=== PATIENT | female | born 1945 | race Asian ===

== ENCOUNTER → 2016-04-27 | Outpatient (CLI) | payer OTHER ==
[~2016-04-27] MED LIST: ACET325T96 PO; ACTUDL10 GT; ALBU18002 INH; ALBUAER INH; AMLO-110 PEG; AMOX500T PO; APRE1TAB3 PO; ARTISOL12 OPB; BETA0.053 EXT; BISA1TAB15 PO; CALC-250 PO; CLOB-65 EXT; COCO1OIL2 TD; DIVA1CAP PO; DIVA500T5 PO; DOCU1TAB6 PO; ELDCR/30 TOP; EMOLOIN3 TOP; ERYOPO OPB; FAMO1TAB71 PEG; FOLI1TAB7 PO; GLC/500 PEG; GLC500 PO; GUAI1TAB69 PO; GUAI1TAB75 PO; HYDR-3124 PEG; HYDR-3785 PO; HYDR-389 PO; HYDR2.5O TOP; HYDROXYZINE PO; IBUP200T80 PEG; IPRASOL4 INH; LORA-741 PEG; MENTOIN TOP; MICO2CRE48 TOP; MICO2CRE63 EXT; NYSS/ PO; NYSTCRE11 TOP; ORVANCOMY1 IV; PIME1CRE9 TD; POLY335025 PO; PRD10 PO; PRLSR20 PO; PROAIR HFA 90MCG INH; RISP1TAB18 PEG; RISP3TAB12 PO; SENN8.6T36 PEG; SYMIN160 INH; TRAM-10 PO; TRIA0.1O12 EXT; TRIH2TAB2 PEG; TRMCR130WC TOP; ULT50X PO; VALP250S16 PEG; VANC500I IV; VITA400C3 PO; VTMD PO; ZINC1PST TOP; [UNRECOGNIZED DRUG - CODE] PO; [UNRECOGNIZED DRUG - CODE] TOP
[2016-04-27 08:44] LABS: HEMATOCRIT 34.2 % (37-47); MEAN CELL VOLUME 92.9 fL (80-100); MEAN CORPUSCULAR HEMOGLOBIN 31.8 pg (25-34); MEAN CORPUSCULAR HGB CONC 34.2 g/dl (32-36); MEAN PLATELET VOLUME 9.5 fL (7.4-10.4); PLATELET COUNT 238 K/uL (130-400); RED BLOOD COUNT 3.68 M/uL (4.2-5.4); WHITE BLOOD COUNT 8.46 K/uL (4.8-10.8)
[2016-04-27 08:51] LABS: BLOOD UREA NITROGEN 10 mg/dl (7-18); BUN/CREATININE RATIO 12.5 (10-20); CARBON DIOXIDE 24 mmol/L (21-32); CHLORIDE 104 mmol/L (98-107); CREATININE 0.76 mg/dl (0.60-1.20); GLUCOSE 114 mg/dl (70-99); POTASSIUM 4.2 mmol/L (3.5-5.1); SODIUM 140 mmol/L (136-145)
== END | disposition home or self-care (01) ==
LOC: C.LABSPEC 08:13
PROVIDERS: ATTEND Nurse Practitioner Family
DX: E87.1 Hypo-osmolality and hyponatremia (principal); R05 Cough

== ENCOUNTER → 2016-05-11 | Outpatient (CLI) | payer OTHER ==
[2016-05-11 10:21] LABS: URINE APPEARANCE CLEAR (CLEAR); URINE BILIRUBIN NEG (NEG); URINE COLOR YELLOW; URINE EPITHELIAL CELL AUTO 0-5 /lpf (0-5); URINE NITRITE POS (NEG); URINE PH 7.5 (4.5-7.5); URINE SPECIFIC GRAVITY 1.005 (1.000-1.030); UROBILINOGEN NEG (NEG)
[2016-05-11 10:27] LABS: MANUAL MICROSCOPIC REQUIRED? NO; REVIEW REQ? NO
== END | disposition home or self-care (01) ==
LOC: C.LABSPEC 09:13
PROVIDERS: ATTEND Internal Medicine
DX: R05 Cough (principal)

== ENCOUNTER 2016-05-30 13:59 | Inpatient (IN) | payer OTHER ==
[~2016-05-30] VITALS: Ht 152.4 cm; Wt 58.9 kg
[~2016-05-30 13:59] MED LIST changes: -ACTUDL10 GT; -ALBU18002 INH; -AMOX500T PO; -APRE1TAB3 PO; -ARTISOL12 OPB; -COCO1OIL2 TD; -DIVA1CAP PO; -ELDCR/30 TOP; -ERYOPO OPB; -FAMO1TAB71 PEG; -GLC/500 PEG; -GUAI1TAB69 PO; -GUAI1TAB75 PO; -HYDR-3124 PEG; -HYDR-389 PO; -IBUP200T80 PEG; -MICO2CRE48 TOP; -MICO2CRE63 EXT; -NYSS/ PO; -ORVANCOMY1 IV; -PIME1CRE9 TD; -PRD10 PO; -PROAIR HFA 90MCG INH; -RISP1TAB18 PEG; -SENN8.6T36 PEG; -TRAM-10 PO; -TRMCR130WC TOP; -VALP250S16 PEG; -VANC500I IV; -ZINC1PST TOP; -[UNRECOGNIZED DRUG - CODE] TOP
[2016-05-30] MEDS ORDERED: SODIUM CHLORIDE 0.9% 1000ML 1,000 ML IV STA (14:19)
--- NOTE | 2016-05-30 14:39 | DIAGNOSTIC IMAGING REPORT ---
CHEST ONE VIEW PORTABLE CLINICAL HISTORY: fever COUGH, SHORTNESS OF BREATH COMPARISON STUDY: No previous studies for comparison. FINDINGS: The heart is normal in size. There is no lobar consolidation. There is diffuse elevation of the interstitium. This could reflect mild residual edema or an interstitial inflammatory process. Left basal airspace opacities are felt to be atelectatic.[ IMPRESSION: 1. Mild interstitial thickening/edema 2. No evidence of lobar consolidation 3. Left basilar opacities, likely atelectatic Electronically signed by: Torito De La Cruz M.D. 05/30/2016 2:38 PM Dictated Date/Time: 05/30/2016 2:34 PM
[2016-05-30 14:40] LABS: MANUAL MICROSCOPIC REQUIRED? NO; REVIEW REQ? NO; URINE APPEARANCE CLEAR (CLEAR); URINE BILIRUBIN NEG (NEG); URINE COLOR YELLOW; URINE NITRITE NEG (NEG); URINE PH 6.5 (4.5-7.5); URINE SPECIFIC GRAVITY 1.018 (1.000-1.030); UROBILINOGEN NEG (NEG); ZZURINE CULT IF INDIC CATH NO
[2016-05-30 15:04] LABS: BASO % 0.2 %; BASO ABS # 0.03 K/uL (0-0.2); COMPLETE YES; EOS % 1.2 %; HEMATOCRIT 34.4 % (37-47); IG% 0.7 %; LYMPH % 24.3 %; LYMPH ABS # 3.31 K/uL (1.2-3.4); MEAN CELL VOLUME 94.5 fL (80-100); MEAN CORPUSCULAR HEMOGLOBIN 32.1 pg (25-34); MEAN PLATELET VOLUME 8.7 fL (7.4-10.4); MONO % 17.1 %; NEUT % 56.5 %; PLATELET COUNT 212 K/uL (130-400); RED BLOOD COUNT 3.64 M/uL (4.2-5.4); WHITE BLOOD COUNT 13.63 K/uL (4.8-10.8)
[2016-05-30] MEDS ORDERED: [UNRECOGNIZED DRUG - CODE] TOP (15:13)
[2016-05-30] MEDS ORDERED: ZINC1PST TOP (15:13)
[2016-05-30] MEDS ORDERED: APRE1TAB3 PO (15:13)
[2016-05-30] MEDS ORDERED: GUAI1TAB69 PO (15:13)
[2016-05-30] MEDS ORDERED: AMOX500T PO (15:13)
[2016-05-30] MEDS ORDERED: TRAM-10 PO (15:13)
[2016-05-30] MEDS ORDERED: COCO1OIL2 TD (15:13)
[2016-05-30] MEDS ORDERED: ELDCR/30 TOP (15:13)
[2016-05-30 15:23] LABS: ALT/SGPT 10 U/L (12-78); AST/SGOT 6 U/L (15-37); BLOOD UREA NITROGEN 5 mg/dl (7-18); BUN/CREATININE RATIO 6.3 (10-20); CALCIUM 8.3 mg/dl (8.5-10.1); CARBON DIOXIDE 26 mmol/L (21-32); CHLORIDE 104 mmol/L (98-107); CREATININE 0.75 mg/dl (0.60-1.20); GLUCOSE 106 mg/dl (70-99); MAGNESIUM 1.7 mg/dl (1.8-2.4); POTASSIUM 3.7 mmol/L (3.5-5.1); SODIUM 138 mmol/L (136-145)
[2016-05-30 15:29] LABS: ALKALINE PHOSPHATASE 53 U/L (45-117)
[2016-05-30] MEDS ORDERED: LORAZEPAM 2 MG/ML 1 ML VIAL IV STA (15:29)
[2016-05-30] MEDS ORDERED: VANCOMYCIN INJ 1,200 MG in SODIUM CHLORIDE 0.9% 250ML 250 ML IV STA (15:31)
[2016-05-30] MEDS ORDERED: PIPERACILLIN/TAZOBACTAM 4.5 GM/100ML D5W IV STA (15:31)
[2016-05-30] MEDS ORDERED: ONDANSETRON INJ 2 MG/ML 2 ML VIAL IV PRN (16:15)
[2016-05-30] MEDS ORDERED: ACETAMINOPHEN 325 MG TAB PO PRN (16:15)
[2016-05-30] MEDS ORDERED: IPRASOL4 INH (16:39)
[2016-05-30] MEDS ORDERED: D5W AND NSS 1,000 ML IV SCH (17:00)
[2016-05-30 17:22] LABS: ALLEN TEST POS (POS); ARTERIAL BLD GAS O2 SATURATION 98.6 % (90-95); ARTERIAL BLOOD GAS BASE EXCESS 3.8 mEq/L (-9-1.8); ARTERIAL BLOOD GAS HCO3 29 mmol/L (19-24); ARTERIAL BLOOD GAS PO2 129 mm/Hg (80-95); ARTERIAL BLOOD GAS pH 7.43 (7.35-7.45); O2 ADMINISTRATION 4 L
[2016-05-30 17:26] LABS: INFLUENZA A PCR Neg for Influ A (NEG); INFLUENZA B PCR Neg for Influ B (NEG)
[2016-05-30 17:39] VITALS: BP 126/92; PULSE 108; O2SAT 96
--- NOTE | 2016-05-30 17:39 | EMERGENCY ROOM VISIT NOTE ---
"History Report prepared by Damion: Jenn Mata Under the Supervision of: Dr. Leroy Wilks M.D. First contact with patient: 14:13 Chief Complaint: FEVER Stated Complaint: FEVER/SOB/COUGH History of Present Illness The patient is a 70 year old female who presents to the Emergency Room from [facility] with complaints of persistent weakness starting last night. She has also been lethargic. The patient was hypoxic upon arrival and her O2 was at 90 percent. She received 700 cc of fluid. She has a history of COPD and uses nebulizer and an inhaler. She does not use oxygen at home. The patient recently had a UTI which was treated with Bactrim. HPI is limited secondary to altered mental status. Additional history was obtained from [facility] clearance representative. Source of History: other (from [facility] clearance representative) History Limited By: AMS Onset: last night Position: other (global) Quality: other (weakness) Review of Systems ROS is limited secondary to altered mental status. Past Medical & Surgical Medical Problems: (1) COPD (chronic obstructive pulmonary disease) (2) Dementia (3) Diabetes mellitus (4) HTN (hypertension) (5) Hyperglycemia (6) Osteoporosis (7) Parkinson disease (8) Psoriatic arthritis (9) PTSD (post-traumatic stress disorder) (10) Schizophrenia (11) Vitamin D deficiency Surgical Problems: (1) History of hysterectomy (2) Hx of breast implants, bilateral Family History Patient reports no known family medical history. Social History Smoking Status: Never Smoker Alcohol Use: none Drug Use: none Marital Status: single Housing Status: lives with family Occupation Status: unemployed Current/Historical Medications Scheduled Amlodipine (Norvasc), 5 MG PO DAILY Amoxicillin & Pot Clavulanate (Augmentin 500MG), 500 MG PO BID Apremilast (Otezla), 30 MG PO BID Budesonide/Formoterol Fumarate (Symbicort 160/4.5 Inhaler ), 2 PUFFS INH BID Calcium Carbonate (Antacid) (Qc Antacid Extra Strength), 1 TAB PO BID Coconut Oil (Bulk) (Coconut Oil), Unknown Dose TOP DAILY Control Gel Formula Dressing (Duoderm Cgf), Unknown Dose TOP [id number] Divalproex Sodium (Depakote Delay Rel), 500 MG PO BID Ergocalciferol (Vitamin D), 50,000 UNITS PO WK Folic Acid (Folvite), 1 MG PO DAILY Guaifenesin (Mucinex Maximum Strength), 600 MG PO BID Ipratropium-Albuterol (Duoneb), 1 TREATMENT INH QID Menthol-Zinc Oxide (Calmoseptine), Unknown Dose TOP BID Metformin HCl (Metformin HCl), 1 TAB PO BID Omeprazole (Prilosec), 20 MG PO DAILY Risperidone (Risperdal), 3 MG PO BID Trihexyphenidyl Hcl (Artane), 2 MG PO BID Vitamin E (Vitamin E 400 Iu), 800 INTER.UNIT PO DAILY Scheduled PRN Acetaminophen Tab (Tylenol), 2 TAB PO Q6 PRN for Pain or Fever Albuterol (Proventil Hfa), 2 PUFFS INH Q4 PRN for SOB/Wheezing Betamethasone Dipropionate (To (Betamethasone Dipropionat), 1 APPLN EXT HS PRN for skin irritation Docusate Sodium (Docusate Sodium), 1 TAB PO DAILY PRN for Constipation Hydrocortisone (Topical) (Hydrocortisone), 1 APPLN TOP BID PRN for skin irritation Hydroxyzine Hcl (Atarax), 5 MG PO Q6 PRN for Itching Lactase (Lac-Dose), 1 TAB PO BID PRN for GI Upset Lorazepam (Ativan), 0.5 MG PO Q6H PRN for Anxiety/Agitation Nystatin/Triamcinolone (Mycolog ||), 1 APPLN TOP BID PRN for skin irritation Pimecrolimus (Elidel), 1 APPLN TOP BID PRN for skin irritation Polyethylene Glycol 3350 (Miralax), 17 GM PO DAILY PRN for Constipation Tramadol (Ultram), 50 MG PO Q6H PRN for Pain Triamcinolone Acet (Kenelog 0.1% ), 1 APPLN EXT HS PRN for Itching Zinc Oxide (Topical) (Desitin Maximum Strength), 1 APPLN TOP UD PRN for excoriation Allergies Coded Allergies: Nitrofurantoin (Verified Allergy, Intermediate, INCREASED SKIN REACTION, ITCHING, CHEST PAIN, WHEEZING, 05/30/16) Rifampin (Verified Adverse Reaction, Severe, RASH, 05/30/16) as per chris and foster care therapist, pt was in [facility] in 2013 for diffuse rash with skin peeling due to rifampin, was admitted in [facility] [place] Diphenhydramine (Verified Adverse Reaction, Intermediate, ADVERSE REACTION WITH PSYCH MEDS, 05/30/16) Physical Exam Vital Signs Date Time Temp Pulse Resp B/P Pulse Ox O2 Delivery O2 Flow Rate FiO2 05/30/16 15:52 102 22 131/79 100 Nasal Cannula 4.0 05/30/16 14:13 93 Nasal Cannula 4.0 05/30/16 14:12 94 05/30/16 14:05 37.0 94 22 131/79 86 Room Air Physical Exam GENERAL: Patient is ill appearing, somnolent, periodically looking around the room, mild distress HEENT: No acute trauma, normocephalic atraumatic, mucous membranes moist, no nasal congestion, no scleral icterus. NECK: No stridor, no adenopathy, no meningismus, trachea is midline. LUNGS: Rhonchi in all lung huggins. HEART: Regular rate and rhythm. No murmurs, rubs, gallops appreciated. ABDOMEN: Soft, nontender, bowel sounds positive, no masses appreciated, no peritonitis. BACK: No midline tenderness, no CVA tenderness EXTREMITIES: Normal motion all extremities, no cyanosis, no edema. NEUROLOGIC: Somnolent, periodically says yes or no, weakly moves all extremities No acute motor or sensory deficits, no focal weakness, cranial nerves grossly intact. SKIN: No rash, no jaundice, no diaphoresis. Medical Decision & Procedures ER Provider Diagnostic Interpretation: X ray results are stated below per my interpretation and the radiologist's interpretation. CHEST ONE VIEW PORTABLE CLINICAL HISTORY: fever COUGH, SHORTNESS OF BREATH COMPARISON STUDY: No previous studies for comparison. FINDINGS: The heart is normal in size. There is no lobar consolidation. There is diffuse elevation of the interstitium. This could reflect mild residual edema or an interstitial inflammatory process. Left basal airspace opacities are felt to be atelectatic.[ IMPRESSION: 1. Mild interstitial thickening/edema 2. No evidence of lobar consolidation 3. Left basilar opacities, likely atelectatic Electronically signed by: Torito De La Cruz M.D. 05/30/2016 2:38 PM Dictated Date/Time: 05/30/2016 2:34 PM Laboratory Results 05/30/16 14:52 Red Blood Count 3.64, Mean Corpuscular Volume 94.5, Mean Corpuscular Hemoglobin 32.1, Mean Corpuscular Hemoglobin Concent 34.0, Mean Platelet Volume 8.7, Neutrophils (%) (Auto) 56.5, Lymphocytes (%) (Auto) 24.3, Monocytes (%) (Auto) 17.1, Eosinophils (%) (Auto) 1.2, Basophils (%) (Auto) 0.2, Neutrophils # (Auto ) 7.71, Lymphocytes # (Auto) 3.31, Monocytes # (Auto) 2.33, Eosinophils # (Auto ) 0.16, Basophils # (Auto) 0.03 05/30/16 14:52 Test 05/30/16 14:26 05/30/16 14:52 05/30/16 14:54 05/30/16 15:18 Urine Color YELLOW Urine Appearance CLEAR (CLEAR) Urine pH 6.5 (4.5-7.5) Urine Specific [place] 1.018 (1.000-1.030) Urine Protein NEG (NEG) Urine Glucose (UA) NEG (NEG) Urine Ketones TRACE (NEG) Urine Occult Blood NEG (NEG) Urine Nitrite NEG (NEG) Urine Bilirubin NEG (NEG) Urine Urobilinogen NEG (NEG) Urine Leukocyte Esterase SMALL (NEG) Urine WBC (Auto) 5-10 /hpf (0-5) Urine RBC (Auto) 0-4 /hpf (0-4) Urine Hyaline Casts (Auto) 1-5 /lpf (0-5) Urine Epithelial Cells (Auto) 10-20 /lpf (0-5) Urine Bacteria (Auto) NEG (NEG) White Blood Count 13.63 K/uL (4.8-10.8) Red Blood Count 3.64 M/uL (4.2-5.4) Hemoglobin 11.7 g/dL (12.0-16.0) Hematocrit 34.4 % (37-47) Mean Corpuscular Volume 94.5 fL (80-100) Mean Corpuscular Hemoglobin 32.1 pg (25-34) Mean Corpuscular Hemoglobin Concent 34.0 g/dl (32-36) Platelet Count 212 K/uL (130-400) Mean Platelet Volume 8.7 fL (7.4-10.4) Neutrophils (%) (Auto) 56.5 % Lymphocytes (%) (Auto) 24.3 % Monocytes (%) (Auto) 17.1 % Eosinophils (%) (Auto) 1.2 % Basophils (%) (Auto) 0.2 % Neutrophils # (Auto) 7.71 K/uL (1.4-6.5) Lymphocytes # (Auto) 3.31 K/uL (1.2-3.4) Monocytes # (Auto) 2.33 K/uL (0.11-0.59) Eosinophils # (Auto) 0.16 K/uL (0-0.5) Basophils # (Auto) 0.03 K/uL (0-0.2) RDW Standard Deviation 42.8 fL (36.4-46.3) RDW Coefficient of Variation 12.5 % (11.5-14.5) Immature Granulocyte % (Auto) 0.7 % Immature Granulocyte # (Auto) 0.09 K/uL (0.00-0.02) Prothrombin Time 11.0 SECONDS (9.0-12.0) Prothromb Time International Ratio 1.0 (0.9-1.1) Anion Gap 8.0 mmol/L (3-11) Est Creatinine Clear Calc Drug Dose 58.8 ml/min Estimated GFR () 94.9 Estimated GFR (Non- 81.9 BUN/Creatinine Ratio 6.3 (10-20) Calcium Level 8.3 mg/dl (8.5-10.1) Magnesium Level 1.7 mg/dl (1.8-2.4) Total Bilirubin 0.3 mg/dl (0.2-1) Direct Bilirubin < 0.1 mg/dl (0-0.2) Aspartate Amino Transf (AST/SGOT) 6 U/L (15-37) Alanine Aminotransferase (ALT/SGPT) 10 U/L (12-78) Alkaline Phosphatase 53 U/L (45-117) Total Creatine Kinase 62 U/L (26-192) Creatine Kinase MB < 0.5 ng/ml (0.5-3.6) Creatine Kinase MB Ratio (0-3.0) Troponin I < 0.015 ng/ml (0-0.045) Total Protein 7.0 gm/dl (6.4-8.2) Albumin 2.9 gm/dl (3.4-5.0) Bedside Lactic Acid Venous 0.94 mmol/L (0.90-1.70) Influenza Type A (RT-PCR) Neg for Influ A (NEG) Influenza Type A Antigen Neg for Influ A (NEG) Influenza Type B Antigen Neg for Influ B (NEG) Influenza Type B (RT-PCR) Neg for Influ B (NEG) Laboratory results as reviewed by me. Medications Administered Medications (Trade) Dose Ordered Sig/Abelardo Route Start Time Stop Time Status Last Admin Dose Admin Sodium Chloride (Nss 1000ml) 1,000 ml @ 75 mls/hr [id number] STAT IV 05/30/16 14:19 05/31/16 03:38 05/30/16 14:19 75 MLS/HR Lorazepam (Ativan Inj) 1 mg NOW STAT IV 05/30/16 15:29 05/30/16 15:30 DC 05/30/16 15:43 1 MG Piperacillin Sod/ Tazobactam Sod 4.5 gm 4.5 gm NOW STAT IV 05/30/16 15:31 05/30/16 15:33 DC 05/30/16 15:50 4.5 GM Vancomycin HCl/ Sodium Chloride (Vancomycin Inj/ Nss 250ml) 274 ml @ 125 mls/hr NOW STAT IV 05/30/16 15:31 05/30/16 17:42 05/30/16 16:34 125 MLS/HR ECG Indication: weakness Rate (beats per minute): 93 Rhythm: sinus rhythm Findings: no acute ischemic change, no ectopy ED Course 1413: The patient was evaluated in room C10. A complete history and physical exam was performed. 1419: Sodium Chloride 1000 ml @ 75 mls/hr IV 1528: Awake, swearing at staff, threatening to kill people. Removes oxygen and desaturates immediately. 1529: Ativan Inj 1 mg IV 1531: Vancomycin HCl 1200 mg/Sodium Chloride 274 ml @ 125 mls/hr IV, Zosyn IV 4.5 gm IV 1533: Upon reevaluation, the patient is resting comfortably. I discussed the patient's case with THERESA Arshad with [facility]. The patient will be evaluated for further management. Medical Decision Differential: Viral, Pharyngitis, Cellulitis, Pneumonia, Influenza, Meningitis, Sepsis, Bacteremia, UTI/Pyelonephritis, Endocrine, Toxicologic, amongst other pathologies entertained. 70 yr old female arrives from assisted living area for evaluation of hypoxia, fever and hypotension. Fluid [employer] with improvement in BP. Hypoxia improved with NC. She does not have fever at this time. Lactic acid not significantly elevated though mild WBC elevation. With reported fevers, hypoxia and mild WBC elevation will treat with abx as presumed lung source. Flu negative. She is much more awake after some fluids and even trying to bite people, though when NC off she goes hypoxic. She was given ativan to help calm down. Will need to bring in for further evaluation and treatment. Consults Time Called: [phone] Consulting Physician: THERESA Arshad with [facility] Returned Call: [phone] I discussed the patient's case with THERESA Arshad with [facility]. Impression Primary Impression: Altered mental status Additional Impressions: Hypoxia Pulmonary edema Aggressive behavior Scribe Attestation The scribe's documentation has been prepared under my direction and personally reviewed by me in its entirety. I confirm that the note above accurately reflects all work, treatment, procedures, and medical decision making performed by me. Departure Information Dispostion Being Evaluated By Hospitalist Prescriptions Ipratropium-Albuterol (DUONEB) 3 Ml Nebu 1 TREATMENT INH QID for 30 Days, INHA Prov: Adina Gamez .THERESA 05/30/16 Referrals [facility] (PC[facility] Patient Instructions My [facility] Health Problem Qualifiers Primary Impression: Altered mental status Altered mental status type: disorientation Qualified Codes: R41.0 - Disorientation, unspecified Additional Impressions: Pulmonary edema Chronicity: acute Qualified Codes: J81.0 - Acute pulmonary edema"
[2016-05-30 17:46] VITALS: BP 126/92; PULSE 108; TEMP 37; O2SAT 94; Ht 152.4 cm; Wt 58.9 kg
[2016-05-30] MEDS ORDERED: DOCUSATE SODIUM 100 MG CAP PO PRN (18:00)
[2016-05-30] MEDS ORDERED: PHARMACY GLYCEMIC MGMT CONSULT PRN (18:03)
--- NOTE | 2016-05-30 18:07 | History and Physical ---
"History & Physical Date & Time of Service: May 30, 2016 at 17:35 Chief Complaint: Hypoxia, Fever Primary Care Physician: [facility] History of Present Illness 70 year old female who was sent to the ER by the staff at [facility] for evaluation of fever and hypoxia. Upon arrival to the ER, patient was very agitated and combative. She received IV Ativan and is now currently sedated. Also of note, patient speaks Frisian. She understands Luxembourgish if it is spoken loud and slow. She speaks minimal Luxembourgish. History was obtained from staff at [facility]. They report that patient was treated for a UTI about 3 weeks ago. They are unsure which antibiotic she was on. About two days she developed congestion and cough and was started on Augmentin. They also note increasing weakness and lethargy. Today patient had a temperature of 99.9 and was 90% on room air. No reports of nausea, vomiting, or diarrhea. No further urinary symptoms. In the ER, patient was 86% on room air. This improved with 4L oxygen via NC. She is mildly tachycardic. She is afebrile, BP is stable. Lactic acid 0.94, WBC 13K. No clear infiltrate noted on CXR. She was given IVF, Vanco, and Zosyn. Past Medical/Surgical History Medical Problems: (1) COPD (chronic obstructive pulmonary disease) Status: Chronic (2) Dementia Status: Chronic (3) Diabetes mellitus Status: Chronic (4) HTN (hypertension) Status: Chronic (5) Hyperglycemia Status: Chronic (6) Osteoporosis Status: Chronic (7) Parkinson disease Status: Chronic (8) Psoriatic arthritis Status: Chronic (9) PTSD (post-traumatic stress disorder) Status: Chronic (10) Schizophrenia Status: Chronic (11) Vitamin D deficiency Status: Chronic Surgical Problems: (1) History of hysterectomy Status: Resolved (2) Hx of breast implants, bilateral Status: Resolved Family History unobtainable from patient due to mental status Social History Smoking Status: Former Smoker Alcohol Use: none Housing status: assisted living Allergies Coded Allergies: Nitrofurantoin (Verified Allergy, Intermediate, INCREASED SKIN REACTION, ITCHING, CHEST PAIN, WHEEZING, 05/30/16) Rifampin (Verified Adverse Reaction, Severe, RASH, 05/30/16) as per chris and patient care coordinator, pt was in [facility] in 2013 for diffuse rash with skin peeling due to rifampin, was admitted in [facility] Diphenhydramine (Verified Adverse Reaction, Intermediate, ADVERSE REACTION WITH PSYCH MEDS, 05/30/16) Home Medications Scheduled Amlodipine (Norvasc), 5 MG PO DAILY Amoxicillin & Pot Clavulanate (Augmentin 500MG), 500 MG PO BID Apremilast (Otezla), 30 MG PO BID Budesonide/Formoterol Fumarate (Symbicort 160/4.5 Inhaler ), 2 PUFFS INH BID Calcium Carbonate (Antacid) (Qc Antacid Extra Strength), 1 TAB PO BID Coconut Oil (Bulk) (Coconut Oil), Unknown Dose TOP DAILY Control Gel Formula Dressing (Duoderm Cgf), Unknown Dose TOP [id number] Divalproex Sodium (Depakote Delay Rel), 500 MG PO BID Ergocalciferol (Vitamin D), 50,000 UNITS PO WK Folic Acid (Folvite), 1 MG PO DAILY Guaifenesin (Mucinex Maximum Strength), 600 MG PO BID Ipratropium-Albuterol (Duoneb), 1 TREATMENT INH QID Menthol-Zinc Oxide (Calmoseptine), Unknown Dose TOP BID Metformin HCl (Metformin HCl), 1 TAB PO BID Omeprazole (Prilosec), 20 MG PO DAILY Risperidone (Risperdal), 3 MG PO BID Trihexyphenidyl Hcl (Artane), 2 MG PO BID Vitamin E (Vitamin E 400 Iu), 800 INTER.UNIT PO DAILY Scheduled PRN Acetaminophen Tab (Tylenol), 2 TAB PO Q6 PRN for Pain or Fever Albuterol (Proventil Hfa), 2 PUFFS INH Q4 PRN for SOB/Wheezing Betamethasone Dipropionate (To (Betamethasone Dipropionat), 1 APPLN EXT HS PRN for skin irritation Docusate Sodium (Docusate Sodium), 1 TAB PO DAILY PRN for Constipation Hydrocortisone (Topical) (Hydrocortisone), 1 APPLN TOP BID PRN for skin irritation Hydroxyzine Hcl (Atarax), 5 MG PO Q6 PRN for Itching Lactase (Lac-Dose), 1 TAB PO BID PRN for GI Upset Lorazepam (Ativan), 0.5 MG PO Q6H PRN for Anxiety/Agitation Nystatin/Triamcinolone (Mycolog ||), 1 APPLN TOP BID PRN for skin irritation Pimecrolimus (Elidel), 1 APPLN TOP BID PRN for skin irritation Polyethylene Glycol 3350 (Miralax), 17 GM PO DAILY PRN for Constipation Tramadol (Ultram), 50 MG PO Q6H PRN for Pain Triamcinolone Acet (Kenelog 0.1% ), 1 APPLN EXT HS PRN for Itching Zinc Oxide (Topical) (Desitin Maximum Strength), 1 APPLN TOP UD PRN for excoriation Review of Systems unobtainable due to patient's mental status Physical Exam Vital Signs Date Time Temp Pulse Resp B/P Pulse Ox O2 Delivery O2 Flow Rate FiO2 05/30/16 17:21 74 20 122/74 96 05/30/16 16:34 106 20 121/69 97 Nasal Cannula 4.0 05/30/16 15:52 102 22 131/79 100 Nasal Cannula 4.0 05/30/16 14:13 93 Nasal Cannula 4.0 05/30/16 14:12 94 05/30/16 14:05 37.0 94 22 131/79 86 Room Air General Appearance: no apparent distress Head: normocephalic Eyes: normal inspection ENT: hearing grossly normal, + pertinent finding (dry mucous membranes) Neck: supple, no JVD Respiratory/Chest: no respiratory distress, + decreased breath sounds, + crackles (right base) Cardiovascular: no edema, + tachycardia (HR in the 90s-low 100s, regular rhythm ) Abdomen/GI: normal bowel sounds, non tender, soft Extremities/Musculoskelatal: normal inspection, no calf tenderness Neurologic/Psych: + pertinent finding (awake, however minimal interaction, does not follow commands) Skin: normal color, warm/dry Diagnostics Laboratory Results Results Past 24 Hours Test 05/30/16 14:26 05/30/16 14:52 05/30/16 14:54 05/30/16 15:18 Range/Units Urine Color YELLOW Urine Appearance CLEAR CLEAR Urine pH 6.5 4.5-7.5 Urine Specific [place] 1.018 1.000-1.030 Urine Protein NEG NEG Urine Glucose (UA) NEG NEG Urine Ketones TRACE NEG Urine Occult Blood NEG NEG Urine Nitrite NEG NEG Urine Bilirubin NEG NEG Urine Urobilinogen NEG NEG Urine Leukocyte Esterase SMALL NEG Urine WBC (Auto) 5-10 0-5 /hpf Urine RBC (Auto) 0-4 0-4 /hpf Urine Hyaline Casts (Auto) 1-5 0-5 /lpf Urine Epithelial Cells (Auto) 10-20 0-5 /lpf Urine Bacteria (Auto) NEG NEG White Blood Count 13.63 4.8-10.8 K/uL Red Blood Count 3.64 4.2-5.4 M/uL Hemoglobin 11.7 12.0-16.0 g/dL Hematocrit 34.4 37-47 % Mean Corpuscular Volume 94.5 80-100 fL Mean Corpuscular Hemoglobin 32.1 25-34 pg Mean Corpuscular Hemoglobin Concent 34.0 32-36 g/dl Platelet Count 212 130-400 K/uL Mean Platelet Volume 8.7 7.4-10.4 fL Neutrophils (%) (Auto) 56.5 % Lymphocytes (%) (Auto) 24.3 % Monocytes (%) (Auto) 17.1 % Eosinophils (%) (Auto) 1.2 % Basophils (%) (Auto) 0.2 % Neutrophils # (Auto) 7.71 1.4-6.5 K/uL Lymphocytes # (Auto) 3.31 1.2-3.4 K/uL Monocytes # (Auto) 2.33 0.11-0.59 K/uL Eosinophils # (Auto) 0.16 0-0.5 K/uL Basophils # (Auto) 0.03 0-0.2 K/uL RDW Standard Deviation 42.8 36.4-46.3 fL RDW Coefficient of Variation 12.5 11.5-14.5 % Immature Granulocyte % (Auto) 0.7 % Immature Granulocyte # (Auto) 0.09 0.00-0.02 K/uL Prothrombin Time 11.0 9.0-12.0 SECONDS Prothromb Time International Ratio 1.0 0.9-1.1 Sodium Level 138 136-145 mmol/L Potassium Level 3.7 3.5-5.1 mmol/L Chloride Level 104 98-107 mmol/L Carbon Dioxide Level 26 21-32 mmol/L Anion Gap 8.0 3-11 mmol/L Blood Urea Nitrogen 5 7-18 mg/dl Creatinine 0.75 0.60-1.20 mg/dl Est Creatinine Clear Calc Drug Dose 58.8 ml/min Estimated GFR () 94.9 Estimated GFR (Non- 81.9 BUN/Creatinine Ratio 6.3 10-20 Random Glucose 106 70-99 mg/dl Calcium Level 8.3 8.5-10.1 mg/dl Magnesium Level 1.7 1.8-2.4 mg/dl Total Bilirubin 0.3 0.2-1 mg/dl Direct Bilirubin < 0.1 0-0.2 mg/dl Aspartate Amino Transf (AST/SGOT) 6 15-37 U/L Alanine Aminotransferase (ALT/SGPT) 10 12-78 U/L Alkaline Phosphatase 53 45-117 U/L Total Creatine Kinase 62 26-192 U/L Creatine Kinase MB < 0.5 0.5-3.6 ng/ml Creatine Kinase MB Ratio 0-3.0 Troponin I < 0.015 0-0.045 ng/ml Total Protein 7.0 6.4-8.2 gm/dl Albumin 2.9 3.4-5.0 gm/dl Bedside Lactic Acid Venous 0.94 0.90-1.70 mmol/L Influenza Type A (RT-PCR) Neg for Influ A NEG Influenza Type A Antigen Neg for Influ A NEG Influenza Type B Antigen Neg for Influ B NEG Influenza Type B (RT-PCR) Neg for Influ B NEG Test 05/30/16 17:09 05/30/16 17:32 Range/Units Arterial Blood pH 7.43 7.35-7.45 Arterial Blood Partial Pressure CO2 44 35-46 mmHg Arterial Blood Partial Pressure O2 129 80-95 mm/Hg Arterial Blood HCO3 29 19-24 mmol/L Arterial Blood Oxygen Saturation 98.6 90-95 % Arterial Blood Base Excess 3.8 -9-1.8 mEq/L Arterial Blood Gas Delivery 4 L Yehuda Test POS POS Microbiology Results 05/30/16 Blood Culture, Received Pending 05/30/16 Blood Culture, Received Pending Diagnostic Radiology CXR IMPRESSION: 1. Mild interstitial thickening/edema 2. No evidence of lobar consolidation 3. Left basilar opacities, likely atelectatic Impression Assessment and Plan ACUTE HYPOXIC RESPIRATORY FAILURE, COPD EXACERBATION, URI - admit to tele - patient presenting with 2 days of cough and congestion, reported low grade fever at [facility], and hypoxia - 86% on room air on arrival, saturating well on 4L via NC - possible early sepsis - leukocytosis and tachycardia; lactate WNL, BP stable - CXR does not show any infiltrate - influenza negative - s/p Zosyn and Vanco in ED; will continue with Doxycycline for now - check ABG - blood cultures obtained - around the clock steroids and nebs - could consider PE however history suggests infectious source; if patient does not improve with above treatments, would do CTA METABOLIC ENCEPHALOPATHY, HX SCHIZOPHRENIA - likely due to underlying infection - continue Risperdal and Depakote - check ABG for CO2 retention - urine culture (had positive culture from 05/11 that grew E. coli - was treated per [facility] staff, however antibiotic unknown) HTN - BP controlled, continue amlodipine DM - hgb a1c 8.7 10/2015 - hold oral agents and utilize SSI while hospitalized PARKINSONISM - continue trihexyphenidyl PSORIATIC ARTHRITIS - will hold Otezla due to current infection DVT PROPHYLAXIS - SQ Lovenox DISPO - In my clinical judgment this beneficiary meets acute admission criteria, established by [facility], that includes being hospitalized through two midnights. - PT/OT consults, expect d/c back to [facility] once medically stable VTE Prophylaxis VTE Risk Assessment Done? Y/N: Yes Risk Level: Moderate Note ATTENDING ADDENDUM Record reviewed. Patient interviewed and examined. Care coordinated with THERESA Arshad. Please refer to her documentation for patient's history. Briefly, 70 YO female with history of schizophrenia, COPD, and other problems. Referred to ED because of cough, wheezing, lethargy. Patient sedated in ED and unable to provide any additional history. EXAM: General- sedated, no acute distress VS- as noted HEENT- anicteric Lungs- scattered rhonchi, diffuse wheezing Heart- RRR Abdomen- + BS, soft, nontender Extremities- no pretibial edema Neuro- sedated DATA: WBC 13,360. Influenza A/B testing by both Ag assay and PCR negative. Other lab studies as noted. CXR- mild interstitial thickening, probable atelectasis left base, no infiltrates. ASSESSMENT AND PLAN: Probably exacerbation of COPD due to tracheobronchitis. Influenza A/B PCR negative. No infiltrates on chest x-ray. Receiving IV vancomycin and piperacillin / tazobactam in ED. Will change Rx to doxycycline. Short course of steroids for bronchospasm. History of schizophrenia. Continue usual meds. Please refer to ADRYAN Gamez's documentation for discussion of other issues. Sandro Addison MD ."
[2016-05-30] MEDS: MAGNESIUM SULFATE 1GM / D5W 1 GM in PREMIXED IN D5W 100 ML IV SCH ×2 (18:57→19:50)
[2016-05-30 18:59] VITALS: PULSE 94; O2SAT 94
[2016-05-30] MEDS: ALBUT/IPRATROP 3MG/0.5MG NEB 3 ML VIAL INH SCH (18:59)
[2016-05-30] MEDS: SODIUM CHLORIDE 0.9% 1000ML 1,000 ML IV SCH (19:03)
[2016-05-30] MEDS: METHYLPREDNISOLONE IV 20 MG in SYRINGE 0 ML IV SCH (19:06)
[2016-05-30 19:29] VITALS: BP 138/82; PULSE 99; TEMP 36.5; O2SAT 93
[2016-05-30] MEDS: INSULIN ASPART 100 UNITS/ML 3 ML PEN SC SCH (19:51)
--- NOTE | 2016-05-30 20:10 | Pharmacy Progress Note ---
Glycemic Control Intl Consult Date of Service May 30, 2016. Scope Glycemic Pharmacist consulted by THERESA Arshad on 05/30/16 for glycemic control and to write orders per [facility] inpatient glycemic control protocol Objective Weight (Kilograms): 61.500 Accuchecks BSG (last 24hrs): Test 05/30/16 14:52 Random Glucose 106 mg/dl (70-99) Laboratory Data (last 24hrs) Test 05/30/16 14:52 Anion Gap 8.0 mmol/L BUN/Creatinine Ratio 6.3 Blood Urea Nitrogen 5 mg/dl Creatinine 0.75 mg/dl Potassium Level 3.7 mmol/L Sodium Level 138 mmol/L White Blood Count 13.63 K/uL Red Blood Count 3.64 M/uL Hemoglobin 11.7 g/dL Hematocrit 34.4 % Mean Corpuscular Volume 94.5 fL Mean Corpuscular Hemoglobin 32.1 pg Mean Corpuscular Hemoglobin Concent 34.0 g/dl Platelet Count 212 K/uL Mean Platelet Volume 8.7 fL Neutrophils (%) (Auto) 56.5 % Lymphocytes (%) (Auto) 24.3 % Monocytes (%) (Auto) 17.1 % Eosinophils (%) (Auto) 1.2 % Basophils (%) (Auto) 0.2 % Neutrophils # (Auto) 7.71 K/uL Lymphocytes # (Auto) 3.31 K/uL Monocytes # (Auto) 2.33 K/uL Eosinophils # (Auto) 0.16 K/uL Basophils # (Auto) 0.03 K/uL HbA1c Test 05/30/16 14:52 Recent Pertinent Medications Outpatient Anti-diabetic Regimen: * Metformin 500 mg PO BIDM * A1c = 8.7 % 10/2015 Risk Factors for Insulin Resistance: * Steroids: Solumedrol 20 mg IV every 12 hours @06,18 * Infection: Doxy IV * IVF: NS @75 * Diet: T2DM Assessment & Plan ASSESSMENT: * 70 yo F admitted with acute respiratory failure, initiated on IV steroids and doxycyline * Most recent A1c 8.7%- only on metformin as an outpatient- will order new A1c this admission * My plan will be to hold metformin and initiate Novolog ACHS to cover steroid- induced hyperglycemia * Consider addition of basal insulin if BSG >140 mg/dL * ADA & AACE recommend a goal blood sugar range 140-180 mg/dl for the majority of critically ill & non-critically ill patients. However, more stringent targets may be selected in individual cases. Tighten to 120-160 mg/dL due to steroids. PLAN FOR INPATIENT GLYCEMIC CONTROL: * Holding outpatient oral diabetes medications * Basal insulin with LANTUS BID - dose determined by BSG * 6 units if BSG 140-180 mg/dL, 12 units if BSG >180 mg/dL * Correctional Insulin with NOVOLOG per scale ACHS or Q6hrs while NPO * Goal Range: Low 120 mg/dL - High 160 mg/dL * Correction Factor: 40 mg/dL/unit * Nutritional / Prandial insulin per carb ratio of 1 unit per 15 grams CHO consumed * A1c on order for tomorrow with AM labs * Please note that the plan above was derived based on current level of insulin resistance and hospital stress. These recommendations are appropriate for inpatient admission only. Plan of care upon discharge will need to be reassessed to avoid potential outpatient hypo/hyperglycemia. Thank you.
[2016-05-30] MEDS: ENOXAPARIN 40 MG/0.4 ML SYR SC SCH (20:31)
[2016-05-30] MEDS: TRIHEXYPHENIDYL HCL 2 MG TAB PO SCH (20:32)
[2016-05-30] MEDS: RISPERIDONE 3 MG TAB PO SCH (20:32)
[2016-05-30] MEDS: GUAIFENESIN 600 MG TABCR PO SCH (20:32)
[2016-05-30] MEDS: CALCIUM CARBONATE 500 MG CHEWABLE PO SCH (20:33)
[2016-05-30] MEDS: BUDESONIDE/FORMOTEROL FUMARATE 160/4.5 60 PUFFS/INHALER INH SCH (20:33)
[2016-05-30] MEDS: DIVALPROEX SODIUM 500 MG DELAY RELEASE TAB PO SCH (20:33)
[2016-05-30] MEDS: DOXYCYCLINE IV 100 MG in DEXTROSE 5% 100ML 100 ML IV SCH (20:40)
[2016-05-31] VITALS (13 sets, daily range): BP systolic 109–155; BP diastolic 70–95; PULSE 72–107; TEMP 36.4–36.9; O2SAT 90–99
[2016-05-31] MEDS: ALBUT/IPRATROP 3MG/0.5MG NEB 3 ML VIAL INH SCH ×4 (01:51→19:33)
[2016-05-31 06:02] LABS: HEMATOCRIT 32.5 % (37-47); MEAN CELL VOLUME 92.3 fL (80-100); MEAN CORPUSCULAR HGB CONC 35.7 g/dl (32-36); MEAN PLATELET VOLUME 8.7 fL (7.4-10.4); PLATELET COUNT 216 K/uL (130-400); RED BLOOD COUNT 3.52 M/uL (4.2-5.4); WHITE BLOOD COUNT 11.13 K/uL (4.8-10.8)
[2016-05-31 06:08] LABS: ESTIMATED AVERAGE GLUCOSE 137 mg/dl; HA1C FLAG Normal (Normal)
[2016-05-31] MEDS: SODIUM CHLORIDE 0.9% 1000ML 1,000 ML IV SCH ×2 (06:08→23:28)
[2016-05-31] MEDS: METHYLPREDNISOLONE IV 20 MG in SYRINGE 0 ML IV SCH ×2 (06:08→17:10)
[2016-05-31 06:35] LABS: BUN/CREATININE RATIO 9.1 (10-20); CREATININE 0.57 mg/dl (0.60-1.20); MAGNESIUM 2.6 mg/dl (1.8-2.4); POTASSIUM 4.2 mmol/L (3.5-5.1)
[2016-05-31] MEDS: INSULIN ASPART 100 UNITS/ML 3 ML PEN SC SCH ×4 (07:00→21:32)
[2016-05-31] MEDS: BUDESONIDE/FORMOTEROL FUMARATE 160/4.5 60 PUFFS/INHALER INH SCH ×3 (08:00→21:13)
[2016-05-31] MEDS: DOXYCYCLINE IV 100 MG in DEXTROSE 5% 100ML 100 ML IV SCH ×2 (08:01→20:18)
[2016-05-31] MEDS: DIVALPROEX SODIUM 500 MG DELAY RELEASE TAB PO SCH ×3 (08:02→21:13)
[2016-05-31] MEDS: TRIHEXYPHENIDYL HCL 2 MG TAB PO SCH ×2 (08:02→21:20)
[2016-05-31] MEDS: GUAIFENESIN 600 MG TABCR PO SCH ×3 (08:03→21:17)
[2016-05-31] MEDS: RISPERIDONE 3 MG TAB PO SCH ×2 (08:03→21:21)
[2016-05-31] MEDS: CALCIUM CARBONATE 500 MG CHEWABLE PO SCH ×2 (08:04→21:16)
[2016-05-31] MEDS: PANTOprazole SOD 40 MG TAB PO SCH (08:04)
[2016-05-31] MEDS: AMLODIPINE BESYLATE 5 MG TAB PO SCH (08:04)
[2016-05-31] MEDS: TOCOPHERYL, DL-ALPHA 400 INTER.UNIT CAP PO SCH (08:05)
[2016-05-31] MEDS: INSULIN GLARGINE SOLOSTAR 100 UNITS/ML 3 ML PEN SC SCH ×2 (08:05→21:32)
--- NOTE | 2016-05-31 09:11 | Progress Note ---
Medicine Progress Note Date & Time of Visit: May 31, 2016 at 09:05. Subjective seen resting in bed drowsy but opens eyes to verbal stimuli follows simple commands states she feels "ok" review of systems difficult to complete as patient lethargic staff at [facility] reports that patient presents this way when she received Lorazepam Objective Last 8 Hrs Date Time Temp Pulse Resp B/P Pulse Ox O2 Delivery O2 Flow Rate FiO2 05/31/16 07:39 36.4 80 23 155/95 99 Nasal Cannula 2.0 05/31/16 06:59 89 18 97 Nasal Cannula 2.0 05/31/16 04:00 Nasal Cannula 2.0 05/31/16 03:24 36.9 91 24 109/70 99 Nasal Cannula 2.0 05/31/16 01:51 77 18 94 Nasal Cannula 2.0 Physical Exam: General- drowsy, not in distress, no accessory muscle use Head- atraumatic Eyes- anicteric ENT- oropharynx clear Neck- supple, no JVD, no adenopathy Lungs- clear breath sounds bilaterally Heart-mild tachycardia, regular rhythm; no murmurs Abdomen- normal bowel sounds, soft, nontender Extremities- no pretibial edema, no calf tenderness Neuro- drowsy, (+) tremors, can price checker examiners hands strongly and equally Skin- warm & dry Laboratory Results: Last 24 Hours Test 05/30/16 14:26 05/30/16 14:52 05/30/16 14:54 05/30/16 15:18 Urine Color YELLOW Urine Appearance CLEAR Urine pH 6.5 Urine Specific [place] 1.018 Urine Protein NEG Urine Glucose (UA) NEG Urine Ketones TRACE Urine Occult Blood NEG Urine Nitrite NEG Urine Bilirubin NEG Urine Urobilinogen NEG Urine Leukocyte Esterase SMALL Urine WBC (Auto) 5-10 /hpf Urine RBC (Auto) 0-4 /hpf Urine Hyaline Casts (Auto) 1-5 /lpf Urine Epithelial Cells (Auto) 10-20 /lpf Urine Bacteria (Auto) NEG White Blood Count 13.63 K/uL Red Blood Count 3.64 M/uL Hemoglobin 11.7 g/dL Hematocrit 34.4 % Mean Corpuscular Volume 94.5 fL Mean Corpuscular Hemoglobin 32.1 pg Mean Corpuscular Hemoglobin Concent 34.0 g/dl Platelet Count 212 K/uL Mean Platelet Volume 8.7 fL Neutrophils (%) (Auto) 56.5 % Lymphocytes (%) (Auto) 24.3 % Monocytes (%) (Auto) 17.1 % Eosinophils (%) (Auto) 1.2 % Basophils (%) (Auto) 0.2 % Neutrophils # (Auto) 7.71 K/uL Lymphocytes # (Auto) 3.31 K/uL Monocytes # (Auto) 2.33 K/uL Eosinophils # (Auto) 0.16 K/uL Basophils # (Auto) 0.03 K/uL RDW Standard Deviation 42.8 fL RDW Coefficient of Variation 12.5 % Immature Granulocyte % (Auto) 0.7 % Immature Granulocyte # (Auto) 0.09 K/uL Prothrombin Time 11.0 SECONDS Prothromb Time International Ratio 1.0 Sodium Level 138 mmol/L Potassium Level 3.7 mmol/L Chloride Level 104 mmol/L Carbon Dioxide Level 26 mmol/L Anion Gap 8.0 mmol/L Blood Urea Nitrogen 5 mg/dl Creatinine 0.75 mg/dl Est Creatinine Clear Calc Drug Dose 58.8 ml/min Estimated GFR () 94.9 Estimated GFR (Non- 81.9 BUN/Creatinine Ratio 6.3 Random Glucose 106 mg/dl Estimated Average Glucose 137 mg/dl Hemoglobin A1c 6.4 % Calcium Level 8.3 mg/dl Magnesium Level 1.7 mg/dl Total Bilirubin 0.3 mg/dl Direct Bilirubin < 0.1 mg/dl Aspartate Amino Transf (AST/SGOT) 6 U/L Alanine Aminotransferase (ALT/SGPT) 10 U/L Alkaline Phosphatase 53 U/L Total Creatine Kinase 62 U/L Creatine Kinase MB < 0.5 ng/ml Creatine Kinase MB Ratio Troponin I < 0.015 ng/ml Total Protein 7.0 gm/dl Albumin 2.9 gm/dl Bedside Lactic Acid Venous 0.94 mmol/L Influenza Type A (RT-PCR) Neg for Influ A Influenza Type A Antigen Neg for Influ A Influenza Type B Antigen Neg for Influ B Influenza Type B (RT-PCR) Neg for Influ B Test 05/30/16 17:09 05/30/16 19:51 05/31/16 05:12 05/31/16 06:48 Arterial Blood pH 7.43 Arterial Blood Partial Pressure CO2 44 mmHg Arterial Blood Partial Pressure O2 129 mm/Hg Arterial Blood HCO3 29 mmol/L Arterial Blood Oxygen Saturation 98.6 % Arterial Blood Base Excess 3.8 mEq/L Arterial Blood Gas Delivery 4 L Yehuda Test POS Bedside Glucose 138 mg/dl 110 mg/dl White Blood Count 11.13 K/uL Red Blood Count 3.52 M/uL Hemoglobin 11.6 g/dL Hematocrit 32.5 % Mean Corpuscular Volume 92.3 fL Mean Corpuscular Hemoglobin 33.0 pg Mean Corpuscular Hemoglobin Concent 35.7 g/dl RDW Standard Deviation 42.0 fL RDW Coefficient of Variation 12.4 % Platelet Count 216 K/uL Mean Platelet Volume 8.7 fL Sodium Level 140 mmol/L Potassium Level 4.2 mmol/L Chloride Level 105 mmol/L Carbon Dioxide Level 27 mmol/L Anion Gap 8.0 mmol/L Blood Urea Nitrogen 5 mg/dl Creatinine 0.57 mg/dl Est Creatinine Clear Calc Drug Dose 75.7 ml/min Estimated GFR () 110.4 Estimated GFR (Non- 95.3 BUN/Creatinine Ratio 9.1 Random Glucose 106 mg/dl Calcium Level 8.0 mg/dl Magnesium Level 2.6 mg/dl Date/Time Source Procedure Growth Status 05/30/16 15:40 Blood Blood Culture Pending Received 05/30/16 14:52 Blood Blood Culture Pending Received 05/30/16 18:00 Nasal MRSA DNA Surveillance Screen - Final Specimen Negative for MRSA by DNA Probe Complete 05/31/16 06:00 Urine,Catheterized Urine Culture Pending Received Assessment & Plan 70 year old female with history of Schizophrenia, Parkinson, COPD, DM. HTN presenting with fever and hypoxia ACUTE HYPOXIC RESPIRATORY FAILURE LIKELY FROM COPD EXACERBATION, ACUTE BRONCHITIS - afebrile, leukocytosis improving 99% on 2 liters NC - cultures pending - continue Doxycycline, Nebs, Solumedrol METABOLIC ENCEPHALOPATHY HISTORY OF SCHIZOPHRENIA - from underlying infection, Lorazepam - continue Risperdal and Depakote HTN - stable - continue amlodipine DM - hgb a1c 8.7 10/2015 - hold Metformin ISS Pharmacy consulted PARKINSONISM - continue trihexyphenidyl PSORIATIC ARTHRITIS - will hold Otezla due to current infection DVT PROPHYLAXIS - SQ Lovenox DISPO pending management of above conditions in progress Current Inpatient Medications: Current Inpatient Medications Medications (Trade) Dose Ordered Sig/Abelardo Route Start Time Stop Time Status Last Admin Dose Admin Enoxaparin Sodium (Lovenox Inj) 40 mg HS SC 05/30/16 21:00 06/29/16 20:59 05/30/16 20:31 40 MG Acetaminophen (Tylenol Tab) 650 mg Q4H PRN PO 05/30/16 16:15 06/29/16 16:14 Ondansetron HCl 4 mg 4 mg Q6H PRN IV 05/30/16 16:15 06/29/16 16:14 Doxycycline Hyclate/Dextrose (Vibramycin IV/ D5 100ml) 110 ml @ 50 mls/hr Q12@0800,2000 IV 05/30/16 20:00 06/06/16 19:59 05/31/16 08:01 50 MLS/HR Albuterol/ Ipratropium 3 ml 3 ml Q6R INH 05/30/16 21:00 06/29/16 20:59 05/31/16 06:59 3 ML Methylprednisolone Sodium Succinate 20 mg/Syringe 0.32 ml @ 1.5 mls/min Q12@0600,1800 IV 05/30/16 18:00 06/29/16 17:59 05/31/16 06:08 1.5 MLS/MIN Sodium Chloride (Nss 1000ml) 1,000 ml @ 75 mls/hr [id number] IV 05/30/16 17:30 06/29/16 17:29 05/31/16 06:08 75 MLS/HR Amlodipine Besylate (Norvasc Tab) 5 mg DAILY PO 05/31/16 09:00 06/30/16 08:59 05/31/16 08:04 5 MG Budesonide/ Formoterol Fumarate (Symbicort 160/ 4.5 Inh) 2 puffs BID INH 05/30/16 21:00 06/29/16 20:59 05/30/16 20:33 2 PUFFS Divalproex Sodium (Depakote Delay Rel Tab) 500 mg BID PO 05/30/16 21:00 06/29/16 20:59 05/30/16 20:33 500 MG Folic Acid (Folvite Tab) 1 mg DAILY PO 05/31/16 09:00 06/30/16 08:59 05/31/16 08:03 1 MG Risperidone (Risperdal Tab) 3 mg BID PO 05/30/16 21:00 06/29/16 20:59 05/31/16 08:03 3 MG Trihexyphenidyl HCl (Artane Tab) 2 mg BID PO 05/30/16 21:00 06/29/16 20:59 05/31/16 08:02 2 MG [id number] Acetate (Vitamin E Cap) 400 interunit DAILY PO 05/31/16 09:00 06/30/16 08:59 05/31/16 08:05 400 INTERUNIT Calcium Carbonate (Tums Chew Tab) 750 mg BID PO 05/30/16 21:00 06/29/16 20:59 05/31/16 08:04 750 MG Docusate Sodium (coLACE CAP) 100 mg DAILY PRN PO 05/30/16 18:00 06/29/16 17:59 Guaifenesin (Mucinex Contr Rel Tab) 600 mg BID PO 05/30/16 21:00 06/29/16 20:59 05/30/16 20:32 600 MG Pantoprazole Sodium (Protonix Tab) 40 mg DAILY PO 05/31/16 09:00 06/30/16 08:59 05/31/16 08:04 40 MG Miscellaneous Information (Consult Glycemic Management Pharmacy) 1 ea UD PRN N/A 05/30/16 18:03 06/29/16 18:02 Insulin Aspart (novoLOG ASPART) SLIDING SCALE ACHS SC 05/30/16 21:00 06/29/16 20:59 Insulin Glargine (Lantus Solostar Pen) SEE PROTOCOL TEXT BID SC 05/31/16 09:00 06/30/16 08:59
[2016-05-31] MEDS: ENOXAPARIN 40 MG/0.4 ML SYR SC SCH (21:15)
[2016-06-01] VITALS (14 sets, daily range): BP systolic 119–151; BP diastolic 63–101; PULSE 79–112; TEMP 36.5–36.8; O2SAT 88–96
[2016-06-01] MEDS: ALBUT/IPRATROP 3MG/0.5MG NEB 3 ML VIAL INH SCH ×2 (02:19→07:10)
[2016-06-01] MEDS: METHYLPREDNISOLONE IV 20 MG in SYRINGE 0 ML IV SCH (05:54)
[2016-06-01] MEDS: BUDESONIDE/FORMOTEROL FUMARATE 160/4.5 60 PUFFS/INHALER INH SCH ×2 (07:36→20:11)
[2016-06-01] MEDS: GUAIFENESIN 600 MG TABCR PO SCH ×2 (07:37→20:12)
[2016-06-01] MEDS: AMLODIPINE BESYLATE 5 MG TAB PO SCH (07:37)
[2016-06-01] MEDS: RISPERIDONE 3 MG TAB PO SCH ×2 (07:38→20:13)
[2016-06-01] MEDS: PANTOprazole SOD 40 MG TAB PO SCH (07:38)
[2016-06-01] MEDS: DIVALPROEX SODIUM 500 MG DELAY RELEASE TAB PO SCH ×2 (07:38→20:12)
[2016-06-01] MEDS: TOCOPHERYL, DL-ALPHA 400 INTER.UNIT CAP PO SCH (07:38)
[2016-06-01] MEDS: TRIHEXYPHENIDYL HCL 2 MG TAB PO SCH ×2 (07:38→20:12)
[2016-06-01] MEDS: CALCIUM CARBONATE 500 MG CHEWABLE PO SCH ×2 (07:39→20:13)
[2016-06-01] MEDS: DOXYCYCLINE IV 100 MG in DEXTROSE 5% 100ML 100 ML IV SCH ×2 (07:40→20:11)
[2016-06-01] MEDS: INSULIN GLARGINE SOLOSTAR 100 UNITS/ML 3 ML PEN SC SCH ×2 (08:13→21:30)
[2016-06-01] MEDS: INSULIN ASPART 100 UNITS/ML 3 ML PEN SC SCH ×4 (08:13→21:29)
--- NOTE | 2016-06-01 12:10 | Progress Note ---
Medicine Progress Note Date & Time of Visit: Jun 01, 2016 at 12:07. Subjective patient seen sitting up in chair having lunch alert, but not oriented answers simple question calm, cooperative denies other symptoms Objective Last 8 Hrs Date Time Temp Pulse Resp B/P Pulse Ox O2 Delivery O2 Flow Rate FiO2 06/01/16 12:00 Nasal Cannula 2.0 06/01/16 08:00 Nasal Cannula 2.0 06/01/16 08:00 106 16 151/80 92 Nasal Cannula 2.0 06/01/16 07:10 82 16 88 Room Air Physical Exam: General- alert, not in distress, no accessory muscle use Eyes- anicteric ENT- oropharynx clear Neck-no JVD Lungs- clear breath sounds bilaterally, no rales/wheeze Heart-mild tachycardia, regular rhythm; no murmurs Abdomen- normal bowel sounds, soft, nontender Extremities- no pretibial edema, no calf tenderness Neuro-alert, not oriented, 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 HTN presenting with fever and hypoxia COPD EXACERBATION, ACUTE BRONCHITIS ACUTE HYPOXIC RESPIRATORY FAILURE - afebrile, leukocytosis improving 99% on 2 liters NC - blood cultures negative - continue Doxycycline Day 3, Nebs- change to Levalbuterol, Solumedrol changed to Prednisone - improving METABOLIC ENCEPHALOPATHY HISTORY OF SCHIZOPHRENIA - from underlying infection, Lorazepam - improving continue PT/OT - continue Risperdal and Depakote MILD TACHYCARDIA from Albuterol? - change to Levalbuterol - IV fluids HTN - stable - continue amlodipine DM - hgb a1c 8.7 10/2015 - hold Metformin ISS Pharmacy consulted PARKINSONISM - continue trihexyphenidyl PSORIATIC ARTHRITIS - will hold Otezla due to current infection DVT PROPHYLAXIS - SQ Lovenox DISPO pending management of above conditions in progress expected to return to [facility] Current Inpatient Medications: Current Inpatient Medications Medications (Trade) Dose Ordered Sig/Abelardo Route Start Time Stop Time Status Last Admin Dose Admin Enoxaparin Sodium (Lovenox Inj) 40 mg HS SC 05/30/16 21:00 06/29/16 20:59 05/31/16 21:15 40 MG Acetaminophen (Tylenol Tab) 650 mg Q4H PRN PO 05/30/16 16:15 06/29/16 16:14 05/31/16 23:27 650 MG Ondansetron HCl 4 mg 4 mg Q6H PRN IV 05/30/16 16:15 06/29/16 16:14 Doxycycline Hyclate/Dextrose (Vibramycin IV/ D5 100ml) 110 ml @ 50 mls/hr Q12@0800,2000 IV 05/30/16 20:00 06/06/16 19:59 06/01/16 07:40 50 MLS/HR Albuterol/ Ipratropium 3 ml 3 ml Q6R INH 05/30/16 21:00 06/29/16 20:59 06/01/16 07:10 3 ML Methylprednisolone Sodium Succinate 20 mg/Syringe 0.32 ml @ 1.5 mls/min Q12@0600,1800 IV 05/30/16 18:00 06/29/16 17:59 06/01/16 05:54 1.5 MLS/MIN Sodium Chloride (Nss 1000ml) 1,000 ml @ 75 mls/hr [id number] IV 05/30/16 17:30 06/29/16 17:29 05/31/16 23:28 75 MLS/HR Amlodipine Besylate (Norvasc Tab) 5 mg DAILY PO 05/31/16 09:00 06/30/16 08:59 06/01/16 07:37 5 MG Budesonide/ Formoterol Fumarate (Symbicort 160/ 4.5 Inh) 2 puffs BID INH 05/30/16 21:00 06/29/16 20:59 06/01/16 07:36 2 PUFFS Divalproex Sodium (Depakote Delay Rel Tab) 500 mg BID PO 05/30/16 21:00 06/29/16 20:59 06/01/16 07:38 500 MG Folic Acid (Folvite Tab) 1 mg DAILY PO 05/31/16 09:00 06/30/16 08:59 06/01/16 07:38 1 MG Risperidone (Risperdal Tab) 3 mg BID PO 05/30/16 21:00 06/29/16 20:59 06/01/16 07:38 3 MG Trihexyphenidyl HCl (Artane Tab) 2 mg BID PO 05/30/16 21:00 06/29/16 20:59 06/01/16 07:38 2 MG zs-Ewkxm-Twhpulphsc Acetate (Vitamin E Cap) 400 interunit DAILY PO 05/31/16 09:00 06/30/16 08:59 06/01/16 07:38 400 INTERUNIT Calcium Carbonate (Tums Chew Tab) 750 mg BID PO 05/30/16 21:00 06/29/16 20:59 06/01/16 07:39 750 MG Docusate Sodium (coLACE CAP) 100 mg DAILY PRN PO 05/30/16 18:00 06/29/16 17:59 Guaifenesin (Mucinex Contr Rel Tab) 600 mg BID PO 05/30/16 21:00 06/29/16 20:59 06/01/16 07:37 600 MG Pantoprazole Sodium (Protonix Tab) 40 mg DAILY PO 05/31/16 09:00 06/30/16 08:59 06/01/16 07:38 40 MG Miscellaneous Information (Consult Glycemic Management Pharmacy) 1 ea UD PRN N/A 05/30/16 18:03 06/29/16 18:02 Insulin Aspart (novoLOG ASPART) SLIDING SCALE ACHS SC 05/30/16 21:00 06/29/16 20:59 06/01/16 08:13 1 UNITS Insulin Glargine (Lantus Solostar Pen) SEE PROTOCOL TEXT BID SC 05/31/16 09:00 06/30/16 08:59 05/31/16 21:32 10 UNIT Enteral Nutritional Formula (Boost Glucose Control) 1 can BID PO 06/01/16 21:00 07/01/16 20:59
[2016-06-01] MEDS: SODIUM CHLORIDE 0.9% 1000ML 1,000 ML IV SCH ×2 (12:20→22:50)
--- NOTE | 2016-06-01 12:52 | Pharmacy Progress Note ---
Glycemic: Assessment & Plan Date of Service Jun 01, 2016. Assessment & Plan Recent Pertinent Medications Outpatient Anti-diabetic Regimen: * Metformin 500 mg PO BID with meals * A1c = 8.7 % 10/2015 --> 6.4% 05/30/16 Risk Factors for Insulin Resistance: * Steroids: Solumedrol 20 mg IV every 12 hours @06,18 --> Prednisone 20mg PO x1 today, then begin prednisone 40mg PO daily on 06/02 * Infection: Doxy IV * IVF: NS @75 * Diet: T2DM/AHA Assessment & Plan ASSESSMENT: 05/30/16 * 70 yo F admitted with acute respiratory failure, initiated on IV steroids and doxycycline * Most recent A1c 8.7%- only on metformin as an outpatient- will order new A1c this admission * My plan will be to hold metformin and initiate NovoLog ACHS to cover steroid- induced hyperglycemia * Consider addition of basal insulin if BSG >140 mg/dL * ADA & AACE recommend a goal blood sugar range 140-180 mg/dl for the majority of critically ill & non-critically ill patients. However, more stringent targets may be selected in individual cases. Tighten to 120-160 mg/dL due to steroids. 06/01/16 * BSGs well controlled over the past 24 hours with 11 units of insulin administered (97-189mg/dL) * Fasting BSG below goal this AM * hold AM Lantus today per protocol * continue with Lantus dosing based on BSG * Steroids changed from IV --> once daily PO * continue same NovoLog parameters and assess with each step down in steroid therapy * A1c resulted * improved control since prior check PLAN FOR INPATIENT GLYCEMIC CONTROL: * Holding outpatient oral diabetes medications * Basal insulin with LANTUS BID - dose determined by BSG * 0 units if BSG is below 140mg/dL * 4 units if BSG 140-180 mg/dL * 8 units if BSG >180 mg/dL * Correctional Insulin with NOVOLOG per scale ACHS or Q6hrs while NPO * Goal Range: Low 120 mg/dL - High 160 mg/dL * Correction Factor: 40 mg/dL/unit * Nutritional / Prandial insulin per carb ratio of 1 unit per 15 grams CHO consumed * A1c added to discharge instructions * May begin metformin whenever PO intake is stable/adequate RECOMMENDATIONS FOR DISCHARGE: * resume home medications at discharge * Please note that the plan above was derived based on current level of insulin resistance and hospital stress. These recommendations are appropriate for inpatient admission only. Plan of care upon discharge will need to be reassessed to avoid potential outpatient hypo/hyperglycemia. Thank you.
[2016-06-01] MEDS ORDERED: BOOST VANILLA PO SCH ×2 (14:00)
[2016-06-01] MEDS: IPRATROPIUM BROMIDE NEB SOLN 0.02% 2.5 ML VIAL INH SCH ×2 (14:36→19:52)
[2016-06-01] MEDS: LEVALBUTEROL 1.25MG/0.5ML NEB INH SCH ×2 (14:36→19:52)
[2016-06-01] MEDS ORDERED: LEVALBUTEROL/IPRATROPIUM NEB INH SCH (15:00)
[2016-06-01] MEDS: ENOXAPARIN 40 MG/0.4 ML SYR SC SCH (20:13)
[2016-06-01] MEDS: BOOST GLUCOSE CONTROL PO SCH (20:18)
[2016-06-02] VITALS (8 sets, daily range): BP systolic 149–157; BP diastolic 86–99; PULSE 76–92; TEMP 36.5–36.8; O2SAT 90–96
[2016-06-02] MEDS: IPRATROPIUM BROMIDE NEB SOLN 0.02% 2.5 ML VIAL INH SCH ×4 (01:51→20:35)
[2016-06-02] MEDS: LEVALBUTEROL 1.25MG/0.5ML NEB INH SCH ×4 (01:51→20:35)
[2016-06-02 06:32] LABS: CALCIUM 8.5 mg/dl (8.5-10.1); CREATININE 0.56 mg/dl (0.60-1.20); POTASSIUM 3.8 mmol/L (3.5-5.1)
[2016-06-02 06:43] LABS: BASO % 0.5 %; BASO ABS # 0.05 K/uL (0-0.2); COMPLETE YES; EOS % 0.2 %; IG% 2.2 %; LYMPH % 31.6 %; MEAN CELL VOLUME 91.9 fL (80-100); MEAN CORPUSCULAR HEMOGLOBIN 31.1 pg (25-34); MEAN CORPUSCULAR HGB CONC 33.8 g/dl (32-36); MEAN PLATELET VOLUME 8.5 fL (7.4-10.4); MONO % 12.3 %; NEUT % 53.2 %; PLATELET COUNT 294 K/uL (130-400); WHITE BLOOD COUNT 10.14 K/uL (4.8-10.8)
[2016-06-02] MEDS: DIVALPROEX SODIUM 500 MG DELAY RELEASE TAB PO SCH ×2 (07:37→20:58)
[2016-06-02] MEDS: TRIHEXYPHENIDYL HCL 2 MG TAB PO SCH ×2 (07:37→20:57)
[2016-06-02] MEDS: RISPERIDONE 3 MG TAB PO SCH ×2 (07:37→20:57)
[2016-06-02] MEDS: DOXYCYCLINE IV 100 MG in DEXTROSE 5% 100ML 100 ML IV SCH (07:37)
[2016-06-02] MEDS: PANTOprazole SOD 40 MG TAB PO SCH (07:38)
[2016-06-02] MEDS: CALCIUM CARBONATE 500 MG CHEWABLE PO SCH ×2 (07:38→20:58)
[2016-06-02] MEDS: AMLODIPINE BESYLATE 5 MG TAB PO SCH (07:38)
[2016-06-02] MEDS: GUAIFENESIN 600 MG TABCR PO SCH ×2 (07:38→20:58)
[2016-06-02] MEDS: BUDESONIDE/FORMOTEROL FUMARATE 160/4.5 60 PUFFS/INHALER INH SCH ×2 (07:39→20:57)
[2016-06-02] MEDS: INSULIN ASPART 100 UNITS/ML 3 ML PEN SC SCH ×4 (07:41→20:59)
[2016-06-02] MEDS: INSULIN GLARGINE SOLOSTAR 100 UNITS/ML 3 ML PEN SC SCH (07:42)
[2016-06-02] MEDS: BOOST GLUCOSE CONTROL PO SCH ×2 (07:44→20:59)
[2016-06-02] MEDS: TOCOPHERYL, DL-ALPHA 400 INTER.UNIT CAP PO SCH (08:54)
--- NOTE | 2016-06-02 11:48 | Pharmacy Progress Note ---
Glycemic Control: Progress Nt Date of Service Jun 02, 2016. Scope Glycemic Pharmacist consulted by Adina Gamez on 05/30/16 for glycemic control and to write orders per [facility] inpatient glycemic control protocol. Objective Accuchecks BSG (last 24hrs): Test 06/01/16 16:35 06/01/16 20:44 06/02/16 05:10 06/02/16 06:46 Bedside Glucose 121 mg/dl (70-90) 177 mg/dl (70-90) 107 mg/dl (70-90) Random Glucose 117 mg/dl (70-99) Laboratory Data (last 24hrs) Test 06/02/16 05:10 Anion Gap 8.0 mmol/L BUN/Creatinine Ratio 19.0 Blood Urea Nitrogen 11 mg/dl Creatinine 0.56 mg/dl Potassium Level 3.8 mmol/L Sodium Level 141 mmol/L White Blood Count 10.14 K/uL Red Blood Count 3.70 M/uL Hemoglobin 11.5 g/dL Hematocrit 34.0 % Mean Corpuscular Volume 91.9 fL Mean Corpuscular Hemoglobin 31.1 pg Mean Corpuscular Hemoglobin Concent 33.8 g/dl Platelet Count 294 K/uL Mean Platelet Volume 8.5 fL Neutrophils (%) (Auto) 53.2 % Lymphocytes (%) (Auto) 31.6 % Monocytes (%) (Auto) 12.3 % Eosinophils (%) (Auto) 0.2 % Basophils (%) (Auto) 0.5 % Neutrophils # (Auto) 5.40 K/uL Lymphocytes # (Auto) 3.20 K/uL Monocytes # (Auto) 1.25 K/uL Eosinophils # (Auto) 0.02 K/uL Basophils # (Auto) 0.05 K/uL HbA1c: Test 05/30/16 14:52 Hemoglobin A1c 6.4 % (4.5-5.6) H Recent Pertinent Medications Outpatient Anti-diabetic Regimen: * metformin 500mg PO BID with meals * A1c = 6.4 % 05/30/16 The patient is currently receiving: * Basal insulin: Lantus 4 units every 24 hours * Correctional Insulin: Novolog Correction per scale ACHS Goal Range: Low 120 mg/dL - High 160 mg/dL Correction Factor: 40 mg/dL/unit * Prandial insulin: Per carb ratio of 1 unit per 15 grams CHO consumed * Oral Agents: held on admission Risk Factors for Insulin Resistance: * Steroids: Solu-Medrol 20mg IV q12h --> Prednisone 40mg PO daily * Infection: Doxy IV (day#4) * IVF: NSS * Diet: T2DM/AHA Assessment & Plan ASSESSMENT: 05/30/16 * 70 yo F admitted with acute respiratory failure, initiated on IV steroids and doxycycline * Most recent A1c 8.7%- only on metformin as an outpatient- will order new A1c this admission * My plan will be to hold metformin and initiate NovoLog ACHS to cover steroid- induced hyperglycemia * Consider addition of basal insulin if BSG >140 mg/dL * ADA & AACE recommend a goal blood sugar range 140-180 mg/dl for the majority of critically ill & non-critically ill patients. However, more stringent targets may be selected in individual cases. Tighten to 120-160 mg/dL due to steroids. 06/01/16 * BSGs well controlled over the past 24 hours with 11 units of insulin administered (97-189mg/dL) * Fasting BSG below goal this AM * hold AM Lantus today per protocol * continue with Lantus dosing based on BSG * Steroids changed from IV --> once daily PO * continue same NovoLog parameters and assess with each step down in steroid therapy * A1c resulted * improved control since prior check 06/02/16 * BSGs again well controlled over the past 24 hours with 11 units of insulin ( BSGs 98-177mg/dL) * Steroids once daily at this time * Fasting below goal range * discontinue basal insulin at this time * Tolerating PO well, renal function at b/l * begin metformin home dose PLAN FOR INPATIENT GLYCEMIC CONTROL: * Begin metformin 500mg PO BID with meals * Discontinue Lantus at this time * Correctional Insulin with NOVOLOG per scale ACHS * Goal Range: Low 120 mg/dL - High 160 mg/dL * Correction Factor: 40 mg/dL/unit * Nutritional / Prandial insulin per carb ratio of 1 unit per 15 grams CHO consumed * A1c added to discharge instructions RECOMMENDATIONS FOR DISCHARGE: * resume home medications at discharge * Please note that the plan above was derived based on current level of insulin resistance and hospital stress. These recommendations are appropriate for inpatient admission only. Plan of care upon discharge will need to be reassessed to avoid potential outpatient hypo/hyperglycemia. Thank you.
[2016-06-02] MEDS ORDERED: LEVOFLOXACIN 500 MG TAB PO ONE (12:16)
--- NOTE | 2016-06-02 12:27 | Progress Note ---
Medicine Progress Note Date & Time of Visit: Jun 02, 2016 at 12:21. Subjective seen resting in bed, alert, not oriented but seems to be conversing more denies shortness of breath, cough no abdominal pain no other symptoms Objective Last 8 Hrs Date Time Temp Pulse Resp B/P Pulse Ox O2 Delivery O2 Flow Rate FiO2 06/02/16 12:19 36.5 87 21 155/99 95 Nasal Cannula 2.0 06/02/16 08:36 36.5 80 22 157/89 93 Nasal Cannula 2.0 06/02/16 08:00 Nasal Cannula 2.0 06/02/16 07:05 80 19 94 Nasal Cannula 2.0 Physical Exam: General- alert, not in distress, no accessory muscle use Eyes- anicteric Neck-no JVD Lungs- clear breath sounds bilaterally, no rales/wheeze Heart-normal rate, regular rhythm; no murmurs Abdomen- normal bowel sounds, soft, nontender Extremities- no pretibial edema, no calf tenderness Neuro-alert, not oriented,but no gross focal deficits noted Skin- warm & dry Laboratory Results: Last 24 Hours Test 06/01/16 12:42 06/01/16 16:35 06/01/16 20:44 06/02/16 05:10 Thyroid Stimulating Hormone (TSH) 1.820 uIu/ml Bedside Glucose 121 mg/dl 177 mg/dl White Blood Count 10.14 K/uL Red Blood Count 3.70 M/uL Hemoglobin 11.5 g/dL Hematocrit 34.0 % Mean Corpuscular Volume 91.9 fL Mean Corpuscular Hemoglobin 31.1 pg Mean Corpuscular Hemoglobin Concent 33.8 g/dl Platelet Count 294 K/uL Mean Platelet Volume 8.5 fL Neutrophils (%) (Auto) 53.2 % Lymphocytes (%) (Auto) 31.6 % Monocytes (%) (Auto) 12.3 % Eosinophils (%) (Auto) 0.2 % Basophils (%) (Auto) 0.5 % Neutrophils # (Auto) 5.40 K/uL Lymphocytes # (Auto) 3.20 K/uL Monocytes # (Auto) 1.25 K/uL Eosinophils # (Auto) 0.02 K/uL Basophils # (Auto) 0.05 K/uL RDW Standard Deviation 41.2 fL RDW Coefficient of Variation 12.2 % Immature Granulocyte % (Auto) 2.2 % Immature Granulocyte # (Auto) 0.22 K/uL Sodium Level 141 mmol/L Potassium Level 3.8 mmol/L Chloride Level 106 mmol/L Carbon Dioxide Level 27 mmol/L Anion Gap 8.0 mmol/L Blood Urea Nitrogen 11 mg/dl Creatinine 0.56 mg/dl Est Creatinine Clear Calc Drug Dose 77.2 ml/min Estimated GFR () 111.0 Estimated GFR (Non- 95.8 BUN/Creatinine Ratio 19.0 Random Glucose 117 mg/dl Calcium Level 8.5 mg/dl Test 06/02/16 06:46 06/02/16 11:36 Bedside Glucose 107 mg/dl 162 mg/dl Assessment & Plan 70 year old female with history of Schizophrenia, Parkinson, COPD, DM. HTN presenting with fever and hypoxia COPD EXACERBATION, ACUTE BRONCHITIS ACUTE HYPOXIC RESPIRATORY FAILURE - afebrile, leukocytosis resolved 99% on 2 liters NC - blood cultures negative - received Doxycycline x 3 days change to Levaquin to cover Pseudomonas UTI Nebs- changed to Levalbuterol, Solumedrol changed to Prednisone - improving daily PSEUDOMONAS UTI - colonies 60k but has received antibiotics recently, hence may be partially treated presented with fever - Doxy changed to Levaquin for now monitor METABOLIC ENCEPHALOPATHY HISTORY OF SCHIZOPHRENIA - from underlying infection, Lorazepam - improving continue PT/OT: may need SNF - continue Risperdal and Depakote MILD TACHYCARDIA from Albuterol? - changed to Levalbuterol - IV fluids given - resolving HTN - mildly elevated - continue amlodipine monitor DM - hgb a1c 8.7 10/2015 - Metformin resumed Pharmacy consulted PARKINSONISM - continue trihexyphenidyl PSORIATIC ARTHRITIS - will hold Otezla due to current infection DVT PROPHYLAXIS - SQ Lovenox DISPO pending management of above conditions in progress will need updated PT/OT to determine if patient needs to go to SNF or return to [facility] Current Inpatient Medications: Current Inpatient Medications Medications (Trade) Dose Ordered Sig/Abelardo Route Start Time Stop Time Status Last Admin Dose Admin Enoxaparin Sodium (Lovenox Inj) 40 mg HS SC 05/30/16 21:00 06/29/16 20:59 06/01/16 20:13 40 MG Acetaminophen (Tylenol Tab) 650 mg Q4H PRN PO 05/30/16 16:15 06/29/16 16:14 05/31/16 23:27 650 MG Ondansetron HCl (Zofran Inj) 4 mg Q6H PRN IV 05/30/16 16:15 06/29/16 16:14 Amlodipine Besylate (Norvasc Tab) 5 mg DAILY PO 05/31/16 09:00 06/30/16 08:59 06/02/16 07:38 5 MG Budesonide/ Formoterol Fumarate (Symbicort 160/ 4.5 Inh) 2 puffs BID INH 05/30/16 21:00 06/29/16 20:59 06/02/16 07:39 2 PUFFS Divalproex Sodium (Depakote Delay Rel Tab) 500 mg BID PO 05/30/16 21:00 06/29/16 20:59 06/02/16 07:37 500 MG Folic Acid (Folvite Tab) 1 mg DAILY PO 05/31/16 09:00 06/30/16 08:59 06/02/16 07:38 1 MG Risperidone (Risperdal Tab) 3 mg BID PO 05/30/16 21:00 06/29/16 20:59 06/02/16 07:37 3 MG Trihexyphenidyl HCl (Artane Tab) 2 mg BID PO 05/30/16 21:00 06/29/16 20:59 06/02/16 07:37 2 MG sr-Ubjwj-Ubffvkwbzg Acetate (Vitamin E Cap) 400 interunit DAILY PO 05/31/16 09:00 06/30/16 08:59 06/02/16 08:54 400 INTERUNIT Calcium Carbonate (Tums Chew Tab) 750 mg BID PO 05/30/16 21:00 06/29/16 20:59 06/02/16 07:38 750 MG Docusate Sodium (coLACE CAP) 100 mg DAILY PRN PO 05/30/16 18:00 06/29/16 17:59 Guaifenesin (Mucinex Contr Rel Tab) 600 mg BID PO 05/30/16 21:00 06/29/16 20:59 06/02/16 07:38 600 MG Pantoprazole Sodium (Protonix Tab) 40 mg DAILY PO 05/31/16 09:00 06/30/16 08:59 06/02/16 07:38 40 MG Miscellaneous Information (Consult Glycemic Management Pharmacy) 1 ea UD PRN N/A 05/30/16 18:03 06/29/16 18:02 Insulin Aspart (novoLOG ASPART) SLIDING SCALE ACHS SC 05/30/16 21:00 06/29/16 20:59 06/02/16 11:40 4 UNITS Enteral Nutritional Formula (Boost Glucose Control) 1 can BID PO 06/01/16 21:00 07/01/16 20:59 06/02/16 07:44 1 CAN Prednisone (PredniSONE TAB) 40 mg DAILY PO 06/02/16 09:00 07/02/16 08:59 06/02/16 07:38 40 MG Ipratropium [place] (Atrovent 0.02% 0.5MG/2.5ML Neb) 0.5 mg Q6R INH 06/01/16 15:00 07/01/16 14:59 06/02/16 07:05 0.5 MG Levalbuterol (Xopenex 1.25MG/ 0.5ML Neb) 1.25 mg Q6R INH 06/01/16 15:00 07/01/16 14:59 06/02/16 07:04 1.25 MG Metformin HCl (Glucophage Tab) 500 mg BIDM PO 06/02/16 16:45 07/02/16 16:44 Levofloxacin (Levaquin Tab) 500 mg DAILY@11 PO 06/03/16 11:00 06/06/16 11:01
[2016-06-02] MEDS: METFORMIN HCL 500 MG TAB PO SCH (17:32)
[2016-06-02] MEDS: ENOXAPARIN 40 MG/0.4 ML SYR SC SCH (20:58)
[2016-06-02] MEDS ORDERED: INSULIN GLARGINE SOLOSTAR 100 UNITS/ML 3 ML PEN SC SCH (21:00)
[2016-06-03] VITALS (8 sets, daily range): BP systolic 120–143; BP diastolic 78–86; PULSE 66–92; TEMP 35.9–36.6; O2SAT 92–94
[2016-06-03] MEDS: LEVALBUTEROL 1.25MG/0.5ML NEB INH SCH ×4 (02:24→19:53)
[2016-06-03] MEDS: IPRATROPIUM BROMIDE NEB SOLN 0.02% 2.5 ML VIAL INH SCH ×4 (02:24→19:53)
[2016-06-03 07:14] LABS: BASO % 0.3 %; BASO ABS # 0.03 K/uL (0-0.2); COMPLETE YES; EOS % 0.3 %; HEMATOCRIT 36.1 % (37-47); IG% 2.5 %; LYMPH % 35.9 %; LYMPH ABS # 3.95 K/uL (1.2-3.4); MEAN CELL VOLUME 90.7 fL (80-100); MEAN CORPUSCULAR HEMOGLOBIN 31.4 pg (25-34); MEAN CORPUSCULAR HGB CONC 34.6 g/dl (32-36); MEAN PLATELET VOLUME 8.3 fL (7.4-10.4); MONO % 15.3 %; NEUT % 45.7 %; PLATELET COUNT 287 K/uL (130-400); RED BLOOD COUNT 3.98 M/uL (4.2-5.4); WHITE BLOOD COUNT 10.99 K/uL (4.8-10.8)
[2016-06-03 07:42] LABS: BUN/CREATININE RATIO 25.6 (10-20); CALCIUM 9.2 mg/dl (8.5-10.1); CREATININE 0.62 mg/dl (0.60-1.20); POTASSIUM 3.5 mmol/L (3.5-5.1)
[2016-06-03] MEDS: METFORMIN HCL 500 MG TAB PO SCH ×2 (08:21→17:04)
[2016-06-03] MEDS: BUDESONIDE/FORMOTEROL FUMARATE 160/4.5 60 PUFFS/INHALER INH SCH ×2 (08:22→21:40)
[2016-06-03] MEDS: DIVALPROEX SODIUM 500 MG DELAY RELEASE TAB PO SCH ×2 (08:22→21:38)
[2016-06-03] MEDS: BOOST GLUCOSE CONTROL PO SCH ×2 (08:22→21:58)
[2016-06-03] MEDS: AMLODIPINE BESYLATE 5 MG TAB PO SCH (08:22)
[2016-06-03] MEDS: TRIHEXYPHENIDYL HCL 2 MG TAB PO SCH ×2 (08:22→21:39)
[2016-06-03] MEDS: GUAIFENESIN 600 MG TABCR PO SCH ×2 (08:22→21:38)
[2016-06-03] MEDS: RISPERIDONE 3 MG TAB PO SCH ×2 (08:23→21:36)
[2016-06-03] MEDS: CALCIUM CARBONATE 500 MG CHEWABLE PO SCH ×2 (08:23→21:37)
[2016-06-03] MEDS: PANTOprazole SOD 40 MG TAB PO SCH (08:23)
[2016-06-03] MEDS: TOCOPHERYL, DL-ALPHA 400 INTER.UNIT CAP PO SCH (08:23)
[2016-06-03] MEDS: INSULIN ASPART 100 UNITS/ML 3 ML PEN SC SCH ×4 (08:25→21:52)
--- NOTE | 2016-06-03 10:40 | Pharmacy Progress Note ---
Glycemic Control Intl Consult Date of Service Jun 03, 2016. Scope Glycemic Pharmacist consulted by Adina Gamez on 05/30/16 for glycemic control and to write orders per [facility] inpatient glycemic control protocol Objective Weight (Kilograms): 58.900 Accuchecks BSG (last 24hrs): Test 06/02/16 11:36 06/02/16 16:58 06/02/16 20:45 06/03/16 06:30 Bedside Glucose 162 mg/dl (70-90) 154 mg/dl (70-90) 142 mg/dl (70-90) Random Glucose 114 mg/dl (70-99) Test 06/03/16 08:21 Bedside Glucose 120 mg/dl (70-90) Laboratory Data (last 24hrs) Test 06/03/16 06:30 Anion Gap 10.0 mmol/L BUN/Creatinine Ratio 25.6 Blood Urea Nitrogen 16 mg/dl Creatinine 0.62 mg/dl Potassium Level 3.5 mmol/L Sodium Level 138 mmol/L White Blood Count 10.99 K/uL Red Blood Count 3.98 M/uL Hemoglobin 12.5 g/dL Hematocrit 36.1 % Mean Corpuscular Volume 90.7 fL Mean Corpuscular Hemoglobin 31.4 pg Mean Corpuscular Hemoglobin Concent 34.6 g/dl Platelet Count 287 K/uL Mean Platelet Volume 8.3 fL Neutrophils (%) (Auto) 45.7 % Lymphocytes (%) (Auto) 35.9 % Monocytes (%) (Auto) 15.3 % Eosinophils (%) (Auto) 0.3 % Basophils (%) (Auto) 0.3 % Neutrophils # (Auto) 5.03 K/uL Lymphocytes # (Auto) 3.95 K/uL Monocytes # (Auto) 1.68 K/uL Eosinophils # (Auto) 0.03 K/uL Basophils # (Auto) 0.03 K/uL HbA1c Test 05/30/16 14:52 Hemoglobin A1c 6.4 % (4.5-5.6) H Recent Pertinent Medications Outpatient Anti-diabetic Regimen: * metformin 500mg PO BID with meals * A1c = 6.4 % 05/30/16 The patient is currently receiving: * Basal insulin: removed * Correctional Insulin: NovoLog Correction per scale AC/HS Goal Range: Low 120 mg/dL - High 160 mg/dL Correction Factor: 40 mg/dL/unit * Prandial insulin: Per carb ratio of 1 unit per 15 grams CHO consumed * Oral Agents: metformin 500mg PO BID with food Risk Factors for Insulin Resistance: * Steroids: Solu-Medrol 20mg IV q12h --> Prednisone 40mg PO daily --> Prednisone 20mg PO daily * Infection: levofloxacin PO (UTI/respiratory distress) * Diet: T2DM/AHA Assessment & Plan ASSESSMENT: 05/30/16 * 70 yo F admitted with acute respiratory failure, initiated on IV steroids and doxycycline * Most recent A1c 8.7%- only on metformin as an outpatient- will order new A1c this admission * My plan will be to hold metformin and initiate NovoLog ACHS to cover steroid- induced hyperglycemia * Consider addition of basal insulin if BSG >140 mg/dL * ADA & AACE recommend a goal blood sugar range 140-180 mg/dl for the majority of critically ill & non-critically ill patients. However, more stringent targets may be selected in individual cases. Tighten to 120-160 mg/dL due to steroids. 06/01/16 * BSGs well controlled over the past 24 hours with 11 units of insulin administered (97-189mg/dL) * Fasting BSG below goal this AM * hold AM Lantus today per protocol * continue with Lantus dosing based on BSG * Steroids changed from IV --> once daily PO * continue same NovoLog parameters and assess with each step down in steroid therapy * A1c resulted * improved control since prior check 06/02/16 * BSGs again well controlled over the past 24 hours with 11 units of insulin ( BSGs 98-177mg/dL) * Steroids once daily at this time * Fasting below goal range * discontinue basal insulin at this time * Tolerating PO well, renal function at b/l * begin metformin home dose 06/03/16 * BSGs again well controlled over the past 24 hours with a reduced amount of insulin (7 units) * metformin started yesterday and basal insulin discontinued * Fasting BSG remains WNL * NovoLog continues, may need tapered parameters as steroids are tapered PLAN FOR INPATIENT GLYCEMIC CONTROL: * Continue metformin 500mg PO BID with meals * Correctional Insulin with NOVOLOG per scale ACHS * Goal Range: Low 120 mg/dL - High 160 mg/dL * Correction Factor: 40 mg/dL/unit * Nutritional / Prandial insulin per carb ratio of 1 unit per 15 grams CHO consumed * A1c added to discharge instructions RECOMMENDATIONS FOR DISCHARGE: * resume home medications at discharge * Please note that the plan above was derived based on current level of insulin resistance and hospital stress. These recommendations are appropriate for inpatient admission only. Plan of care upon discharge will need to be reassessed to avoid potential outpatient hypo/hyperglycemia. Thank you.
[2016-06-03] MEDS: LEVOFLOXACIN 500 MG TAB PO SCH (12:23)
--- NOTE | 2016-06-03 15:52 | Progress Note ---
Medicine Progress Note Date & Time of Visit: Jun 03, 2016 at 15:49. Subjective seen resting in bed awake, alert, bright, in good spirits pleasantly confused denies dyspnea, cough no abdominal pain ,nausea denies other symptoms Objective Last 8 Hrs Date Time Temp Pulse Resp B/P Pulse Ox O2 Delivery O2 Flow Rate FiO2 06/03/16 10:23 94 Room Air 06/03/16 08:00 94 Room Air 06/03/16 07:53 35.9 66 24 120/86 94 Physical Exam: General- alert, not in distress, no accessory muscle use Lungs- clear breath sounds bilaterally, no rales/wheeze Heart-normal rate, regular rhythm; no murmurs Abdomen- normal bowel sounds, non distended, soft, nontender Extremities- no pretibial edema, no calf tenderness Neuro-alert, not oriented,but no gross focal deficits noted Skin- warm & dry Laboratory Results: Last 24 Hours Test 06/02/16 16:58 06/02/16 20:45 06/03/16 06:30 06/03/16 08:21 Bedside Glucose 154 mg/dl 142 mg/dl 120 mg/dl White Blood Count 10.99 K/uL Red Blood Count 3.98 M/uL Hemoglobin 12.5 g/dL Hematocrit 36.1 % Mean Corpuscular Volume 90.7 fL Mean Corpuscular Hemoglobin 31.4 pg Mean Corpuscular Hemoglobin Concent 34.6 g/dl Platelet Count 287 K/uL Mean Platelet Volume 8.3 fL Neutrophils (%) (Auto) 45.7 % Lymphocytes (%) (Auto) 35.9 % Monocytes (%) (Auto) 15.3 % Eosinophils (%) (Auto) 0.3 % Basophils (%) (Auto) 0.3 % Neutrophils # (Auto) 5.03 K/uL Lymphocytes # (Auto) 3.95 K/uL Monocytes # (Auto) 1.68 K/uL Eosinophils # (Auto) 0.03 K/uL Basophils # (Auto) 0.03 K/uL RDW Standard Deviation 40.0 fL RDW Coefficient of Variation 12.0 % Immature Granulocyte % (Auto) 2.5 % Immature Granulocyte # (Auto) 0.27 K/uL Sodium Level 138 mmol/L Potassium Level 3.5 mmol/L Chloride Level 100 mmol/L Carbon Dioxide Level 28 mmol/L Anion Gap 10.0 mmol/L Blood Urea Nitrogen 16 mg/dl Creatinine 0.62 mg/dl Est Creatinine Clear Calc Drug Dose 69.7 ml/min Estimated GFR () 107.4 Estimated GFR (Non- 92.7 BUN/Creatinine Ratio 25.6 Random Glucose 114 mg/dl Calcium Level 9.2 mg/dl Test 06/03/16 11:48 Bedside Glucose 134 mg/dl Assessment & Plan 70 year old female with history of Schizophrenia, Parkinson, COPD, DM. HTN presenting with fever and hypoxia COPD EXACERBATION, ACUTE BRONCHITIS ACUTE HYPOXIC RESPIRATORY FAILURE - afebrile, leukocytosis resolved 99% on 2 liters NC - blood cultures negative - received Doxycycline x 3 days change to Levaquin to cover Pseudomonas UTI (Day 2) Nebs- changed to Levalbuterol Solumedrol changed to Prednisone (tapering course) - improving daily PSEUDOMONAS UTI - colonies 60k but has received antibiotics recently, hence may be partially treated presented with fever - Doxy changed to Levaquin (day 2) monitor METABOLIC ENCEPHALOPATHY HISTORY OF SCHIZOPHRENIA - from underlying infection, Lorazepam - improving continue PT/OT: per case management, patient has to be assisted with 1 person only to be able to return to [place] [facility] - continue Risperdal and Depakote MILD TACHYCARDIA, Resolved from Albuterol? - changed to Levalbuterol - IV fluids given - resolved HTN - mildly elevated - continue amlodipine monitor DM - hgb a1c 8.7 10/2015 - Metformin resumed Pharmacy consulted [facility] - continue trihexyphenidyl PSORIATIC ARTHRITIS - resume Otezla DVT PROPHYLAXIS - SQ Lovenox DISPO pending PT/OT evals in progress Current Inpatient Medications: Current Inpatient Medications Medications (Trade) Dose Ordered Sig/Abelardo Route Start Time Stop Time Status Last Admin Dose Admin Enoxaparin Sodium (Lovenox Inj) 40 mg HS SC 05/30/16 21:00 06/29/16 20:59 06/02/16 20:58 40 MG Acetaminophen (Tylenol Tab) 650 mg Q4H PRN PO 05/30/16 16:15 06/29/16 16:14 05/31/16 23:27 650 MG Ondansetron HCl (Zofran Inj) 4 mg Q6H PRN IV 05/30/16 16:15 06/29/16 16:14 Amlodipine Besylate (Norvasc Tab) 5 mg DAILY PO 05/31/16 09:00 06/30/16 08:59 06/03/16 08:22 5 MG Budesonide/ Formoterol Fumarate (Symbicort 160/ 4.5 Inh) 2 puffs BID INH 05/30/16 21:00 06/29/16 20:59 06/03/16 08:22 2 PUFFS Divalproex Sodium (Depakote Delay Rel Tab) 500 mg BID PO 05/30/16 21:00 06/29/16 20:59 06/03/16 08:22 500 MG Folic Acid (Folvite Tab) 1 mg DAILY PO 05/31/16 09:00 06/30/16 08:59 06/03/16 08:22 1 MG Risperidone (Risperdal Tab) 3 mg BID PO 05/30/16 21:00 06/29/16 20:59 06/03/16 08:23 3 MG Trihexyphenidyl HCl (Artane Tab) 2 mg BID PO 05/30/16 21:00 06/29/16 20:59 06/03/16 08:22 2 MG ka-Cpoek-Fpvvgzydaw Acetate (Vitamin E Cap) 400 interunit DAILY PO 05/31/16 09:00 06/30/16 08:59 06/03/16 08:23 400 INTERUNIT Calcium Carbonate (Tums Chew Tab) 750 mg BID PO 05/30/16 21:00 06/29/16 20:59 06/03/16 08:23 750 MG Docusate Sodium (coLACE CAP) 100 mg DAILY PRN PO 05/30/16 18:00 06/29/16 17:59 Guaifenesin (Mucinex Contr Rel Tab) 600 mg BID PO 05/30/16 21:00 06/29/16 20:59 06/03/16 08:22 600 MG Pantoprazole Sodium (Protonix Tab) 40 mg DAILY PO 05/31/16 09:00 06/30/16 08:59 06/03/16 08:23 40 MG Miscellaneous Information (Consult Glycemic Management Pharmacy) 1 ea UD PRN N/A 05/30/16 18:03 06/29/16 18:02 Insulin Aspart (novoLOG ASPART) SLIDING SCALE ACHS SC 05/30/16 21:00 06/29/16 20:59 06/03/16 12:25 2 UNITS Enteral Nutritional Formula (Boost Glucose Control) 1 can BID PO 06/01/16 21:00 07/01/16 20:59 06/03/16 08:22 1 CAN Ipratropium [place] (Atrovent 0.02% 0.5MG/2.5ML Neb) 0.5 mg Q6R INH 06/01/16 15:00 07/01/16 14:59 06/03/16 07:25 0.5 MG Levalbuterol (Xopenex 1.25MG/ 0.5ML Neb) 1.25 mg Q6R INH 06/01/16 15:00 07/01/16 14:59 06/03/16 07:25 1.25 MG Metformin HCl (Glucophage Tab) 500 mg BIDM PO 06/02/16 16:45 07/02/16 16:44 06/03/16 08:21 500 MG Levofloxacin (Levaquin Tab) 500 mg DAILY@11 PO 06/03/16 11:00 06/06/16 11:01 06/03/16 12:23 500 MG Prednisone (PredniSONE TAB) 20 mg DAILY PO 06/03/16 09:00 07/03/16 08:59 06/03/16 08:22 20 MG Miscellaneous Information (Order Awaiting Action) 1 ea QS N/A 06/03/16 16:00 07/03/16 15:59
[2016-06-03] MEDS: ENOXAPARIN 40 MG/0.4 ML SYR SC SCH (21:36)
[2016-06-04] MEDS: INSULIN ASPART 100 UNITS/ML 3 ML PEN SC SCH ×4 (06:30→21:00)
[2016-06-04] MEDS: LEVALBUTEROL 1.25MG/0.5ML NEB INH SCH ×2 (07:04→14:15)
[2016-06-04 07:05] VITALS: PULSE 80; O2SAT 93
[2016-06-04] MEDS: IPRATROPIUM BROMIDE NEB SOLN 0.02% 2.5 ML VIAL INH SCH ×2 (07:05→14:15)
[2016-06-04 07:32] LABS: BASO % 0.3 %; BASO ABS # 0.03 K/uL (0-0.2); COMPLETE YES; EOS % 0.8 %; HEMATOCRIT 35.6 % (37-47); IG% 3.4 %; LYMPH % 43.2 %; LYMPH ABS # 4.78 K/uL (1.2-3.4); MEAN CELL VOLUME 89.9 fL (80-100); MEAN CORPUSCULAR HEMOGLOBIN 31.3 pg (25-34); MEAN CORPUSCULAR HGB CONC 34.8 g/dl (32-36); MEAN PLATELET VOLUME 8.1 fL (7.4-10.4); MONO % 17.5 %; NEUT % 34.8 %; PLATELET COUNT 277 K/uL (130-400); RED BLOOD COUNT 3.96 M/uL (4.2-5.4); WHITE BLOOD COUNT 11.06 K/uL (4.8-10.8)
[2016-06-04 07:51] VITALS: BP 138/78; PULSE 80; TEMP 36.6; O2SAT 93
[2016-06-04 08:02] LABS: BUN/CREATININE RATIO 25.9 (10-20); CALCIUM 8.8 mg/dl (8.5-10.1); CREATININE 0.68 mg/dl (0.60-1.20); POTASSIUM 3.8 mmol/L (3.5-5.1)
[2016-06-04] MEDS: METFORMIN HCL 500 MG TAB PO SCH ×2 (08:43→16:48)
[2016-06-04] MEDS: BUDESONIDE/FORMOTEROL FUMARATE 160/4.5 60 PUFFS/INHALER INH SCH ×2 (08:43→21:18)
[2016-06-04] MEDS: BOOST GLUCOSE CONTROL PO SCH ×2 (08:44→21:32)
[2016-06-04] MEDS: TRIHEXYPHENIDYL HCL 2 MG TAB PO SCH ×2 (08:44→21:20)
[2016-06-04] MEDS: GUAIFENESIN 600 MG TABCR PO SCH ×2 (08:45→21:21)
[2016-06-04] MEDS: DIVALPROEX SODIUM 500 MG DELAY RELEASE TAB PO SCH ×2 (08:45→21:20)
[2016-06-04] MEDS: AMLODIPINE BESYLATE 5 MG TAB PO SCH (08:45)
[2016-06-04] MEDS: TOCOPHERYL, DL-ALPHA 400 INTER.UNIT CAP PO SCH (08:46)
[2016-06-04] MEDS: PANTOprazole SOD 40 MG TAB PO SCH (08:46)
[2016-06-04] MEDS: RISPERIDONE 3 MG TAB PO SCH ×2 (08:46→21:21)
[2016-06-04] MEDS: CALCIUM CARBONATE 500 MG CHEWABLE PO SCH ×2 (08:47→21:21)
[2016-06-04] MEDS: LEVOFLOXACIN 500 MG TAB PO SCH (11:01)
[2016-06-04 14:15] VITALS: PULSE 89; O2SAT 93
--- NOTE | 2016-06-04 14:24 | Pharmacy Progress Note ---
Glycemic: Assessment & Plan Date of Service Jun 04, 2016. Assessment & Plan Pt with minimal insulin needs. No basal insulin required. TDD during hospital stay is less than 10 units per day of Novolog. BSGs ranging 104 - 134 mg/dl over the past 24hrs. Will remove Novolog CR to avoid overcorrecting BSGs now that Metformin has been resumed. PLAN FOR INPATIENT GLYCEMIC REGIMEN: * Basal insulin: NONE * Correctional Insulin: Novolog Correction per scale ACHS Goal Range: Low 120 mg/dL - High 160 mg/dL Continue - Correction Factor: 40 mg/dL/unit * Prandial insulin: STOP * Continue Metformin 500mg BIDM Pharmacy will continue to monitor patient daily and write orders per [facility] inpatient glycemic control protocol. Thanks. * RECOMMEND PATIENT RESUME OUTPATIENT GLYCEMIC REGIMEN OF METFORMIN MONOTHERAPY UPON DISCHARGE. A1C = 6.7% on 05/30/16 * Please note that the plan above was derived based on current level of insulin resistance and hospital stress. These recommendations are appropriate for inpatient admission only. Plan of care upon discharge will need to be reassessed to avoid potential outpatient hypo/hyperglycemia.
[2016-06-04 15:29] VITALS: BP 138/74; PULSE 63; TEMP 36.8; O2SAT 95
[2016-06-04] MEDS ORDERED: IPRATROPIUM BROMIDE NEB SOLN 0.02% 2.5 ML VIAL INH PRN (17:00)
[2016-06-04] MEDS ORDERED: LEVALBUTEROL 1.25MG/0.5ML NEB INH PRN (17:00)
--- NOTE | 2016-06-04 20:37 | Progress Note ---
Medicine Progress Note Date & Time of Visit: Jun 04, 2016 at 20:36. Subjective patient seen comfortable denies cough, dyspnea denies pain states she feels good Objective Last 8 Hrs Date Time Temp Pulse Resp B/P Pulse Ox O2 Delivery O2 Flow Rate FiO2 06/04/16 16:00 Room Air 06/04/16 15:29 36.8 63 20 138/74 95 Room Air 06/04/16 14:15 89 18 93 Room Air Physical Exam: General- alert, not in distress, no accessory muscle use Lungs- clear bilaterally, no rales/wheeze Heart-normal rate, regular rhythm; no murmurs Abdomen- normal bowel sounds, non distended, soft, nontender Extremities- no pretibial edema, no calf tenderness Neuro-alert, not oriented,but no gross focal deficits noted Skin- warm & dry Laboratory Results: Last 24 Hours Test 06/04/16 07:12 06/04/16 07:38 06/04/16 11:37 06/04/16 16:31 White Blood Count 11.06 K/uL Red Blood Count 3.96 M/uL Hemoglobin 12.4 g/dL Hematocrit 35.6 % Mean Corpuscular Volume 89.9 fL Mean Corpuscular Hemoglobin 31.3 pg Mean Corpuscular Hemoglobin Concent 34.8 g/dl Platelet Count 277 K/uL Mean Platelet Volume 8.1 fL Neutrophils (%) (Auto) 34.8 % Lymphocytes (%) (Auto) 43.2 % Monocytes (%) (Auto) 17.5 % Eosinophils (%) (Auto) 0.8 % Basophils (%) (Auto) 0.3 % Neutrophils # (Auto) 3.85 K/uL Lymphocytes # (Auto) 4.78 K/uL Monocytes # (Auto) 1.93 K/uL Eosinophils # (Auto) 0.09 K/uL Basophils # (Auto) 0.03 K/uL RDW Standard Deviation 39.0 fL RDW Coefficient of Variation 11.9 % Immature Granulocyte % (Auto) 3.4 % Immature Granulocyte # (Auto) 0.38 K/uL Sodium Level 136 mmol/L Potassium Level 3.8 mmol/L Chloride Level 101 mmol/L Carbon Dioxide Level 28 mmol/L Anion Gap 7.0 mmol/L Blood Urea Nitrogen 18 mg/dl Creatinine 0.68 mg/dl Est Creatinine Clear Calc Drug Dose 63.6 ml/min Estimated GFR () 104.2 Estimated GFR (Non- 89.9 BUN/Creatinine Ratio 25.9 Random Glucose 106 mg/dl Calcium Level 8.8 mg/dl Bedside Glucose 104 mg/dl 118 mg/dl 139 mg/dl Test 06/04/16 20:04 Bedside Glucose 115 mg/dl Assessment & Plan 70 year old female with history of Schizophrenia, Parkinson, COPD, DM. HTN presenting with fever and hypoxia COPD EXACERBATION, ACUTE BRONCHITIS ACUTE HYPOXIC RESPIRATORY FAILURE - afebrile, leukocytosis resolved saturating well on room air - blood cultures negative - received Doxycycline x 3 days changed to Levaquin to cover Pseudomonas UTI (Day 3) Nebs- changed to Levalbuterol Solumedrol changed to Prednisone (tapering course) -- resolving PSEUDOMONAS UTI - colonies 60k but has received antibiotics recently, hence may be partially treated presented with fever - Doxy changed to Levaquin (day 3) monitor METABOLIC ENCEPHALOPATHY HISTORY OF SCHIZOPHRENIA - from underlying infection, Lorazepam - improving continue PT/OT: per case management, patient has to be assisted with 1 person only to be able to return to [place] [facility] - continue Risperdal and Depakote MILD TACHYCARDIA, Resolved from Albuterol? - changed to Levalbuterol - IV fluids given - resolved HTN - improving - continue amlodipine monitor DM - hgb a1c 8.7 10/2015 - Metformin resumed Pharmacy consulted [facility] - continue trihexyphenidyl PSORIATIC ARTHRITIS - resume Otezla DVT PROPHYLAXIS - SQ Lovenox DISPO pending PT/OT evals in progress Current Inpatient Medications: Current Inpatient Medications Medications (Trade) Dose Ordered Sig/Abelardo Route Start Time Stop Time Status Last Admin Dose Admin Enoxaparin Sodium (Lovenox Inj) 40 mg HS SC 05/30/16 21:00 06/29/16 20:59 06/03/16 21:36 40 MG Acetaminophen (Tylenol Tab) 650 mg Q4H PRN PO 05/30/16 16:15 06/29/16 16:14 05/31/16 23:27 650 MG Ondansetron HCl (Zofran Inj) 4 mg Q6H PRN IV 05/30/16 16:15 06/29/16 16:14 Amlodipine Besylate (Norvasc Tab) 5 mg DAILY PO 05/31/16 09:00 06/30/16 08:59 06/04/16 08:45 5 MG Budesonide/ Formoterol Fumarate (Symbicort 160/ 4.5 Inh) 2 puffs BID INH 05/30/16 21:00 06/29/16 20:59 06/04/16 08:43 2 PUFFS Divalproex Sodium (Depakote Delay Rel Tab) 500 mg BID PO 05/30/16 21:00 06/29/16 20:59 06/04/16 08:45 500 MG Folic Acid (Folvite Tab) 1 mg DAILY PO 05/31/16 09:00 06/30/16 08:59 06/04/16 08:45 1 MG Risperidone (Risperdal Tab) 3 mg BID PO 05/30/16 21:00 06/29/16 20:59 06/04/16 08:46 3 MG Trihexyphenidyl HCl (Artane Tab) 2 mg BID PO 05/30/16 21:00 06/29/16 20:59 06/04/16 08:44 2 MG kw-Aobwc-Qiahxerehz Acetate (Vitamin E Cap) 400 interunit DAILY PO 05/31/16 09:00 06/30/16 08:59 06/04/16 08:46 400 INTERUNIT Calcium Carbonate (Tums Chew Tab) 750 mg BID PO 05/30/16 21:00 06/29/16 20:59 06/04/16 08:47 750 MG Docusate Sodium (coLACE CAP) 100 mg DAILY PRN PO 05/30/16 18:00 06/29/16 17:59 Guaifenesin (Mucinex Contr Rel Tab) 600 mg BID PO 05/30/16 21:00 06/29/16 20:59 06/04/16 08:45 600 MG Pantoprazole Sodium (Protonix Tab) 40 mg DAILY PO 05/31/16 09:00 06/30/16 08:59 06/04/16 08:46 40 MG Miscellaneous Information (Consult Glycemic Management Pharmacy) 1 ea UD PRN N/A 05/30/16 18:03 06/29/16 18:02 Insulin Aspart (novoLOG ASPART) SLIDING SCALE ACHS SC 05/30/16 21:00 06/29/16 20:59 06/03/16 21:52 1 UNITS Enteral Nutritional Formula (Boost Glucose Control) 1 can BID PO 06/01/16 21:00 07/01/16 20:59 06/03/16 21:58 1 CAN Metformin HCl (Glucophage Tab) 500 mg BIDM PO 06/02/16 16:45 07/02/16 16:44 06/04/16 16:48 500 MG Levofloxacin (Levaquin Tab) 500 mg DAILY@11 PO 06/03/16 11:00 06/06/16 11:01 06/04/16 11:01 500 MG Prednisone (PredniSONE TAB) 20 mg DAILY PO 06/03/16 09:00 07/03/16 08:59 06/04/16 08:46 20 MG Miscellaneous Information (Order Awaiting Action) 1 ea QS N/A 06/03/16 16:00 07/03/16 15:59 Ipratropium [place] (Atrovent 0.02% 0.5MG/2.5ML Neb) 0.5 mg Q4H PRN INH 06/04/16 17:00 07/04/16 16:59 Levalbuterol (Xopenex 1.25MG/ 0.5ML Neb) 1.25 mg Q4H PRN INH 06/04/16 17:00 07/04/16 16:59
[2016-06-04] MEDS: ENOXAPARIN 40 MG/0.4 ML SYR SC SCH (21:22)
[2016-06-05 00:39] VITALS: BP 142/87; PULSE 78; TEMP 36.6; O2SAT 95
[2016-06-05] MEDS: INSULIN ASPART 100 UNITS/ML 3 ML PEN SC SCH ×4 (07:57→20:47)
[2016-06-05 07:59] LABS: HEMATOCRIT 37.9 % (37-47); MEAN CELL VOLUME 89.6 fL (80-100); MEAN CORPUSCULAR HGB CONC 34.6 g/dl (32-36); MEAN PLATELET VOLUME 8.2 fL (7.4-10.4); PLATELET COUNT 279 K/uL (130-400); RED BLOOD COUNT 4.23 M/uL (4.2-5.4); WHITE BLOOD COUNT 11.84 K/uL (4.8-10.8)
[2016-06-05] MEDS: METFORMIN HCL 500 MG TAB PO SCH ×2 (08:00→17:35)
[2016-06-05] MEDS: BUDESONIDE/FORMOTEROL FUMARATE 160/4.5 60 PUFFS/INHALER INH SCH ×2 (08:01→20:46)
[2016-06-05] MEDS: DIVALPROEX SODIUM 500 MG DELAY RELEASE TAB PO SCH ×2 (08:04→20:48)
[2016-06-05 08:06] VITALS: BP 142/93; PULSE 90; TEMP 36.6; O2SAT 91
[2016-06-05] MEDS: RISPERIDONE 3 MG TAB PO SCH ×2 (08:06→20:48)
[2016-06-05] MEDS: AMLODIPINE BESYLATE 5 MG TAB PO SCH (08:06)
[2016-06-05] MEDS: CALCIUM CARBONATE 500 MG CHEWABLE PO SCH ×2 (08:08→20:50)
[2016-06-05] MEDS: TRIHEXYPHENIDYL HCL 2 MG TAB PO SCH ×2 (08:09→20:49)
[2016-06-05] MEDS: GUAIFENESIN 600 MG TABCR PO SCH ×2 (08:09→20:47)
[2016-06-05] MEDS: PANTOprazole SOD 40 MG TAB PO SCH (08:10)
[2016-06-05] MEDS: TOCOPHERYL, DL-ALPHA 400 INTER.UNIT CAP PO SCH (08:10)
[2016-06-05] MEDS: BOOST GLUCOSE CONTROL PO SCH ×2 (08:24→20:48)
[2016-06-05 08:35] LABS: BUN/CREATININE RATIO 23.4 (10-20); CALCIUM 9.2 mg/dl (8.5-10.1); CREATININE 0.67 mg/dl (0.60-1.20); POTASSIUM 3.8 mmol/L (3.5-5.1)
[2016-06-05 08:49] LABS: BASO % 0.3 %; BASO ABS # 0.04 K/uL (0-0.2); COMPLETE YES; EOS % 1.2 %; IG% 3.5 %; LYMPH % 45.9 %; LYMPH ABS # 5.43 K/uL (1.2-3.4); NEUT % 33.1 %; SMUDGE CELLS PRESENT; VACUOLIZATION 1+
--- NOTE | 2016-06-05 09:03 | Progress Note ---
Medicine Progress Note Date & Time of Visit: Jun 05, 2016 at 09:00. Subjective seen resting in bed, comfortable smiling denies shortness of breath, cough no chest pain, abdominal pain no other symptoms Objective Last 8 Hrs Date Time Temp Pulse Resp B/P Pulse Ox O2 Delivery O2 Flow Rate FiO2 06/05/16 08:06 36.6 90 18 142/93 91 Room Air Physical Exam: General- alert, not in distress, no accessory muscle use Lungs- clear breath sounds, no rales/wheezes b/l Heart-normal rate, regular rhythm; no murmurs Abdomen- normal bowel sounds, non distended, soft, nontender Extremities- no pretibial edema, no calf tenderness Neuro-alert, not oriented,but no gross focal deficits noted Skin- warm & dry Laboratory Results: Last 24 Hours Test 06/04/16 11:37 06/04/16 16:31 06/04/16 20:04 06/05/16 07:49 Bedside Glucose 118 mg/dl 139 mg/dl 115 mg/dl White Blood Count 11.84 K/uL Red Blood Count 4.23 M/uL Hemoglobin 13.1 g/dL Hematocrit 37.9 % Mean Corpuscular Volume 89.6 fL Mean Corpuscular Hemoglobin 31.0 pg Mean Corpuscular Hemoglobin Concent 34.6 g/dl Platelet Count 279 K/uL Mean Platelet Volume 8.2 fL Neutrophils (%) (Auto) 33.1 % Lymphocytes (%) (Auto) 45.9 % Monocytes (%) (Auto) 16.0 % Eosinophils (%) (Auto) 1.2 % Basophils (%) (Auto) 0.3 % Neutrophils # (Auto) 3.92 K/uL Lymphocytes # (Auto) 5.43 K/uL Monocytes # (Auto) 1.90 K/uL Eosinophils # (Auto) 0.14 K/uL Basophils # (Auto) 0.04 K/uL RDW Standard Deviation 38.9 fL RDW Coefficient of Variation 12.0 % Immature Granulocyte % (Auto) 3.5 % Immature Granulocyte # (Auto) 0.41 K/uL Smudge Cells PRESENT Toxic Vacuolation 1+ Sodium Level 136 mmol/L Potassium Level 3.8 mmol/L Chloride Level 100 mmol/L Carbon Dioxide Level 27 mmol/L Anion Gap 9.0 mmol/L Blood Urea Nitrogen 16 mg/dl Creatinine 0.67 mg/dl Est Creatinine Clear Calc Drug Dose 64.5 ml/min Estimated GFR () 104.7 Estimated GFR (Non- 90.3 BUN/Creatinine Ratio 23.4 Random Glucose 112 mg/dl Calcium Level 9.2 mg/dl Test 06/05/16 07:50 Bedside Glucose 106 mg/dl Assessment & Plan 70 year old female with history of Schizophrenia, Parkinson, COPD, DM. HTN presenting with fever and hypoxia COPD EXACERBATION, ACUTE BRONCHITIS ACUTE HYPOXIC RESPIRATORY FAILURE - afebrile, leukocytosis resolved saturating well on room air - blood cultures negative - received Doxycycline x 3 days changed to Levaquin to cover Pseudomonas UTI (Day 4/5) Nebs- changed to Levalbuterol Solumedrol changed to Prednisone (tapering course) -- resolved PSEUDOMONAS UTI - colonies 60k but has received antibiotics recently, hence may be partially treated presented with fever - Doxy changed to Levaquin (day 4/5) remains afebrile METABOLIC ENCEPHALOPATHY HISTORY OF SCHIZOPHRENIA - from underlying infection, Lorazepam - improving continue PT/OT: per case management, patient has to be assisted with 1 person only to be able to return to [place] [facility] - continue Risperdal and Depakote MILD TACHYCARDIA, Resolved from Albuterol? - changed to Levalbuterol - IV fluids given - resolved HTN - improved - continue amlodipine monitor DM - hgb a1c 8.7 10/2015 - Metformin resumed Pharmacy consulted [facility] - continue trihexyphenidyl PSORIATIC ARTHRITIS - resume Otezla DVT PROPHYLAXIS - SQ Lovenox DISPO d/c to [place] [facility] when patient only requires 1 assist Current Inpatient Medications: Current Inpatient Medications Medications (Trade) Dose Ordered Sig/Abelardo Route Start Time Stop Time Status Last Admin Dose Admin Enoxaparin Sodium (Lovenox Inj) 40 mg HS SC 05/30/16 21:00 06/29/16 20:59 06/04/16 21:22 40 MG Acetaminophen (Tylenol Tab) 650 mg Q4H PRN PO 05/30/16 16:15 06/29/16 16:14 05/31/16 23:27 650 MG Ondansetron HCl (Zofran Inj) 4 mg Q6H PRN IV 05/30/16 16:15 06/29/16 16:14 Amlodipine Besylate (Norvasc Tab) 5 mg DAILY PO 05/31/16 09:00 06/30/16 08:59 06/05/16 08:06 5 MG Budesonide/ Formoterol Fumarate (Symbicort 160/ 4.5 Inh) 2 puffs BID INH 05/30/16 21:00 06/29/16 20:59 06/05/16 08:01 2 PUFFS Divalproex Sodium (Depakote Delay Rel Tab) 500 mg BID PO 05/30/16 21:00 06/29/16 20:59 06/05/16 08:04 500 MG Folic Acid (Folvite Tab) 1 mg DAILY PO 05/31/16 09:00 06/30/16 08:59 06/05/16 08:09 1 MG Risperidone (Risperdal Tab) 3 mg BID PO 05/30/16 21:00 06/29/16 20:59 06/05/16 08:06 3 MG Trihexyphenidyl HCl (Artane Tab) 2 mg BID PO 05/30/16 21:00 06/29/16 20:59 06/05/16 08:09 2 MG fn-Bvecj-Ylnumkadyp Acetate (Vitamin E Cap) 400 interunit DAILY PO 05/31/16 09:00 06/30/16 08:59 06/05/16 08:10 400 INTERUNIT Calcium Carbonate (Tums Chew Tab) 750 mg BID PO 05/30/16 21:00 06/29/16 20:59 06/05/16 08:08 750 MG Docusate Sodium (coLACE CAP) 100 mg DAILY PRN PO 05/30/16 18:00 06/29/16 17:59 Guaifenesin (Mucinex Contr Rel Tab) 600 mg BID PO 05/30/16 21:00 06/29/16 20:59 06/05/16 08:09 600 MG Pantoprazole Sodium (Protonix Tab) 40 mg DAILY PO 05/31/16 09:00 06/30/16 08:59 06/05/16 08:10 40 MG Miscellaneous Information (Consult Glycemic Management Pharmacy) 1 ea UD PRN N/A 05/30/16 18:03 06/29/16 18:02 Insulin Aspart (novoLOG ASPART) SLIDING SCALE ACHS SC 05/30/16 21:00 06/29/16 20:59 06/03/16 21:52 1 UNITS Enteral Nutritional Formula (Boost Glucose Control) 1 can BID PO 06/01/16 21:00 07/01/16 20:59 06/05/16 08:24 1 CAN Metformin HCl (Glucophage Tab) 500 mg BIDM PO 06/02/16 16:45 07/02/16 16:44 06/05/16 08:00 500 MG Levofloxacin (Levaquin Tab) 500 mg DAILY@11 PO 06/03/16 11:00 06/06/16 11:01 06/04/16 11:01 500 MG Miscellaneous Information (Order Awaiting Action) 1 ea QS N/A 06/03/16 16:00 07/03/16 15:59 Ipratropium [place] (Atrovent 0.02% 0.5MG/2.5ML Neb) 0.5 mg Q4H PRN INH 06/04/16 17:00 07/04/16 16:59 Levalbuterol (Xopenex 1.25MG/ 0.5ML Neb) 1.25 mg Q4H PRN INH 06/04/16 17:00 07/04/16 16:59 Prednisone (PredniSONE TAB) 10 mg DAILY PO 06/05/16 09:00 07/05/16 08:59 UNV
--- NOTE | 2016-06-05 11:01 | Pharmacy Progress Note ---
Glycemic: Assessment & Plan Date of Service Jun 05, 2016. Assessment & Plan Pt with minimal insulin needs. No basal insulin required. TDD of insulin during hospital stay is less than 10 units per day of Novolog (0 units yesterday ). BSGs ranging 106 - 139 mg/dl over the past 24hrs. Steroids being tapered so would expect continued improvement of BSG control. No anticipated changes will be required to inpatient glycemic regimen. CONTINUE INPATIENT GLYCEMIC REGIMEN: * Basal insulin: NONE * Correctional Insulin: Novolog Correction per scale ACHS Goal Range: Low 120 mg/dL - High 160 mg/dL Continue - Correction Factor: 40 mg/dL/unit * Prandial insulin: STOP * Continue Metformin 500mg BIDM Pharmacy will SIGN-OFF OF GLYCEMIC CONSULT. Feel free to contact the pharmacy glycemic service with questions or re-consult our service if necessary. Thanks. * RECOMMEND PATIENT RESUME OUTPATIENT GLYCEMIC REGIMEN OF METFORMIN MONOTHERAPY UPON DISCHARGE. A1C = 6.7% on 05/30/16 * Please note that the plan above was derived based on current level of insulin resistance and hospital stress. These recommendations are appropriate for inpatient admission only. Plan of care upon discharge will need to be reassessed to avoid potential outpatient hypo/hyperglycemia.
[2016-06-05] MEDS: LEVOFLOXACIN 500 MG TAB PO SCH (12:17)
[2016-06-05 13:37] VITALS: BP 141/77; PULSE 86
[2016-06-05 15:35] VITALS: BP 116/79; PULSE 71; TEMP 36.8; O2SAT 93
[2016-06-05] MEDS: ENOXAPARIN 40 MG/0.4 ML SYR SC SCH (20:49)
[2016-06-05 23:27] VITALS: BP 148/84; PULSE 88; TEMP 36.8; O2SAT 93
[2016-06-06 07:43] VITALS: BP 140/76; PULSE 95; TEMP 36.7; O2SAT 92
[2016-06-06] MEDS: BUDESONIDE/FORMOTEROL FUMARATE 160/4.5 60 PUFFS/INHALER INH SCH (08:48)
[2016-06-06] MEDS: METFORMIN HCL 500 MG TAB PO SCH (08:48)
[2016-06-06] MEDS: DIVALPROEX SODIUM 500 MG DELAY RELEASE TAB PO SCH (08:49)
[2016-06-06] MEDS: TRIHEXYPHENIDYL HCL 2 MG TAB PO SCH (08:49)
[2016-06-06] MEDS: AMLODIPINE BESYLATE 5 MG TAB PO SCH (08:50)
[2016-06-06] MEDS: GUAIFENESIN 600 MG TABCR PO SCH (08:50)
[2016-06-06] MEDS: PANTOprazole SOD 40 MG TAB PO SCH (08:51)
[2016-06-06] MEDS: RISPERIDONE 3 MG TAB PO SCH (08:51)
[2016-06-06] MEDS: TOCOPHERYL, DL-ALPHA 400 INTER.UNIT CAP PO SCH (08:52)
[2016-06-06] MEDS: CALCIUM CARBONATE 500 MG CHEWABLE PO SCH (08:52)
[2016-06-06] MEDS: BOOST GLUCOSE CONTROL PO SCH (08:55)
[2016-06-06] MEDS: INSULIN ASPART 100 UNITS/ML 3 ML PEN SC SCH ×2 (08:57→11:46)
--- NOTE | 2016-06-06 12:11 | Progress Note ---
Medicine Progress Note Date & Time of Visit: Jun 06, 2016 at 12:06. Subjective seen with daughter Aline at bedside, states patient is at her baseline patient sitting up in good spirits states breathing is good, no cough noted to have rash on her back by daughter- denies pruritus, dyspnea no other symptoms at her baseline level per daughter, agreeable with discharge today Objective Last 8 Hrs Date Time Temp Pulse Resp B/P Pulse Ox O2 Delivery O2 Flow Rate FiO2 06/06/16 08:00 Room Air 06/06/16 07:43 36.7 95 18 140/76 92 Room Air Physical Exam: General- alert, not in distress, no accessory muscle use Lungs- clear breath sounds, no rales/wheezes b/l Heart-normal rate, regular rhythm; no murmurs Abdomen- normal bowel sounds, non distended, soft, nontender Extremities- no pretibial edema, no calf tenderness Back- (+) maculopapular rash, moderate Neuro-alert, not oriented,but no gross focal deficits noted Skin- warm & dry Laboratory Results: Last 24 Hours Test 06/05/16 16:36 06/05/16 20:44 06/06/16 07:31 06/06/16 11:03 Bedside Glucose 144 mg/dl 106 mg/dl 124 mg/dl 136 mg/dl Assessment & Plan 70 year old female with history of Schizophrenia, Parkinson, COPD, DM. HTN presenting with fever and hypoxia COPD EXACERBATION, ACUTE BRONCHITIS ACUTE HYPOXIC RESPIRATORY FAILURE - afebrile, leukocytosis resolved saturating well on room air - blood cultures negative - received Doxycycline x 3 days changed to Levaquin to cover Pseudomonas UTI (completed 5/5 days) Nebs- changed to Levalbuterol Solumedrol changed to Prednisone (tapering course) -- resolved complete Prednisone 5mg x 2 more days monitor respiratory status PSEUDOMONAS UTI - based on urine cultures - colonies 60k but has received antibiotics recently, hence may be partially treated presented with fever - Doxy changed to Levaquin (completed 5/5 days) remains afebrile monitor METABOLIC ENCEPHALOPATHY HISTORY OF SCHIZOPHRENIA - from underlying infection, Lorazepam - improved, back to baseline evaluated by PT/OT, may return to [facility] - continue Risperdal and Depakote MILD TACHYCARDIA, Resolved from Albuterol? - changed to Levalbuterol - IV fluids given - resolved HTN - improved - continue amlodipine monitor DM - hgb a1c 8.7 10/2015 - Metformin resumed Pharmacy consulted while inpatient PARKINSONISM - continue trihexyphenidyl PSORIATIC ARTHRITIS - resume Otezla POSSIBLE SWEAT RASH AT THE BACK - no other rash on physical exam - Calmoseptine BID keep area dry monitor daily DVT PROPHYLAXIS - SQ Lovenox given DISPO d/c to [facility] today ff up with Dr. Kraus this week Current Inpatient Medications: Current Inpatient Medications Medications (Trade) Dose Ordered Sig/Abelardo Route Start Time Stop Time Status Last Admin Dose Admin Enoxaparin Sodium (Lovenox Inj) 40 mg HS SC 05/30/16 21:00 06/29/16 20:59 06/05/16 20:49 40 MG Acetaminophen (Tylenol Tab) 650 mg Q4H PRN PO 05/30/16 16:15 06/29/16 16:14 05/31/16 23:27 650 MG Ondansetron HCl (Zofran Inj) 4 mg Q6H PRN IV 05/30/16 16:15 06/29/16 16:14 Amlodipine Besylate (Norvasc Tab) 5 mg DAILY PO 05/31/16 09:00 06/30/16 08:59 06/06/16 08:50 5 MG Budesonide/ Formoterol Fumarate (Symbicort 160/ 4.5 Inh) 2 puffs BID INH 05/30/16 21:00 06/29/16 20:59 06/06/16 08:48 2 PUFFS Divalproex Sodium (Depakote Delay Rel Tab) 500 mg BID PO 05/30/16 21:00 06/29/16 20:59 06/06/16 08:49 500 MG Folic Acid (Folvite Tab) 1 mg DAILY PO 05/31/16 09:00 06/30/16 08:59 06/06/16 08:50 1 MG Risperidone (Risperdal Tab) 3 mg BID PO 05/30/16 21:00 06/29/16 20:59 06/06/16 08:51 3 MG Trihexyphenidyl HCl (Artane Tab) 2 mg BID PO 05/30/16 21:00 06/29/16 20:59 06/06/16 08:49 2 MG nr-Fvguf-Ygdcyrglui Acetate (Vitamin E Cap) 400 interunit DAILY PO 05/31/16 09:00 06/30/16 08:59 06/06/16 08:52 400 INTERUNIT Calcium Carbonate (Tums Chew Tab) 750 mg BID PO 05/30/16 21:00 06/29/16 20:59 06/06/16 08:52 750 MG Docusate Sodium (coLACE CAP) 100 mg DAILY PRN PO 05/30/16 18:00 06/29/16 17:59 Guaifenesin (Mucinex Contr Rel Tab) 600 mg BID PO 05/30/16 21:00 06/29/16 20:59 06/06/16 08:50 600 MG Pantoprazole Sodium (Protonix Tab) 40 mg DAILY PO 05/31/16 09:00 06/30/16 08:59 06/06/16 08:51 40 MG Insulin Aspart (novoLOG ASPART) SLIDING SCALE ACHS SC 05/30/16 21:00 06/29/16 20:59 06/03/16 21:52 1 UNITS Enteral Nutritional Formula (Boost Glucose Control) 1 can BID PO 06/01/16 21:00 07/01/16 20:59 06/06/16 08:55 1 CAN Metformin HCl (Glucophage Tab) 500 mg BIDM PO 06/02/16 16:45 07/02/16 16:44 06/06/16 08:48 500 MG Miscellaneous Information (Order Awaiting Action) 1 ea QS N/A 06/03/16 16:00 07/03/16 15:59 Ipratropium [place] (Atrovent 0.02% 0.5MG/2.5ML Neb) 0.5 mg Q4H PRN INH 06/04/16 17:00 07/04/16 16:59 Levalbuterol (Xopenex 1.25MG/ 0.5ML Neb) 1.25 mg Q4H PRN INH 06/04/16 17:00 07/04/16 16:59 Prednisone (PredniSONE TAB) 10 mg DAILY PO 06/06/16 09:00 07/06/16 08:59 06/06/16 08:51 10 MG
[2016-06-06] MEDS ORDERED: PRD10 PO (12:20)
[2016-06-06] MEDS ORDERED: IPRASOL4 INH (12:20)
[2016-06-06] MEDS ORDERED: MENTOIN TOP (12:20)
--- NOTE | 2016-06-06 12:23 | Discharge Instructions ---
Discharge Instructions Date of Service Jun 06, 2016. Admission Reason for Admission: Hypoxia Discharge Discharge Diagnosis / Problem: ACUTE BRONCHITIS, PSEUDOMONAS UTI Discharge Goals Goal(s): Diagnostic testing, Therapeutic intervention Activity Recommendations Activity Level: Assistance Required Therapies: Physical Therapy, Occupational Therapy FALL PRECAUTIONS PLEASE . Additional Information Patient informed of condition: Yes Advance Directives: No (UNKNOWN) DNR: No (PATIENT IS FULL CODE) Level of Care: Other (PERSONAL HALFWAY) Communicable Disease: No Prognosis: Stable Instructions / Follow-Up Instructions / Follow-Up PLEASE MONITOR RESPIRATORY STATUS. MONITOR RASH AT THE BACK AND APPLY CALMOSEPTINE BID. FOLLOW UP WITH DR. DE THIS WEEK. PLEASE REFER TO ACCOMPANYING DISCHARGE SUMMARY FOR FURTHER DETAILS. Current Hospital Diet Patient's current hospital diet: Diabetes Type 2 Diet, AHA Diet (Heart Healthy) Discharge Diet Recommended Diet: AHA Diet (Heart Healthy), Diabetes Type 2 Diet Pending Studies Studies pending at discharge: no Physician Orders On Transfer Special Precautions: PLEASE MONITOR RESPIRATORY STATUS. MONITOR RASH AT THE BACK AND APPLY CALMOSEPTINE BID. FOLLOW UP WITH DR. DE THIS WEEK. PLEASE REFER TO ACCOMPANYING DISCHARGE SUMMARY FOR FURTHER DETAILS. Laboratory Results Hemoglobin A1c Test 05/30/16 14:52 Range/Units Estimated Average Glucose 137 mg/dl Hemoglobin A1c 6.4 H 4.5-5.6 % Medical Emergencies . Who to Call and When: Medical Emergencies: If at any time you feel your situation is an emergency, please call 911 immediately. . Non-Emergent Contact Non-Emergency issues call your: Primary Care Provider Call Non-Emergent contact if: you have a fever, you have any medication questions . . "Provider Documentation" section prepared by Andrew Berkowitz. Core Measure Problem Core Measures: None
--- NOTE | 2016-06-06 12:26 | Discharge Summary ---
Discharge Summary Date of Service Jun 06, 2016. Discharge Summary Admission Date: May 30, 2016 at 16:13 Discharge Date: Jun 06, 2016 Discharge Disposition: Personal care Principal Diagnosis: COPD EXACERBATION, ACUTE BRONCHITIS ACUTE HYPOXIC RESPIRATORY FAILURE Secondary Diagnoses/Problems: PLEASE REFER TO HOSPITAL COURSE BELOW. Pending Studies/Follow-Up: PLEASE MONITOR RESPIRATORY STATUS. MONITOR RASH AT THE BACK AND APPLY CALMOSEPTINE BID. FOLLOW UP WITH DR. KRAUS THIS WEEK. PLEASE REFER TO HOSPITAL COURSE BELOW FOR FURTHER DETAILS. Medication Reconciliation New Medications: Prednisone (Prednisone) 10 Mg Tab 5 MG PO DAILY for 2 Days, #1 TAB Changed Medications: Ipratropium-Albuterol (Duoneb) 3 Ml Nebu 1 TREATMENT INH Q4H PRN for SOB/Wheezing for 30 Days, INHA (Changed from: QID) Menthol-Zinc Oxide (Calmoseptine) 1 Oin Oin 1 APPLN TOP BID for 7 Days, #1 TUBE (Changed from: Unknown Dose ; apply topically to biateral buttock and perineumor twice dailyd/t incontinence) apply to back BID apply topically to biateral buttock and perineumor twice dailyd/t incontinence Continued Medications: Acetaminophen Tab (Tylenol) 325 Mg Tab 2 TAB PO Q6 PRN for Pain or Fever, TAB Albuterol (Proventil Hfa) Aers 2 PUFFS INH Q4 PRN for SOB/Wheezing, #1 INHALER Amlodipine (Norvasc) 5 Mg Tab 5 MG PO DAILY, TAB Apremilast (Otezla) 30 Mg Tab 30 MG PO BID Betamethasone Dipropionate (To (Betamethasone Dipropionat) 0.05 % Oin 1 APPLN EXT HS PRN for skin irritation Budesonide/Formoterol Fumarate (Symbicort 160/4.5 Inhaler ) Aero 2 PUFFS INH BID, INHALER Calcium Carbonate (Antacid) (Qc Antacid Extra Strength) 750 Mg Chw 1 TAB PO BID Coconut Oil (Bulk) (Coconut Oil) 1 Oil Oil Unknown Dose TOP DAILY Control Gel Formula Dressing (Duoderm Cgf) 1 Mis Mis Unknown Dose TOP [id number] APPLY TO RIGHT THIRD TOW OPEN WOUND EVERY 72 HOURS UNTIL HEALED Divalproex Sodium (Depakote Delay Rel) 500 Mg Tab 500 MG PO BID, TAB Docusate Sodium (Docusate Sodium) 100 Mg Tab 1 TAB PO DAILY PRN for Constipation Ergocalciferol (Vitamin D) 50,000 Interunit Cap 29423 UNITS PO WK Folic Acid (Folvite) 1 Mg Tab 1 MG PO DAILY, TAB Guaifenesin (Mucinex Maximum Strength) 1,200 Mg Tab 600 MG PO BID for 7 Days, TAB Hydrocortisone (Topical) (Hydrocortisone) 2.5 % Oin 1 APPLN TOP BID PRN for skin irritation for 5 Days, #30 GM Hydroxyzine Hcl (Atarax) 100 Mg Tab 5 MG PO Q6 PRN for Itching, TAB Lactase (Lac-Dose) 3,000 Unit Tab 1 TAB PO BID PRN for GI Upset Lorazepam (Ativan) 0.5 Mg Tab 0.5 MG PO Q6H PRN for Anxiety/Agitation, TAB Metformin HCl (Metformin HCl) 500 Mg Tab 1 TAB PO BID for 30 Days, #60 TAB Nystatin/Triamcinolone (Mycolog ||) Cr 1 APPLN TOP BID PRN for skin irritation apply topically to groin area twice daily as needed Omeprazole (Prilosec) 20 Mg Capcr 20 MG PO DAILY, CAP Pimecrolimus (Elidel) 30 Gm Cr 1 APPLN TOP BID PRN for skin irritation for 30 Days, #100 GM Polyethylene Glycol 3350 (Miralax) 1 Pow Pow 17 GM PO DAILY PRN for Constipation Risperidone (Risperdal) 3 Mg Tab 3 MG PO BID, TAB Tramadol (Ultram) 50 Mg Tab 50 MG PO Q6H PRN for Pain, TAB Triamcinolone Acet (Kenelog 0.1% ) Oint 1 APPLN EXT HS PRN for Itching Trihexyphenidyl Hcl (Artane) 2 Mg Tab 2 MG PO BID, TAB Vitamin E (Vitamin E 400 Iu) 400 Unit Cap 800 INTER.UNIT PO DAILY, CAP Zinc Oxide (Topical) (Desitin Maximum Strength) 40 % Pst 1 APPLN TOP UD PRN for excoriation Discontinued Medications: Amoxicillin & Pot Clavulanate (Augmentin 500MG) 1 Tab Tab 500 MG PO BID for 10 Days, TAB started on 05/24, to complete on 06/03 Admission Information HPI (per Admitting provider): 70 year old female who was sent to the ER by the staff at [facility] for evaluation of fever and hypoxia. Upon arrival to the ER, patient was very agitated and combative. She received IV Ativan and is now currently sedated. Also of note, patient speaks Greenlandic. She understands Nicaraguan if it is spoken loud and slow. She speaks minimal Nicaraguan. History was obtained from staff at [facility]. They report that patient was treated for a UTI about 3 weeks ago. They are unsure which antibiotic she was on. About two days she developed congestion and cough and was started on Augmentin. They also note increasing weakness and lethargy. Today patient had a temperature of 99.9 and was 90% on room air. No reports of nausea, vomiting, or diarrhea. No further urinary symptoms. In the ER, patient was 86% on room air. This improved with 4L oxygen via NC. She is mildly tachycardic. She is afebrile, BP is stable. Lactic acid 0.94, WBC 13K. No clear infiltrate noted on CXR. She was given IVF, Vanco, and Zosyn. Physical Exam (per Admitting): General Appearance: no apparent distress Head: normocephalic Eyes: normal inspection ENT: hearing grossly normal, + pertinent finding (dry mucous membranes) Neck: supple, no JVD Respiratory/Chest: no respiratory distress, + decreased breath sounds, + crackles (right base) Cardiovascular: no edema, + tachycardia (HR in the 90s-low 100s, regular rhythm) Abdomen/GI: normal bowel sounds, non tender, soft Extremities/Musculoskelatal: normal inspection, no calf tenderness Neurologic/Psych: + pertinent finding (awake, however minimal interaction, does not follow commands) Skin: normal color, warm/dry Hospital Course 70 year old female with history of Schizophrenia, Parkinson, COPD, DM. HTN presenting with fever and hypoxia COPD EXACERBATION, ACUTE BRONCHITIS ACUTE HYPOXIC RESPIRATORY FAILURE - afebrile, leukocytosis resolved saturating well on room air - blood cultures negative - received Doxycycline x 3 days changed to Levaquin to cover Pseudomonas UTI (completed 5/5 days) Nebs- changed to Levalbuterol Solumedrol changed to Prednisone (tapering course) -- resolved complete Prednisone 5mg x 2 more days monitor respiratory status PSEUDOMONAS UTI - based on urine cultures - colonies 60k but has received antibiotics recently, hence may be partially treated presented with fever - Doxy changed to Levaquin (completed 5/5 days) remains afebrile monitor METABOLIC ENCEPHALOPATHY HISTORY OF SCHIZOPHRENIA - from underlying infection, Lorazepam - improved, back to baseline evaluated by PT/OT, may return to [facility] - continue Risperdal and Depakote MILD TACHYCARDIA, Resolved from Albuterol? - changed to Levalbuterol - IV fluids given - resolved HTN - improved - continue amlodipine monitor DM - hgb a1c 8.7 10/2015 - Metformin resumed Pharmacy consulted while inpatient PARKINSONISM - continue trihexyphenidyl PSORIATIC ARTHRITIS - resume Otezla POSSIBLE SWEAT RASH AT THE BACK - no other rash on physical exam - Calmoseptine BID keep area dry monitor daily DVT PROPHYLAXIS - SQ Lovenox given DISPO d/c to [facility] today ff up with Dr. Kraus this week Total time spent on discharge = 35 MINUTES This includes examination of the patient, discharge planning, medication reconciliation, and communication with other providers. Discharge Instructions Discharge Instructions Date of Service Jun 06, 2016. Admission Reason for Admission: Hypoxia Discharge Discharge Diagnosis / Problem: ACUTE BRONCHITIS, PSEUDOMONAS UTI Discharge Goals Goal(s): Diagnostic testing, Therapeutic intervention Activity Recommendations Activity Level: Assistance Required Therapies: Physical Therapy, Occupational Therapy FALL PRECAUTIONS PLEASE . Additional Information Patient informed of condition: Yes Advance Directives: No (UNKNOWN) DNR: No (PATIENT IS FULL CODE) Level of Care: Other (PERSONAL SKILLED NURSING) Communicable Disease: No Prognosis: Stable Instructions / Follow-Up Instructions / Follow-Up PLEASE MONITOR RESPIRATORY STATUS. MONITOR RASH AT THE BACK AND APPLY CALMOSEPTINE BID. FOLLOW UP WITH DR. KRAUS THIS WEEK. PLEASE REFER TO ACCOMPANYING DISCHARGE SUMMARY FOR FURTHER DETAILS. Current Hospital Diet Patient's current hospital diet: Diabetes Type 2 Diet, AHA Diet (Heart Healthy) Discharge Diet Recommended Diet: AHA Diet (Heart Healthy), Diabetes Type 2 Diet Pending Studies Studies pending at discharge: no Physician Orders On Transfer Special Precautions: PLEASE MONITOR RESPIRATORY STATUS. MONITOR RASH AT THE BACK AND APPLY CALMOSEPTINE BID. FOLLOW UP WITH DR. KRAUS THIS WEEK. PLEASE REFER TO ACCOMPANYING DISCHARGE SUMMARY FOR FURTHER DETAILS. Laboratory Results Hemoglobin A1c Test 05/30/16 14:52 Range/Units Estimated Average Glucose 137 mg/dl Hemoglobin A1c 6.4 H 4.5-5.6 % Medical Emergencies . Who to Call and When: Medical Emergencies: If at any time you feel your situation is an emergency, please call 911 immediately. . Non-Emergent Contact Non-Emergency issues call your: Primary Care Provider Call Non-Emergent contact if: you have a fever, you have any medication questions . . "Provider Documentation" section prepared by Andrew Berkowitz. Core Measure Problem Core Measures: None
[2016-06-06 12:59] VITALS: BP 140/76; PULSE 95; TEMP 36.7; O2SAT 92
[2016-06-06] MEDS: LEVOFLOXACIN 500 MG TAB PO SCH (13:12)
== END 2016-06-06 17:30 | disposition home health service (06) | DRG 190 ==
LOC: ENRESERVTM → ENRESERVDT → EDBD 13:59 → C.EDC 14:01 → C.2E 16:13 → C.MS2W 06-02 13:30
PROVIDERS: ADMIT Hospitalist; ATTEND Internal Medicine
DX: J44.1 Chronic obstructive pulmonary disease with (acute) exacerbation (principal); J44.0 Chronic obstructive pulmonary disease with (acute) lower respiratory infection; J96.01 Acute respiratory failure with hypoxia; N39.0 Urinary tract infection, site not specified; G93.41 Metabolic encephalopathy; J20.9 Acute bronchitis, unspecified; F03.90 Unspecified dementia, unspecified severity, without behavioral disturbance, psychotic disturbance, mood disturbance, and anxiety; M81.0 Age-related osteoporosis without current pathological fracture; G20 Parkinson's disease; L40.50 Arthropathic psoriasis, unspecified; F20.9 Schizophrenia, unspecified; E55.9 Vitamin D deficiency, unspecified; Z87.891 Personal history of nicotine dependence; E11.9 Type 2 diabetes mellitus without complications; B96.5 Pseudomonas (aeruginosa) (mallei) (pseudomallei) as the cause of diseases classified elsewhere

== ENCOUNTER 2016-06-11 17:46 | Inpatient (IN) | payer OTHER ==
[~2016-06-11] VITALS: Ht 152.4 cm; Wt 57.8 kg
[~2016-06-11 17:46] MED LIST changes: +APRE1TAB3 PO; -BISA1TAB15 PO; -CLOB-65 EXT; +COCO1OIL2 TD; +ELDCR/30 TOP; -EMOLOIN3 TOP; +GUAI1TAB69 PO; -HYDROXYZINE PO; +PRD10 PO; +TRAM-10 PO; -ULT50X PO; +ZINC1PST TOP; +[UNRECOGNIZED DRUG - CODE] TOP
[2016-06-11] MEDS ORDERED: SODIUM CHLORIDE 0.9% 1000ML 1,000 ML IV STA ×2 (18:05→19:28)
[2016-06-11] MEDS ORDERED: METHYLPREDNISOLONE 125 MG VIAL IV STA (18:09)
[2016-06-11] MEDS ORDERED: FAMOTIDINE IV INJ 20 MG in DEXTROSE 5% 100ML 100 ML IV STA (18:09)
[2016-06-11] MEDS ORDERED: PIPERACILLIN/TAZOBACTAM 4.5 GM/100ML D5W IV STA (18:09)
[2016-06-11] MEDS ORDERED: IPRASOL4 INH (18:15)
[2016-06-11] MEDS ORDERED: PIME1CRE9 TD (18:21)
[2016-06-11] MEDS ORDERED: GLC/500 PEG (18:31)
--- NOTE | 2016-06-11 18:33 | DIAGNOSTIC IMAGING REPORT ---
[facility] PORTABLE CLINICAL HISTORY: fever COMPARISON STUDY: 05/30/2016 FINDINGS: The cardiac and mediastinal contours remain stable. Underlying emphysema is suspected. There is been interval resolution of the previously described interstitial edema. There are linear left basilar atelectatic changes.[ IMPRESSION: Linear left basilar atelectatic change. No acute findings. Electronically signed by: Torito De La Cruz M.D. 06/11/2016 6:32 PM Dictated Date/Time: 06/11/2016 6:31 PM
[2016-06-11] MEDS ORDERED: PROAIR HFA 90MCG INH (18:37)
[2016-06-11] MEDS ORDERED: FAMOTIDINE 20MG/102 ML D5W ONE (18:42)
[2016-06-11] MEDS ORDERED: HYDR-389 PO (18:44)
[2016-06-11] MEDS ORDERED: OPTIRAY 320 IV PRN (18:45)
[2016-06-11 18:48] LABS: BASO % 0.1 %; BASO ABS # 0.03 K/uL (0-0.2); COMPLETE YES; EOS % 0.8 %; HEMATOCRIT 35.9 % (37-47); IG% 0.7 %; LYMPH % 22.1 %; LYMPH ABS # 4.56 K/uL (1.2-3.4); MEAN CELL VOLUME 92.1 fL (80-100); MEAN CORPUSCULAR HEMOGLOBIN 31.8 pg (25-34); MEAN CORPUSCULAR HGB CONC 34.5 g/dl (32-36); MEAN PLATELET VOLUME 9.7 fL (7.4-10.4); MONO % 12.8 %; NEUT % 63.5 %; PLATELET COUNT 239 K/uL (130-400); WHITE BLOOD COUNT 20.68 K/uL (4.8-10.8)
[2016-06-11] MEDS ORDERED: DIVA1CAP PO (18:49)
[2016-06-11] MEDS ORDERED: RISP3TAB12 PO (18:56)
[2016-06-11] MEDS ORDERED: VANCOMYCIN INJ 1,300 MG in SODIUM CHLORIDE 0.9% 500ML 500 ML IV STA (18:57)
[2016-06-11] MEDS ORDERED: GUAI1TAB75 PO (18:58)
[2016-06-11 19:07] LABS: ALT/SGPT 12 U/L (12-78); AST/SGOT 5 U/L (15-37); BLOOD UREA NITROGEN 8 mg/dl (7-18); BUN/CREATININE RATIO 10.4 (10-20); CALCIUM 9.2 mg/dl (8.5-10.1); CARBON DIOXIDE 25 mmol/L (21-32); CHLORIDE 103 mmol/L (98-107); CREATININE 0.73 mg/dl (0.60-1.20); GLUCOSE 126 mg/dl (70-99); MAGNESIUM 1.9 mg/dl (1.8-2.4); POTASSIUM 3.8 mmol/L (3.5-5.1); SODIUM 139 mmol/L (136-145)
[2016-06-11 19:10] LABS: ALKALINE PHOSPHATASE 63 U/L (45-117); CKMB/CK RATIO 2.5 (0-3.0)
[2016-06-11] MEDS ORDERED: VANCOMYCIN INJ 1,300 MG in SODIUM CHLORIDE 0.9% 250ML 250 ML IV SCH (19:15)
[2016-06-11 19:17] LABS: ISTAT CREATININE 0.7 mg/dl (0.6-1.3); ISTAT HEMOGLOBIN 12.6 g/dl (12.0-16.0); ISTAT IONIZED CALCIUM 1.27 mmol/l (1.12-1.32)
[2016-06-11 19:35] LABS: PROTHROMBIN TIME (PATIENT) 10.7 SECONDS (9.0-12.0)
--- NOTE | 2016-06-11 19:46 | DIAGNOSTIC IMAGING REPORT ---
CT HEAD WITHOUT CONTRAST (CT) CLINICAL HISTORY: Acute change in mental status COMPARISON STUDY: 12/12/2015 TECHNIQUE: Axial CT of the brain is performed from the vertex to the skull base. IV contrast was not administered for this examination. CT DOSE: 1074.96 mGy.cm FINDINGS: No intra or extra-axial mass lesions are visualized. There is no CT evidence of acute cortical infarction. There is no evidence of midline shift. There is no acute hemorrhage. No calvarial fractures are visualized. There are minor white matter hypodensities likely on a small vessel basis. There is no evidence of pathologic ventricular dilatation. There is a chronically opacified left ethmoid air cell. There is radial opaque material along the bridge of nose, likely related to prior cosmetic surgery IMPRESSION: No acute intracranial findings Electronically signed by: Torito De La Cruz M.D. 06/11/2016 7:45 PM Dictated Date/Time: 06/11/2016 7:43 PM
--- NOTE | 2016-06-11 19:52 | DIAGNOSTIC IMAGING REPORT ---
CT ANGIOGRAM OF THE CHEST CLINICAL HISTORY: Hypoxia COMPARISON STUDY: Noncontrast chest CT dated 12/12/2015 TECHNIQUE: Following the IV administration of 109 mL of Optiray-320, CT angiogram of the thorax was performed from the thoracic inlet to the lung bases utilizing the pulmonary embolus protocol. Images are reviewed in the axial, sagittal, and coronal planes. IV contrast was administered without complication. MIP imaging was performed. CT DOSE: 372.46 mGy.cm FINDINGS: No pathologically enlarged axillary mediastinal or hilar lymph nodes were visualized. There is no evidence of thoracic aortic dilatation. There is no evidence of thoracic aortic dissection. There is a left aortic arch with an aberrant right subclavian artery. The study is limited due to respiratory motion artifact. There are no pulmonary artery filling defects identified to indicate acute pulmonary embolism. No pleural effusions are visualized. There was no evidence of focal pulmonary consolidation. There is pulmonary emphysema. IMPRESSION: 1. Moderately limited study secondary to respiratory motion artifact. No pulmonary emboli identified. Due to the limitations of the current study, correlation with serial leg ultrasonography should be considered. 2. Left aortic arch with an aberrant right subclavian artery 3. No evidence of focal pulmonary consolidation 4. Emphysema. Electronically signed by: Torito De La Cruz M.D. 06/11/2016 7:50 PM Dictated Date/Time: 06/11/2016 7:45 PM
[2016-06-11] MEDS ORDERED: LORAZEPAM 2 MG/ML 1 ML VIAL IV STA (19:56)
[2016-06-11] MEDS ORDERED: hydrOXYzine HCL IM SOLN 50 MG/ML 1 ML VIAL IM STA (20:45)
[2016-06-11] MEDS ORDERED: ACETAMINOPHEN 325 MG TAB PO PRN (20:45)
[2016-06-11] MEDS ORDERED: ONDANSETRON INJ 2 MG/ML 2 ML VIAL IV PRN (20:45)
[2016-06-11] MEDS ORDERED: ALBU18002 INH (21:08)
[2016-06-11] MEDS ORDERED: DOCUSATE SODIUM 100 MG CAP PO PRN (21:15)
[2016-06-11] MEDS ORDERED: POLYETHYLENE (MIRALAX) 17 GM PACK PO PRN (21:15)
[2016-06-11 21:18] VITALS: Ht 152.4 cm; Wt 57.8 kg
[2016-06-11] MEDS ORDERED: LEVALBUTEROL 1.25MG/3ML NEB INH PRN (21:30)
[2016-06-11 21:50] VITALS: BP 126/75; PULSE 97; TEMP 37.4; O2SAT 90
--- NOTE | 2016-06-11 22:10 | History and Physical ---
"History & Physical Date & Time of Service: Jun 11, 2016 at 21:28 Chief Complaint: Sob, Rash Primary Care Physician: [facility] History of Present Illness Source: caregiver, clinic records 70 yo F with schizophrenia, psoriatic arthritis and COPD presents with acute urticaria, tachycardia and shortness of breath noticed today at [facility], where she is a permanent resident. She was just released from the hospital having been admitted and treated for a Pseudomonas UTI and COPD exacerbation and completed her course of treatment for both issues and was back to baseline per her manager commercial real estate. She had a noted rash on the center of her back during the last admission, and now has diffuse urticaria that involves her face and neck, abdomen and back area, both upper extremities and her groin. It skips the majority of her legs and is somewhat present on her feet around her ankles. Per her manager commercial real estate, this rash developed acutely this morning. [employer] denies any cough, fevers, chills, pain, vomiting, diarrhea or any other abnormality in her since discharge. The only thing she noted was some increased weakness on transfers which was attributed to a recent prolonged hospital stay. [facility] afternoon she was noted to be altered, hypoxic to 88%, and tachycardic so was brought to the ER. In the ER she was given Zosyn but has a documented PCN allergy. Interestingly, she was able to tolerate Augmentin for a URI 3 weeks ago. She was also given Vanc, 2L of IVF, Solumedrol and Pepcid which caused her HR to improve to 102. She was given some Ativan to help with significant anxiety, which her manager commercial real estate states occurs easily in her when she moves into a strange place or has some health problem going on. Although she has a documented allergy to Benadryl, she was noted to be on Atarax in the past with no issues, so was given 25mg IM in the ER to help with the urticaria. Past Medical/Surgical History Medical Problems: (1) COPD (chronic obstructive pulmonary disease) Status: Chronic (2) Dementia Status: Chronic (3) Diabetes mellitus Status: Chronic (4) HTN (hypertension) Status: Chronic (5) Latent tuberculosis Status: Chronic (6) Osteoporosis Status: Chronic (7) Parkinson disease Status: Chronic (8) Psoriatic arthritis Status: Chronic (9) PTSD (post-traumatic stress disorder) Status: Chronic (10) Schizophrenia Status: Chronic (11) Vitamin D deficiency Status: Chronic Surgical Problems: (1) History of hysterectomy Status: Resolved (2) Hx of breast implants, bilateral Status: Resolved Family History Patient reports no known family medical history. Unable to obtain as patient is altered. Social History History was obtained from prior clinical records. Smoking Status: Never Smoker Alcohol Use: none Marital Status: single Housing status: assisted living Immunizations History of Influenza Vaccine: Yes Influenza Vaccine Date: Jan 06, 2015 History of Tetanus Vaccine?: Unknown History of Pneumococcal: Unknown History of Hepatitis B Vaccine: Unknown Multi-Drug Resistant Organisms History of MDRO: No Allergies Coded Allergies: Amoxicillin (Verified Allergy, Intermediate, RASH, 06/11/16) Nitrofurantoin (Verified Allergy, Intermediate, INCREASED SKIN REACTION, ITCHING, CHEST PAIN, WHEEZING, 05/30/16) Rifampin (Verified Adverse Reaction, Severe, RASH, 05/30/16) as per chris and rn urgent care, pt was in [facility] in 2013 for diffuse rash with skin peeling due to rifampin, was admitted in [facility] Diphenhydramine (Verified Adverse Reaction, Intermediate, ADVERSE REACTION WITH PSYCH MEDS, 05/30/16) Home Medications Scheduled Amlodipine (Norvasc), 5 MG PO DAILY Apremilast (Otezla), 30 MG PO BID Budesonide/Formoterol Fumarate (Symbicort 160/4.5 Inhaler ), 2 PUFFS INH BID Calcium Carbonate (Antacid) (Qc Antacid Extra Strength), 750 MG PO BID Coconut Oil (Bulk) (Coconut Oil), 1 APPLN TD HS Control Gel Formula Dressing (Duoderm Cgf), Unknown Dose TOP [id number] Divalproex Sodium (Divalproex Sodium), 500 MG PO BID Folic Acid (Folvite), 1 MG PO DAILY Guaifenesin La (Guaifenesin Er), 600 MG PO Q12H Metformin Hcl (Glucophage), 500 MG PO BID Omeprazole (Prilosec), 20 MG PO DAILY Risperidone (Risperdal), 3 MG PO BID Trihexyphenidyl Hcl (Artane), 2 MG PO BID Vitamin E (Vitamin E 400 Iu), 800 INTER.UNIT PO DAILY Scheduled PRN Acetaminophen Tab (Tylenol), 650 MG PO Q6 PRN for Pain or Fever Albuterol Sulfate (Proair Respiclick), 2 PUFFS INH Q6H PRN for SOB/Wheezing Betamethasone Dipropionate (To (Betamethasone Dipropionat), 1 APPLN EXT HS PRN for skin irritation Docusate Sodium (Docusate Sodium), 100 MG PO DAILY PRN for Constipation Hydroxyzine Hcl (Atarax), 5 MG PO Q6H PRN for ITCHING Ipratropium-Albuterol (Duoneb), 1 TREATMENT INH Q4H PRN for SOB/Wheezing Lactase (Lac-Dose), 3,000 UNIT PO BID PRN for GI Upset Lorazepam (Ativan), 0.5 MG PO Q6H PRN for Anxiety/Agitation Nystatin/Triamcinolone (Mycolog ||), 1 APPLN TOP BID PRN for skin irritation Pimecrolimus (Elidel), 1 APPLN TD BID PRN for FACIAL IRRITATION Polyethylene Glycol 3350 (Miralax), 17 GM PO DAILY PRN for Constipation Tramadol (Ultram), 50 MG PO Q6H PRN for Pain Triamcinolone Acet (Kenelog 0.1% ), 1 APPLN EXT HS PRN for Itching Zinc Oxide (Topical) (Desitin Maximum Strength), 1 APPLN TOP UD PRN for excoriation Review of Systems Unable to obtain from patient. Systems reviewed with manager commercial real estate who states patient has been doing well and back to baseline aside from some generalized weakness on transfers as described in HPI Physical Exam Vital Signs Date Time Temp Pulse Resp B/P Pulse Ox O2 Delivery O2 Flow Rate FiO2 06/11/16 21:20 102 22 123/70 90 Room Air 06/11/16 20:09 119 22 136/106 95 Room Air 06/11/16 19:08 150 22 162/101 93 Room Air 06/11/16 18:19 121 06/11/16 17:46 37.4 91 18 118/62 91 Room Air 06/11/16 17:46 91 Room Air GEN: WNWD, appears uncomfortable, alert but appears disoriented, not communicating, making unintelligible sounds HEENT: NC/AT, PERRL, normal sclerae, tried to assess pharynx but patient refused to open her mouth wide enough to see anything, pulled away from me when I examined her cervical lymph nodes. CARDIO: tachy rate, S1/2 heard without m/g/r LUNGS: CTA bilaterally, no crackles, rales or wheezes, good diaphragmatic excursion--very limited exam as patient was lying flat and wouldn't move extremities nor take a deep breath. ABD: soft, non-tender, non-distended, no rebound or guarding, +BS EXTREMITY: RP and DP palpable 2+ bilat, no LE swelling or edema, extremities are warm and well-perfused NEURO: limited exam 2/2 altered mentation and patient's inability to follow commands. MUSC: could not assess 2/2 altered mentation. SKIN: warm with diffuse papular rash across face and neck with scaling around nasal folds, along truck, back, buttocks (with scaling) and groin area. Rash stops at upper thighs and there are some tiny erythematous spots around her ankles. Skin is very warm to touch Diagnostics Laboratory Results Results Past 24 Hours Test 06/11/16 00:00 06/11/16 18:55 06/11/16 18:56 06/11/16 19:00 Range/Units White Blood Count 20.68 4.8-10.8 K/uL Red Blood Count 3.90 4.2-5.4 M/uL Hemoglobin 12.4 12.0-16.0 g/dL Hematocrit 35.9 37-47 % Mean Corpuscular Volume 92.1 80-100 fL Mean Corpuscular Hemoglobin 31.8 25-34 pg Mean Corpuscular Hemoglobin Concent 34.5 32-36 g/dl Platelet Count 239 130-400 K/uL Mean Platelet Volume 9.7 7.4-10.4 fL Neutrophils (%) (Auto) 63.5 % Lymphocytes (%) (Auto) 22.1 % Monocytes (%) (Auto) 12.8 % Eosinophils (%) (Auto) 0.8 % Basophils (%) (Auto) 0.1 % Neutrophils # (Auto) 13.14 1.4-6.5 K/uL Lymphocytes # (Auto) 4.56 1.2-3.4 K/uL Monocytes # (Auto) 2.65 0.11-0.59 K/uL Eosinophils # (Auto) 0.16 0-0.5 K/uL Basophils # (Auto) 0.03 0-0.2 K/uL RDW Standard Deviation 43.1 36.4-46.3 fL RDW Coefficient of Variation 12.9 11.5-14.5 % Immature Granulocyte % (Auto) 0.7 % Immature Granulocyte # (Auto) 0.14 0.00-0.02 K/uL Sodium Level 139 136-145 mmol/L Potassium Level 3.8 3.5-5.1 mmol/L Chloride Level 103 98-107 mmol/L Carbon Dioxide Level 25 21-32 mmol/L Anion Gap 11.0 16.0 16-25 mmol/L Blood Urea Nitrogen 8 7-18 mg/dl Creatinine 0.73 0.60-1.20 mg/dl Est Creatinine Clear Calc Drug Dose 61.0 ml/min Estimated GFR () 98.1 Estimated GFR (Non- 84.6 BUN/Creatinine Ratio 10.4 10-20 Random Glucose 126 70-99 mg/dl Calcium Level 9.2 8.5-10.1 mg/dl Magnesium Level 1.9 1.8-2.4 mg/dl Total Bilirubin 0.3 0.2-1 mg/dl Direct Bilirubin < 0.1 0-0.2 mg/dl Aspartate Amino Transf (AST/SGOT) 5 15-37 U/L Alanine Aminotransferase (ALT/SGPT) 12 12-78 U/L Alkaline Phosphatase 63 45-117 U/L Total Creatine Kinase 28 26-192 U/L Creatine Kinase MB 0.7 0.5-3.6 ng/ml Creatine Kinase MB Ratio 2.5 0-3.0 Troponin I < 0.015 0-0.045 ng/ml Total Protein 7.1 6.4-8.2 gm/dl Albumin 2.8 3.4-5.0 gm/dl Prothrombin Time 10.7 9.0-12.0 SECONDS Prothromb Time International Ratio 1.0 0.9-1.1 Bedside Lactic Acid Venous 1.46 0.90-1.70 mmol/L Bedside Hemoglobin 12.6 12.0-16.0 g/dl Bedside Hematocrit 37 37-47 % Bedside Sodium 139 135-144 mEq/L Bedside Potassium 4.0 3.3-5.0 mEq/L Bedside Chloride 101 101-112 mEq/L Bedside Total CO2 27 24-31 mEq/l Bedside Blood Urea Nitrogen 7 7-18 mg/dl Bedside Creatinine 0.7 0.6-1.3 mg/dl Bedside Glucose (other) 122 70-99 mg/dl Bedside Ionized Calcium (Marina) 1.27 1.12-1.32 mmol/l Microbiology Results 06/11/16 Blood Culture, Received Pending 06/11/16 Blood Culture, Received Pending 06/11/16 Urine Culture, Received Pending Diagnostic Radiology CTA chest: IMPRESSION: 1. Moderately limited study secondary to respiratory motion artifact. No pulmonary emboli identified. Due to the limitations of the current study, correlation with serial leg ultrasonography should be considered. 2. Left aortic arch with an aberrant right subclavian artery 3. No evidence of focal pulmonary consolidation 4. Emphysema. CT Head: IMPRESSION: No acute intracranial findings CXR: IMPRESSION: Linear left basilar atelectatic change. No acute findings. EKG ST 123 Impression Assessment and Plan 70 yo schizophrenic patient who [facility] in a [facility] presents today with altered mental status, tachycardia and diffuse acute urticaria. 1. Acute urticaria- some rash was noted to be present on discharge last week, however, diffuse rash began today. Etiologies include but are not limited to drug reaction (allergic to PCN and has seen Augmentin 3 weeks ago and zosyn in ER, but after the rash), infection, other respiratory infection (will check flu PCR and monospot), food reaction (but no known food allergies per manager commercial real estate) , atopic dermatitis, manifestation of her known psoriatic arthritis, contact dermatitis (less likely with little exposure to new things in her home environement), pemphigoid, or cold-induced urticaria (new onset, not chronic so less likely). Supportive care with Atarax 25mg IM, steroids. 2. Leukocytosis-possibly 2/2 urticaria versus new infection. UA still pending , lungs are clear, no other obvious source of infection at this point and no symptoms of infection per manager commercial real estate. She has been afebrile. 3. Metabolic encephalopathy-likely 2/2 acute change in health and new setting. Schizophrenic at baseline. 4. Psoriatic arthritis-holding Otezla in setting of possible infection. 5. Schizophrenia-cont home psych meds 6. HTN-cont home meds 7. DMII-hold oral agents, ISS while hospitalized and on prednisone DVT prophylaxis-Lovenox Full Code Dispo-to telemetry floor for monitoring. Tamica Laugna, DO Hospitalist Level of Care Telemetry Resuscitation Status FULL RESUSCITATION VTE Prophylaxis VTE Risk Assessment Done? Y/N: Yes Risk Level: Moderate Given or contraindicated: Enoxaparin (Lovenox)SQ Social Service Consult [facility] in Pen[facility]iary"
[2016-06-11] MEDS: GUAIFENESIN 600 MG TABCR PO SCH (22:33)
[2016-06-11] MEDS: ENOXAPARIN 40 MG/0.4 ML SYR SC SCH (22:33)
[2016-06-11] MEDS ORDERED: METHYLPREDNISOLONE IV 40 MG in SYRINGE 0 ML IV SCH (23:00)
--- NOTE | 2016-06-11 23:26 | EMERGENCY ROOM VISIT NOTE ---
"History Report prepared by Damion: Kerry Dent Under the Supervision of: Dr. Cristino Suazo D.O. 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 EMS reports that they were called to the scene for shortness of breath and possibly chest pain. She came to the ED via ambulance from [facility]. The history is limited secondary to altered mental status. The patient's primary language is Croatian according to previous medical records. However, when the Croatian group home supervisor talked to the patient via an ipad, she would not respond back. The patient is also experiencing a erythematous and pruritic rash , which EMS was told started prior to when she lived in [facility]. She is also experiencing generalized body shakes The patient was admitted to the hospital on May 30, 2016 for a COPD exacerbation and a pseudomonas UTI. She was discharged from the hospital on June 06, 2016. The patient's past medical records do not indicate that she had any rashes during her stay at the hospital or upon her discharge. Source of History: patient, EMS History Limited By: AMS Onset: SANITATION ENGINEER Position: chest Quality: other (shortness of breath) Associated Symptoms: + chest pain, + rash (erythematous, pruritic) Note: generalized body shakes Review of Systems See HPI for pertinent positives & negatives. ROS limited secondary to altered mental status. Past Medical & Surgical Medical Problems: (1) Altered mental status (2) COPD (chronic obstructive pulmonary disease) (3) Dementia (4) Diabetes mellitus (5) HTN (hypertension) (6) Hyperglycemia (7) Latent tuberculosis (8) Osteoporosis (9) Parkinson disease (10) Psoriatic arthritis (11) PTSD (post-traumatic stress disorder) (12) Schizophrenia (13) Vitamin D deficiency Surgical Problems: (1) History of hysterectomy (2) Hx of breast implants, bilateral Family History Patient reports no known family medical history. Social History Smoking Status: Former Smoker Alcohol Use: none Housing Status: lives with family Current/Historical Medications Scheduled Amlodipine (Norvasc), 5 MG PO DAILY Apremilast (Otezla), 30 MG PO BID Budesonide/Formoterol Fumarate (Symbicort 160/4.5 Inhaler ), 2 PUFFS INH BID Calcium Carbonate (Antacid) (Qc Antacid Extra Strength), 750 MG PO BID Coconut Oil (Bulk) (Coconut Oil), 1 APPLN TD HS Control Gel Formula Dressing (Duoderm Cgf), Unknown Dose TOP [id number] Divalproex Sodium (Divalproex Sodium), 500 MG PO BID Folic Acid (Folvite), 1 MG PO DAILY Guaifenesin La (Guaifenesin Er), 600 MG PO Q12H Metformin Hcl (Glucophage), 500 MG PO BID Omeprazole (Prilosec), 20 MG PO DAILY Risperidone (Risperdal), 3 MG PO BID Trihexyphenidyl Hcl (Artane), 2 MG PO BID Vitamin E (Vitamin E 400 Iu), 800 INTER.UNIT PO DAILY Scheduled PRN Acetaminophen Tab (Tylenol), 650 MG PO Q6 PRN for Pain or Fever Albuterol Sulfate (Proair Respiclick), 2 PUFFS INH Q6H PRN for SOB/Wheezing Betamethasone Dipropionate (To (Betamethasone Dipropionat), 1 APPLN EXT HS PRN for skin irritation Docusate Sodium (Docusate Sodium), 100 MG PO DAILY PRN for Constipation Hydroxyzine Hcl (Atarax), 5 MG PO Q6H PRN for ITCHING Ipratropium-Albuterol (Duoneb), 1 TREATMENT INH Q4H PRN for SOB/Wheezing Lactase (Lac-Dose), 3,000 UNIT PO BID PRN for GI Upset Lorazepam (Ativan), 0.5 MG PO Q6H PRN for Anxiety/Agitation Nystatin/Triamcinolone (Mycolog ||), 1 APPLN TOP BID PRN for skin irritation Pimecrolimus (Elidel), 1 APPLN TD BID PRN for FACIAL IRRITATION Polyethylene Glycol 3350 (Miralax), 17 GM PO DAILY PRN for Constipation Tramadol (Ultram), 50 MG PO Q6H PRN for Pain Triamcinolone Acet (Kenelog 0.1% ), 1 APPLN EXT HS PRN for Itching Zinc Oxide (Topical) (Desitin Maximum Strength), 1 APPLN TOP UD PRN for excoriation Allergies Coded Allergies: Amoxicillin (Verified Allergy, Intermediate, RASH, 06/11/16) Nitrofurantoin (Verified Allergy, Intermediate, INCREASED SKIN REACTION, ITCHING, CHEST PAIN, WHEEZING, 05/30/16) Rifampin (Verified Adverse Reaction, Severe, RASH, 05/30/16) as per chris and primary health care nurse, pt was in [facility] in 2013 for diffuse rash with skin peeling due to rifampin, was admitted in [facility] Diphenhydramine (Verified Adverse Reaction, Intermediate, ADVERSE REACTION WITH PSYCH MEDS, 05/30/16) Physical Exam Vital Signs Date Time Temp Pulse Resp B/P Pulse Ox O2 Delivery O2 Flow Rate FiO2 06/11/16 20:09 119 22 136/106 95 Room Air 06/11/16 19:08 150 22 162/101 93 Room Air 06/11/16 18:19 121 06/11/16 17:46 37.4 91 18 118/62 91 Room Air 06/11/16 17:46 91 Room Air Physical Exam GENERAL: alert, sitting up in bed, chronically ill appearing, disheveled, well nourished, no distress, non-toxic EYE EXAM: normal conjunctiva, PERRL and EOM's intact OROPHARYNX: no exudate, no erythema, lips, buccal mucosa, and tongue normal and mucous membranes are moist NECK: supple, no nuchal rigidity, no adenopathy, non-tender LUNGS: Diminished breath sounds bilaterally. Normal chest wall mechanics HEART: tachycardic rate, no murmurs, S1 normal and S2 normal ABDOMEN: abdomen soft, non-tender, normo-active bowel sounds, no masses, no rebound or guarding. BACK: Back is symmetrical on inspection and there is no deformity, no midline tenderness, no CVA tenderness. SKIN: Diffuse erythema on back, macular raised lesions on chest, abdomen, and arms not involving the hands, dry, no bruising UPPER EXTREMITIES: upper extremities are grossly normal. LOWER EXTREMITIES: No pitting edema, calves equal bilaterally. NEURO EXAM: Alert, states her name otherwise not following commands in Maltese or Croatian/mi'kmaq language, cranial nerves II-XII grossly intact, normal speech, no gross weakness of legs. Unable to perform finger to nose and drift exam. Medical Decision & Procedures ER Provider Diagnostic Interpretation: Xray results per the radiologist and my interpretation. Other results have been interpreted by the radiologist and reviewed by me. CHEST ONE VIEW PORTABLE IMPRESSION: Linear left basilar atelectatic change. No acute findings. Electronically signed by: Torito De La Cruz M.D. 06/11/2016 6:32 PM Dictated Date/Time: 06/11/2016 6:[address] HEAD WITHOUT CONTRAST (CT) IMPRESSION: No acute intracranial findings Electronically signed by: Torito De La Cruz M.D. 06/11/2016 7:45 PM Dictated Date/Time: 06/11/2016 7:[address] ANGIOGRAM OF THE CHEST IMPRESSION: 1. Moderately limited study secondary to respiratory motion artifact. No pulmonary emboli identified. Due to the limitations of the current study, correlation with serial leg ultrasonography should be considered. 2. Left aortic arch with an aberrant right subclavian artery 3. No evidence of focal pulmonary consolidation 4. Emphysema. Electronically signed by: Torito De La Cruz M.D. 06/11/2016 7:50 PM Dictated Date/Time: 06/11/2016 7:45 PM Laboratory Results 06/11/16 00:00 Red Blood Count 3.90, Mean Corpuscular Volume 92.1, Mean Corpuscular Hemoglobin 31.8, Mean Corpuscular Hemoglobin Concent 34.5, Mean Platelet Volume 9.7, Neutrophils (%) (Auto) 63.5, Lymphocytes (%) (Auto) 22.1, Monocytes (%) (Auto) 12.8, Eosinophils (%) (Auto) 0.8, Basophils (%) (Auto) 0.1, Neutrophils # (Auto ) 13.14, Lymphocytes # (Auto) 4.56, Monocytes # (Auto) 2.65, Eosinophils # (Auto ) 0.16, Basophils # (Auto) 0.03 06/11/16 00:00 Test 06/11/16 00:00 06/11/16 18:55 06/11/16 18:56 06/11/16 19:00 White Blood Count 20.68 K/uL (4.8-10.8) Red Blood Count 3.90 M/uL (4.2-5.4) Hemoglobin 12.4 g/dL (12.0-16.0) Hematocrit 35.9 % (37-47) Mean Corpuscular Volume 92.1 fL (80-100) Mean Corpuscular Hemoglobin 31.8 pg (25-34) Mean Corpuscular Hemoglobin Concent 34.5 g/dl (32-36) Platelet Count 239 K/uL (130-400) Mean Platelet Volume 9.7 fL (7.4-10.4) Neutrophils (%) (Auto) 63.5 % Lymphocytes (%) (Auto) 22.1 % Monocytes (%) (Auto) 12.8 % Eosinophils (%) (Auto) 0.8 % Basophils (%) (Auto) 0.1 % Neutrophils # (Auto) 13.14 K/uL (1.4-6.5) Lymphocytes # (Auto) 4.56 K/uL (1.2-3.4) Monocytes # (Auto) 2.65 K/uL (0.11-0.59) Eosinophils # (Auto) 0.16 K/uL (0-0.5) Basophils # (Auto) 0.03 K/uL (0-0.2) RDW Standard Deviation 43.1 fL (36.4-46.3) RDW Coefficient of Variation 12.9 % (11.5-14.5) Immature Granulocyte % (Auto) 0.7 % Immature Granulocyte # (Auto) 0.14 K/uL (0.00-0.02) Est Creatinine Clear Calc Drug Dose 61.0 ml/min Estimated GFR () 98.1 Estimated GFR (Non- 84.6 BUN/Creatinine Ratio 10.4 (10-20) Calcium Level 9.2 mg/dl (8.5-10.1) Magnesium Level 1.9 mg/dl (1.8-2.4) Total Bilirubin 0.3 mg/dl (0.2-1) Direct Bilirubin < 0.1 mg/dl (0-0.2) Aspartate Amino Transf (AST/SGOT) 5 U/L (15-37) Alanine Aminotransferase (ALT/SGPT) 12 U/L (12-78) Alkaline Phosphatase 63 U/L (45-117) Total Creatine Kinase 28 U/L (26-192) Creatine Kinase MB 0.7 ng/ml (0.5-3.6) Creatine Kinase MB Ratio 2.5 (0-3.0) Troponin I < 0.015 ng/ml (0-0.045) Total Protein 7.1 gm/dl (6.4-8.2) Albumin 2.8 gm/dl (3.4-5.0) Prothrombin Time 10.7 SECONDS (9.0-12.0) Prothromb Time International Ratio 1.0 (0.9-1.1) Monoscreen NEG (NEG) Bedside Lactic Acid Venous 1.46 mmol/L (0.90-1.70) Bedside Hemoglobin 12.6 g/dl (12.0-16.0) Bedside Hematocrit 37 % (37-47) Bedside Sodium 139 mEq/L (135-144) Bedside Potassium 4.0 mEq/L (3.3-5.0) Bedside Chloride 101 mEq/L (101-112) Bedside Total CO2 27 mEq/l (24-31) Anion Gap 16.0 mmol/L (16-25) Bedside Blood Urea Nitrogen 7 mg/dl (7-18) Bedside Creatinine 0.7 mg/dl (0.6-1.3) Bedside Glucose (other) 122 mg/dl (70-99) Bedside Ionized Calcium (Marina) 1.27 mmol/l (1.12-1.32) Laboratory results per my review. Medications Administered Medications (Trade) Dose Ordered Sig/Abelardo Route Start Time Stop Time Status Last Admin Dose Admin Sodium Chloride (Nss 1000ml) 1,000 ml @ 999 mls/hr Q1H1M STAT IV 06/11/16 18:05 06/11/16 19:05 DC 06/11/16 19:00 999 MLS/HR Methylprednisolone Sodium Succinate (Solu-Medrol IV) 125 mg NOW STAT IV 06/11/16 18:09 06/11/16 18:12 DC 06/11/16 19:00 125 MG Piperacillin Sod/ Tazobactam Sod (Zosyn Iv) 4.5 gm NOW STAT IV 06/11/16 18:09 06/11/16 18:12 DC 06/11/16 19:01 4.5 GM Famotidine 20 mg 20 mg STK-MED ONCE .ROUTE 06/11/16 18:42 06/11/16 18:45 DC 06/11/16 19:00 20 MG Vancomycin HCl 1300 mg/Sodium Chloride 276 ml @ 125 mls/hr 1915 IV 06/11/16 19:15 06/11/16 21:28 DC 06/11/16 20:09 125 MLS/HR Sodium Chloride (Nss 1000ml) 1,000 ml @ 999 mls/hr Q1H1M STAT IV 06/11/16 19:28 06/11/16 20:28 DC 06/11/16 19:28 999 MLS/HR Lorazepam (Ativan Inj) 1 mg NOW STAT IV 06/11/16 19:56 06/11/16 19:57 DC 06/11/16 20:02 1 MG ECG Indication: altered mental status Rate (beats per minute): 115 Rhythm: sinus tachycardia Findings: Q waves (Inferior), other (normal axis) Change: Second EKG on 06/11/2016 showed a poor baseline and based on V6 appears to be in a sinus tachycardia with a rate of 150. ED Course ED COURSE: Vital signs were reviewed and showed tachycardia. The patients medical record was reviewed The above diagnostic studies were performed and reviewed. ED treatments and interventions as stated above. 1755: The patient was evaluated in room A2. A complete history and physical examination was performed. 180: Ordered Sodium Chloride 1000 ml @ 999 mls/hr IV 180: Ordered Zosyn 4.5 gm IV, Solu-Medrol 125 mg IV 181: I discussed the patient's case with the staff at [facility]. They said that the patient is normally talking, alert, and interacting but today she has been lethargic and not responding. The patient was also hypoxic. 182: [facility] is at bedside. He notes that the patient was more lethargic and confused today. He also states that she was hypoxic and tachycardic. Lastly, he states that her mentation has improved since being in the ED. 2: Ordered Famotidine 20 mg IV 1914: Ordered Vancomycin HCl 1300 mg/Sodium Chloride 276 ml @ 125 mls/hr IV 1926: I went to reassess the patient, but she was at CT. 1927: Ordered Sodium Chloride 1000 ml @ 999 mls/hr IV 1954: Upon reevaluation, the patient is resting comfortably. I discussed my findings with the patient and she understands and agrees with the treatment plan. Based on the patients age, coexisting illnesses, exam and lab findings the decision to treat as an inpatient was made. The patient remained stable while under my care. The patient will be evaluated for further management. 1955: Ordered Ativan Inj 1 mg IV 1957: I reviewed the patient's case with Dr. Magan Medrano. He will evaluate the patient for further management. 2012: I reassessed the patient. She has received the Ativan. Her heart rate has come down to 116 and she is sleeping. 2020: The nurse recently informed me that the patient's home care giver identified that the patient's rash is secondary to an amoxicillin allergy. She has already been given Zosyn. Medical Decision Differential diagnoses includes but is not limited to toxic, metabolic, infectious, traumatic, cardiac, neurologic, hematologic, psychiatric and inflammatory etiologies. Patient is a 70-year-old female from a assisted living facility who presents the ER for altered mental status, hypoxia, tachycardia and lethargy. They note that she has been much more unresponsive today. She was recently admitted and discharged from the hospital for the same symptoms. Labs were obtained and show a leukocytosis of 20,000. BMP along with LFTs, bilirubin and troponin were negative. Lactate acid was unremarkable. INR was normal. CT of the head and CTA of the chest shows no acute pathology that would explain her symptoms. Patient was given 2 L normal saline along with prophylactic antibiotics. He was given Zosyn and following this the director of the longterm finally found that she had an allergy to amoxicillin. She has had Augmentin in the past without difficulty. Unsure the true allergy. Uncertain of the cause of the diffuse rash however do feel as though she likely has underlying infection with 20,000 white count and tachycardia. Patient was treated prophylactically and admitted to internal medicine. Upon review of her chart on the previous admission she was treated for COPD and a Pseudomonas UTI which would be covered with Zosyn. Consults Time Called: 1805 Consulting Physician: [facility] Returned Call: 1809 I discussed the patient's case with the staff at [facility]. They said that the patient is normally talking, alert, and interacting but today she has been lethargic and not responding. The patient was also hypoxic. Additional Consults: Time Called: 1956 Consulted Physician: Dr. Magan Medrano Returned Call: 1957 Additional Comments: I reviewed the patient's case with Dr. Magan Medrano. He will evaluate the patient for further management. Impression Primary Impression: Altered mental status Additional Impressions: Hypoxia Leukocytosis Scribe Attestation The scribe's documentation has been prepared under my direction and personally reviewed by me in its entirety. I confirm that the note above accurately reflects all work, treatment, procedures, and medical decision making performed by me. Departure Information Dispostion Being Evaluated By Hospitalist Referrals [facility] ([facility]) Problem Qualifiers Primary Impression: Altered mental status Altered mental status type: unspecified Qualified Codes: R41.82 - Altered mental status, unspecified Additional Impressions: Leukocytosis Leukocytosis type: unspecified Qualified Codes: D72.829 - Elevated white blood cell count, unspecified"
[2016-06-11 23:47] VITALS: BP 124/79; PULSE 86; TEMP 36.8; O2SAT 92
[2016-06-12] VITALS (8 sets, daily range): BP systolic 111–136; BP diastolic 70–76; PULSE 64–106; TEMP 36.4–37; O2SAT 90–99
[2016-06-12] MEDS: LEVALBUTEROL 1.25MG/3ML NEB INH SCH ×4 (01:56→19:23)
[2016-06-12] MEDS: hydrOXYzine HCL 25 MG TAB PO SCH ×2 (05:48→09:46)
[2016-06-12 06:18] LABS: MEAN CELL VOLUME 94.6 fL (80-100); MEAN CORPUSCULAR HEMOGLOBIN 31.9 pg (25-34); MEAN CORPUSCULAR HGB CONC 33.7 g/dl (32-36); MEAN PLATELET VOLUME 9.3 fL (7.4-10.4); PLATELET COUNT 226 K/uL (130-400); WHITE BLOOD COUNT 16.43 K/uL (4.8-10.8)
[2016-06-12 06:57] LABS: BUN/CREATININE RATIO 11.1 (10-20); CALCIUM 8.2 mg/dl (8.5-10.1); CREATININE 0.62 mg/dl (0.60-1.20); POTASSIUM 4.1 mmol/L (3.5-5.1)
[2016-06-12] MEDS ORDERED: CALCIUM CARBONATE 500 MG CHEWABLE PO SCH (09:00)
[2016-06-12 09:06] LABS: INFLUENZA A PCR Neg for Influ A (NEG); INFLUENZA B PCR Neg for Influ B (NEG)
[2016-06-12] MEDS: GUAIFENESIN 600 MG TABCR PO SCH ×2 (09:45→20:20)
[2016-06-12] MEDS: BUDESONIDE/FORMOTEROL FUMARATE 160/4.5 60 PUFFS/INHALER INH SCH ×2 (09:45→20:19)
[2016-06-12] MEDS: DIVALPROEX SODIUM SPRINKLE 125 MG CAP PO SCH ×2 (09:46→20:20)
[2016-06-12] MEDS: RISPERIDONE 3 MG TAB PO SCH ×2 (09:46→20:20)
[2016-06-12] MEDS: TRIHEXYPHENIDYL HCL 2 MG TAB PO SCH ×2 (09:47→20:19)
[2016-06-12] MEDS: TOCOPHERYL, DL-ALPHA 400 INTER.UNIT CAP PO SCH (09:47)
[2016-06-12] MEDS: AMLODIPINE BESYLATE 5 MG TAB PO SCH (09:47)
[2016-06-12] MEDS: PANTOprazole SOD 40 MG TAB PO SCH (09:47)
--- NOTE | 2016-06-12 17:37 | Progress Note ---
Internal Med Progress Note Date of Service: Jun 12, 2016. Provider Documentation: SUBJECTIVE: Patient is lying in her bed in no apparent distress.Has been sleeping most of the day went to see her 2-3 times. No other significant change or event as per nursing staff. OBJECTIVE: Vital Signs-as noted below Examination: General: Moderately nourished, Appears comfortable & is sleepy. HEENT: Normocephalic, Normal sclerae, Ears, Nose & Throat are normal looking, Rash on face noted. Neck: Supple, Midline trachea. Lungs: B/L Moderate air entry, No rales or wheezes, Cardiac: Regular rate, Normal S1,S2. Abdomen: Soft, non-tender, non-distended, no rebound or guarding, +BS Extremities: Proximal & Distal pulses are present, No LE swelling or edema, extremities are warm and well-perfused Neurologic: limited exam due altered mentation and patient's inability to follow commands. Musculoskeletal: Could not assess due to altered mentation. Skin: warm with diffuse papular rash across face and neck with scaling around nasal folds, along truck, back, buttocks (with scaling) and groin area. Rash stops at upper thighs and there are some tiny erythematous spots around her ankles. Skin is very warm to touch Lab data as noted below. ASSESSMENT & PLAN: Acute Urticaria- Mild rash was noted to be present on discharge last week, however, diffuse rash began on day of admission. Etiologies include but are not limited to drug reaction (allergic to PCN and has seen Augmentin 3 weeks ago and Zosyn in ER, but after the rash), infection, other respiratory infection (will check flu PCR and monospot), food reaction (but no known food allergies per elementary school director), atopic dermatitis, manifestation of her known psoriatic arthritis, contact dermatitis (less likely with little exposure to new things in her home environement), pemphigoid, or cold-induced urticaria (new onset, not chronic so less likely). Supportive care with Atarax 25mg IM which seem to be making her drowsy Changed to I/V Steroids. Leukocytosis-possibly due to urticaria versus new infection. UA still pending, lungs are clear, no other obvious source of infection at this point and no symptoms of infection per elementary school director. She has been afebrile. Continue vancomycin Metabolic Encephalopathy-likely due to acute change in health and new setting. Schizophrenic at baseline. Psoriatic Arthritis-holding Otezla in setting of possible infection. Schizophrenia-Continue home psych medications Hypertension -Continue home medications under parameters Type II Diabetes: Holding oral agents. Monitor BS and cover as per sliding scale. DVT Prophylaxis-Lovenox Code Status: Full Code Disposition: Discharge once is clinically stable. Vital Signs: Date Time Temp Pulse Resp B/P Pulse Ox O2 Delivery O2 Flow Rate FiO2 06/13/16 13:30 36.4 56 18 102/64 98 Room Air 06/13/16 13:14 36.6 118 16 91 2.0 06/13/16 11:27 36.6 118 16 118/67 91 Room Air 06/13/16 08:00 Nasal Cannula 06/13/16 07:48 36.8 104 16 126/78 98 Room Air 06/13/16 07:18 94 18 98 Room Air 06/13/16 04:11 Nasal Cannula 06/13/16 03:43 36.7 105 18 117/71 99 Nasal Cannula 2.0 06/13/16 02:02 110 20 100 Nasal Cannula 2.0 06/13/16 00:05 Nasal Cannula 06/12/16 23:55 37.0 103 18 133/76 94 Room Air 06/12/16 20:11 Nasal Cannula 06/12/16 19:59 36.6 88 22 124/73 91 Room Air 06/12/16 16:13 36.7 106 20 121/75 96 Nasal Cannula 2.0 06/12/16 16:00 Room Air Lab Results: Results Past 24 Hours Test 06/13/16 05:30 06/13/16 13:05 Range/Units White Blood Count 24.32 4.8-10.8 K/uL Red Blood Count 3.46 4.2-5.4 M/uL Hemoglobin 10.9 12.0-16.0 g/dL Hematocrit 33.0 37-47 % Mean Corpuscular Volume 95.4 80-100 fL Mean Corpuscular Hemoglobin 31.5 25-34 pg Mean Corpuscular Hemoglobin Concent 33.0 32-36 g/dl Platelet Count 279 130-400 K/uL Mean Platelet Volume 9.3 7.4-10.4 fL Neutrophils (%) (Auto) 83.1 % Lymphocytes (%) (Auto) 8.4 % Monocytes (%) (Auto) 7.9 % Eosinophils (%) (Auto) 0.0 % Basophils (%) (Auto) 0.1 % Neutrophils # (Auto) 20.21 1.4-6.5 K/uL Lymphocytes # (Auto) 2.04 1.2-3.4 K/uL Monocytes # (Auto) 1.93 0.11-0.59 K/uL Eosinophils # (Auto) 0.00 0-0.5 K/uL Basophils # (Auto) 0.03 0-0.2 K/uL RDW Standard Deviation 43.9 36.4-46.3 fL RDW Coefficient of Variation 12.7 11.5-14.5 % Immature Granulocyte % (Auto) 0.5 % Immature Granulocyte # (Auto) 0.11 0.00-0.02 K/uL Sodium Level 145 136-145 mmol/L Potassium Level 3.8 3.5-5.1 mmol/L Chloride Level 109 98-107 mmol/L Carbon Dioxide Level 30 21-32 mmol/L Anion Gap 6.0 3-11 mmol/L Blood Urea Nitrogen 7 7-18 mg/dl Creatinine 0.61 0.60-1.20 mg/dl Est Creatinine Clear Calc Drug Dose 70.3 ml/min Estimated GFR () 108.0 Estimated GFR (Non- 93.1 BUN/Creatinine Ratio 11.7 10-20 Random Glucose 128 70-99 mg/dl Calcium Level 8.0 8.5-10.1 mg/dl C-Reactive Protein 3.45 0-0.29 mg/dl Urine Color YELLOW Urine Appearance CLEAR CLEAR Urine pH 6.5 4.5-7.5 Urine Specific Frederick 1.021 1.000-1.030 Urine Protein NEG NEG Urine Glucose (UA) NEG NEG Urine Ketones 1+ NEG Urine Occult Blood NEG NEG Urine Nitrite NEG NEG Urine Bilirubin NEG NEG Urine Urobilinogen NEG NEG Urine Leukocyte Esterase NEG NEG Microbiology Results 06/13/16 MRSA DNA Surveillance Screen, Received Pending 06/12/16 Shiga Toxin Test - Preliminary, Resulted No E. Coli shiga toxin 1 or shiga tox... 06/12/16 Stool Culture - Preliminary, Resulted NO SALMONELLA ISOLATED TO DATE,... 06/13/16 Urine Culture, Received Pending
[2016-06-12] MEDS: METHYLPREDNISOLONE IV 40 MG in SYRINGE 0 ML IV SCH (20:19)
[2016-06-12] MEDS: ENOXAPARIN 40 MG/0.4 ML SYR SC SCH (20:20)
[2016-06-12] MEDS ORDERED: hydrOXYzine HCL 25 MG TAB PO PRN (22:00)
[2016-06-13] VITALS (10 sets, daily range): BP systolic 102–126; BP diastolic 64–78; PULSE 56–118; TEMP 36.4–36.8; O2SAT 91–100
[2016-06-13] MEDS: LEVALBUTEROL 1.25MG/3ML NEB INH SCH ×4 (02:02→19:42)
[2016-06-13] MEDS ORDERED: VANCOMYCIN INJ 1,500 MG in SODIUM CHLORIDE 0.9% 500ML 500 ML IV ONE (03:30)
[2016-06-13] MEDS ORDERED: VANCOMYCIN CONSULT ACTIVE PRN (04:00)
[2016-06-13] MEDS: METHYLPREDNISOLONE IV 40 MG in SYRINGE 0 ML IV SCH ×2 (05:24→18:03)
[2016-06-13 06:08] LABS: MEAN CELL VOLUME 95.4 fL (80-100); MEAN CORPUSCULAR HEMOGLOBIN 31.5 pg (25-34); MEAN PLATELET VOLUME 9.3 fL (7.4-10.4); PLATELET COUNT 279 K/uL (130-400); RED BLOOD COUNT 3.46 M/uL (4.2-5.4); WHITE BLOOD COUNT 24.32 K/uL (4.8-10.8)
[2016-06-13 06:40] LABS: BUN/CREATININE RATIO 11.7 (10-20); C-REACTIVE PROTEIN 3.45 mg/dl (0-0.29); CREATININE 0.61 mg/dl (0.60-1.20); POTASSIUM 3.8 mmol/L (3.5-5.1)
[2016-06-13] MEDS: BUDESONIDE/FORMOTEROL FUMARATE 160/4.5 60 PUFFS/INHALER INH SCH ×2 (07:46→20:30)
[2016-06-13] MEDS: DIVALPROEX SODIUM SPRINKLE 125 MG CAP PO SCH ×2 (07:46→20:34)
[2016-06-13] MEDS: TOCOPHERYL, DL-ALPHA 400 INTER.UNIT CAP PO SCH (07:46)
[2016-06-13] MEDS: AMLODIPINE BESYLATE 5 MG TAB PO SCH (07:46)
[2016-06-13] MEDS: GUAIFENESIN 600 MG TABCR PO SCH ×2 (07:46→20:33)
[2016-06-13] MEDS: PANTOprazole SOD 40 MG TAB PO SCH (07:46)
[2016-06-13] MEDS: RISPERIDONE 3 MG TAB PO SCH (07:47)
[2016-06-13 07:50] LABS: BASO % 0.1 %; BASO ABS # 0.03 K/uL (0-0.2); COMPLETE YES; IG% 0.5 %; LYMPH % 8.4 %; LYMPH ABS # 2.04 K/uL (1.2-3.4); MONO % 7.9 %; NEUT % 83.1 %
--- NOTE | 2016-06-13 08:56 | Pharmacy Progress Note ---
Pharmacy Antibiotic Consult Date of Service: Jun 13, 2016. Pharmacy Dosing Scope Pharmacy is consulted to initiate Vanco IV dosing therapy, order appropriate labs and adjust drug dose/frequency. Subjective The patient is a 70 year old female admitted on Jun 11, 2016 at 20:41. Objective Height (Feet): 5 Height (Inches): 0.00 Weight (Kilograms): 57.800 Lab Results (24hrs): Item Value Date Time Creatinine 0.61 mg/dl 06/13/16 0530 Creatinine 0.62 mg/dl 06/12/16 0600 Est Creatinine Clear Calc Drug Dose 70.3 ml/min 06/13/16 0530 Est Creatinine Clear Calc Drug Dose 70.3 ml/min 06/12/16 0600 Creatinine 0.73 mg/dl 06/11/16 0000 Est Creatinine Clear Calc Drug Dose 61.0 ml/min 06/11/16 0000 Laboratory Tests Test 06/13/16 05:30 BUN/Creatinine Ratio 11.7 Blood Urea Nitrogen 7 mg/dl Creatinine 0.61 mg/dl White Blood Count 24.32 K/uL Red Blood Count 3.46 M/uL Hemoglobin 10.9 g/dL Hematocrit 33.0 % Mean Corpuscular Volume 95.4 fL Mean Corpuscular Hemoglobin 31.5 pg Mean Corpuscular Hemoglobin Concent 33.0 g/dl Platelet Count 279 K/uL Mean Platelet Volume 9.3 fL Neutrophils (%) (Auto) 83.1 % Lymphocytes (%) (Auto) 8.4 % Monocytes (%) (Auto) 7.9 % Eosinophils (%) (Auto) 0.0 % Basophils (%) (Auto) 0.1 % Neutrophils # (Auto) 20.21 K/uL Lymphocytes # (Auto) 2.04 K/uL Monocytes # (Auto) 1.93 K/uL Eosinophils # (Auto) 0.00 K/uL Basophils # (Auto) 0.03 K/uL Micro Results: Item Value Date Time Shiga Toxin Test Received 06/12/16 1445 Stool Pending Urine Culture - Final Complete 06/11/16 2107 Urine,Catheterized NO GROWTH - LESS THAN 1,000 COLONIES/ML Blood Culture - Preliminary Resulted 06/11/16 1855 Blood Gram Positive Cocci Blood Culture - Preliminary Resulted 06/11/16 0000 Blood NO GROWTH TO DATE. Assessment & Plan Pt is a 70yo F p/w urticaria. Possible sources include DAVID (allergic to PCNs and has recieved high dose Zosyn x1 and Augmentin), , respiratory infxn, among others. I have ordered a MRSA nasal swab if it is determined to be of pulmonary etiology. In 1/2 BC's gram(+) cocci are seen to be growing with sensitivities to follow. Ms. Hubbard's renal fxn looks to be close to her baseline. Pt population p'kinetics: t1/2=11.1hrs, ke=0.0625. Ms. Hubbard recently completed an antibx course for which she was treated for a Pseudomonal UTI. Vanco * Loading dose: Vanco 1500mg (25mg/kg) IV X 1 dose @0405 on 06/13 then: * Vanco 900mg (15mg/kg) IV every 12 hours set to start at 1300 on 06/13. * Goal trough level estimate: between 15 - 20 mcg/mL until C/s's * Random level has been ordered for: prior to the 4th MD. Thank you for consulting the pharmacy kinetic team and including us in the care of Ms. Hubbard Pharmacy will continue to follow and will adjust dose/frequency as necessary. Thank you
[2016-06-13] MEDS: TRIHEXYPHENIDYL HCL 2 MG TAB PO SCH ×2 (09:00→20:33)
[2016-06-13 13:16] LABS: URINE APPEARANCE CLEAR (CLEAR); URINE BILIRUBIN NEG (NEG); URINE COLOR YELLOW; URINE NITRITE NEG (NEG); URINE PH 6.5 (4.5-7.5); URINE SPECIFIC GRAVITY 1.021 (1.000-1.030); UROBILINOGEN NEG (NEG)
[2016-06-13 13:27] LABS: MANUAL MICROSCOPIC REQUIRED? NO; REVIEW REQ? NO
[2016-06-13] MEDS: VANCOMYCIN INJ 900 MG in SODIUM CHLORIDE 0.9% 250ML 250 ML IV SCH (13:34)
--- NOTE | 2016-06-13 14:13 | Progress Note ---
Internal Med Progress Note Date of Service: Jun 13, 2016. Provider Documentation: SUBJECTIVE: Patient is lying in her bed in no apparent distress.Has been awake intermittently and less sleepy today. No other significant change or event as per nursing staff. OBJECTIVE: Vital Signs-as noted below Examination: General: Moderately nourished, Appears comfortable & is sleepy. HEENT: Normocephalic, Normal sclerae, Ears, Nose & Throat are normal looking, Rash on face noted. Neck: Supple, Midline trachea. Lungs: B/L Moderate air entry, No rales or wheezes, Cardiac: Regular rate, Normal S1,S2. Abdomen: Soft, non-tender, non-distended, no rebound or guarding, +BS Extremities: Proximal & Distal pulses are present, No LE swelling or edema, extremities are warm and well-perfused Neurologic: limited exam due altered mentation and patient's inability to follow commands. Musculoskeletal: Could not assess due to altered mentation. Skin: warm with diffuse papular rash across face and neck with scaling around nasal folds, along truck, back, buttocks (with scaling) and groin area. Rash stops at upper thighs and there are some tiny erythematous spots around her ankles. Skin is very warm to touch Lab data as noted below. ASSESSMENT & PLAN: Acute Urticaria- Mild rash was noted to be present on discharge last week, however, diffuse rash began on day of admission. Etiologies include but are not limited to drug reaction (allergic to PCN and has seen Augmentin 3 weeks ago and Zosyn in ER, but after the rash), infection, other respiratory infection (will check flu PCR and monospot), food reaction (but no known food allergies per ophthalmology surgical technician), atopic dermatitis, manifestation of her known psoriatic arthritis, contact dermatitis (less likely with little exposure to new things in her home environment), pemphigoid, or cold -induced urticaria (new onset, not chronic so less likely). Stopped Atarax 25mg IM which seem to be making her drowsy Changed to I/V Steroids. Local bacitracin cream to be applied to sloughed areas Flu screen is negative MRSA is pending Leukocytosis-possibly due to urticaria versus new infection. UA still pending, lungs are clear, no other obvious source of infection at this point and no symptoms of infection per ophthalmology surgical technician. She has been afebrile. Blood culture --> one bottle is growing Gram positive cocci. Will wait for identification. CRP is elevated Continue vancomycin Metabolic Encephalopathy-likely due to acute change in health and new setting. Schizophrenic at baseline. Psoriatic Arthritis-holding Otezla in setting of possible infection. Schizophrenia-Continue home psych medications Hypertension -Continue home medications under parameters Type II Diabetes: Holding oral agents. Monitor BS and cover as per sliding scale. DVT Prophylaxis-Lovenox Code Status: Full Code Disposition: Discharge once is clinically stable. Vital Signs: Date Time Temp Pulse Resp B/P Pulse Ox O2 Delivery O2 Flow Rate FiO2 06/13/16 13:30 36.4 56 18 102/64 98 Room Air 06/13/16 13:14 36.6 118 16 91 2.0 06/13/16 11:27 36.6 118 16 118/67 91 Room Air 06/13/16 08:00 Nasal Cannula 06/13/16 07:48 36.8 104 16 126/78 98 Room Air 06/13/16 07:18 94 18 98 Room Air 06/13/16 04:11 Nasal Cannula 06/13/16 03:43 36.7 105 18 117/71 99 Nasal Cannula 2.0 06/13/16 02:02 110 20 100 Nasal Cannula 2.0 06/13/16 00:05 Nasal Cannula 06/12/16 23:55 37.0 103 18 133/76 94 Room Air 06/12/16 20:11 Nasal Cannula 06/12/16 19:59 36.6 88 22 124/73 91 Room Air 06/12/16 16:13 36.7 106 20 121/75 96 Nasal Cannula 2.0 06/12/16 16:00 Room Air Lab Results: Results Past 24 Hours Test 06/13/16 05:30 06/13/16 13:05 Range/Units White Blood Count 24.32 4.8-10.8 K/uL Red Blood Count 3.46 4.2-5.4 M/uL Hemoglobin 10.9 12.0-16.0 g/dL Hematocrit 33.0 37-47 % Mean Corpuscular Volume 95.4 80-100 fL Mean Corpuscular Hemoglobin 31.5 25-34 pg Mean Corpuscular Hemoglobin Concent 33.0 32-36 g/dl Platelet Count 279 130-400 K/uL Mean Platelet Volume 9.3 7.4-10.4 fL Neutrophils (%) (Auto) 83.1 % Lymphocytes (%) (Auto) 8.4 % Monocytes (%) (Auto) 7.9 % Eosinophils (%) (Auto) 0.0 % Basophils (%) (Auto) 0.1 % Neutrophils # (Auto) 20.21 1.4-6.5 K/uL Lymphocytes # (Auto) 2.04 1.2-3.4 K/uL Monocytes # (Auto) 1.93 0.11-0.59 K/uL Eosinophils # (Auto) 0.00 0-0.5 K/uL Basophils # (Auto) 0.03 0-0.2 K/uL RDW Standard Deviation 43.9 36.4-46.3 fL RDW Coefficient of Variation 12.7 11.5-14.5 % Immature Granulocyte % (Auto) 0.5 % Immature Granulocyte # (Auto) 0.11 0.00-0.02 K/uL Sodium Level 145 136-145 mmol/L Potassium Level 3.8 3.5-5.1 mmol/L Chloride Level 109 98-107 mmol/L Carbon Dioxide Level 30 21-32 mmol/L Anion Gap 6.0 3-11 mmol/L Blood Urea Nitrogen 7 7-18 mg/dl Creatinine 0.61 0.60-1.20 mg/dl Est Creatinine Clear Calc Drug Dose 70.3 ml/min Estimated GFR () 108.0 Estimated GFR (Non- 93.1 BUN/Creatinine Ratio 11.7 10-20 Random Glucose 128 70-99 mg/dl Calcium Level 8.0 8.5-10.1 mg/dl C-Reactive Protein 3.45 0-0.29 mg/dl Urine Color YELLOW Urine Appearance CLEAR CLEAR Urine pH 6.5 4.5-7.5 Urine Specific Vi[place] 1.021 1.000-1.030 Urine Protein NEG NEG Urine Glucose (UA) NEG NEG Urine Ketones 1+ NEG Urine Occult Blood NEG NEG Urine Nitrite NEG NEG Urine Bilirubin NEG NEG Urine Urobilinogen NEG NEG Urine Leukocyte Esterase NEG NEG Microbiology Results 06/13/16 MRSA DNA Surveillance Screen, Received Pending 06/12/16 Shiga Toxin Test - Preliminary, Resulted No E. Coli shiga toxin 1 or shiga tox... 06/12/16 Stool Culture - Preliminary, Resulted NO SALMONELLA ISOLATED TO DATE,... 06/13/16 Urine Culture, Received Pending
[2016-06-13] MEDS: RISPERIDONE 2 MG TAB PO SCH (20:33)
[2016-06-13] MEDS: ENOXAPARIN 40 MG/0.4 ML SYR SC SCH (23:12)
[2016-06-13] MEDS: BACITRACIN OINT 15 GM TUBE EXT SCH (23:12)
[2016-06-14] VITALS (7 sets, daily range): BP systolic 121–128; BP diastolic 68–76; PULSE 88–102; TEMP 36.3–36.5; O2SAT 91–96
[2016-06-14] MEDS: VANCOMYCIN INJ 900 MG in SODIUM CHLORIDE 0.9% 250ML 250 ML IV SCH ×2 (01:18→13:14)
[2016-06-14] MEDS: LEVALBUTEROL 1.25MG/3ML NEB INH SCH ×4 (01:42→19:12)
[2016-06-14] MEDS: METHYLPREDNISOLONE IV 40 MG in SYRINGE 0 ML IV SCH ×2 (05:48→17:46)
[2016-06-14 08:25] LABS: BASO % 0.2 %; BASO ABS # 0.03 K/uL (0-0.2); COMPLETE YES; EOS % 0.1 %; HEMATOCRIT 35.2 % (37-47); IG% 0.7 %; LYMPH % 5.7 %; LYMPH ABS # 1.05 K/uL (1.2-3.4); MEAN CELL VOLUME 93.6 fL (80-100); MEAN CORPUSCULAR HEMOGLOBIN 31.1 pg (25-34); MEAN CORPUSCULAR HGB CONC 33.2 g/dl (32-36); MONO % 10.3 %; PLATELET COUNT 268 K/uL (130-400); RED BLOOD COUNT 3.76 M/uL (4.2-5.4); WHITE BLOOD COUNT 18.42 K/uL (4.8-10.8)
[2016-06-14] MEDS: TRIHEXYPHENIDYL HCL 2 MG TAB PO SCH ×2 (08:31→21:16)
[2016-06-14] MEDS: BUDESONIDE/FORMOTEROL FUMARATE 160/4.5 60 PUFFS/INHALER INH SCH ×2 (08:31→21:13)
[2016-06-14] MEDS: AMLODIPINE BESYLATE 5 MG TAB PO SCH (08:33)
[2016-06-14] MEDS: DIVALPROEX SODIUM SPRINKLE 125 MG CAP PO SCH ×2 (08:33→21:13)
[2016-06-14] MEDS: PANTOprazole SOD 40 MG TAB PO SCH (08:33)
[2016-06-14] MEDS: RISPERIDONE 2 MG TAB PO SCH ×2 (08:33→21:17)
[2016-06-14] MEDS: GUAIFENESIN 600 MG TABCR PO SCH ×2 (08:33→21:15)
[2016-06-14] MEDS: BACITRACIN OINT 15 GM TUBE EXT SCH ×2 (08:34→21:12)
[2016-06-14] MEDS: TOCOPHERYL, DL-ALPHA 400 INTER.UNIT CAP PO SCH (08:34)
[2016-06-14 09:05] LABS: CALCIUM 8.7 mg/dl (8.5-10.1); CREATININE 0.6 mg/dl (0.60-1.20); POTASSIUM 3.8 mmol/L (3.5-5.1)
[2016-06-14 09:08] LABS: ALB/GLOB RATIO 0.6 (0.9-2)
--- NOTE | 2016-06-14 11:00 | Progress Note ---
Internal Med Progress Note Date of Service: Jun 14, 2016. Provider Documentation: SUBJECTIVE: Patient is seen and examined at bedside. Seemed to be sleepy but awakes. No apparent distress. Mental status at baseline per staff. OBJECTIVE: Vital Signs-as noted below Physical Exam: Vitals signs as noted above General Appearance:Moderately built and nourished, no apparent distress Head: normocephalic, Atraumatic Eyes: normal inspection, EOMI, PERRLA Neck: supple, Trachea midline Respiratory/Chest: Normal breath sounds, CTA Cardiovascular: S1, S2, No murmur Abdomen/GI:Soft, Non tender, Bowel sounds present Extremities/Musculoskelatal:normal inspection, no edema Neurologic/Psych:Complete neuro exam could not be performed. + Schizophrenia Skin: warm, diffuse papular rash noted Lab data as noted below. ASSESSMENT & PLAN: Acute Urticaria: Mild rash on discharge last week. Presented with diffuse rash which began on day of admission. DD: drug reaction (allergic to PCN and has seen Augmentin 3 weeks ago and Zosyn in ER, but after the rash, food allergies, manifestation of psoriatic arthritis, pemphigoid Atarax discontinued as patient drowsy Continue IV Steroids. Continue local bacitracin cream to sloughed areas Flu screen: negative MRSA screen: Negative Mon screen: Negative Will consult ID Leukocytosis-possibly due to urticaria versus new infection. Afebrile, lactate levels:wnl Elevated CRP On IV steroids UA: negative CTA/ CXR: No signs of consolidation Blood culture: 1/2: COAG NEG STAPH NOT LUGDUNENSIS Continue vancomycin for now Metabolic Encephalopathy: likely due to acute illness H/O Schizophrenic at baseline CT head: no acute pathology Currently at baseline per staff Psoriatic Arthritis: hold Otezla in setting of possible infection. Schizophrenia Continue home psych meds Hypertension Stable Continue home medications: Amlodipine DM II: Hold oral agents. Monitor BS Continue ISS DVT PX: SQ Lovenox Code Status: Full Code Disposition: Plan to discharge to [facility] once discharged coordinator of health services following PROCEDURES: CTA: 1. Moderately limited study secondary to respiratory motion artifact. No pulmonary emboli identified. Due to the limitations of the current study, correlation with serial leg ultrasonography should be considered. 2. Left aortic arch with an aberrant right subclavian artery 3. No evidence of focal pulmonary consolidation 4. Emphysema. Vital Signs: Date Time Temp Pulse Resp B/P Pulse Ox O2 Delivery O2 Flow Rate FiO2 06/14/16 09:48 Room Air 06/14/16 07:53 36.5 96 19 122/72 91 Room Air 06/14/16 07:49 98 126/73 06/14/16 07:03 88 16 92 Room Air 06/14/16 00:18 102 18 121/76 96 Room Air 06/14/16 00:00 Room Air 06/13/16 20:00 Room Air 06/13/16 19:42 75 16 95 Room Air 06/13/16 16:15 Room Air 06/13/16 14:59 36.4 109 18 119/65 92 Room Air 06/13/16 14:21 95 16 92 Room Air 06/13/16 13:30 36.4 56 18 102/64 98 Room Air 06/13/16 13:14 36.6 118 16 91 2.0 06/13/16 11:27 36.6 118 16 118/67 91 Room Air Lab Results: Results Past 24 Hours Test 06/13/16 13:05 06/14/16 08:15 Range/Units Urine Color YELLOW Urine Appearance CLEAR CLEAR Urine pH 6.5 4.5-7.5 Urine Specific [place] 1.021 1.000-1.030 Urine Protein NEG NEG Urine Glucose (UA) NEG NEG Urine Ketones 1+ NEG Urine Occult Blood NEG NEG Urine Nitrite NEG NEG Urine Bilirubin NEG NEG Urine Urobilinogen NEG NEG Urine Leukocyte Esterase NEG NEG White Blood Count 18.42 4.8-10.8 K/uL Red Blood Count 3.76 4.2-5.4 M/uL Hemoglobin 11.7 12.0-16.0 g/dL Hematocrit 35.2 37-47 % Mean Corpuscular Volume 93.6 80-100 fL Mean Corpuscular Hemoglobin 31.1 25-34 pg Mean Corpuscular Hemoglobin Concent 33.2 32-36 g/dl Platelet Count 268 130-400 K/uL Mean Platelet Volume 9.0 7.4-10.4 fL Neutrophils (%) (Auto) 83.0 % Lymphocytes (%) (Auto) 5.7 % Monocytes (%) (Auto) 10.3 % Eosinophils (%) (Auto) 0.1 % Basophils (%) (Auto) 0.2 % Neutrophils # (Auto) 15.32 1.4-6.5 K/uL Lymphocytes # (Auto) 1.05 1.2-3.4 K/uL Monocytes # (Auto) 1.89 0.11-0.59 K/uL Eosinophils # (Auto) 0.01 0-0.5 K/uL Basophils # (Auto) 0.03 0-0.2 K/uL RDW Standard Deviation 43.3 36.4-46.3 fL RDW Coefficient of Variation 12.8 11.5-14.5 % Immature Granulocyte % (Auto) 0.7 % Immature Granulocyte # (Auto) 0.12 0.00-0.02 K/uL Sodium Level 144 136-145 mmol/L Potassium Level 3.8 3.5-5.1 mmol/L Chloride Level 108 98-107 mmol/L Carbon Dioxide Level 24 21-32 mmol/L Anion Gap 12.0 3-11 mmol/L Blood Urea Nitrogen 8 7-18 mg/dl Creatinine 0.60 0.60-1.20 mg/dl Est Creatinine Clear Calc Drug Dose 71.4 ml/min Estimated GFR () 108.5 Estimated GFR (Non- 93.7 BUN/Creatinine Ratio 14.0 10-20 Random Glucose 181 70-99 mg/dl Calcium Level 8.7 8.5-10.1 mg/dl Total Bilirubin 0.3 0.2-1 mg/dl Aspartate Amino Transf (AST/SGOT) 11 15-37 U/L Alanine Aminotransferase (ALT/SGPT) 15 12-78 U/L Alkaline Phosphatase 55 45-117 U/L Total Protein 6.7 6.4-8.2 gm/dl Albumin 2.6 3.4-5.0 gm/dl Globulin 4.1 2.5-4.0 gm/dl Albumin/Globulin Ratio 0.6 0.9-2 Valproic Acid (Depakene) Level 87 50-100 mcg/ml Microbiology Results 06/13/16 MRSA DNA Surveillance Screen - Final, Complete Specimen Negative for MRSA by DNA Probe 06/13/16 Urine Culture, Received Pending
[2016-06-14] MEDS: ENOXAPARIN 40 MG/0.4 ML SYR SC SCH (21:18)
[2016-06-15] VITALS (7 sets, daily range): BP systolic 113–153; BP diastolic 72–90; PULSE 77–101; TEMP 36.3–37; O2SAT 93–96
[2016-06-15] MEDS ORDERED: VANCOMYCIN TROUGH ONE (00:30)
[2016-06-15] MEDS: VANCOMYCIN INJ 900 MG in SODIUM CHLORIDE 0.9% 250ML 250 ML IV SCH (00:57)
[2016-06-15] MEDS: LEVALBUTEROL 1.25MG/3ML NEB INH SCH ×3 (01:33→14:25)
[2016-06-15 05:44] LABS: BASO % 0.2 %; BASO ABS # 0.03 K/uL (0-0.2); COMPLETE YES; HEMATOCRIT 34.2 % (37-47); IG% 0.8 %; LYMPH % 15.3 %; LYMPH ABS # 2.41 K/uL (1.2-3.4); MEAN CELL VOLUME 94.5 fL (80-100); MEAN CORPUSCULAR HEMOGLOBIN 31.5 pg (25-34); MEAN CORPUSCULAR HGB CONC 33.3 g/dl (32-36); MEAN PLATELET VOLUME 9.2 fL (7.4-10.4); MONO % 14.3 %; NEUT % 69.4 %; PLATELET COUNT 271 K/uL (130-400); RED BLOOD COUNT 3.62 M/uL (4.2-5.4); WHITE BLOOD COUNT 15.73 K/uL (4.8-10.8)
[2016-06-15] MEDS: METHYLPREDNISOLONE IV 40 MG in SYRINGE 0 ML IV SCH (06:13)
[2016-06-15 06:22] LABS: BUN/CREATININE RATIO 15.5 (10-20); CALCIUM 8.3 mg/dl (8.5-10.1); CREATININE 0.6 mg/dl (0.60-1.20); POTASSIUM 3.5 mmol/L (3.5-5.1)
[2016-06-15] MEDS: AMLODIPINE BESYLATE 5 MG TAB PO SCH (09:00)
[2016-06-15] MEDS: TRIHEXYPHENIDYL HCL 2 MG TAB PO SCH (09:06)
[2016-06-15] MEDS: BACITRACIN OINT 15 GM TUBE EXT SCH (09:06)
[2016-06-15] MEDS: BUDESONIDE/FORMOTEROL FUMARATE 160/4.5 60 PUFFS/INHALER INH SCH (09:06)
[2016-06-15] MEDS: DIVALPROEX SODIUM SPRINKLE 125 MG CAP PO SCH (09:07)
[2016-06-15] MEDS: PANTOprazole SOD 40 MG TAB PO SCH (09:07)
[2016-06-15] MEDS: RISPERIDONE 2 MG TAB PO SCH (09:07)
[2016-06-15] MEDS: GUAIFENESIN 600 MG TABCR PO SCH (09:07)
[2016-06-15] MEDS: TOCOPHERYL, DL-ALPHA 400 INTER.UNIT CAP PO SCH (09:08)
--- NOTE | 2016-06-15 10:56 | Pharmacy Progress Note ---
Pharmacy Antibiotic Prog Note Date of Service: Jun 15, 2016. Subjective: The patient is currently receiving Vancomycin 900 mg (~15mg/kg) IV every 12 hours for sepsis after a recent hospital admission for sosa sensitive pseudomonas UTI. The patient is currently on day # 4 of Vancomycin IV therapy. Objective: Height (Feet): 5 Height (Inches): 0.00 Weight (Kilograms): 57.800 Levels: Item Value Date Time Vancomycin Level Trough 11.3 mcg/ml 06/15/16 0045 Lab Results (24hrs): Laboratory Tests Test 06/15/16 05:14 BUN/Creatinine Ratio 15.5 Blood Urea Nitrogen 9 mg/dl Creatinine 0.60 mg/dl White Blood Count 15.73 K/uL Red Blood Count 3.62 M/uL Hemoglobin 11.4 g/dL Hematocrit 34.2 % Mean Corpuscular Volume 94.5 fL Mean Corpuscular Hemoglobin 31.5 pg Mean Corpuscular Hemoglobin Concent 33.3 g/dl Platelet Count 271 K/uL Mean Platelet Volume 9.2 fL Neutrophils (%) (Auto) 69.4 % Lymphocytes (%) (Auto) 15.3 % Monocytes (%) (Auto) 14.3 % Eosinophils (%) (Auto) 0.0 % Basophils (%) (Auto) 0.2 % Neutrophils # (Auto) 10.92 K/uL Lymphocytes # (Auto) 2.41 K/uL Monocytes # (Auto) 2.25 K/uL Eosinophils # (Auto) 0.00 K/uL Basophils # (Auto) 0.03 K/uL Micro Results: Item Value Date Time Urine Culture - Final Complete 06/13/16 1310 Urine,Catheterized NO GROWTH - LESS THAN 1,000 COLONIES/ML MRSA DNA Surveillance Screen - Final Complete 06/13/16 1200 Nasal Specimen Negative for MRSA by DNA Probe Shiga Toxin Test - Final Complete 06/12/16 1445 Stool No E. Coli shiga toxin 1 or shiga tox... Urine Culture - Final Complete 06/11/16 2107 Urine,Catheterized NO GROWTH - LESS THAN 1,000 COLONIES/ML Blood Culture - Final Complete 06/11/16 1855 Blood Coag Neg Staph Not Lugdunensis Blood Culture - Preliminary Resulted 06/11/16 0000 Blood NO GROWTH TO DATE. Recent Pertinent Medications: Item Value Date Time Piperacillin Sod/ 4.5 gm 06/11/16 1809 Tazobactam Sod NOW STAT/IV 06/11/16 1901 (Zosyn Iv) Vancomycin HCl 276 ml @ 125 mls/hr 06/11/16 1915 1300 mg/Sodium 1915/IV 06/11/16 2009 Chloride Vancomycin HCl 530 ml @ 200 mls/hr 06/13/16 0330 1500 mg/Sodium TODAY@0330 ONCE/IV 06/13/16 0405 Chloride Vancomycin HCl 268 ml @ 125 mls/hr 06/13/16 1300 900 mg/Sodium Q12H/IV 06/15/16 0057 Chloride Assessment & Plan: Pharmacy has been consulted to dose and monitor Vancomycin for sepsis s/p a recent hospital admission for sosa sensitive pseudomonas UTI. Vancomycin trough level of 11.3mcg/mL is: Subtherapeutic Change to Vancomycin 1100 mg (~19mg/kg) IV every 12 hours. * Dose increased by ~22% in order to increase serum concentrations by ~22% and reach therapeutic levels. * Goal trough level estimate: between 15 - 20 mcg/mL. * Trough level has been ordered for: ~30 minutes before the 0000 dose. Pharmacy will continue to follow and will adjust dose/frequency as necessary. Thank you
--- NOTE | 2016-06-15 11:31 | Progress Note ---
Progress Note Date of Service Jun 15, 2016. Progress Note ID Consult dictated # [id number] A/P: 1. Rash - ? SJS 2. Leukocytosis - likely multifactorial, rash + steroids 3. + blood culture - bottom wheeler 1/2 sets, suspect contaminant -No signs of infection, if no evidence of cellulitis, would stop vanco -suspect bottom wheeler is contaminant, if concerned for bsi, would repeat x 2 -? drug eruption to recent augmentin (reported pcn allergy) vs hypersensitivity to Otezla, vs worsening psoriasis vs SJS, needs derm eval -thank you
--- NOTE | 2016-06-15 11:47 | INFECT. DISEASE CONSULTATION ---
DATE OF CONSULTATION: 06/15/2016 DATE OF CONSULTATION: 06/15/2016. REQUESTING PHYSICIAN: Dr. Laguna. HISTORY OF PRESENT ILLNESS: This is a 70-year-old female who was admitted from her personal halfway with rash and urticaria. She does not provide any history and is actually nonverbal during my examination. The history is obtained from the H\T\P. Reportedly, she had a rash that began during another admission. This started in the center of her back. This continued to spread and began to involve her face, neck, abdomen, back and her upper extremities. This happened acutely on the day of admission and she was subsequently admitted to the hospital. She reportedly was on Augmentin for a 21-day course for a previously diagnosed upper respiratory infection and she tolerated this well, although she does have penicillin listed as an allergy. She was also given Zosyn in the ER on this admission. She was also given vancomycin and started on Solu-Medrol and Pepcid for suspected drug reaction. She has continued through this admission with a rash. A dermatology examination is pending as well. She has been afebrile since admission to the hospital. She remains on IV steroids. She initially had a white blood cell count of 20,000 and this did increase up to 24,000 on the 13 of June but has been improving and now is 15.7. As part of her workup, she did have blood cultures obtained in the Emergency Room, 1 out of 2 sets blood cultures from the grew coagulase negative staph. Urine culture is negative. She did have a CTA to rule out PE and this was negative. Urinalysis, mono screen and flu swab were all negative. She currently remains on vancomycin. She is out of bed to chair on my examination but is nonverbal and I am unable to obtain any review of systems from this patient. Her last progress note does not document worsening rash. PAST MEDICAL HISTORY: Significant for COPD, dementia, type 2 diabetes, hypertension, history of LTBI, osteoporosis, Parkinson's disease, psoriatic arthritis, posttraumatic stress disorder, schizophrenia and vitamin D deficiency. PAST SURGICAL HISTORY: Significant for breast augmentation and hysterectomy. FAMILY HISTORY: Noncontributory. SOCIAL HISTORY: Negative for tobacco use, alcohol use or drug use. She currently lives at an assisted living facility. ALLERGIES: INCLUDE NITROFURANTOIN, PENICILLIN, RIFAMPIN, WHICH CAUSED A DIFFUSE RASH AND SKIN PEELING AND DIPHENHYDRAMINE. CURRENT MEDICATIONS: Include vancomycin, Risperdal, bacitracin ointment, Vistaril, Solu-Medrol, amlodipine, Symbicort, Depakote, folic acid, Artane, vitamin E, Protonix, Xopenex, Lovenox, Mucinex, MiraLax, Colace, Tylenol, Zofran. Reportedly, she was also on Otezla as an outpatient for her psoriatic arthritis. PHYSICAL EXAMINATION: VITAL SIGNS: She has been afebrile since admission, pulse 94, respiratory rate is 20, blood pressure 113/72, oxygen saturation is 93% on room air. GENERAL: She is awake but nonverbal. On my examination, she does not open her eyes. She does have significant facial erythema with dry sloughing skin on the face, neck and upper extremities. I am unable to examine her trunk in total but her chest does have similar appearing skin. Her eyes do have some conjunctival drainage. HEART: Regular. LUNGS: Clear with decreased breath sounds. ABDOMEN: Soft and nondistended. EXTREMITIES: There is no lower extremity edema. LABORATORY STUDIES: CBC today reveals a white blood cell count of 15.7, hemoglobin 11.4, hematocrit 34.2, platelets 271. Chemistry panel reveals a sodium of 142, potassium 3.5, chloride 106, bicarbonate 28, BUN 9, creatinine 0.6, glucose is 107. Urinalysis was negative. [place] screen and flu swab are negative. A urine culture is negative and final blood cultures from the 11th 1 out of 2 sets are growing coagulase negative staph. CTA was negative. ASSESSMENT AND PLAN Skin rash. I do not see any infectious etiology; however, with her history of psoriatic arthritis certainly the superimposed skin infection could be present. She does have leukocytosis which could be multifactorial from steroids; however, this was present on admission and it is unclear to me if she was on any oral steroids prior to admission as she recently was treated for an upper respiratory infection and does have a history of COPD. I do not know if this is a hypersensitivity reaction to previously prescribed Otezla. This is currently being held. This certainly could be a drug reaction to previously prescribed Augmentin as she does have a reported history. She does have a history of skin rash and desquamation from rifampin and certainly she could be having a similar episode. This is somewhat concerning for what could be Gant-Oleksandr syndrome. I would recommend transfer if this worsens. Dermatology evaluation is pending as well. I do not see any infectious etiology at this time for her rash and if there is no evidence of cellulitis on exam she certainly could be followed off of antibiotics. Thank you for this consultation.
[2016-06-15] MEDS ORDERED: VANCOMYCIN INJ 1,100 MG in SODIUM CHLORIDE 0.9% 250ML 250 ML IV SCH (12:00)
--- NOTE | 2016-06-15 12:10 | Medical Consult ---
Consultation Note Date of Service Jun 15, 2016. Consultation Note S: 70 YO woman unable to give history. O: Pt has swelling of face closing rt eye. There is a wide-spread eryhroderma with blistering and sheets of skin desquamating trunk and extremities. A: Exfoliating eruption. dDx includes TEN P: Discussed with Dr. Saucedo. Suggested starting IV fluid and transfer to tertiary care center preferably one with burn unit. Adelso Nathan M.D.
[2016-06-15] MEDS ORDERED: SODIUM CHLORIDE 0.9% 1000ML 1,000 ML IV SCH (12:45)
--- NOTE | 2016-06-15 13:40 | Progress Note ---
Internal Med Progress Note Date of Service: Jun 15, 2016. Provider Documentation: SUBJECTIVE: Patient is seen and examined at bedside. Alert, awake, responds to simple questions. Persistent exfoliative diffuse rash. No apparent distress. Mental status at baseline per staff. OBJECTIVE: Vital Signs-as noted below Physical Exam: Vitals signs as noted above General Appearance:Moderately built and nourished, no apparent distress Head: normocephalic, Atraumatic Eyes: normal inspection, EOMI, PERRLA Neck: supple, Trachea midline Respiratory/Chest: Normal breath sounds, CTA Cardiovascular: S1, S2, No murmur Abdomen/GI:Soft, Non tender, Bowel sounds present Extremities/Musculoskelatal:normal inspection, no edema Neurologic/Psych:Complete neuro exam could not be performed. + Schizophrenia Skin: warm, diffuse exfoliative rash. Lab data as noted below. ASSESSMENT & PLAN: Diffuse Exfoliative Skin eruption: ? Likely TEN Mild rash on discharge last week. Presented with diffuse rash which began on day of admission. DD: drug reaction (allergic to PCN and has seen Augmentin 3 weeks ago and Zosyn in ER, but after the rash, food allergies, manifestation of psoriatic arthritis Atarax discontinued as patient drowsy Discontinue IV Steroids per recommendations from (Burn Surgery : [facility] Continue local bacitracin cream to sloughed areas Flu screen: negative MRSA screen: Negative Mon screen: Negative Appreciate ID and Dermatology input Leukocytosis-possibly due to urticaria/Steroids Afebrile, lactate levels:wnl Elevated CRP S/P IV steroids UA: negative CTA/ CXR: No signs of consolidation Blood culture: /2: COAG NEG STAPH NOT LUGDUNENSIS: Likely contamination DC vancomycin as likely non infectious Metabolic Encephalopathy: likely due to acute illness H/O Schizophrenic at baseline CT head: no acute pathology Currently at baseline per staff Psoriatic Arthritis: hold Otezla in setting of possible infection. Schizophrenia Continue home psych meds Hypertension Stable Continue home medications: Amlodipine DM II: Hold oral agents. Monitor BS Continue ISS DVT PX: SQ Lovenox Code Status: Full Code Disposition: Plan to transfer to [facility] to continue care by (Accepting Physician) Follow up with PCP upon discharge from [facility] PROCEDURES: CTA: 1. Moderately limited study secondary to respiratory motion artifact. No pulmonary emboli identified. Due to the limitations of the current study, correlation with serial leg ultrasonography should be considered. 2. Left aortic arch with an aberrant right subclavian artery 3. No evidence of focal pulmonary consolidation 4. Emphysema. Vital Signs: Date Time Temp Pulse Resp B/P Pulse Ox O2 Delivery O2 Flow Rate FiO2 06/15/16 09:40 Room Air 06/15/16 09:12 93 Room Air 06/15/16 07:51 37.0 94 20 113/72 93 Room Air 06/15/16 00:00 Room Air 06/15/16 00:00 36.4 90 18 134/88 94 Room Air 06/14/16 19:12 99 16 92 Room Air 06/14/16 16:00 Room Air 06/14/16 15:35 36.3 96 17 128/68 92 Room Air 06/14/16 14:24 96 16 91 Room Air Lab Results: Results Past 24 Hours Test 06/15/16 00:45 06/15/16 05:14 Range/Units Vancomycin Level Trough 11.3 SEE COMMENT mcg/ml White Blood Count 15.73 4.8-10.8 K/uL Red Blood Count 3.62 4.2-5.4 M/uL Hemoglobin 11.4 12.0-16.0 g/dL Hematocrit 34.2 37-47 % Mean Corpuscular Volume 94.5 80-100 fL Mean Corpuscular Hemoglobin 31.5 25-34 pg Mean Corpuscular Hemoglobin Concent 33.3 32-36 g/dl Platelet Count 271 130-400 K/uL Mean Platelet Volume 9.2 7.4-10.4 fL Neutrophils (%) (Auto) 69.4 % Lymphocytes (%) (Auto) 15.3 % Monocytes (%) (Auto) 14.3 % Eosinophils (%) (Auto) 0.0 % Basophils (%) (Auto) 0.2 % Neutrophils # (Auto) 10.92 1.4-6.5 K/uL Lymphocytes # (Auto) 2.41 1.2-3.4 K/uL Monocytes # (Auto) 2.25 0.11-0.59 K/uL Eosinophils # (Auto) 0.00 0-0.5 K/uL Basophils # (Auto) 0.03 0-0.2 K/uL RDW Standard Deviation 44.2 36.4-46.3 fL RDW Coefficient of Variation 12.7 11.5-14.5 % Immature Granulocyte % (Auto) 0.8 % Immature Granulocyte # (Auto) 0.12 0.00-0.02 K/uL Sodium Level 142 136-145 mmol/L Potassium Level 3.5 3.5-5.1 mmol/L Chloride Level 106 98-107 mmol/L Carbon Dioxide Level 28 21-32 mmol/L Anion Gap 8.0 3-11 mmol/L Blood Urea Nitrogen 9 7-18 mg/dl Creatinine 0.60 0.60-1.20 mg/dl Est Creatinine Clear Calc Drug Dose 71.4 ml/min Estimated GFR () 108.5 Estimated GFR (Non- 93.7 BUN/Creatinine Ratio 15.5 10-20 Random Glucose 107 70-99 mg/dl Calcium Level 8.3 8.5-10.1 mg/dl
--- NOTE | 2016-06-15 14:20 | Discharge Instructions ---
Discharge Instructions Date of Service Jun 15, 2016. Admission Reason for Admission: Altered Mental Status Discharge Discharge Diagnosis / Problem: Toxic Epidermal Necrolysis Discharge Goals Goal(s): Decrease discomfort, Improve function Activity Recommendations Activity Limitations: resume your previous activity Exercise/Sports Limitations: as tolerated . Instructions / Follow-Up Instructions / Follow-Up Plan to transfer to [facility] to continue care by ( Accepting Physician) Follow up with PCP upon discharge from [facility] Current Hospital Diet Patient's current hospital diet: AHA Diet (Heart Healthy) Discharge Diet Recommended Diet: AHA Diet (Heart Healthy) Pending Studies Studies pending at discharge: no Laboratory Results Hemoglobin A1c Test 05/30/16 14:52 Range/Units Estimated Average Glucose 137 mg/dl Hemoglobin A1c 6.4 H 4.5-5.6 % Medical Emergencies . Who to Call and When: Medical Emergencies: If at any time you feel your situation is an emergency, please call 911 immediately. . Non-Emergent Contact Non-Emergency issues call your: Primary Care Provider, Specialist ( at [facility]) Call Non-Emergent contact if: you have a fever, your pain is not controlled, your pain is worsening, your pain is unusual for you, you have any medication questions . . "Provider Documentation" section prepared by Edgardo Saucedo. VTE Core Measure Inpt VTE Proph given/why not?: Enoxaparin (Lovenox)SQ
--- NOTE | 2016-06-15 14:23 | Discharge Summary ---
Discharge Summary Date of Service Jun 15, 2016. Discharge Summary Admission Date: Jun 11, 2016 at 20:41 Discharge Date: Jun 15, 2016 Discharge Disposition: Acute care facility Principal Diagnosis: Toxic Epidermal Necrolysis Procedures: CXR: Linear left basilar atelectatic change. No acute findings. CT head: No acute intracranial findings CTA for PE: 1. Moderately limited study secondary to respiratory motion artifact. No pulmonary emboli identified. Due to the limitations of the current study, correlation with serial leg ultrasonography should be considered. 2. Left aortic arch with an aberrant right subclavian artery 3. No evidence of focal pulmonary consolidation 4. Emphysema. Consultations: ID, Dermatology Medication Reconciliation Continued Medications: Acetaminophen Tab (Tylenol) 325 Mg Tab 650 MG PO Q6 PRN for Pain or Fever, TAB MAX DOSE APAP= 3GM /24HRS Albuterol Sulfate (Proair Respiclick) 108 Mcg/Act Aer 2 PUFFS INH Q6H PRN for SOB/Wheezing Amlodipine (Norvasc) 5 Mg Tab 5 MG PO DAILY, TAB Apremilast (Otezla) 30 Mg Tab 30 MG PO BID Betamethasone Dipropionate (To (Betamethasone Dipropionat) 0.05 % Oin 1 APPLN EXT HS PRN for skin irritation Budesonide/Formoterol Fumarate (Symbicort 160/4.5 Inhaler ) Aero 2 PUFFS INH BID, INHALER Calcium Carbonate (Antacid) (Qc Antacid Extra Strength) 750 Mg Chw 750 MG PO BID Coconut Oil (Bulk) (Coconut Oil) 1 Oil Oil 1 APPLN TD HS APPLY TO FACE AND LIMBS NIGHTLY AFTER BATHING Control Gel Formula Dressing (Duoderm Cgf) 1 Mis Mis Unknown Dose TOP [id number] APPLY TO RIGHT THIRD TOW OPEN WOUND EVERY 72 HOURS UNTIL HEALED Divalproex Sodium (Divalproex Sodium) 125 Mg Cap 500 MG PO BID FOUR CAPSULES (125MG EACH) BY MOUTH TWICE DAILY. Docusate Sodium (Docusate Sodium) 100 Mg Tab 100 MG PO DAILY PRN for Constipation Folic Acid (Folvite) 1 Mg Tab 1 MG PO DAILY, TAB Guaifenesin La (Guaifenesin Er) 600 Mg Tabcr 600 MG PO Q12H, TAB Hydroxyzine Hcl (Atarax) 10 Mg Tab 5 MG PO Q6H PRN for ITCHING, TAB Ipratropium-Albuterol (Duoneb) 3 Ml Nebu 1 TREATMENT INH Q4H PRN for SOB/Wheezing, INHA Lactase (Lac-Dose) 3,000 Unit Tab 3000 UNIT PO BID PRN for GI Upset Lorazepam (Ativan) 0.5 Mg Tab 0.5 MG PO Q6H PRN for Anxiety/Agitation, TAB Metformin Hcl (Glucophage) 500 Mg Tab 500 MG PO BID, TAB Nystatin/Triamcinolone (Mycolog ||) Cr 1 APPLN TOP BID PRN for skin irritation apply topically to groin area twice daily as needed Omeprazole (Prilosec) 20 Mg Capcr 20 MG PO DAILY, CAP Pimecrolimus (Elidel) 1 % Cre 1 APPLN TD BID PRN for FACIAL IRRITATION Polyethylene Glycol 3350 (Miralax) 1 Pow Pow 17 GM PO DAILY PRN for Constipation Risperidone (Risperdal) 3 Mg Tab 3 MG PO BID, TAB Tramadol (Ultram) 50 Mg Tab 50 MG PO Q6H PRN for Pain, TAB Triamcinolone Acet (Kenelog 0.1% ) Oint 1 APPLN EXT HS PRN for Itching Trihexyphenidyl Hcl (Artane) 2 Mg Tab 2 MG PO BID, TAB Vitamin E (Vitamin E 400 Iu) 400 Unit Cap 800 INTER.UNIT PO DAILY, CAP Zinc Oxide (Topical) (Desitin Maximum Strength) 40 % Pst 1 APPLN TOP UD PRN for excoriation Admission Information HPI (per Admitting provider): 70 yo F with schizophrenia, psoriatic arthritis and COPD presents with acute urticaria, tachycardia and shortness of breath noticed today at [facility], where she is a permanent resident. She was just released from the hospital having been admitted and treated for a Pseudomonas UTI and COPD exacerbation and completed her course of treatment for both issues and was back to baseline per her hydro station supervisor. She had a noted rash on the center of her back during the last admission, and now has diffuse urticaria that involves her face and neck, abdomen and back area, both upper extremities and her groin. It skips the majority of her legs and is somewhat present on her feet around her ankles. Per her hydro station supervisor, this rash developed acutely this morning. 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 The only thing she noted was some increased weakness on transfers which was attributed to a recent prolonged hospital stay. At the long term this afternoon she was noted to be altered, hypoxic to 88%, and tachycardic so was brought to the ER. In the ER she was given Zosyn but has a documented PCN allergy. Interestingly, she was able to tolerate Augmentin for a URI 3 weeks ago. She was also given Vanc, 2L of IVF, Solumedrol and Pepcid which caused her HR to improve to 102. She was given some Ativan to help with significant anxiety, which her hydro station supervisor states occurs easily in her when she moves into a strange place or has some health problem going on. Although she has a documented allergy to Benadryl, she was noted to be on Atarax in the past with no issues, so was given 25mg IM in the ER to help with the urticaria. Physical Exam (per Admitting): GEN: WNWD, appears uncomfortable, alert but appears disoriented, not communicating, making unintelligible sounds HEENT: NC/AT, PERRL, normal sclerae, tried to assess pharynx but patient refused to open her mouth wide enough to see anything, pulled away from me when I examined her cervical lymph nodes. CARDIO: tachy rate, S1/2 heard without m/g/r LUNGS: CTA bilaterally, no crackles, rales or wheezes, good diaphragmatic excursion--very limited exam as patient was lying flat and wouldn't move extremities nor take a deep breath. ABD: soft, non-tender, non-distended, no rebound or guarding, +BS EXTREMITY: RP and DP palpable 2+ bilat, no LE swelling or edema, extremities are warm and well-perfused NEURO: limited exam 2/2 altered mentation and patient's inability to follow commands. MUSC: could not assess 2/2 altered mentation. SKIN: warm with diffuse papular rash across face and neck with scaling around nasal folds, along truck, back, buttocks (with scaling) and groin area. Rash stops at upper thighs and there are some tiny erythematous spots around her ankles. Skin is very warm to touch Hospital Course Diffuse Exfoliative Skin eruption: ? Likely TEN Mild rash on discharge last week. Presented with diffuse rash which began on day of admission. DD: drug reaction (allergic to PCN and has seen Augmentin 3 weeks ago and Zosyn in ER, but after the rash, food allergies, manifestation of psoriatic arthritis Atarax discontinued as patient drowsy Discontinue IV Steroids per recommendations from (Burn Surgery : [facility] Continue local bacitracin cream to sloughed areas Flu screen: negative MRSA screen: Negative Mon screen: Negative Appreciate ID and Dermatology input Leukocytosis-possibly due to urticaria/Steroids Afebrile, lactate levels:wnl Elevated CRP S/P IV steroids UA: negative CTA/ CXR: No signs of consolidation Blood culture: 04/04: COAG NEG STAPH NOT LUGDUNENSIS: Likely contamination DC vancomycin as likely non infectious Metabolic Encephalopathy: likely due to acute illness H/O Schizophrenic at baseline CT head: no acute pathology Currently at baseline per staff Psoriatic Arthritis: hold Otezla in setting of possible infection. Schizophrenia Continue home psych meds Hypertension Stable Continue home medications: Amlodipine DM II: Hold oral agents. Monitor BS Continue ISS DVT PX: SQ Lovenox Code Status: Full Code Disposition: Plan to transfer to [facility] to continue care by (Accepting Physician) Follow up with PCP upon discharge from [facility] PROCEDURES: CTA: 1. Moderately limited study secondary to respiratory motion artifact. No pulmonary emboli identified. Due to the limitations of the current study, correlation with serial leg ultrasonography should be considered. 2. Left aortic arch with an aberrant right subclavian artery 3. No evidence of focal pulmonary consolidation 4. Emphysema. Total time spent on discharge = 40 minutes This includes examination of the patient, discharge planning, medication reconciliation, and communication with other providers. Discharge Instructions Discharge Instructions Date of Service Jun 15, 2016. Admission Reason for Admission: Altered Mental Status Discharge Discharge Diagnosis / Problem: Toxic Epidermal Necrolysis Discharge Goals Goal(s): Decrease discomfort, Improve function Activity Recommendations Activity Limitations: resume your previous activity Exercise/Sports Limitations: as tolerated . Instructions / Follow-Up Instructions / Follow-Up Plan to transfer to [facility] to continue care by ( Accepting Physician) Follow up with PCP upon discharge from [facility] Current Hospital Diet Patient's current hospital diet: AHA Diet (Heart Healthy) Discharge Diet Recommended Diet: AHA Diet (Heart Healthy) Pending Studies Studies pending at discharge: no Laboratory Results Hemoglobin A1c Test 05/30/16 14:52 Range/Units Estimated Average Glucose 137 mg/dl Hemoglobin A1c 6.4 H 4.5-5.6 % Medical Emergencies . Who to Call and When: Medical Emergencies: If at any time you feel your situation is an emergency, please call 911 immediately. . Non-Emergent Contact Non-Emergency issues call your: Primary Care Provider, Specialist ( at [facility]) Call Non-Emergent contact if: you have a fever, your pain is not controlled, your pain is worsening, your pain is unusual for you, you have any medication questions . . "Provider Documentation" section prepared by Edgardo Saucedo. VTE Core Measure Inpt VTE Proph given/why not?: Enoxaparin (Lovenox)SQ <Electronically signed by Edgardo Saucedo MD> Signed: 06/15/16 1420 Signed: The status of this report is Signed * If report status is Draft, the document has not been finalized by the responsible provider.
[2016-06-16] MEDS ORDERED: VANCOMYCIN TROUGH SCH (23:30)
== END 2016-06-15 20:35 | disposition short-term general hospital (02) | DRG 595 ==
LOC: ENRESERVDT → ENRESERVTM → EDBD 17:46 → C.EDA 17:47 → C.2T 20:41 → C.MS2W 06-13 13:20
PROVIDERS: ADMIT Hospitalist; ATTEND Internal Medicine
DX: L51.2 Toxic epidermal necrolysis [Lyell] (principal); G93.41 Metabolic encephalopathy; J98.11 Atelectasis; T38.0X5A Adverse effect of glucocorticoids and synthetic analogues, initial encounter; J44.9 Chronic obstructive pulmonary disease, unspecified; E11.9 Type 2 diabetes mellitus without complications; F03.90 Unspecified dementia, unspecified severity, without behavioral disturbance, psychotic disturbance, mood disturbance, and anxiety; I11.0 Hypertensive heart disease with heart failure; R76.11 Nonspecific reaction to tuberculin skin test without active tuberculosis; M81.0 Age-related osteoporosis without current pathological fracture; G20 Parkinson's disease; L40.50 Arthropathic psoriasis, unspecified; F20.9 Schizophrenia, unspecified; E55.9 Vitamin D deficiency, unspecified; F43.10 Post-traumatic stress disorder, unspecified; L20.9 Atopic dermatitis, unspecified; I10 Essential (primary) hypertension; Y92.239 Unspecified place in hospital as the place of occurrence of the external cause

== ENCOUNTER 2016-07-17 06:44 | Inpatient (IN) | payer OTHER ==
[~2016-07-17] VITALS: Ht 154.9 cm; Wt 59.8 kg
[~2016-07-17 06:44] MED LIST changes: +ALBU18002 INH; -ALBUAER INH; +DIVA1CAP PO; -DIVA500T5 PO; -ELDCR/30 TOP; +GLC/500 PEG; -GLC500 PO; -GUAI1TAB69 PO; +GUAI1TAB75 PO; -HYDR-3785 PO; +HYDR-389 PO; -HYDR2.5O TOP; -MENTOIN TOP; +PIME1CRE9 TD; -PRD10 PO; -VTMD PO
[2016-07-17] MEDS ORDERED: SODIUM CHLORIDE 0.9% 1000ML 500 ML IV ONE (07:13)
--- NOTE | 2016-07-17 07:38 | EMERGENCY ROOM VISIT NOTE ---
History Report prepared by Damion: Stacy Reyes Under the Supervision of: Dr. Juma Cheatham M.D. First contact with patient: 06:51 Chief Complaint: RESPIRATORY PROBLEMS Stated Complaint: RESPIRATORY, TACHYCARDIA History of Present Illness The patient is a 71 year old female who presents to the Emergency Room with complaints of constant tachycardia and respiratory distress beginning just [employer]IN[employer]. Per the nurse, the patient was at the ED a few weeks ago for a reaction to medication that caused jacome over 13% of her body. She was diagnosed with sepsis and was transferred to [facility] two days ago. The nurse states that per EMS, she is positive for MRSA and for Tuberculosis. The patient has a past history of dementia, schizophrenia, and psoriasis. Per EMS the patient was 98% on 3L of oxygen and her heart rate was 130. The patient's daughter reports that she is worse from her baseline from two days ago when she last saw her. She does state that her skin looks much better. The daughter complains of skin peeling, eye glaze is now resolved, and constant attempts at verbal communication that are out of the ordinary. The patient normally lives at [facility]. In late May she came to the ED for respiratory distress. She was sent home and returned six days later due to a rash with peeling blisters that was secondary to a bad case of psoriasis. She was then transferred to [facility]. While there, they gave her blood transfusions that led to the finding of the MRSA. Following this, her O2 dropped and her blood pressure became low, so they chose to intubate her a 9 days ago. When they removed the intubation tube, she had successful respiration and got up to 95%. Source of History: family, EMS, nursing staff Onset: just [employer] COORDINATOR Position: other (global) Quality: other (tachycardia) Timing: constant Note: The sister complains of skin peeling, eye glaze is now resolved, and constant attempts at verbal communication that are out of the ordinary. Review of Systems All systems have been listed, reviewed, and are negative other than those previously mentioned. Please see Additional Medical History Sheet. Past Medical & Surgical Medical Problems: (1) Altered mental status (2) COPD (chronic obstructive pulmonary disease) (3) Dementia (4) Diabetes mellitus (5) HTN (hypertension) (6) Hyperglycemia (7) Latent tuberculosis (8) Osteoporosis (9) Parkinson disease (10) Psoriatic arthritis (11) PTSD (post-traumatic stress disorder) (12) Schizophrenia (13) Vitamin D deficiency Surgical Problems: (1) History of hysterectomy (2) Hx of breast implants, bilateral Family History Patient reports no known family medical history. Social History Smoking Status: Former Smoker Alcohol Use: none Marital Status: single Housing Status: lives with family Current/Historical Medications Scheduled Amlodipine (Norvasc), 5 MG PO DAILY Erythromycin Opth (Erythromycin Opth), 1 APPLN OPB DAILY Famotidine (Pepcid), 20 MG PO BID Ibuprofen (Ibu-200), 3 TAB PO QID Metformin Hcl (Glucophage), 500 MG PO BID Miconazole Nitrate Vaginal (Miconazole), 1 APPLN TOP BID Nystatin (Nystatin Suspension), 5 ML PO QID Risperidone (Risperdal), 2 MG PO BID Sennosides-Docusate Sodium (Docusate Sodium/Senna), 1 TAB PO DAILY@1200 Triamcinolone Acet (Aristocort 0.1%), 1 APPLN TOP BID Trihexyphenidyl Hcl (Artane), 2 MG PO BID Valproic Acid Syrup (Depakene), 1,000 MG PO HS Vancomycin HCl (Vancomycin HCl), 1,000 MG IV Q12 Scheduled PRN Acetaminophen Tab (Tylenol), 650 MG PO Q6 PRN for Pain or Fever Artificial Tear Solution (Artificial Tears), 1 DROPS OPB DAILY PRN for DRYNESS Hydroxyzine Hcl (Atarax), 25 MG PO TID PRN for Itching Ipratropium-Albuterol (Duoneb), 1 TREATMENT INH Q4H PRN for SOB/Wheezing Lorazepam (Ativan), 0.5 MG PO Q6H PRN for Anxiety/Agitation Allergies Coded Allergies: Amoxicillin (Verified Allergy, Intermediate, RASH, 06/11/16) Nitrofurantoin (Verified Allergy, Intermediate, INCREASED SKIN REACTION, ITCHING, CHEST PAIN, WHEEZING, 05/30/16) Penicillin G (Verified Allergy, Unknown, unknown, 07/17/16) Piperacillin (Verified Allergy, Unknown, unknown, 07/17/16) Tazobactam (Verified Allergy, Unknown, unknown, 07/17/16) Rifampin (Verified Adverse Reaction, Severe, RASH, 05/30/16) as per [facility], pt was in [facility] in 2013 for diffuse rash with skin peeling due to rifampin, was admitted in [facility] [place] Diphenhydramine (Verified Adverse Reaction, Intermediate, ADVERSE REACTION WITH PSYCH MEDS, 05/30/16) Physical Exam Vital Signs Date Time Temp Pulse Resp B/P Pulse Ox O2 Delivery O2 Flow Rate FiO2 07/17/16 15:14 114 24 169/123 97 Nasal Cannula 5.0 07/17/16 15:02 113 07/17/16 13:45 97 Nasal Cannula 4.0 07/17/16 13:00 112 22 139/112 97 Nasal Cannula 4.0 07/17/16 11:15 112 22 127/87 94 Nasal Cannula 4.0 07/17/16 09:30 99 20 144/96 94 Room Air 07/17/16 08:30 109 22 149/89 97 Room Air 07/17/16 08:00 106 20 155/80 94 Room Air 07/17/16 07:31 101 07/17/16 07:17 99 Nasal Cannula 4.0 07/17/16 07:17 Nasal Cannula 4.0 07/17/16 06:53 38.0 111 32 159/67 94 Nasal Cannula 4.0 07/17/16 06:53 94 Nasal Cannula 4.0 Physical Exam GENERAL: Patient awake, alert, oriented x 3. Patient follows commands. Patient does not appear toxic. Patient is adequately hydrated and well- nourished. Patient appears to be in moderate to severe distress and is moaning unintelligibly. SKIN: Erythematous and warm, scaling around scalp, parts of extremities consistent with psoriasis. HEENT: Normal head, pupils equal, reactive to light and accommodation. Oral cavity and posterior pharynx appear normal. Neck: Without adenopathy, no neck vein distention. LUNGS: Clear to auscultation. No wheezes, no rales, no rhonchi. HEART: No murmurs. No gallops. No rubs. Regular rapid rhythm. ABDOMEN: No masses, no rebound, no hepatomegaly or splenomegaly. Patient has a G tube in her left abdomen and a Rodriguez catheter in place. EXTREMITIES: No signs of trauma. 2+ edema in all extremities, nonpitting. No calf or thigh tenderness. NEUROLOGIC: Cranial nerves II-XII within normal limits. No gross motor sensory function deficits. PSYCHIATRIC: The patient is very agitated and may be hallucinating at times. Patient is nonverbal. She is groaning and moaning. Medical Decision & Procedures ER Provider Diagnostic Interpretation: Radiology results as stated below per my review and radiologist interpretation: SINGLE VIEW CHEST CLINICAL HISTORY: Sepsis. FINDINGS: An AP, portable, upright chest radiograph is compared to chest x-ray and chest CT dated 06/11/2016. The examination is significantly degraded by portable technique and patient rotation. A left PICC line is in place. The cardiomediastinal silhouette is unremarkable. There is atherosclerotic calcification of the thoracic aorta. Emphysema and chronic interstitial thickening are similar to previous. No airspace consolidation or large pleural effusion is identified. No pneumothorax is seen. The skeletal structures are osteopenic. The bony thorax is grossly intact. IMPRESSION: Emphysema with no acute cardiopulmonary abnormality. Electronically signed by: Octavio Wilson M.D. 07/17/2016 9:01 AM Dictated Date/Time: 07/17/2016 8:[address] ANGIOGRAM OF THE CHEST FINDINGS: Thyroid: Mildly atrophic. Thoracic aorta: There is mild atherosclerotic calcification of the thoracic aorta, which is normal in caliber and demonstrates 4-vessel arch anatomy. 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 No dissection is seen. Pulmonary vasculature: The pulmonary trunk is normal in caliber. There are no filling defects identified in main, lobar, or proximal segmental pulmonary branches to suggest pulmonary embolus. Evaluation of the peripheral branches is degraded by expiratory motion artifact. Heart: The heart is normal in size and configuration, and without pericardial effusion. There are coronary artery calcifications. Lungs and pleural spaces: Evaluation of the lung parenchyma is degraded by respiratory motion artifact. Advanced emphysema is identified and there is biapical scarring. No airspace consolidation is seen typical for pneumonia. Trace pleural effusions are identified. Mediastinum: There are scattered subcentimeter mediastinal lymph nodes. These are not pathologically enlarged by size criteria. Naty: Clear. Axillae: Shotty axillary lymph nodes are similar to previous. Upper abdomen: Partially visualized upper abdominal viscera is within normal limits. Skeletal structures: The skeletal structures are osteopenic. Degenerative change and scoliosis are noted in the thoracic spine. No lytic or blastic bony lesions are seen. IMPRESSION: 1. Streak and motion artifact degraded examination. 2. There is no evidence of central pulmonary embolus in the main, lobar, or proximal segmental pulmonary arteries. 3. Emphysema. 4. Trace pleural effusions are identified. There is no airspace consolidation typical for pneumonia. Electronically signed by: Octavio Wilson M.D. 07/17/2016 11:29 AM Dictated Date/Time: 07/17/2016 11:23 AM Laboratory Results 07/17/16 07:55 Red Blood Count 3.33, Mean Corpuscular Volume 94.3, Mean Corpuscular Hemoglobin 30.6, Mean Corpuscular Hemoglobin Concent 32.5, Mean Platelet Volume 9.0, Neutrophils (%) (Auto) 72.3, Lymphocytes (%) (Auto) 12.9, Monocytes (%) (Auto) 11.0, Eosinophils (%) (Auto) 2.5, Basophils (%) (Auto) 0.3, Neutrophils # (Auto ) 11.91, Lymphocytes # (Auto) 2.13, Monocytes # (Auto) 1.82, Eosinophils # (Auto ) 0.42, Basophils # (Auto) 0.05 07/17/16 07:55 Test 07/17/16 07:55 07/17/16 08:00 07/17/16 08:02 07/17/16 08:03 White Blood Count 16.49 K/uL (4.8-10.8) Red Blood Count 3.33 M/uL (4.2-5.4) Hemoglobin 10.2 g/dL (12.0-16.0) Hematocrit 31.4 % (37-47) Mean Corpuscular Volume 94.3 fL (80-100) Mean Corpuscular Hemoglobin 30.6 pg (25-34) Mean Corpuscular Hemoglobin Concent 32.5 g/dl (32-36) Platelet Count 193 K/uL (130-400) Mean Platelet Volume 9.0 fL (7.4-10.4) Neutrophils (%) (Auto) 72.3 % Lymphocytes (%) (Auto) 12.9 % Monocytes (%) (Auto) 11.0 % Eosinophils (%) (Auto) 2.5 % Basophils (%) (Auto) 0.3 % Neutrophils # (Auto) 11.91 K/uL (1.4-6.5) Lymphocytes # (Auto) 2.13 K/uL (1.2-3.4) Monocytes # (Auto) 1.82 K/uL (0.11-0.59) Eosinophils # (Auto) 0.42 K/uL (0-0.5) Basophils # (Auto) 0.05 K/uL (0-0.2) RDW Standard Deviation 51.8 fL (36.4-46.3) RDW Coefficient of Variation 15.1 % (11.5-14.5) Immature Granulocyte % (Auto) 1.0 % Immature Granulocyte # (Auto) 0.16 K/uL (0.00-0.02) Prothrombin Time 11.4 SECONDS (9.0-12.0) Prothromb Time International Ratio 1.1 (0.9-1.1) Activated Partial Thromboplast Time 27.4 SECONDS (21.0-31.0) Partial Thromboplastin Ratio 1.1 Anion Gap 8.0 mmol/L (3-11) Est Creatinine Clear Calc Drug Dose 77.5 ml/min Estimated GFR () 109.0 Estimated GFR (Non- 94.0 BUN/Creatinine Ratio 28.6 (10-20) Calcium Level 8.3 mg/dl (8.5-10.1) Total Bilirubin 0.4 mg/dl (0.2-1) Aspartate Amino Transf (AST/SGOT) 11 U/L (15-37) Alanine Aminotransferase (ALT/SGPT) 13 U/L (12-78) Alkaline Phosphatase 77 U/L (45-117) Total Protein 6.0 gm/dl (6.4-8.2) Albumin 2.4 gm/dl (3.4-5.0) Globulin 3.6 gm/dl (2.5-4.0) Albumin/Globulin Ratio 0.7 (0.9-2) Procalcitonin < 0.05 ng/mL (0-0.5) Urine Color YELLOW Urine Appearance CLEAR (CLEAR) Urine pH 8.5 (4.5-7.5) Urine Specific [place] 1.017 (1.000-1.030) Urine Protein NEG (NEG) Urine Glucose (UA) NEG (NEG) Urine Ketones NEG (NEG) Urine Occult Blood NEG (NEG) Urine Nitrite NEG (NEG) Urine Bilirubin NEG (NEG) Urine Urobilinogen NEG (NEG) Urine Leukocyte Esterase SMALL (NEG) Urine WBC (Auto) 5-10 /hpf (0-5) Urine RBC (Auto) 5-10 /hpf (0-4) Urine Hyaline Casts (Auto) 1-5 /lpf (0-5) Urine Epithelial Cells (Auto) 20-30 /lpf (0-5) Urine Bacteria (Auto) NEG (NEG) Bedside D-Dimer > 450 ng/mlFEU (0-450) Bedside Lactic Acid Venous 1.40 mmol/L (0.90-1.70) Laboratory results as stated above per my review. Medications Administered Medications (Trade) Dose Ordered Sig/Abelardo Route Start Time Stop Time Status Last Admin Dose Admin Sodium Chloride (Nss 1000ml) 500 ml @ 999 mls/hr Q31M ONCE IV 07/17/16 07:13 07/17/16 07:43 DC 07/17/16 07:13 999 MLS/HR Morphine Sulfate (MoRPHine SULFATE INJ) 6 mg Q1H PRN IV 07/17/16 07:45 07/31/16 07:44 07/17/16 11:30 6 MG Ondansetron HCl (Zofran Inj) 4 mg PRN PRN IV 07/17/16 07:45 08/16/16 07:44 07/17/16 07:49 4 MG Haloperidol Lactate (Haldol Inj) 2 mg ONE ONCE IV 07/17/16 09:15 07/17/16 09:16 DC 07/17/16 09:29 2 MG Heparin Sodium (Porcine) (Heparin 10 Unit/ ml 5 ml Flush) 5 ml STK-MED ONCE .ROUTE 07/17/16 11:29 07/17/16 11:30 DC 07/17/16 11:29 5 ML Haloperidol Lactate (Haldol Inj) 5 mg NOW STAT IV 07/17/16 12:04 07/17/16 12:06 DC 07/17/16 12:15 5 MG ECG Indication: tachycardia Rate (beats per minute): 106 Rhythm: sinus tachycardia Findings: no acute ischemic change, no ectopy ED Course 0651: Past medical records reviewed. The patient was evaluated in room B8. A complete history and physical examination was performed. 0713: Sodium Chloride 500 ml @ 999 mls/hr IV. 0745: Zofran Inj 4 mg PRN IV nausea. Morphine Sulfate 6 mg PRN IV pain. 0900: Ioversol 100 ml PRN IV Interaction Checking 0907: I spoke with the patient's daughter and obtained more history. 0915: Haldol Inj 2 mg IV. 1201 : I reevaluated the patient. She is agitated and will get more Haldol. 1204: Haldol Inj 5 mg IV. 1236: Discussed the patient's case with Dr. Addison. The patient will be evaluated for further management. 1258: I spoke to the nurse from [facility] and she noted that the patient was distinctly different today than yesterday. She was sent her for her tachycardia and tachypnea. 1319: Upon reevaluation, the patient is hemodynamically stable.I discussed today 's findings with the patient and her daughter. They verbalized agreement of the treatment plan. I spoke with Dr. Addison of the [facility] to evaluate the patient for further management. Medical Decision Differential Diagnoses include sepsis, tuberculosis, schizophrenia, psychosis, metabolic disorder, UTI, pneumonia, scalded skin syndrome, Gant Oleksandr syndrome, TEN, red man syndrome. The patient has been here within the last month with signs of sepsis and question reaction to medications. She was sent to [facility] where further workup was obtained. 2 days ago she was transferred to [facility]. This morning she was noted to be tachycardic and tachypnea. We have been unable to communicate with the patient due to her underlying schizophrenia and a language barrier. I did speak with the patient's daughter at length. She believes that her skin is slightly better. The patient seems to be more awake and she has been. Multiple labs, EKG and imaging were obtained. Please see above. The patient's white count remains elevated. Lactic acid is not elevated. D-dimer was elevated and therefore CT of her chest was performed which did not show a PE or other significant pulmonary pathology. The patient received multiple doses of morphine and Haldol to control her agitation and pain. I discussed the case further with the hospitalist. The patient will require further evaluation in our hospital. Consults Time Called: 1230 Consulting Physician: Dr. Addison Returned Call: 1236 Discussed the patient's case with Dr. Addison. The patient will be evaluated for further management. Impression Primary Impression: Tachycardia Additional Impressions: Tachypnea Agitation Leukocytosis Scribe Attestation The scribe's documentation has been prepared under my direction and personally reviewed by me in its entirety. I confirm that the note above accurately reflects all work, treatment, procedures, and medical decision making performed by me. Departure Information Dispostion Being Evaluated By Hospitalist Referrals Abdulkadir Dumont (PCP) Patient Instructions My [facility] Problem Qualifiers
[2016-07-17] MEDS ORDERED: ONDANSETRON INJ 2 MG/ML 2 ML VIAL IV PRN (07:45)
[2016-07-17] MEDS: MoRPHine SULFATE 10 MG/ML CARP/VIAL IV PRN ×3 (07:50→16:03)
[2016-07-17 08:15] LABS: BASO % 0.3 %; BASO ABS # 0.05 K/uL (0-0.2); COMPLETE YES; EOS % 2.5 %; HEMATOCRIT 31.4 % (37-47); LYMPH % 12.9 %; LYMPH ABS # 2.13 K/uL (1.2-3.4); MEAN CELL VOLUME 94.3 fL (80-100); MEAN CORPUSCULAR HEMOGLOBIN 30.6 pg (25-34); MEAN CORPUSCULAR HGB CONC 32.5 g/dl (32-36); NEUT % 72.3 %; PLATELET COUNT 193 K/uL (130-400); RED BLOOD COUNT 3.33 M/uL (4.2-5.4); WHITE BLOOD COUNT 16.49 K/uL (4.8-10.8)
[2016-07-17 08:23] LABS: URINE APPEARANCE CLEAR (CLEAR); URINE BILIRUBIN NEG (NEG); URINE COLOR YELLOW; URINE EPITHELIAL CELL AUTO 20-30 /lpf (0-5); URINE NITRITE NEG (NEG); URINE PH 8.5 (4.5-7.5); URINE SPECIFIC GRAVITY 1.017 (1.000-1.030); UROBILINOGEN NEG (NEG); ZZURINE CULT IF INDIC CATH NO
[2016-07-17 08:24] LABS: INR 1.1 (0.9-1.1); PARTIAL THROMBOPLASTIN RATIO 1.1; PROTHROMBIN TIME (PATIENT) 11.4 SECONDS (9.0-12.0)
[2016-07-17 08:32] LABS: BUN/CREATININE RATIO 28.6 (10-20); CALCIUM 8.3 mg/dl (8.5-10.1); CREATININE 0.58 mg/dl (0.60-1.20); POTASSIUM 4.3 mmol/L (3.5-5.1)
[2016-07-17 08:37] LABS: ALB/GLOB RATIO 0.7 (0.9-2)
[2016-07-17] MEDS ORDERED: HYDR-3124 PEG (08:42)
[2016-07-17] MEDS ORDERED: NYSS/ PO (08:42)
[2016-07-17] MEDS ORDERED: ERYOPO OPB (08:42)
[2016-07-17] MEDS ORDERED: VALP250S16 PEG (08:42)
[2016-07-17] MEDS ORDERED: ARTISOL12 OPB (08:42)
[2016-07-17] MEDS ORDERED: IBUP200T80 PEG (08:42)
[2016-07-17] MEDS ORDERED: SENN8.6T36 PEG (08:42)
[2016-07-17] MEDS ORDERED: MICO2CRE48 TOP (08:42)
[2016-07-17] MEDS ORDERED: ORVANCOMY1 IV (08:42)
[2016-07-17] MEDS ORDERED: RISP1TAB18 PEG (08:42)
[2016-07-17] MEDS ORDERED: TRMCR130WC TOP (08:42)
[2016-07-17] MEDS ORDERED: FAMO1TAB71 PEG (08:42)
[2016-07-17 08:45] LABS: MANUAL MICROSCOPIC REQUIRED? NO; REVIEW REQ? NO
[2016-07-17] MEDS ORDERED: OPTIRAY 320 IV PRN (09:00)
--- NOTE | 2016-07-17 09:03 | DIAGNOSTIC IMAGING REPORT ---
SINGLE VIEW CHEST CLINICAL HISTORY: Sepsis. FINDINGS: An AP, portable, upright chest radiograph is compared to chest x-ray and chest CT dated 06/11/2016. The examination is significantly degraded by portable technique and patient rotation. A left PICC line is in place. The cardiomediastinal silhouette is unremarkable. There is atherosclerotic calcification of the thoracic aorta. Emphysema and chronic interstitial thickening are similar to previous. No airspace consolidation or large pleural effusion is identified. No pneumothorax is seen. The skeletal structures are osteopenic. The bony thorax is grossly intact. IMPRESSION: Emphysema with no acute cardiopulmonary abnormality. Electronically signed by: Octavio Wilson M.D. 07/17/2016 9:01 AM Dictated Date/Time: 07/17/2016 8:59 AM
[2016-07-17] MEDS ORDERED: HALOPERIDOL LACTATE 5 MG/ML 1 ML VIAL IV ONE (09:15)
--- NOTE | 2016-07-17 11:31 | DIAGNOSTIC IMAGING REPORT ---
CT ANGIOGRAM OF THE CHEST CLINICAL HISTORY: Hypoxia. Tachycardia. COMPARISON STUDY: Chest x-ray dated 07/17/2016. Chest CT scans dated 06/11/2016 and 10/24/2015. TECHNIQUE: Following the IV administration of 71 cc of Optiray 320, CT angiogram of the chest was performed from the upper abdomen to the thoracic inlet utilizing the pulmonary embolus protocol. Images are reviewed in the axial, sagittal, and coronal planes. 3-D MIPS images are created and assessed. IV contrast was administered without complication. The examination is degraded by streak artifact from the patient's arms which could not be elevated above the chest. The examination is also degraded by motion artifact. CT DOSE: 461.70 mGy.cm FINDINGS: Thyroid: Mildly atrophic. Thoracic aorta: There is mild atherosclerotic calcification of the thoracic aorta, which is normal in caliber and demonstrates 4-vessel arch anatomy. 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 No dissection is seen. Pulmonary vasculature: The pulmonary trunk is normal in caliber. There are no filling defects identified in main, lobar, or proximal segmental pulmonary branches to suggest pulmonary embolus. Evaluation of the peripheral branches is degraded by expiratory motion artifact. Heart: The heart is normal in size and configuration, and without pericardial effusion. There are coronary artery calcifications. Lungs and pleural spaces: Evaluation of the lung parenchyma is degraded by respiratory motion artifact. Advanced emphysema is identified and there is biapical scarring. No airspace consolidation is seen typical for pneumonia. Trace pleural effusions are identified. Mediastinum: There are scattered subcentimeter mediastinal lymph nodes. These are not pathologically enlarged by size criteria. Naty: Clear. Axillae: Shotty axillary lymph nodes are similar to previous. Upper abdomen: Partially visualized upper abdominal viscera is within normal limits. Skeletal structures: The skeletal structures are osteopenic. Degenerative change and scoliosis are noted in the thoracic spine. No lytic or blastic bony lesions are seen. IMPRESSION: 1. Streak and motion artifact degraded examination. 2. There is no evidence of central pulmonary embolus in the main, lobar, or proximal segmental pulmonary arteries. 3. Emphysema. 4. Trace pleural effusions are identified. There is no airspace consolidation typical for pneumonia. Electronically signed by: Octavio Wilson M.D. 07/17/2016 11:29 AM Dictated Date/Time: 07/17/2016 11:23 AM
[2016-07-17] MEDS ORDERED: HALOPERIDOL LACTATE 5 MG/ML 1 ML VIAL IV STA (12:04)
[2016-07-17 13:45] VITALS: O2SAT 97; Ht 154.9 cm; Wt 59.8 kg
--- NOTE | 2016-07-17 16:37 | History and Physical ---
History & Physical Date & Time of Service: Jul 17, 2016 at 16:37 . Chief Complaint: tachypnea, tachycardia . Primary Care Physician: Bertin Kraus DO . History of Present Illness Source: family, clinic records, hospital records 71 [address]O female followed by Dr. Kraus, History of COPD, DM, schizophrenia, PTSD, psoriasis, and other problems. She lives at [facility]. Developed a rash after course of amoxicillin / clavulanic acid about 5 weeks ago. Rash worsened with extensive erythema + desquamation. 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 Transferred to burn center at [facility] on 06/15/16. 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 Hospital course was complicated by MRSA bacteremia / sepsis, respiratory failure requiring intubation and mechanical ventilation, and other problems. Daughter reports that patient has become progressively weaker. Before present illness, she was not able to ambulate, but was able to transfer with minimal assistance. Now, she is bedridden and unable to stand or transfer. Confusion is worse than her baseline and she is interacting less with her daughter. She appears to have visual hallucinations. PEG was placed for nutritional support. PICC was placed for ongoing antibiotic therapy with IV vancomycin for MRSA sepsis She was transferred to [facility] 07/15/16 for inpatient rehab. This morning she was noted to be tachycardic and tachypneic. She was transported to the ED for evaluation. Patient unable to provide any history due to her underlying condition. Daughter is not aware of any fever, unusual cough, vomiting, diarrhea, or other specific problems. Daughter states that extensive rash has improved over the last 2 weeks. . Past Medical/Surgical History Chronic and Resolved Medical Problems: (1) COPD (chronic obstructive pulmonary disease) Status: Chronic (2) Dementia Status: Chronic (3) Diabetes mellitus Status: Chronic (4) HTN (hypertension) Status: Chronic (5) Latent tuberculosis- treated Status: Chronic (6) Osteoporosis Status: Chronic (7) Parkinson disease Status: Chronic (8) Psoriatic arthritis Status: Chronic (9) PTSD (post-traumatic stress disorder) Status: Chronic (10) Schizophrenia Status: Chronic (11) Vitamin D deficiency Status: Chronic Surgical Problems: (1) History of hysterectomy Status: Chronic (2) Hx of breast implants, bilateral Status: Chronic . Family History Patient reports no known family medical history. Social History Smoking Status: Former Smoker Marital Status: single Housing status: assisted living Immunizations History of Influenza Vaccine: Yes Influenza Vaccine Date: Jan 06, 2015 History of Tetanus Vaccine?: Unknown History of Pneumococcal: Unknown History of Hepatitis B Vaccine: Unknown Multi-Drug Resistant Organisms History of MDRO: No Type of MDRO: MRSA Allergies Coded Allergies: Amoxicillin (Verified Allergy, Intermediate, RASH, 06/11/16) Nitrofurantoin (Verified Allergy, Intermediate, INCREASED SKIN REACTION, ITCHING, CHEST PAIN, WHEEZING, 05/30/16) Penicillin G (Verified Allergy, Unknown, unknown, 07/17/16) Piperacillin (Verified Allergy, Unknown, unknown, 07/17/16) Tazobactam (Verified Allergy, Unknown, unknown, 07/17/16) Rifampin (Verified Adverse Reaction, Severe, RASH, 05/30/16) as per chris and lawn care technician, pt was in [facility] in 2013 for diffuse rash with skin peeling due to rifampin, was admitted in [facility] Diphenhydramine (Verified Adverse Reaction, Intermediate, ADVERSE REACTION WITH PSYCH MEDS, 05/30/16) Home Medications Scheduled Amlodipine (Norvasc), 5 MG PEG DAILY Erythromycin Opth (Erythromycin Opth), 1 APPLN OPB HS Famotidine (Pepcid), 20 MG PEG BID Metformin Hcl (Glucophage), 500 MG PEG BID Miconazole Nitrate (Topical) (Miconazole), 1 APPLN EXT BID Nystatin (Nystatin Suspension), 5 ML PO QID Risperidone (Risperdal), 2 MG PEG BID Sennosides-Docusate Sodium (Docusate Sodium/Senna), 1 TAB PEG DAILY@1200 Triamcinolone Acet (Aristocort 0.1%), 1 APPLN TOP BID Trihexyphenidyl Hcl (Artane), 2 MG PEG BID Valproic Acid Syrup (Depakene), 1,000 MG PEG HS Vancomycin Hcl In Dextrose (Vancomycin Hcl In Dextros), 1,000 MG IV Q12H Scheduled PRN Acetaminophen 320 Mg/10 Ml (Tylenol 320 MG/10 ML), 650 MG GT Q6H PRN for Pain or Fever Hydroxyzine Hcl (Atarax), 25 MG PEG TID PRN for Itching Ibuprofen (Ibu-200), 600 MG PEG QID PRN for Pain Ipratropium-Albuterol (Duoneb), 1 TREATMENT INH Q4H PRN for SOB/Wheezing Lorazepam (Ativan), 0.5 MG PEG Q6H PRN for Anxiety/Agitation Miscellaneous Medications Artificial Tear Solution (Artificial Tears), 1 DROPS OPB Review of Systems Unable to obtain due to patient's condition. . Physical Exam Vital Signs Date Time Temp Pulse Resp B/P Pulse Ox O2 Delivery O2 Flow Rate FiO2 07/17/16 15:14 114 24 169/123 97 Nasal Cannula 5.0 07/17/16 15:02 113 07/17/16 13:45 97 Nasal Cannula 4.0 07/17/16 13:00 112 22 139/112 97 Nasal Cannula 4.0 07/17/16 11:15 112 22 127/87 94 Nasal Cannula 4.0 07/17/16 09:30 99 20 144/96 94 Room Air 07/17/16 08:30 109 22 149/89 97 Room Air 07/17/16 08:00 106 20 155/80 94 Room Air 07/17/16 07:31 101 07/17/16 07:17 99 Nasal Cannula 4.0 07/17/16 07:17 Nasal Cannula 4.0 07/17/16 06:53 38.0 111 32 159/67 94 Nasal Cannula 4.0 07/17/16 06:53 94 Nasal Cannula 4.0 General Appearance: + moderate distress, + cachetic Head: normocephalic, atraumatic Eyes: PERRL, EOMI, + pertinent finding (conjunctival edema) ENT: + pertinent finding (exam limited; no oral lesions appreciated) Neck: supple, no adenopathy, thyroid normal, trachea midline, + JVD Respiratory/Chest: no respiratory distress, + pertinent finding (diffuse wheezing) Cardiovascular: + pertinent finding (limited exam, distant heart sounds, RRR, tachy, no murmur or gallop appreciated) Abdomen/GI: normal bowel sounds, non tender, soft, no organomegaly, + pertinent finding (PEG) Genitourinary - Female: + pertinent finding (Rodriguez cath) Extremities/Musculoskelatal: + pertinent finding (trace pretibial edema, no calf tenderness; PICC LUE) Neurologic/Psych: + pertinent finding (exam very limited (pt unable to cooperate); PERRL, EOMI; moves all 4 extr; confused, minimally verbal) Skin: + pertinent finding (generalized erythroderma with extensive desquamation ) Diagnostics Laboratory Results Results Past 24 Hours Test 07/17/16 07:55 07/17/16 08:00 07/17/16 08:02 07/17/16 08:03 Range/Units White Blood Count 16.49 4.8-10.8 K/uL Red Blood Count 3.33 4.2-5.4 M/uL Hemoglobin 10.2 12.0-16.0 g/dL Hematocrit 31.4 37-47 % Mean Corpuscular Volume 94.3 80-100 fL Mean Corpuscular Hemoglobin 30.6 25-34 pg Mean Corpuscular Hemoglobin Concent 32.5 32-36 g/dl Platelet Count 193 130-400 K/uL Mean Platelet Volume 9.0 7.4-10.4 fL Neutrophils (%) (Auto) 72.3 % Lymphocytes (%) (Auto) 12.9 % Monocytes (%) (Auto) 11.0 % Eosinophils (%) (Auto) 2.5 % Basophils (%) (Auto) 0.3 % Neutrophils # (Auto) 11.91 1.4-6.5 K/uL Lymphocytes # (Auto) 2.13 1.2-3.4 K/uL Monocytes # (Auto) 1.82 0.11-0.59 K/uL Eosinophils # (Auto) 0.42 0-0.5 K/uL Basophils # (Auto) 0.05 0-0.2 K/uL RDW Standard Deviation 51.8 36.4-46.3 fL RDW Coefficient of Variation 15.1 11.5-14.5 % Immature Granulocyte % (Auto) 1.0 % Immature Granulocyte # (Auto) 0.16 0.00-0.02 K/uL Prothrombin Time 11.4 9.0-12.0 SECONDS Prothromb Time International Ratio 1.1 0.9-1.1 Activated Partial Thromboplast Time 27.4 21.0-31.0 SECONDS Partial Thromboplastin Ratio 1.1 Sodium Level 142 136-145 mmol/L Potassium Level 4.3 3.5-5.1 mmol/L Chloride Level 105 98-107 mmol/L Carbon Dioxide Level 29 21-32 mmol/L Anion Gap 8.0 3-11 mmol/L Blood Urea Nitrogen 17 7-18 mg/dl Creatinine 0.58 0.60-1.20 mg/dl Est Creatinine Clear Calc Drug Dose 77.5 ml/min Estimated GFR () 109.0 Estimated GFR (Non- 94.0 BUN/Creatinine Ratio 28.6 10-20 Random Glucose 141 70-99 mg/dl Calcium Level 8.3 8.5-10.1 mg/dl Total Bilirubin 0.4 0.2-1 mg/dl Aspartate Amino Transf (AST/SGOT) 11 15-37 U/L Alanine Aminotransferase (ALT/SGPT) 13 12-78 U/L Alkaline Phosphatase 77 45-117 U/L Total Protein 6.0 6.4-8.2 gm/dl Albumin 2.4 3.4-5.0 gm/dl Globulin 3.6 2.5-4.0 gm/dl Albumin/Globulin Ratio 0.7 0.9-2 Procalcitonin < 0.05 0-0.5 ng/mL Urine Color YELLOW Urine Appearance CLEAR CLEAR Urine pH 8.5 4.5-7.5 Urine Specific [place] 1.017 1.000-1.030 Urine Protein NEG NEG Urine Glucose (UA) NEG NEG Urine Ketones NEG NEG Urine Occult Blood NEG NEG Urine Nitrite NEG NEG Urine Bilirubin NEG NEG Urine Urobilinogen NEG NEG Urine Leukocyte Esterase SMALL NEG Urine WBC (Auto) 5-10 0-5 /hpf Urine RBC (Auto) 5-10 0-4 /hpf Urine Hyaline Casts (Auto) 1-5 0-5 /lpf Urine Epithelial Cells (Auto) 20-30 0-5 /lpf Urine Bacteria (Auto) NEG NEG Bedside D-Dimer > 450 0-450 ng/mlFEU Bedside Lactic Acid Venous 1.40 0.90-1.70 mmol/L Microbiology Results 07/17/16 Blood Culture, Received Pending 07/17/16 Blood Culture, Received Pending 07/17/16 Urine Culture, Darryl Batch Pending Diagnostic Radiology SINGLE VIEW CHEST CLINICAL HISTORY: Sepsis. FINDINGS: An AP, portable, upright chest radiograph is compared to chest x-ray and chest CT dated 06/11/2016. The examination is significantly degraded by portable technique and patient rotation. A left PICC line is in place. The cardiomediastinal silhouette is unremarkable. There is atherosclerotic calcification of the thoracic aorta. Emphysema and chronic interstitial thickening are similar to previous. No airspace consolidation or large pleural effusion is identified. No pneumothorax is seen. The skeletal structures are osteopenic. The bony thorax is grossly intact. IMPRESSION: Emphysema with no acute cardiopulmonary abnormality. Electronically signed by: Octavio Wilson M.D. 07/17/2016 9:[address] ANGIOGRAM OF THE CHEST FINDINGS: Thyroid: Mildly atrophic. Thoracic aorta: There is mild atherosclerotic calcification of the thoracic aorta, which is normal in caliber and demonstrates 4-vessel arch anatomy. 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 No dissection is seen. Pulmonary vasculature: The pulmonary trunk is normal in caliber. There are no filling defects identified in main, lobar, or proximal segmental pulmonary branches to suggest pulmonary embolus. Evaluation of the peripheral branches is degraded by expiratory motion artifact. Heart: The heart is normal in size and configuration, and without pericardial effusion. There are coronary artery calcifications. Lungs and pleural spaces: Evaluation of the lung parenchyma is degraded by respiratory motion artifact. Advanced emphysema is identified and there is biapical scarring. No airspace consolidation is seen typical for pneumonia. Trace pleural effusions are identified. Mediastinum: There are scattered subcentimeter mediastinal lymph nodes. These are not pathologically enlarged by size criteria. Naty: Clear. Axillae: Shotty axillary lymph nodes are similar to previous. Upper abdomen: Partially visualized upper abdominal viscera is within normal limits. Skeletal structures: The skeletal structures are osteopenic. Degenerative change and scoliosis are noted in the thoracic spine. No lytic or blastic bony lesions are seen. IMPRESSION: 1. Streak and motion artifact degraded examination. 2. There is no evidence of central pulmonary embolus in the main, lobar, or proximal segmental pulmonary arteries. 3. Emphysema. 4. Trace pleural effusions are identified. There is no airspace consolidation typical for pneumonia. Electronically signed by: Octavio Wilson M.D. 07/17/2016 11:29 AM . EKG EKG performed at 07:[address] at 106 / minute, low voltage QRS, RAA, no acute ST or T-wave abnormalities. . Impression Assessment and Plan FEVER Recent MRSA sepsis as discussed below- still receiving IV vancomycin. Temp in ED = 38.0. WBC 16,490. No pulmonary infiltrates on chest x-ray or CT. No pulmonary embolism / infarct per CT. Has Rodriguez catheter. UA shows a few WBC's. Certainly at risk for recurrent sepsis given her ongoing dermatologic concerns. Lactate of 1.4 and procalcitonin < 0.05 argue against sepsis at this time. Blood cultures obtained. Urine culture ordered. At risk for endocarditis- check echo. Reluctant to start new antibiotics in light of her extensive rash unless a specific source of infection is verified. However, empiric antibiotic coverage may become necessary if status changes. RECENT MRSA BACTEREMIA / SEPSIS Continue IV vancomycin, duration of therapy to be clarified TACHYCARDIA / TACHYPNEA Mechanism uncertain. No apparent pneumonia or pulmonary embolism. Does not appear to be septic as discussed above. Tachycardia and tachypnea could possibly be due to anxiety, underlying schizophrenia, or discomfort. ELEVATED D-DIMER CTA chest negative for PE. Check venous duplex upper and lower extremities to rule out DVT. ERYTHRODERMIC PSORIASIS Diagnosis made via skin biopsies per daughter. Records from [facility] requested. Consult Dermatology to assist with ongoing management. COPD O2 dependent COPD. No apparent pneumonia at this time. Continue O2, bronchodilators. DM TYPE 2 Random glucose 141. Hold metformin during acute illness. Insulin coverage as needed. NUTRITION Unable to swallow safely at this time. PEG placed at [facility]. Continue enteral feedings via PEG. Consult Nutrition. SCHIZOPHRENIA / DELIRIUM / PTSD Long-term problems with recent worsening of confusion, agitation, hallucinations. Continue usual meds. Agitation probably multifactorial. Control pain, discomfort as needed. Hydroxyzine ordered for PRN use- probably best to avoid if possible. Similarly, probably best to avoid lorazepam if possible. Haloperidol PRN for delirium if patient's comfort or safety are at risk. VTE PROPHYLAXIS Unable to ambulate. High risk for VTE. SQ heparin. INCOMPLETE DATA Records from [facility] requested. RESUSCITATION STATUS Discussed with daughter who is durable POA. Copy of Living Will provided. Daughter feels that patient's quality of life has been poor and is worsening; she would not want extraordinary measures at end of life. Code status is DNR. DISPOSITION Admit to Med-Surg Unit. Discharge disposition to be determined. Medical follow-up with Dr. Kraus. . Advanced Directives Existing Living Will: Yes Existing Power of Vehicle Modification Technician: Yes VTE Prophylaxis Risk Level: High Given or contraindicated: Unfractionated heparin SQ Additional Copies To Bertin Kraus D.O.
[2016-07-17] MEDS ORDERED: ARTIFICIAL TEARS OP SOLN OPB PRN ×2 (17:00)
[2016-07-17] MEDS ORDERED: VANC500I IV (17:05)
[2016-07-17] MEDS ORDERED: MICO2CRE63 EXT (17:05)
[2016-07-17] MEDS ORDERED: ACTUDL10 GT (17:11)
[2016-07-17] MEDS ORDERED: HALOPERIDOL LACTATE 5 MG/ML 1 ML VIAL IM PRN (17:30)
[2016-07-17] MEDS ORDERED: VANCOMYCIN CONSULT ACTIVE PRN (17:45)
[2016-07-17] MEDS ORDERED: HydrALAZINE HCL 20 MG/ML VIAL IV. PRN (18:15)
[2016-07-17 18:41] VITALS: BP 168/95; PULSE 116; TEMP 37.3; O2SAT 90
[2016-07-17] MEDS: HYDROmorphone INJ 0.5 MG/0.5 ML SYR IV PRN ×2 (19:14→23:41)
[2016-07-17] MEDS ORDERED: FIBERSOURCE HN 1000ML BAG PEG SCH ×2 (20:00)
[2016-07-17] MEDS ORDERED: TRIAMCINOLONE ACET 0.1% CR 15 GM TUBE EXT SCH (20:00)
[2016-07-17] MEDS ORDERED: VANCOMYCIN INJ 1,300 MG in SODIUM CHLORIDE 0.9% 250ML 250 ML IV STA (20:01)
--- NOTE | 2016-07-17 20:40 | Medical Consult ---
Consultation Date of Consultation: Jul 17, 2016. Attending Physician: Edgardo Saucedo MD Reason for Consultation: generalized erythroderma History of Present Illness 71 y/o F with complex past medical history with erythroderma x 1 month. Pt admitted to the hospital in June and transferred to [facility] for possible Gant Oleksandr syndrome. I have not been able to track down her medical records from [facility] but per the primary team was diagnosed with erythrodermic psoriasis complicated by MRSA. Pt has been followed by [facility]-Dr. Houston, and [facility]-Dr. Martinez for years for psoriasis and psoriatic arthritis. She was treated in the past with Methotrexate and Cimizia and then most recently managed on Otezla 30mg twice daily, triamcinolone 0.1% ointment and Elidel Cream. According to outpatient notes from May it seems that her skin was under good control at that time. She has had several hospitalizations since that time and been treated with numerous antibiotics. She is nonverbal on examination today and does not have any family in the room with her so history is taken from review of her medical records at [facility] and [facility]. Past Medical/Surgical History Medical Problems: (1) Aggressive behavior Status: Acute (2) Agitation Status: Acute (3) Altered mental status Status: Acute (4) Hyponatremia Status: Acute (5) Leukocytosis Status: Acute (6) Leukocytosis Status: Acute (7) Pulmonary edema Status: Acute (8) Tachycardia Status: Acute (9) Tachycardia Status: Acute (10) Tachypnea Status: Acute Family History Patient reports no known family medical history. 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, pt was in [facility] in 2013 for diffuse rash with skin peeling due to rifampin, was admitted in [facility] Diphenhydramine (Verified Adverse Reaction, Intermediate, ADVERSE REACTION WITH PSYCH MEDS, 05/30/16) Current Inpatient Medications Current Inpatient Medications Medications (Trade) Dose Ordered Sig/Abelardo Route Start Time Stop Time Status Last Admin Dose Admin Ioversol (Optiray 320) 100 ml UD PRN IV 07/17/16 09:00 07/21/16 08:59 Erythromycin (Erythromycin Oph Oint) 1 appln HS OPB 07/17/16 21:00 07/27/16 20:59 Famotidine (Pepcid Tab) 20 mg BID PO 07/17/16 20:00 08/16/16 20:59 Albuterol/ Ipratropium (Duoneb) 3 ml Q4H PRN INH 07/17/16 17:00 08/16/16 16:59 Nystatin (Mycostatin Susp) 5 ml QID PO 07/17/16 17:00 07/27/16 16:59 Risperidone (Risperdal Tab) 2 mg BID PEG 07/17/16 20:00 08/16/16 20:59 Senna/Docusate Sodium (Senokot S Tab) 1 tab DAILY@1200 PEG 07/18/16 12:00 08/17/16 11:59 Triamcinolone Acetonide (Kenalog 0.1% Cream) 1 appln BID EXT 07/17/16 20:00 08/16/16 20:59 Trihexyphenidyl HCl (Artane Tab) 2 mg BID PO 07/17/16 20:00 08/16/16 20:59 Valproic Acid (Depakene Syrup) 1,000 mg HS PEG 07/17/16 21:00 08/16/16 20:59 Artificial Tears (Artificial Tears) 2 drops Q4H PRN OPB 07/17/16 17:00 08/16/16 16:59 Miconazole Nitrate 1 appln 1 appln BID EXT 07/17/16 20:00 08/16/16 20:59 Vancomycin HCl/ Sodium Chloride (Vancomycin Inj/ Nss 250ml) 276 ml @ 125 mls/hr NOW STAT IV 07/17/16 20:01 07/17/16 22:13 Acetaminophen (Tylenol Soln) 650 mg Q6H PRN GT 07/17/16 17:15 08/16/16 17:14 Haloperidol Lactate (Haldol Inj) 2.5 mg Q2H PRN IM 07/17/16 17:30 08/16/16 17:29 Vancomycin HCl (Consult) 1 ea UD PRN N/A 07/17/16 17:45 08/16/16 17:44 Amlodipine Besylate (Norvasc Tab) 5 mg DAILY PEG 07/18/16 08:00 08/17/16 08:59 Hydralazine HCl (HydrALAZINE INJ) 5 mg Q6H PRN IV. 07/17/16 18:15 08/16/16 18:14 Enteral Nutritional Formula (Fibersource HN) 1 ml Goal rate = 65ml/hr PEG 07/17/16 20:00 08/16/16 19:59 Hydromorphone HCl (Dilaudid Inj) 0.5 mg Q4H PRN IV 07/17/16 19:00 07/31/16 18:59 07/17/16 19:14 0.5 MG Physical Exam Date Time Temp Pulse Resp B/P Pulse Ox O2 Delivery O2 Flow Rate FiO2 07/17/16 18:41 37.3 116 22 168/95 90 Nasal Cannula 2.0 07/17/16 18:20 114 20 129/95 91 07/17/16 16:50 92 24 92 Room Air 07/17/16 15:14 114 24 169/123 97 Nasal Cannula 5.0 07/17/16 15:02 113 07/17/16 13:45 97 Nasal Cannula 4.0 07/17/16 13:00 112 22 139/112 97 Nasal Cannula 4.0 07/17/16 11:15 112 22 127/87 94 Nasal Cannula 4.0 07/17/16 09:30 99 20 144/96 94 Room Air 07/17/16 08:30 109 22 149/89 97 Room Air 07/17/16 08:00 106 20 155/80 94 Room Air 07/17/16 07:31 101 07/17/16 07:17 99 Nasal Cannula 4.0 07/17/16 07:17 Nasal Cannula 4.0 07/17/16 06:53 38.0 111 32 159/67 94 Nasal Cannula 4.0 07/17/16 06:53 94 Nasal Cannula 4.0 Gen: pt is lying in bed and moaning. She is not in any acute distress Skin: Examination of the face, lids, lips, hair/scalp, neck, chest, abdomen, arms, legs and back reveal generalized erythroderma with thick scaling in the scalp and ears. She has some drainage from the bilateral medial canthus of the eyes and xerosis of the lips but no erosions noted on exam today. No erosions or ulcerations noted in the genital area on exam today. Laboratory Results Last 24 Hours Test 07/17/16 07:55 07/17/16 08:00 07/17/16 08:02 07/17/16 08:03 White Blood Count 16.49 K/uL Red Blood Count 3.33 M/uL Hemoglobin 10.2 g/dL Hematocrit 31.4 % Mean Corpuscular Volume 94.3 fL Mean Corpuscular Hemoglobin 30.6 pg Mean Corpuscular Hemoglobin Concent 32.5 g/dl Platelet Count 193 K/uL Mean Platelet Volume 9.0 fL Neutrophils (%) (Auto) 72.3 % Lymphocytes (%) (Auto) 12.9 % Monocytes (%) (Auto) 11.0 % Eosinophils (%) (Auto) 2.5 % Basophils (%) (Auto) 0.3 % Neutrophils # (Auto) 11.91 K/uL Lymphocytes # (Auto) 2.13 K/uL Monocytes # (Auto) 1.82 K/uL Eosinophils # (Auto) 0.42 K/uL Basophils # (Auto) 0.05 K/uL RDW Standard Deviation 51.8 fL RDW Coefficient of Variation 15.1 % Immature Granulocyte % (Auto) 1.0 % Immature Granulocyte # (Auto) 0.16 K/uL Prothrombin Time 11.4 SECONDS Prothromb Time International Ratio 1.1 Activated Partial Thromboplast Time 27.4 SECONDS Partial Thromboplastin Ratio 1.1 Sodium Level 142 mmol/L Potassium Level 4.3 mmol/L Chloride Level 105 mmol/L Carbon Dioxide Level 29 mmol/L Anion Gap 8.0 mmol/L Blood Urea Nitrogen 17 mg/dl Creatinine 0.58 mg/dl Est Creatinine Clear Calc Drug Dose 77.5 ml/min Estimated GFR () 109.0 Estimated GFR (Non- 94.0 BUN/Creatinine Ratio 28.6 Random Glucose 141 mg/dl Calcium Level 8.3 mg/dl Total Bilirubin 0.4 mg/dl Aspartate Amino Transf (AST/SGOT) 11 U/L Alanine Aminotransferase (ALT/SGPT) 13 U/L Alkaline Phosphatase 77 U/L Total Protein 6.0 gm/dl Albumin 2.4 gm/dl Globulin 3.6 gm/dl Albumin/Globulin Ratio 0.7 Procalcitonin < 0.05 ng/mL Urine Color YELLOW Urine Appearance CLEAR Urine pH 8.5 Urine Specific [place] 1.017 Urine Protein NEG Urine Glucose (UA) NEG Urine Ketones NEG Urine Occult Blood NEG Urine Nitrite NEG Urine Bilirubin NEG Urine Urobilinogen NEG Urine Leukocyte Esterase SMALL Urine WBC (Auto) 5-10 /hpf Urine RBC (Auto) 5-10 /hpf Urine Hyaline Casts (Auto) 1-5 /lpf Urine Epithelial Cells (Auto) 20-30 /lpf Urine Bacteria (Auto) NEG Bedside D-Dimer > 450 ng/mlFEU Bedside Lactic Acid Venous 1.40 mmol/L Test 07/17/16 18:45 Random Vancomycin Level 8.0 mcg/ml Assessment & Plan 71 y/o F with history of psoriasis and psoriatic arthritis now with generalized erythroderma. It is difficult to determine the underlying etiology and the differential could include drug reaction vs erythrodermic psoriasis. It would be impossible at this point to pinpoint a specific drug since she has had so many exposures over the past few months. 1. The best option to treat her skin now is triamcinolone 0.1% ointment in a soak and smear method twice daily. This would involve smearing her entire body with triamcinolone 0.1% ointment and then place her in either long reyez or wrap the entire body with moist gauze. It is also recommended to keep a spray bottle at the bedside to continue to moisten her skin. 2. Her electrolyte status and fluid balance will need to be monitored closely given her erythroderma and she is at very high risk of infection due to her impaired skin barrier. It would be recommend to minimize IV's or extra lines to prevent possible infection. 3. I will discuss her case with Dr. Houston her primary painter helper as an outpatient in the morning and determine if she has any other recommendations. 4. Opthalmology consultation is recommend to prevent damage to her eyes 5. We could consider starting her on cyclosporine and carefully monitoring her renal status and making sure that she has no other ongoing systemic infection first.
[2016-07-17] MEDS: NYSTATIN SUSP 500,000 U/5 ML UDC PO SCH (20:56)
[2016-07-17] MEDS: MICONAZOLE NITRATE 2% CR 30 GM TUBE EXT SCH (21:02)
[2016-07-17] MEDS: ERYTHROMYCIN OP OINT 5 MG/GM 3.5 GM TUBE OPB SCH (21:03)
[2016-07-17] MEDS: TRIHEXYPHENIDYL HCL 2 MG TAB PO SCH (21:04)
[2016-07-17] MEDS: FAMOTIDINE 20 MG TAB PO SCH (21:05)
[2016-07-17] MEDS: VALPROIC ACID SYRUP 250 MG/5 ML PEG SCH (21:05)
[2016-07-17] MEDS: RISPERIDONE 1 MG TAB PEG SCH (21:05)
--- NOTE | 2016-07-17 21:44 | Pharmacy Progress Note ---
Pharmacy Antibiotic Consult Date of Service: Jul 17, 2016. Pharmacy Dosing Scope Pharmacy is consulted to initiate Vancomycin IV dosing therapy, order appropriate labs and adjust drug dose/frequency. Subjective The patient is a 71 year old female admitted on Jul 17, 2016 at 16:50. Objective Height (Feet): 5 Height (Inches): 1.00 Weight (Kilograms): 62.400 Lab Results (24hrs): Item Value Date Time Random Vancomycin Level 8.0 mcg/ml 07/17/16 1845 Laboratory Tests Test 07/17/16 07:55 BUN/Creatinine Ratio 28.6 Blood Urea Nitrogen 17 mg/dl Creatinine 0.58 mg/dl White Blood Count 16.49 K/uL Red Blood Count 3.33 M/uL Hemoglobin 10.2 g/dL Hematocrit 31.4 % Mean Corpuscular Volume 94.3 fL Mean Corpuscular Hemoglobin 30.6 pg Mean Corpuscular Hemoglobin Concent 32.5 g/dl Platelet Count 193 K/uL Mean Platelet Volume 9.0 fL Neutrophils (%) (Auto) 72.3 % Lymphocytes (%) (Auto) 12.9 % Monocytes (%) (Auto) 11.0 % Eosinophils (%) (Auto) 2.5 % Basophils (%) (Auto) 0.3 % Neutrophils # (Auto) 11.91 K/uL Lymphocytes # (Auto) 2.13 K/uL Monocytes # (Auto) 1.82 K/uL Eosinophils # (Auto) 0.42 K/uL Basophils # (Auto) 0.05 K/uL Micro Results: Item Value Date Time Urine Culture Received 07/17/16 0800 Urine,Catheterized Pending Blood Culture Received 07/17/16 0800 Blood Pending Blood Culture Received 07/17/16 0755 Blood Pending Assessment & Plan Assessment * 71 y/o F with bacteremia on IV Vancomycin since June. Pharmacy was previously dosing her Vancomycin last admission (06/13-06/15/16) prior to her transfer to [facility]. She was then at [facility]. She had been receiving Vancomycin 1000mg IV q12 at 0600 and 1800. Her last dose of Vancomycin was apparently on 07/16/16 @ 1800. She missed her dose this morning due to acute illness. Trough level on this regimen is unknown. * Last admission, Pharmacy had dosed Vancomycin at 900mg IV q12 which resulted in a trough of 11.3 mcg/mL (subtherapeutic for bacteremia). * Renal function appears to be at baseline and unchanged from last visit. * Random Vancomycin level on 07/17 @ 1845 was 8 mcg/mL * This level is subtherapeutic due to patient missing 2 doses. Based on random level, she is most likely therapeutic on Vancomycin 1000mg q12, which is surprising since she was subtherapeutic in the past on 900mg IV q12. Plan * Give Vancomycin 1300mg (~21mg/kg) IV x 1 as a loading dose as she is currently subtherapeutic since it has been >24 hours since last dose. This will result in a peak of ~37.5 mcg/mL. * Restart Vancomycin 1000mg (~16mg/kg) IV q12 after loading dose * Goal Vancomycin trough 15-20 mcg/mL (higher trough for bacteremia) * Check trough level on 07/19 @ 0930 (only prior to the 3rd dose and therefore not reflective of steady state, but would like to assess dosing regimen earlier due to severity of infection and to make sure her regimen prior to admission is indeed appropriate) Pharmacy will continue to follow and will adjust dose/frequency as necessary. Thank you
[2016-07-17] MEDS ORDERED: HEPARIN SOD 5000 UNIT/0.5 ML CARP SQ ONE (23:39)
[2016-07-17] MEDS ORDERED: GLUCOSE 10 TABS/TUBE PO PRN (23:45)
[2016-07-17] MEDS ORDERED: DEXTROSE 50% 50 ML SYR IV PRN (23:45)
[2016-07-17] MEDS ORDERED: GLUCAGON FOR INJ 1 MG VIAL SQ PRN (23:45)
[2016-07-17] MEDS ORDERED: GLUCOSE 40% GEL 15 GM TUBE PO PRN (23:45)
[2016-07-18] VITALS (11 sets, daily range): BP systolic 106–145; BP diastolic 66–84; PULSE 100–119; TEMP 36.9–39.1; O2SAT 85–95
[2016-07-18] MEDS ORDERED: NURSING DECISION MEDICATION ORDER SCH (00:30)
[2016-07-18] MEDS: TRIAMCINOLONE ACET 0.1% CR 80 GM TUBE EXT SCH ×3 (01:40→20:24)
[2016-07-18] MEDS: ACETAMINOPHEN SOLN 650MG/20.3 ML UDC GT PRN ×4 (02:32→23:50)
[2016-07-18] MEDS: ALBUT/IPRATROP 3MG/0.5MG NEB 3 ML VIAL INH PRN (02:38)
[2016-07-18] MEDS ORDERED: NURSING VERBAL MED ORDER ONE ×2 (03:00→15:00)
[2016-07-18] MEDS ORDERED: FIBERSOURCE HN 1000ML BAG PEG SCH ×4 (03:15→09:30)
[2016-07-18] MEDS: INSULIN ASPART 100 UNITS/ML 3 ML PEN SC SCH ×4 (06:00→23:57)
[2016-07-18] MEDS: HYDROmorphone INJ 0.5 MG/0.5 ML SYR IV PRN ×2 (06:18→15:03)
[2016-07-18 06:27] LABS: BASO % 0.2 %; BASO ABS # 0.03 K/uL (0-0.2); COMPLETE YES; EOS % 1.9 %; HEMATOCRIT 32.6 % (37-47); IG% 0.4 %; LYMPH % 10.6 %; LYMPH ABS # 1.68 K/uL (1.2-3.4); MEAN CELL VOLUME 97.9 fL (80-100); MEAN CORPUSCULAR HEMOGLOBIN 30.6 pg (25-34); MEAN CORPUSCULAR HGB CONC 31.3 g/dl (32-36); MONO % 12.9 %; PLATELET COUNT 212 K/uL (130-400); RED BLOOD COUNT 3.33 M/uL (4.2-5.4); WHITE BLOOD COUNT 15.86 K/uL (4.8-10.8)
[2016-07-18] MEDS ORDERED: INSULIN ASPART 100 UNITS/ML 3 ML PEN SC SCH (06:30)
[2016-07-18 06:37] LABS: BUN/CREATININE RATIO 24.4 (10-20); CALCIUM 8.3 mg/dl (8.5-10.1); CREATININE 0.6 mg/dl (0.60-1.20); MAGNESIUM 2.2 mg/dl (1.8-2.4)
--- NOTE | 2016-07-18 06:49 | DIAGNOSTIC IMAGING REPORT ---
BILATERAL LOWER EXTREMITY VENOUS DOPPLER HISTORY: Pain. Edema. elevated D-dimer, unexplained fever, rule out DVT COMPARISON STUDY: None. FINDINGS: There is normal compressibility, flow, and augmentation within the bilateral lower extremity deep venous systems. IMPRESSION: No DVT within the right or left lower extremity. Electronically signed by: Adelso Becerra M.D. 07/18/2016 6:46 AM Dictated Date/Time: 07/18/2016 6:45 AM
--- NOTE | 2016-07-18 07:14 | DIAGNOSTIC IMAGING REPORT ---
BILATERAL UPPER EXTREMITY VENOUS DOPPLER HISTORY: elevated D-dimer, unexplained fever, r/o DVT COMPARISON STUDY: None. FINDINGS: No DVT within the left upper extremity. Nonocclusive DVT within the right proximal and mid internal jugular vein. The focal thrombus at the mid to lower vein demonstrates movement with flow. The remaining right upper extremity venous structures are patent. IMPRESSION: 1. No DVT within the left upper extremity. 2. Small focus of nonocclusive thrombus seen within the right internal jugular vein. Electronically signed by: Ced Matute M.D. 07/18/2016 7:12 AM Dictated Date/Time: 07/18/2016 7:10 AM
[2016-07-18] MEDS ORDERED: AMLODIPINE BESYLATE 5 MG TAB PEG SCH (08:00)
[2016-07-18] MEDS: MICONAZOLE NITRATE 2% CR 30 GM TUBE EXT SCH ×2 (08:00→20:00)
[2016-07-18] MEDS ORDERED: HYDROmorphone INJ 1 MG/ML SYR IV ONE (08:30)
--- NOTE | 2016-07-18 08:33 | Progress Note ---
Internal Med Progress Note Date of Service: Jul 18, 2016. Provider Documentation: SUBJECTIVE: Patient is seen and examined at bedside. She seemed to be in distress and confused. She is non verbal and could not converse in Turkmen. No family member available at bedside. She is tachycardic and is saturating 90-92% on 2L NC. Leukocytosis has slightly improved. Ehsan Salgado was contacted by staff and was informed she intermittently yells out due to PTSD. Will talk with family when they visit hospital later today. Clinically look more deteriorated from last admission. OBJECTIVE: Vital Signs-as noted below General Appearance: Moderately built, In distress, cachetic Head: normocephalic, atraumatic Eyes: PERRL, EOMI, conjunctival edema, ? conjunctivitis Neck: supple, trachea midline Respiratory/Chest: no respiratory distress, wheezing b/l Cardiovascular: S1, S2, +Tachycardia, no murmur Abdomen/GI: normal bowel sounds, non tender, soft, BS present, +PEG tube Extremities/Musculoskelatal: trace edema, no calf tenderness +PICC LUE Neurologic/Psych: Could not be assessed, moves all extremities, non verbal, confused Skin: Diffuse erythroderma with extensive desquamation Lab data as noted below. ASSESSMENT & PLAN: FEVER/LEUKOCYTOSIS Likely secondary to ongoing infection Recent MRSA sepsis diagnosed at [facility]. Discussed with ID staff at [facility]: Suggested to continue IV vancomycin for 4 weeks (Last day: August 12) CT: No pulmonary infiltrates CTA: negative for PE UA: negative for bacteria Continue IV Vancomycin, Caspofungin was started empirically Appreciate ID help Follow up cultures:pending May need central line changes. Lactate:1.4, Procalcitonin < 0.05 Start IV fluids ECHO: No obvious lesions . Endocarditis less likely RECENT MRSA BACTEREMIA/SEPSIS Continue IV vancomycin as above TACHYCARDIA/TACHYPNEA Likely secondary to anxiety, PTSD, Schizophrenia Monitor ELEVATED D-DIMER / RUE DVT CTA chest negative for PE. Venous Doppler:Small focus of nonocclusive thrombus seen within the R IJV Plan to repeat Doppler in 2 days to look for progression Discussed with family, regarding possible need for Heparin/Coumadin therapy: Requested to wait as they are leaning towards comfort measures MRSA Conjunctivitis/Chemosis: Continue topical vancomycin 1 drop QID for 10 days Appreciate Ophthalmology input Artificial Tear ophthalmic ointment QID to follow the vancomycin eyedrops after 3 minutes of administration ERYTHRODERMIC PSORIASIS Diagnosis made via skin biopsies per daughter. Follow up records from [facility] Appreciate Dermatology input Continue triamcinolone 0.1% ointment per dermatology Follows with Dr. Houston her primary bank consultant as an outpatient May consider starting on Cyclosporine COPD O2 dependent COPD. No apparent pneumonia on CXR Continue O2, bronchodilators DM II A1C:7.2 Hold metformin ISS, Accu checks NUTRITION High risk for aspiration PEG placed at [facility]. Continue enteral feedings via PEG when able Equipment Records Supervisor consulted SCHIZOPHRENIA / DELIRIUM / PTSD Long-term problems with recent worsening of confusion, agitation, hallucinations. Continue home meds Avoid narcotics Haloperidol PRN DVT PX: SQ heparin. CODE STATUS: DNR Discussed with Yong (Daughter) on : Would prefer to continue current management till Monday and planning to consider comfort measures on Monday when her elder sister would be able to come from [place]. DISPOSITION Discharge disposition to be determined. Follows with Dr. Kraus. . PROCEDURES: ECHO: * Normal LV chamber size and wall thickness. * Hyperdynamic LV systolic function, EF >70%. * No segmental left ventricular wall motion abnormalities are noted. * Grade I diastolic dysfunction. * Poorly visualized valvular structures, no obvious lesions visualized within the scope of this imaging modality. Procedure Details * A complete two-dimensional transthoracic echocardiogram was performed (2D, M-mode, Doppler and color flow Doppler). Left Ventricle CT chest: 1. Streak and motion artifact degraded examination. 2. There is no evidence of central pulmonary embolus in the main, lobar, or proximal segmental pulmonary arteries. 3. Emphysema. 4. Trace pleural effusions are identified. There is no airspace consolidation typical for pneumonia. Venous Doppler: No DVT within the right or left lower extremity. 1. No DVT within the left upper extremity. 2. Small focus of nonocclusive thrombus seen within the right internal jugular vein. Vital Signs: Date Time Temp Pulse Resp B/P Pulse Ox O2 Delivery O2 Flow Rate FiO2 07/18/16 16:19 37.3 116 20 121/70 95 Nasal Cannula 4.0 07/18/16 16:01 118 20 90 Nasal Cannula 4.0 07/18/16 15:14 92 Nasal Cannula 4.0 07/18/16 11:32 119 20 85 Nasal Cannula 2.0 07/18/16 10:30 39.1 104 24 07/18/16 08:30 90 Nasal Cannula 2.0 07/18/16 07:35 37.3 118 22 139/84 90 2.0 07/18/16 02:38 105 20 92 Nasal Cannula 2.0 07/18/16 00:03 37.7 105 16 145/74 92 Nasal Cannula 2.0 07/17/16 23:59 Nasal Cannula 2.0 07/17/16 18:41 37.3 116 22 168/95 90 Nasal Cannula 2.0 Lab Results: Results Past 24 Hours Test 07/17/16 18:45 07/17/16 23:58 07/18/16 05:45 07/18/16 06:01 Range/Units Random Vancomycin Level 8.0 mcg/ml Bedside Glucose 103 136 70-90 mg/dl White Blood Count 15.86 4.8-10.8 K/uL Red Blood Count 3.33 4.2-5.4 M/uL Hemoglobin 10.2 12.0-16.0 g/dL Hematocrit 32.6 37-47 % Mean Corpuscular Volume 97.9 80-100 fL Mean Corpuscular Hemoglobin 30.6 25-34 pg Mean Corpuscular Hemoglobin Concent 31.3 32-36 g/dl Platelet Count 212 130-400 K/uL Mean Platelet Volume 9.0 7.4-10.4 fL Neutrophils (%) (Auto) 74.0 % Lymphocytes (%) (Auto) 10.6 % Monocytes (%) (Auto) 12.9 % Eosinophils (%) (Auto) 1.9 % Basophils (%) (Auto) 0.2 % Neutrophils # (Auto) 11.73 1.4-6.5 K/uL Lymphocytes # (Auto) 1.68 1.2-3.4 K/uL Monocytes # (Auto) 2.05 0.11-0.59 K/uL Eosinophils # (Auto) 0.30 0-0.5 K/uL Basophils # (Auto) 0.03 0-0.2 K/uL RDW Standard Deviation 55.4 36.4-46.3 fL RDW Coefficient of Variation 15.5 11.5-14.5 % Immature Granulocyte % (Auto) 0.4 % Immature Granulocyte # (Auto) 0.07 0.00-0.02 K/uL Sodium Level 145 136-145 mmol/L Potassium Level 4.0 3.5-5.1 mmol/L Chloride Level 108 98-107 mmol/L Carbon Dioxide Level 32 21-32 mmol/L Anion Gap 5.0 3-11 mmol/L Blood Urea Nitrogen 15 7-18 mg/dl Creatinine 0.60 0.60-1.20 mg/dl Est Creatinine Clear Calc Drug Dose 74.9 ml/min Estimated GFR () 107.8 Estimated GFR (Non- 93.0 BUN/Creatinine Ratio 24.4 10-20 Random Glucose 145 70-99 mg/dl Estimated Average Glucose 160 mg/dl Hemoglobin A1c 7.2 4.5-5.6 % Calcium Level 8.3 8.5-10.1 mg/dl Magnesium Level 2.2 1.8-2.4 mg/dl Test 07/18/16 13:36 07/18/16 18:01 Range/Units Bedside Glucose 135 172 70-90 mg/dl Microbiology Results 07/18/16 Blood Culture, Received Pending 07/18/16 Blood Culture, Received Pending 07/18/16 Fungal Smear, Received Pending 07/18/16 Fungal Culture, Received Pending 07/18/16 Fungal Smear, Received Pending 07/18/16 Fungal Culture, Received Pending 07/18/16 Gram Stain, Received Pending 07/18/16 Bacterial Culture, Received Pending 07/18/16 Gram Stain, Received Pending 07/18/16 Bacterial Culture, Received Pending
[2016-07-18] MEDS: FAMOTIDINE 20 MG TAB PO SCH ×2 (08:45→20:30)
[2016-07-18] MEDS: NYSTATIN SUSP 500,000 U/5 ML UDC PO SCH ×4 (08:46→20:26)
[2016-07-18] MEDS: AMLODIPINE BESYLATE 5 MG TAB PEG SCH (08:46)
[2016-07-18] MEDS: RISPERIDONE 1 MG TAB PEG SCH ×2 (08:47→20:26)
[2016-07-18] MEDS: TRIHEXYPHENIDYL HCL 2 MG TAB PO SCH ×2 (08:47→20:26)
--- NOTE | 2016-07-18 09:50 | DIAGNOSTIC IMAGING REPORT ---
CHEST ONE VIEW PORTABLE HISTORY: Possible aspiration COMPARISON: Chest 07/17/2016. FINDINGS: The left PICC remains within the proximal SVC. The heart is top normal in size. A gastrostomy tube is partially visualized. No pneumothorax. No pleural effusions. Mild diffuse interstitial thickening remains unchanged. No new focal lung consolidations to suggest pneumonia. No evidence for pulmonary edema. IMPRESSION: No significant change compared to the prior study. No acute process. Stable diffuse interstitial thickening which is likely chronic. Electronically signed by: Ced Matute M.D. 07/18/2016 9:48 AM Dictated Date/Time: 07/18/2016 9:46 AM
[2016-07-18 10:26] LABS: ESTIMATED AVERAGE GLUCOSE 160 mg/dl; HA1C FLAG Normal (Normal)
[2016-07-18] MEDS: VANCOMYCIN INJ 1,000 MG in SODIUM CHLORIDE 0.9% 250ML 250 ML IV SCH ×2 (10:31→21:38)
[2016-07-18] MEDS: HEPARIN SOD 5000 UNIT/0.5 ML CARP SQ SCH ×2 (10:41→20:42)
--- NOTE | 2016-07-18 10:57 | Progress Note ---
Progress Note Date of Service Jul 18, 2016. Progress Note ID Consult Dictated #[id number] A/P: 1.Fever - recent MRSA BSI, infected picc line, uti less likely, skin infection with extensive rash, IFI with recent peg and entral nutrition, ? if previous tpn , intermediate card tender broad spectrum abx -Reported recent MRSA BSI, on vanco, continue and follow blood culture results -Fever and rigors on my exam, will repeat blood cultures now -Would benefit from picc removal and tip culture -Will add caspo emperically as she is high risk for invasive fungal infection -Overall prognosis seems poor -Will need echo -Will follow, thank you
[2016-07-18] MEDS: ALBUT/IPRATROP 3MG/0.5MG NEB 3 ML VIAL INH SCH ×3 (11:32→19:15)
[2016-07-18] MEDS ORDERED: DOCUSATE SODIUM/SENNA 50/8.6MG TAB PEG SCH (12:00)
[2016-07-18] MEDS ORDERED: CASPOFUNGIN INJ 70 MG in SODIUM CHLORIDE 0.9% 250ML 250 ML IV ONE (13:00)
--- NOTE | 2016-07-18 14:17 | INFECT. DISEASE CONSULTATION ---
DATE OF CONSULTATION: 07/18/2016 REQUESTING PHYSICIAN: Dr. Addison. HISTORY OF PRESENT ILLNESS: This is a 71-year-old female who was admitted yesterday after worsening weakness as well as fever. She was recently here in June and there was a concern for Gant-Oleksandr syndrome. She was evaluated by dermatology and was subsequently transferred to [facility] on the 15 of June. Prior to that, she had been on a prolonged course of amoxicillin and she does carry a reported penicillin allergy. However, no history can be obtained for the patient to verify that allergy. There was concern for Gant-Oleksandr related to penicillin and she was subsequently transferred. Per the H\T\P, biopsies were obtained while at [facility] and they were consistent with erythrodermic psoriasis and there was no evidence of Gant-Oleksandr syndrome; however, her hospital course there was complicated by a MRSA bacteremia. She did have a course of mechanical ventilation. She presents today on vancomycin. She does have a PICC line in the right upper extremity, which appears to have been there for some time; however, I cannot verify the insertion date. She did undergo upper extremity Dopplers and does have a right IJ thrombus. Her D-dimer was markedly positive. Lower extremity DVTs were unremarkable. She remains on vancomycin and is tolerating this well. She did have a fever upon arrival to the hospital yesterday and her T-max was 38. I did speak with her nurse and her most recent temperature was 39. She does appear to be having rigors on my examination. Compared to her last visit here, she has had significant deterioration. She is nonverbal. She does not respond to any verbal or tactile stimuli. I am unable to obtain any review of systems from this patient. She now is n.p.o. and has a PEG tube in place for feeding. It is unclear to me if she was previously receiving TPN. She remains on vancomycin. She did have a white blood cell count of 16 yesterday and it has improved to 15 today. She did have a CAT scan of the chest yesterday, which was negative for PE, but did show emphysematous changes. She continues to have significant dermatologic abnormalities. Infectious disease was asked to see this patient in consultation secondary to fever. Per the H\T\P, family has reported improvement in her rash. PAST MEDICAL HISTORY: Significant for COPD, dementia, type 2 diabetes, hypertension, history of latent TB which was treated, osteoporosis, Parkinson's disease, psoriatic arthritis, posttraumatic stress disorder, schizophrenia and vitamin D deficiency. PAST SURGICAL HISTORY: Significant for breast augmentation and hysterectomy. FAMILY HISTORY: Noncontributory. SOCIAL HISTORY: Significant for a history of tobacco use. There is no history of alcohol or drug use. She currently is a resident at an assisted living facility and was previously at [facility]. ALLERGIES: SHE HAS ALLERGIES REPORTED TO AMOXICILLIN, NITROFURANTOIN, RIFAMPIN AND BENADRYL. CURRENT MEDICATIONS: Include Senokot, DuoNebs, vancomycin, tube feedings, subQ heparin, amlodipine, insulin, eyedrops, Depakote, Pepcid, Risperdal, Artane, miconazole powder, Dilaudid, hydralazine, Haldol, and Tylenol. PHYSICAL EXAMINATION: VITAL SIGNS: Her current temperature is reportedly 39 degrees with the nursing. Previously, her T-max was 38, pulse 118, respiratory rate 22, blood pressure is 139/84, and oxygen saturation is 90%-92% on 2 liters nasal cannula. GENERAL: She is awake. She is nonverbal. She is not responsive. She is moaning and has labored breathing. SKIN: Has diffuse erythematous rash with desquamation of skin. HEART: Regular. I do not auscultate a murmur. HEENT: Mucous membranes are dry. LUNGS: Coarse bilaterally. ABDOMEN: Nondistended. There is no edema. EXTREMITIES: Fingers are contracted. A PEG tube is in place. There is a left upper extremity PICC line. The dressing is clean, dry and intact. Again, insertion date is unclear. LABORATORY AND IMAGING STUDIES: CBC reveals a white blood cell count of 15.8, hemoglobin 10.2, and platelets are 212. Chemistry panel reveals sodium of 145, potassium 4.0, chloride 108, bicarbonate 32, BUN 15, creatinine 0.6, and glucose is 136. LFTs are within normal limits on admission to the hospital. A lactic acid was 1.4. Urinalysis showed 5-10 WBCs with no bacteria. A random vancomycin level yesterday was 8. Blood cultures and urine cultures were obtained in the ER and are pending. A chest x-ray was performed this morning that showed no significant change when compared to previous. There are chronic interstitial changes, which are unchanged and upper extremity ultrasound on the 16th again showed no DVT in the left upper extremity and a small nonocclusive thrombus in the right IJ. Doppler studies of the lower extremity were negative. A CTA of the chest done in the ER shows no evidence of PE, emphysema, and trace effusions without consolidation. ASSESSMENT AND PLAN: 1. Fever. 2. Leukocytosis, highly concerning for ongoing infection. Her blood cultures are pending. She will continue vancomycin for her previously diagnosed methicillin-resistant Staphylococcus aureus; however, with prolonged antibiotics, peripherally inserted central catheter line and enteral feeding, certainly fungal infection should be considered. I do not know if she was previously receiving TPN. She will be started on caspofungin empirically pending the results of blood cultures. These will be repeated today. She is having chills and rigors on my examination and is reportedly febrile to 39 degrees. Certainly, there is no clot around the peripherally inserted central catheter line, but an infected peripherally inserted central catheter line is on the differential and this should be changed if able. She has had significant deterioration since she was last seen at this facility and certainly end of life goals should be discussed with family as well. We will follow along with you. Thank you for this consultation.
--- NOTE | 2016-07-18 14:44 | OPHTHALMOLOGY CONSULTATION ---
DATE OF CONSULTATION: 07/18/2016. REASON FOR CONSULTATION: Chemosis of the conjunctivae both eyes. HISTORY OF PRESENT ILLNESS: The patient is a 71-year-old female with multiple medical allergies and a history of COPD, diabetes, schizophrenia, psoriasis who was admitted from a shelter with a declining course. 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 Past ophthalmic history is unknown as the patient is nonverbal and there is no family at bedside. On examination today the patient is nonverbal. She does avoid bright lights when shined in her eyes. She has copious amounts of discharge from both eyes. She has some mild conjunctival chemosis of both eyes. Her left cornea has an old scar at approximately the 7 o'clock location between the pupil and limbus. With fluoroscein staining there was no evidence of any epithelial defect of either eye and both eyes were cultured. Iris and anterior chambers appeared normal. Pupils were small but reactive to light. She has what appears to be cataracts both eyes. She has bilateral conjunctivitis which is not impressive to me for Gant- Oleksandr syndrome involving the eyes. She does have a lot of exposure of her eyes due to the tightness of her lid skin and she seems to be lying there with her eyes open and not blinking. I have sent cultures of each eye, however, due to her recent MRSA sepsis my suspicion is high for MRSA conjunctivitis. I am starting her on topical vancomycin 25 mg per mL compounded by the pharmacy 1 drop 4 times a day to both eyes for 10 days. Also, due to her eye exposure, which may be contributing to her chemosis, I am starting her on Artificial Tear ophthalmic ointment 4 times a day to follow the vancomycin eyedrops approximately 3 minutes later. It was my pleasure to participate in the care of this patient. ALEXIS
--- NOTE | 2016-07-18 16:29 | ECHOCARDIOGRAM REPORT ---
*NOTICE TO RECEIVING REPUBLICAN AGENCY This information is strictly Confidential and protected under [place] law. [place] law prohibits you from making any further disclosure of this information unless further disclosure is expressly permitted by the written consent of the person to whom it pertains or is authorized by law. A general authorization for the release of medical or other information is not sufficient for this purpose. Hospital accepts no responsibility if the information is made available to any other person, INCLUDING THE PATIENT. Interpretation Summary * Name: CHANTALE ALMAZAN Study Date: 07/18/2016 02:06 PM BP: 139/84 mmHg * Patient Location: [facility] HR: 110 * : 1945 (M/d/yyyy) Gender: Female Height: 61 in * Age: 71 yrs Ethnicity: Weight: 137 lb * Performed By: Theresa Costa RDCS * * Reason For Study: FEVER, RECENT MRSA BACTEREMIA * BSA: 1.6 m2 * -- Conclusions -- * Normal LV chamber size and wall thickness. * Hyperdynamic LV systolic function, EF >70%. * No segmental left ventricular wall motion abnormalities are noted. * Grade I diastolic dysfunction. * Poorly visualized valvular structures, no obvious lesions visualized within the scope of this imaging modality. Procedure Details * A complete two-dimensional transthoracic echocardiogram was performed (2D, M-mode, Doppler and color flow Doppler). Left Ventricle * The left ventricle is normal in size. * There is normal left ventricular wall thickness. * Ejection Fraction = >70 %. * The left ventricle is hyperdynamic. * No segmental left ventricular wall motion abnormalities are noted. * The left ventricular wall motion is normal. Right Ventricle * The right ventricular cavity size is normal (basal dimension <4.2 cm in right ventricular apical 4-chamber view). * The right ventricular systolic function is normal as assessed by tricuspid annular plane systolic excursion (TAPSE) (normal >1.5 cm). Atria * The left atrial size is normal. * Right atrial size is normal. * No ASD detected; PFO is not assessed. Mitral Valve * The mitral valve is normal in structure and function. Tricuspid Valve * The tricuspid valve is not well visualized. * There is no tricuspid stenosis. * No tricuspid regurgitation. Aortic Valve * The aortic valve is not well visualized. * No hemodynamically significant valvular aortic stenosis. * There is no significant aortic regurgitation. Pulmonic Valve * The pulmonary valve is not well seen, but the Doppler examination is normal without significant regurgitation or stenosis. Great Vessels * The aortic root is normal size. Pericardium/Pleural * There is no pericardial effusion. Left Ventricular Diastolic Function * Grade I diastolic dysfunction, (abnormal relaxation pattern). MMode 2D Measurements and Calculations IVSd 0.88 cm IVSs 1.2 cm LVIDd 3.6 cm LVIDs 2.3 cm LVPWd 1.0 cm LVPWs 1.5 cm IVS/LVPW 0.84 FS 36.7 % EDV(Teich) 53.2 ml ESV(Teich) 17.3 ml EF(Teich) 67.5 % EDV(cubed) 45.3 ml ESV(cubed) 11.5 ml EF(cubed) 74.6 % % IVS thick 31.7 % % LVPW thick 41.1 % LV mass(C)d 100.0 grams LV mass(C)dI 62.1 grams/m\S\2 LV mass(C)s 87.7 grams LV mass(C)sI 54.5 grams/m\S\2 SV(Teich) 35.9 ml SI(Teich) 22.3 ml/m\S\2 SV(cubed) 33.8 ml SI(cubed) 21.0 ml/m\S\2 Ao root diam 2.2 cm Ao root area 3.9 cm\S\2 LA dimension 3.2 cm LA/Ao 1.4 LVAd ap4 26.3 cm\S\2 LVLd ap4 7.7 cm EDV(MOD-sp4) 75.4 ml LVAs ap4 14.1 cm\S\2 LVLs ap4 6.0 cm ESV(MOD-sp4) 28.6 ml EF(MOD-sp4) 62.1 % LVAd ap2 25.4 cm\S\2 LVLd ap2 8.2 cm EDV(MOD-sp2) 68.2 ml LVAs ap2 12.9 cm\S\2 LVLs ap2 6.5 cm ESV(MOD-sp2) 21.6 ml EF(MOD-sp2) 68.3 % SV(MOD-sp4) 46.8 ml SI(MOD-sp4) 29.1 ml/m\S\2 SV(MOD-sp2) 46.6 ml SI(MOD-sp2) 29.0 ml/m\S\2 Doppler Measurements and Calculations MV E max sammie 121.8 cm/sec MV A max sammie 142.7 cm/sec MV E/A 0.85 MV dec time 0.16 sec Ao V2 max 232.4 cm/sec Ao max PG 21.6 mmHg Ao max PG (full) 8.5 mmHg LV V1 max PG 13.1 mmHg LV V1 max 180.7 cm/sec TR max sammie 284.5 cm/sec
[2016-07-18] MEDS ORDERED: NON-FORMULARY MEDICATION OP SCH (17:00)
[2016-07-18] MEDS: ARTIFICIAL TEARS OP OINT 3.5 GM TUBE OP SCH ×2 (17:04→20:25)
[2016-07-18] MEDS: VANCOMYCIN 25MG/ML FORTIFIED OPH DROPS OPB SCH ×2 (18:02→20:25)
[2016-07-18] MEDS: SODIUM CHLORIDE 0.9% 1000ML 1,000 ML IV SCH (18:04)
--- NOTE | 2016-07-18 19:44 | Pain Management Consultation ---
Pain Management Consultation Date of Consultation Jul 18, 2016. Reason for Consultation Assistance with pain management. History Matti Hubbard ia a 71 year ol female admitted with total body rash, possibly due to Rich Oleksandr syndrome or infectious etiology. She has multiple comorbid conditions including dementia, PTSD, hypertension, COPD, diabetes mellitus and has been admitted to [facility] prior to this admission to [facility]. Consultation was requested for analgesic management for pain related to her rash. However, at the time the patient was seen this morning, she was noncommunicative and was not cooperative enough to obtain any useful history regarding the pain she may be experiencing. Therefore, the recommendations made are based on review of the EMR. Past Medical/Surgical History (1) Schizophrenia (2) Parkinson disease (3) Vitamin D deficiency (4) HTN (hypertension) (5) Osteoporosis (6) COPD (chronic obstructive pulmonary disease) (7) Diabetes mellitus (8) Dementia (9) Psoriatic arthritis (10) PTSD (post-traumatic stress disorder) (11) Latent tuberculosis (12) Hx of breast implants, bilateral (13) History of hysterectomy Social / Work History Marital Status: single Housing Status: assisted living Allergies Coded Allergies: Amoxicillin (Verified Allergy, Intermediate, RASH, 06/11/16) Nitrofurantoin (Verified Allergy, Intermediate, INCREASED SKIN REACTION, ITCHING, CHEST PAIN, WHEEZING, 05/30/16) Penicillin G (Verified Allergy, Unknown, unknown, 07/17/16) Piperacillin (Verified Allergy, Unknown, unknown, 07/17/16) Tazobactam (Verified Allergy, Unknown, unknown, 07/17/16) Rifampin (Verified Adverse Reaction, Severe, RASH, 05/30/16) as per chris and healthcare financial analyst, pt was in [facility] in 2013 for diffuse rash with skin peeling due to rifampin, was admitted in [facility] Diphenhydramine (Verified Adverse Reaction, Intermediate, ADVERSE REACTION WITH PSYCH MEDS, 05/30/16) Medications Current Inpatient Medications Medications (Trade) Dose Ordered Sig/Abelardo Route Start Time Stop Time Status Last Admin Dose Admin Ioversol (Optiray 320) 100 ml UD PRN IV 07/17/16 09:00 07/21/16 08:59 Erythromycin (Erythromycin Oph Oint) 1 appln HS OPB 07/17/16 21:00 07/27/16 20:59 07/17/16 21:03 1 APPLN Famotidine (Pepcid Tab) 20 mg BID PO 07/17/16 20:00 08/16/16 20:59 07/18/16 08:45 20 MG Albuterol/ Ipratropium (Duoneb) 3 ml Q4H PRN INH 07/17/16 17:00 08/16/16 16:59 07/18/16 02:38 3 ML Nystatin (Mycostatin Susp) 5 ml QID PO 07/17/16 17:00 07/27/16 16:59 07/18/16 17:04 5 ML Risperidone (Risperdal Tab) 2 mg BID PEG 07/17/16 20:00 08/16/16 20:59 07/18/16 08:47 2 MG Trihexyphenidyl HCl (Artane Tab) 2 mg BID PO 07/17/16 20:00 08/16/16 20:59 07/18/16 08:47 2 MG Valproic Acid (Depakene Syrup) 1,000 mg HS PEG 07/17/16 21:00 08/16/16 20:59 07/17/16 21:05 1,000 MG Artificial Tears (Artificial Tears) 2 drops Q4H PRN OPB 07/17/16 17:00 08/16/16 16:59 Miconazole Nitrate (Monistat-Derm Crm) 1 appln BID EXT 07/17/16 20:00 08/16/16 20:59 Acetaminophen (Tylenol Soln) 650 mg Q6H PRN GT 07/17/16 17:15 08/16/16 17:14 07/18/16 17:04 650 MG Haloperidol Lactate (Haldol Inj) 2.5 mg Q2H PRN IM 07/17/16 17:30 08/16/16 17:29 Vancomycin HCl (Consult) 1 ea UD PRN N/A 07/17/16 17:45 08/16/16 17:44 Amlodipine Besylate (Norvasc Tab) 5 mg DAILY PEG 07/18/16 08:00 08/17/16 08:59 07/18/16 08:46 5 MG Hydralazine HCl (HydrALAZINE INJ) 5 mg Q6H PRN IV. 07/17/16 18:15 08/16/16 18:14 Hydromorphone HCl 0.5 mg 0.5 mg Q4H PRN IV 07/17/16 19:00 07/31/16 18:59 07/18/16 15:03 0.5 MG Vancomycin HCl/ Sodium Chloride (Vancomycin Inj/ Nss 250ml) 270 ml @ 125 mls/hr Q12H IV 07/18/16 10:00 07/27/16 09:59 07/18/16 10:31 125 MLS/HR Triamcinolone Acetonide (Triamcinolone Acet 0.1% Crm) 1 appln BID EXT 07/17/16 23:30 08/16/16 23:29 07/18/16 10:31 1 APPLN Heparin Sodium (Porcine) (Heparin 10 Unit/ ml 5 ml Flush) 5 ml PRN PRN FLUSH 07/17/16 23:45 08/16/16 23:44 07/18/16 08:53 5 ML Heparin Sodium (Porcine) (Heparin Sq 5000 Unit/0.5ml) 5,000 unit Q12 SQ 07/18/16 09:00 08/17/16 08:59 07/18/16 10:41 5,000 UNIT Glucose (Glucose 40% Gel) 15-30 GRAMS 15 GRAMS... UD PRN PO 07/17/16 23:45 08/16/16 23:44 Glucose (Glucose Chew Tab) 4-8 Tablets 4 Tabl... UD PRN PO 07/17/16 23:45 08/16/16 23:44 Dextrose (Dextrose 50% 50ML Syringe) 25-50ML OF 50% DW IV FOR... UD PRN IV 07/17/16 23:45 08/16/16 23:44 Glucagon (Glucagon Inj) 1 mg UD PRN SQ 07/17/16 23:45 08/16/16 23:44 Insulin Aspart (novoLOG ASPART) SLIDING SCALE G... Q6 SC 07/18/16 06:00 08/17/16 05:59 Albuterol/ Ipratropium (Duoneb) 3 ml QIDR INH 07/18/16 12:00 08/17/16 11:59 07/18/16 16:01 3 ML Enteral Nutritional Formula 1000 ml 1,000 ml UD PEG 07/18/16 09:30 08/17/16 09:29 Caspofungin/ Sodium Chloride (Cancidas Inj/ Nss 250ml) 260 ml @ 250 mls/hr DAILY@1200 IV 07/19/16 12:00 07/20/16 11:59 Artificial Tears (Lacri-Lube Oph Oint) 1 appln QID OP 07/18/16 17:00 08/17/16 16:59 07/18/16 17:04 1 APPLN Vancomycin HCl (VANCOMYCIN 25MG/ Ml Fortified Oph Drops) 1 drops QID OPB 07/18/16 17:00 07/28/16 16:59 07/18/16 18:02 1 DROPS Senna (Senokot Syrup) 8.8 mg DAILY@1200 PEG 07/19/16 12:00 08/18/16 11:59 Docusate Sodium 50 mg 50 mg DAILY@1200 PEG 07/19/16 12:00 08/18/16 11:59 Sodium Chloride (Nss 1000ml) 1,000 ml @ 50 mls/hr Q20H IV 07/18/16 17:15 08/17/16 17:14 07/18/16 18:04 50 MLS/HR Review of Systems Unable to obtain as patient is not cooperative. Physical Exam Height & Weight: Height 5 feet, 1.00 inches. Weight 58.600 (Kilograms) 129 (Pounds) Last Vital Signs Documentation Date Time Temp Pulse Resp B/P Pulse Ox O2 Delivery O2 Flow Rate FiO2 07/18/16 16:19 37.3 116 20 121/70 95 Nasal Cannula 4.0 Exam: Ms. Matti Hubbard is noted to be lying in a semirecumbent position. She is noted to stare at the ceiling and is not responsive to verbal, tactile, or painful stimulation. She withdraws to painful stimulation. She is not communicative. She has a diffuse rash over the face, extremities and trunk. Exam was extremely limited due to her inability to cooperate. Laboratory / Imaging Results Laboratory Results (Last CBC): 07/18/16 05:45 Red Blood Count 3.33 L, Mean Corpuscular Volume 97.9, Mean Corpuscular Hemoglobin 30.6, Mean Corpuscular Hemoglobin Concent 31.3 L, Mean Platelet Volume 9.0, Neutrophils (%) (Auto) 74.0, Lymphocytes (%) (Auto) 10.6, Monocytes (%) (Auto) 12.9, Eosinophils (%) (Auto) 1.9, Basophils (%) (Auto) 0.2, Neutrophils # (Auto) 11.73 H, Lymphocytes # (Auto) 1.68, Monocytes # (Auto) 2.05 H, Eosinophils # (Auto) 0.30, Basophils # (Auto) 0.03 Assessment 1. 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 2. Leukocytosis. 3. Schizophrenia. 4. Dementia. Recommendations 1. Recommend IV hydromorphone for analgesia while patient is non cooperative and unable to verbalize or follow instructions to take po meds. Orders written. [employer] Voice Recognition This chart was completed in part utilizing [employer] Voice Recognition Software. Random word insertions, pronoun errors, and incomplete sentences are an occasional consequence of this system due to software limitations and ambient noise. Any questions or concerns about the content, text or information contained within the body of this dictation should be directly addressed to the provider for clarification.
[2016-07-18] MEDS ORDERED: HYDROmorphone HCL 2 MG TAB PO PRN (19:45)
[2016-07-18] MEDS: ERYTHROMYCIN OP OINT 5 MG/GM 3.5 GM TUBE OPB SCH (20:28)
[2016-07-18] MEDS: VALPROIC ACID SYRUP 250 MG/5 ML PEG SCH (20:30)
[2016-07-19] MEDS: HYDROmorphone INJ 0.5 MG/0.5 ML SYR IV PRN ×2 (05:51→13:54)
[2016-07-19] MEDS: ACETAMINOPHEN SOLN 650MG/20.3 ML UDC GT PRN (05:51)
[2016-07-19] MEDS: INSULIN ASPART 100 UNITS/ML 3 ML PEN SC SCH ×2 (06:00→12:00)
[2016-07-19 06:15] LABS: MEAN CELL VOLUME 99.7 fL (80-100); MEAN CORPUSCULAR HEMOGLOBIN 31.1 pg (25-34); MEAN CORPUSCULAR HGB CONC 31.1 g/dl (32-36); MEAN PLATELET VOLUME 9.2 fL (7.4-10.4); PLATELET COUNT 198 K/uL (130-400); RED BLOOD COUNT 3.51 M/uL (4.2-5.4); WHITE BLOOD COUNT 28.29 K/uL (4.8-10.8)
[2016-07-19 06:33] LABS: BASO % 0.1 %; BASO ABS # 0.03 K/uL (0-0.2); COMPLETE YES; EOS % 0.2 %; IG% 0.5 %; LYMPH % 7.6 %; LYMPH ABS # 2.16 K/uL (1.2-3.4); MONO % 10.4 %; NEUT % 81.2 %
[2016-07-19 06:41] LABS: BUN/CREATININE RATIO 20.1 (10-20); CALCIUM 8.3 mg/dl (8.5-10.1); CREATININE 0.64 mg/dl (0.60-1.20); POTASSIUM 4.1 mmol/L (3.5-5.1)
[2016-07-19 07:18] VITALS: PULSE 104; O2SAT 95
[2016-07-19] MEDS: ALBUT/IPRATROP 3MG/0.5MG NEB 3 ML VIAL INH SCH ×2 (07:18→12:20)
[2016-07-19] MEDS: MICONAZOLE NITRATE 2% CR 30 GM TUBE EXT SCH (07:22)
[2016-07-19 07:23] VITALS: BP 160/90; PULSE 105; TEMP 37.9; O2SAT 95
[2016-07-19] MEDS: TRIAMCINOLONE ACET 0.1% CR 80 GM TUBE EXT SCH (07:31)
[2016-07-19] MEDS: ARTIFICIAL TEARS OP OINT 3.5 GM TUBE OP SCH ×4 (07:33→20:39)
[2016-07-19] MEDS: VANCOMYCIN 25MG/ML FORTIFIED OPH DROPS OPB SCH ×4 (07:34→20:41)
[2016-07-19] MEDS: RISPERIDONE 1 MG TAB PEG SCH (07:34)
[2016-07-19] MEDS: AMLODIPINE BESYLATE 5 MG TAB PEG SCH (07:34)
[2016-07-19] MEDS: NYSTATIN SUSP 500,000 U/5 ML UDC PO SCH ×2 (07:35→12:38)
[2016-07-19] MEDS: TRIHEXYPHENIDYL HCL 2 MG TAB PO SCH (07:35)
[2016-07-19] MEDS: FAMOTIDINE 20 MG TAB PO SCH (07:35)
[2016-07-19] MEDS: HEPARIN SOD 5000 UNIT/0.5 ML CARP SQ SCH (07:39)
[2016-07-19] MEDS ORDERED: VANCOMYCIN TROUGH ONE (09:30)
[2016-07-19] MEDS: VANCOMYCIN INJ 1,000 MG in SODIUM CHLORIDE 0.9% 250ML 250 ML IV SCH (10:00)
--- NOTE | 2016-07-19 11:08 | Progress Note ---
Subjective Date of Service: Jul 19, 2016. Subjective Pt evaluation today including: physical exam, chart review, lab review pt non verbal, moaning, unchanged from yesterday. no rigors on exam today, fevers overnight, tmax 39.1, had rigors at that time, blood cultures obtained, pending. initial blood cultures negative to date. urine culture with reina. eye cultue with staph species. tolerating abx, caspo added yesterday. echo done , negative for veg but limited. wbc increased today to 28. uto ros. Problem List Medical Problems: (1) Aggressive behavior Status: Acute (2) Agitation Status: Acute (3) Altered mental status Status: Acute (4) Hyponatremia Status: Acute (5) Leukocytosis Status: Acute (6) Leukocytosis Status: Acute (7) Pulmonary edema Status: Acute (8) Tachycardia Status: Acute (9) Tachycardia Status: Acute (10) Tachypnea Status: Acute Objective Vital Signs Date Time Temp Pulse Resp B/P Pulse Ox O2 Delivery O2 Flow Rate FiO2 07/19/16 08:00 Nasal Cannula 4.0 07/19/16 07:23 37.9 105 19 160/90 95 Nasal Cannula 5.0 07/19/16 07:18 104 20 95 Nasal Cannula 4.0 07/19/16 00:25 Nasal Cannula 4.0 07/18/16 23:54 36.9 101 16 106/66 93 Nasal Cannula 4.0 07/18/16 20:10 Nasal Cannula 4.0 07/18/16 19:15 100 20 93 Nasal Cannula 4.0 07/18/16 16:19 37.3 116 20 121/70 95 Nasal Cannula 4.0 07/18/16 16:01 118 20 90 Nasal Cannula 4.0 07/18/16 15:14 92 Nasal Cannula 4.0 07/18/16 11:32 119 20 85 Nasal Cannula 2.0 Physical Exam General Appearance: + pertinent finding (nonverbal, moaning, unable to assess if in pain) Eyes: + abnormal sclerae exam, + pertinent finding (swelling, drainage) ENT: + muffled/hoarse voice, + pertinent finding (mmd) Respiratory/Chest: + decreased breath sounds, + rhonchi Cardiovascular: regular rate, rhythm, no edema Abdomen: soft Extremities: no pedal edema Skin: + rash, + pertinent finding (diffuse ertyhema, peeling skin) Laboratory Results Item Value Date Time Urine Culture - Preliminary Resulted 07/17/16 0800 Urine,Catheterized Reina Albicans Urine Culture - Final Complete 07/17/16 0800 Urine,Catheterized Reina Albicans Gram Stain - Final Resulted 07/18/16 1345 Eye Left Blood Culture - Preliminary Resulted 07/17/16 0800 Blood NO GROWTH TO DATE. Blood Culture - Preliminary Resulted 07/17/16 0755 Blood NO GROWTH TO DATE. Last 24 Hours Test 07/18/16 13:36 07/18/16 18:01 07/18/16 23:54 07/19/16 05:50 Bedside Glucose 135 mg/dl 172 mg/dl 101 mg/dl White Blood Count 28.29 K/uL Red Blood Count 3.51 M/uL Hemoglobin 10.9 g/dL Hematocrit 35.0 % Mean Corpuscular Volume 99.7 fL Mean Corpuscular Hemoglobin 31.1 pg Mean Corpuscular Hemoglobin Concent 31.1 g/dl Platelet Count 198 K/uL Mean Platelet Volume 9.2 fL Neutrophils (%) (Auto) 81.2 % Lymphocytes (%) (Auto) 7.6 % Monocytes (%) (Auto) 10.4 % Eosinophils (%) (Auto) 0.2 % Basophils (%) (Auto) 0.1 % Neutrophils # (Auto) 22.95 K/uL Lymphocytes # (Auto) 2.16 K/uL Monocytes # (Auto) 2.93 K/uL Eosinophils # (Auto) 0.07 K/uL Basophils # (Auto) 0.03 K/uL RDW Standard Deviation 56.8 fL RDW Coefficient of Variation 15.8 % Immature Granulocyte % (Auto) 0.5 % Immature Granulocyte # (Auto) 0.15 K/uL Sodium Level 148 mmol/L Potassium Level 4.1 mmol/L Chloride Level 112 mmol/L Carbon Dioxide Level 28 mmol/L Anion Gap 8.0 mmol/L Blood Urea Nitrogen 13 mg/dl Creatinine 0.64 mg/dl Est Creatinine Clear Calc Drug Dose 68.9 ml/min Estimated GFR () 105.5 Estimated GFR (Non- 91.0 BUN/Creatinine Ratio 20.1 Random Glucose 107 mg/dl Calcium Level 8.3 mg/dl Test 07/19/16 06:02 07/19/16 09:50 Bedside Glucose 109 mg/dl Vancomycin Level Trough 16.5 mcg/ml Assessment and Plan (1) Leukocytosis Assessment & Plan: increased today, ? bsi, initial cultures negative, repeat yesterday, echo negative. If able would remove picc and culture tiip. will continue to follow blood cultures. (2) Fever
[2016-07-19] MEDS ORDERED: CASPOFUNGIN INJ 50 MG in SODIUM CHLORIDE 0.9% 250ML 250 ML IV SCH (12:00)
[2016-07-19] MEDS ORDERED: DOCUSATE SODIUM SYRUP 20MG/5ML 480ML PEG SCH (12:00)
[2016-07-19] MEDS ORDERED: DOCUSATE SODIUM SYRUP 20MG/5ML 480ML PO SCH (12:00)
[2016-07-19] MEDS ORDERED: SENNA 8.8 MG/5 ML UDP PEG SCH (12:00)
[2016-07-19] MEDS ORDERED: SENNA 8.8 MG/5 ML UDP PO SCH (12:00)
[2016-07-19 12:20] VITALS: PULSE 100; O2SAT 94
[2016-07-19] MEDS: SODIUM CHLORIDE 0.9% 1000ML 1,000 ML IV SCH ×2 (12:38→20:50)
--- NOTE | 2016-07-19 13:05 | Pharmacy Progress Note ---
Pharmacy Antibiotic Prog Note Date of Service Jul 19, 2016. Subjective The patient is currently receiving Vancomycin 1000 mg IV every 12 hours. The patient is currently on day # 3 of antibiotic IV therapy. Objective Height (Feet): 5 Height (Inches): 1.00 Weight (Kilograms): 59.800 Levels: Item Value Date Time Vancomycin Level Trough 16.5 mcg/ml 07/19/16 0950 Lab Results (24hrs): Laboratory Tests Test 07/19/16 05:50 BUN/Creatinine Ratio 20.1 Blood Urea Nitrogen 13 mg/dl Creatinine 0.64 mg/dl White Blood Count 28.29 K/uL Red Blood Count 3.51 M/uL Hemoglobin 10.9 g/dL Hematocrit 35.0 % Mean Corpuscular Volume 99.7 fL Mean Corpuscular Hemoglobin 31.1 pg Mean Corpuscular Hemoglobin Concent 31.1 g/dl Platelet Count 198 K/uL Mean Platelet Volume 9.2 fL Neutrophils (%) (Auto) 81.2 % Lymphocytes (%) (Auto) 7.6 % Monocytes (%) (Auto) 10.4 % Eosinophils (%) (Auto) 0.2 % Basophils (%) (Auto) 0.1 % Neutrophils # (Auto) 22.95 K/uL Lymphocytes # (Auto) 2.16 K/uL Monocytes # (Auto) 2.93 K/uL Eosinophils # (Auto) 0.07 K/uL Basophils # (Auto) 0.03 K/uL Micro Results: Item Value Date Time Fungal Smear - Final Resulted 07/18/16 1345 Eye Right Fungal Smear - Final Resulted 07/18/16 1345 Eye Left Gram Stain - Final Resulted 07/18/16 1345 Eye Right Gram Stain - Final Resulted 07/18/16 1345 Eye Left Blood Culture Received 07/18/16 1142 Blood Pending Blood Culture Received 07/18/16 1130 Blood Pending Urine Culture - Final Complete 07/17/16 0800 Urine,Catheterized Reina Albicans Blood Culture - Preliminary Resulted 07/17/16 0800 Blood NO GROWTH TO DATE. Blood Culture - Preliminary Resulted 07/17/16 0755 Blood NO GROWTH TO DATE. Assessment & Plan * 71 yo female admitted with C.albicans in the urine and positive culture of eye tissue for Staph species. ID is consulted. Dr. Kearney initiated Caspofungin therapy today. Vancomycin trough level this morning was therapeutic at 16.5 mcg/ml. Will plan to continue Vancomycin 1gm IV [id number] at this point. Will obtain another trough level on 07/21/16 prior to the 1000 dose. Pharmacy will continue to follow and will adjust dose/frequency as necessary. Thank you
[2016-07-19] MEDS ORDERED: LORAZEPAM 2 MG/ML 1 ML VIAL IV PRN (13:45)
[2016-07-19] MEDS ORDERED: LORAZEPAM 2 MG/ML 1 ML VIAL ONE (13:53)
--- NOTE | 2016-07-19 13:59 | Progress Note ---
Internal Med Progress Note Date of Service: Jul 19, 2016. Provider Documentation: SUBJECTIVE: The patient was sen and examined Remains critical ill In minimal pain at rest No acute distress OBJECTIVE: Vital Signs-as noted below Exam: General-Critical but not in any cute distress Has exfoliative dermatitis all over with multiple open wounds all over Eyes-normal ENT-Normal Neck-Supple Lungs-Transmitted sound all over Heart-Regular Abdomen-Soft ,tender Extremities-Bandaged Neuro-AA Pleasantly confused Lab data as noted below. ASSESSMENT & PLAN: FEVER/LEUKOCYTOSIS with Ongoing infection Likely secondary to ongoing infection through the generalized open wounds Recent MRSA sepsis diagnosed at [facility]. ID is on Board and has been on IV Vanco and Caspofungin CT: No pulmonary infiltrates CTA: negative for PE UA: negative for bacteria Condition is deteriorating and no signs of improvement ERYTHRODERMIC PSORIASIS/Exfoliative dermatitis Will open wounds and discharges Diagnosis made via skin biopsies per daughter. Follow up records from [facility] Appreciate Dermatology input Continue triamcinolone 0.1% ointment per dermatology Follows with Dr. Houston her primary film replacement orderer as an outpatient Condition is getting worse RECENT MRSA BACTEREMIA/SEPSIS MRSA Conjunctivitis/Chemosis: Continue topical vancomycin 1 drop QID for 10 days Continue IV vancomycin as above Recent Blood cultures pending ELEVATED D-DIMER / RUE DVT CTA chest negative for PE. Venous Doppler:Small focus of nonocclusive thrombus seen within the R IJV Plan to repeat Doppler in 2 days to look for progression Discussed with family, regarding possible need for Heparin/Coumadin therapy: Requested to wait as they are leaning towards comfort measures Tachycardia ECHO: No obvious lesions . Endocarditis less likely Appreciate Ophthalmology input Artificial Tear ophthalmic ointment QID to follow the vancomycin eyedrops after 3 minutes of administration COPD O2 dependent COPD. No apparent pneumonia on CXR Continue O2, bronchodilators DM II A1C:7.2 Hold metformin ISS, Accu checks D/C ACHS blood sugar and SQ insulin NUTRITION No oral food SCHIZOPHRENIA / DELIRIUM / PTSD Long-term problems with recent worsening of confusion, agitation, hallucinations. Continue home meds Avoid narcotics Haloperidol PRN DVT PX: SQ heparin. CODE STATUS: DNR Discussed with Yong (Daughter) on : Would prefer to continue current management till Monday and planning to consider comfort measures on Monday when her elder sister would be able to come from [place]. DISPOSITION Discharge disposition to be determined. Follows with Dr. Kraus. . Discussed with the daughters including POA Will start IV medications only-Morphine and Ativan ,nebs and drops Stop all labs and dressing Likely to go for Hospice care from tomorrow Vital Signs: Date Time Temp Pulse Resp B/P Pulse Ox O2 Delivery O2 Flow Rate FiO2 07/19/16 12:20 100 20 94 Nasal Cannula 4.0 07/19/16 08:00 Nasal Cannula 4.0 07/19/16 07:23 37.9 105 19 160/90 95 Nasal Cannula 5.0 07/19/16 07:18 104 20 95 Nasal Cannula 4.0 07/19/16 00:25 Nasal Cannula 4.0 07/18/16 23:54 36.9 101 16 106/66 93 Nasal Cannula 4.0 07/18/16 20:10 Nasal Cannula 4.0 07/18/16 19:15 100 20 93 Nasal Cannula 4.0 07/18/16 16:19 37.3 116 20 121/70 95 Nasal Cannula 4.0 07/18/16 16:01 118 20 90 Nasal Cannula 4.0 07/18/16 15:14 92 Nasal Cannula 4.0 Lab Results: Results Past 24 Hours Test 07/18/16 18:01 07/18/16 23:54 07/19/16 05:50 07/19/16 06:02 Range/Units Bedside Glucose 172 101 109 70-90 mg/dl White Blood Count 28.29 4.8-10.8 K/uL Red Blood Count 3.51 4.2-5.4 M/uL Hemoglobin 10.9 12.0-16.0 g/dL Hematocrit 35.0 37-47 % Mean Corpuscular Volume 99.7 80-100 fL Mean Corpuscular Hemoglobin 31.1 25-34 pg Mean Corpuscular Hemoglobin Concent 31.1 32-36 g/dl Platelet Count 198 130-400 K/uL Mean Platelet Volume 9.2 7.4-10.4 fL Neutrophils (%) (Auto) 81.2 % Lymphocytes (%) (Auto) 7.6 % Monocytes (%) (Auto) 10.4 % Eosinophils (%) (Auto) 0.2 % Basophils (%) (Auto) 0.1 % Neutrophils # (Auto) 22.95 1.4-6.5 K/uL Lymphocytes # (Auto) 2.16 1.2-3.4 K/uL Monocytes # (Auto) 2.93 0.11-0.59 K/uL Eosinophils # (Auto) 0.07 0-0.5 K/uL Basophils # (Auto) 0.03 0-0.2 K/uL RDW Standard Deviation 56.8 36.4-46.3 fL RDW Coefficient of Variation 15.8 11.5-14.5 % Immature Granulocyte % (Auto) 0.5 % Immature Granulocyte # (Auto) 0.15 0.00-0.02 K/uL Sodium Level 148 136-145 mmol/L Potassium Level 4.1 3.5-5.1 mmol/L Chloride Level 112 98-107 mmol/L Carbon Dioxide Level 28 21-32 mmol/L Anion Gap 8.0 3-11 mmol/L Blood Urea Nitrogen 13 7-18 mg/dl Creatinine 0.64 0.60-1.20 mg/dl Est Creatinine Clear Calc Drug Dose 68.9 ml/min Estimated GFR () 105.5 Estimated GFR (Non- 91.0 BUN/Creatinine Ratio 20.1 10-20 Random Glucose 107 70-99 mg/dl Calcium Level 8.3 8.5-10.1 mg/dl Test 07/19/16 09:50 07/19/16 12:31 Range/Units Vancomycin Level Trough 16.5 SEE COMMENT mcg/ml Bedside Glucose 118 70-90 mg/dl Microbiology Results 07/18/16 Fungal Smear - Final, Resulted 07/18/16 Fungal Culture, Resulted Pending 07/18/16 Fungal Smear - Final, Resulted 07/18/16 Fungal Culture, Resulted Pending 07/18/16 Gram Stain - Final, Resulted 07/18/16 Bacterial Culture - Preliminary, Resulted Gram Positive Cocci 07/18/16 Gram Stain - Final, Resulted 07/18/16 Bacterial Culture - Preliminary, Resulted Staph Species
[2016-07-19] MEDS: ALBUT/IPRATROP 3MG/0.5MG NEB 3 ML VIAL INH PRN (14:51)
[2016-07-19 14:52] VITALS: PULSE 122; O2SAT 92
[2016-07-19 15:26] VITALS: BP 131/67; PULSE 118; TEMP 38.9; O2SAT 93
[2016-07-19] MEDS: ERYTHROMYCIN OP OINT 5 MG/GM 3.5 GM TUBE OPB SCH (20:40)
[2016-07-20] MEDS: HYDROmorphone INJ 0.5 MG/0.5 ML SYR IV PRN ×3 (04:23→20:07)
[2016-07-20] MEDS: LORAZEPAM INJ 0.25 MG in SYRINGE 0.125 ML IV PRN ×2 (08:14→21:47)
[2016-07-20] MEDS: ARTIFICIAL TEARS OP OINT 3.5 GM TUBE OP SCH ×4 (08:14→19:56)
[2016-07-20] MEDS: VANCOMYCIN 25MG/ML FORTIFIED OPH DROPS OPB SCH ×4 (08:15→19:56)
[2016-07-20] MEDS: SODIUM CHLORIDE 0.9% 1000ML 1,000 ML IV SCH (10:18)
--- NOTE | 2016-07-20 12:07 | Progress Note ---
Internal Med Progress Note Date of Service: Jul 20, 2016. Provider Documentation: SUBJECTIVE: The patient was sen and examined Remains critical but stable In minimal pain at rest No acute distress OBJECTIVE: Vital Signs-as noted below Exam: General-Critical but not in any acute distress Has exfoliative dermatitis all over with multiple open wounds all over Eyes-Closed ENT-Normal Neck-Supple Lungs-Transmitted sound all over with bibasilar rales Heart-Regular Abdomen-Soft ,tender,PEG tube in situ Extremities-Bandaged Neuro-AA Pleasantly confused Has generalized exfoliative dermatitis with multiple skin ulcers Lab data as noted below. ASSESSMENT & PLAN: FEVER/LEUKOCYTOSIS with Ongoing infection Likely secondary to ongoing infection through the generalized open wounds Recent MRSA sepsis diagnosed at [facility]. ID is on Board and has been on IV Vanco and Caspofungin CT: No pulmonary infiltrates CTA: negative for PE UA: negative for bacteria Condition is deteriorating and no signs of improvement Remains critical Patient has been on Comfort care since yesterday ERYTHRODERMIC PSORIASIS/Exfoliative dermatitis Will open wounds and discharges Diagnosis made via skin biopsies per daughter. Follow up records from [facility] Appreciate Dermatology input Continue triamcinolone 0.1% ointment per dermatology Follows with Dr. Houston her primary traveling inventory associate as an outpatient Condition is getting worse Discussed with Public Interviewer-no further treatment at this time RECENT MRSA BACTEREMIA/SEPSIS MRSA Conjunctivitis/Chemosis: Continue topical vancomycin 1 drop QID for 10 days Continue IV vancomycin as above Recent Blood cultures pending Antibiotics were stopped yesterday as per request from the Daughter Patient has been on comfort care only ELEVATED D-DIMER / RUE DVT CTA chest negative for PE. Venous Doppler:Small focus of nonocclusive thrombus seen within the R IJV Plan to repeat Doppler in 2 days to look for progression Discussed with family, regarding possible need for Heparin/Coumadin therapy: Requested to wait as they are leaning towards comfort measures Tachycardia ECHO: No obvious lesions . Endocarditis less likely Appreciate Ophthalmology input Artificial Tear ophthalmic ointment QID to follow the vancomycin eyedrops after 3 minutes of administration COPD O2 dependent COPD. No apparent pneumonia on CXR Continue O2, bronchodilators DM II A1C:7.2 Hold metformin ISS, Accu checks D/C ACHS blood sugar and SQ insulin NUTRITION No oral food SCHIZOPHRENIA / DELIRIUM / PTSD Long-term problems with recent worsening of confusion, agitation, hallucinations. Continue home meds Avoid narcotics Haloperidol PRN DVT PX: SQ heparin. CODE STATUS: DNR Discussed with Yong (Daughter) on : Would prefer to continue current management till Monday and planning to consider comfort measures on Monday when her elder sister would be able to come from [place]. DISPOSITION Discharge disposition to be determined. Follows with Dr. Kraus. . Discussed with the daughters including POA Will start IV medications only-Morphine and Ativan ,nebs and drops Stop all labs and dressing For comfort care only Very Poor prognosis Vital Signs: Date Time Temp Pulse Resp B/P Pulse Ox O2 Delivery O2 Flow Rate FiO2 07/20/16 08:30 Nasal Cannula 4.0 07/20/16 00:00 Nasal Cannula 4.0 07/19/16 20:00 Nasal Cannula 4.0 07/19/16 16:00 Nasal Cannula 4.0 07/19/16 15:26 38.9 118 24 131/67 93 Nasal Cannula 5.0 07/19/16 14:52 122 20 92 Nasal Cannula 4.0 07/19/16 12:20 100 20 94 Nasal Cannula 4.0 Lab Results: Results Past 24 Hours Test 07/19/16 12:31 Range/Units Bedside Glucose 118 70-90 mg/dl
[2016-07-20] MEDS ORDERED: SCOPOLAMINE 1.5 MG TDSY TD SCH (16:00)
[2016-07-20] MEDS ORDERED: NURSING VERBAL MED ORDER ONE (16:45)
[2016-07-20] MEDS: ERYTHROMYCIN OP OINT 5 MG/GM 3.5 GM TUBE OPB SCH (19:56)
[2016-07-21] MEDS: CHECK SCOPOLAMINE PATCH PLACEMENT SCH ×4 (00:04→23:43)
[2016-07-21] MEDS: HYDROmorphone INJ 0.5 MG/0.5 ML SYR IV PRN (05:35)
[2016-07-21] MEDS: VANCOMYCIN 25MG/ML FORTIFIED OPH DROPS OPB SCH ×2 (08:00→11:35)
[2016-07-21] MEDS: ARTIFICIAL TEARS OP OINT 3.5 GM TUBE OP SCH ×2 (08:00→11:35)
--- NOTE | 2016-07-21 13:37 | Palliative Care Consultation ---
Consultation Date of Consultation: Jul 21, 2016. Requesting Physician: Dr. Carrero Attending Physician: Dr. Carrero Reason for Consultation: Possible GIP hospice, comfort care History of Present Illness This 71 year old female patient presented to the ED from [facility] with tachycardia and tachypnea. History obtained from record. Apparently the patient was at [facility] following hospitalization at [facility] for a widespread erythematous rash thought to possibly be from continued Augmentin use. The daughter said the biopsies were consistent with erythrodermic psoriasis. Patient also has significant history of dementia, PTSD , COPD, schizophrenia and others listed below. She resides at [facility] for those with mental health issues. At [place], patient's hospital stay was complicated by MRSA bacteremia, went into respiratory failure and required intubation. She has since been declining and becoming progressively weaker per the daughter. Here at [facility], no evidence of PE or pneumonia to cause tachycardia- ?anxiety, schizophrenia, or discomfort. IV vancomycin therapy continued via PICC line. Patient's condition has apparently continued to decline. She already had a PEG tube for feedings, but the feedings have been stopped and patient was made comfort measures only. All medications unrelated to comfort were discontinued. Palliative care consulted for possible GIP hospice. I met with the patient in room 409. She is awake, restless in the bed, and mumbling incomprehensible words. Patient speaks primarily Setswana, but she did say "yes," when I asked if she was in pain. She could not tell me where the pain was. She was smiling and laughing, did not seem to be in distress. Has had 1.5mg IV dilaudid (ordered 0.5mg Q2h PRN while awake) and 0.25mg IV lorazepam in last 24 hours. She appears awake enough to be able to try PO meds/sips and comfort feeds. Past Medical/Surgical History Medical History: COPD Dementia Diabetes mellitus HTN (hypertension) Latent tuberculosis- treated Osteoporosis Parkinson disease Psoriatic arthritis PTSD (post-traumatic stress disorder) Schizophrenia Vitamin D deficiency Surgical History: Hysterectomy Bilateral breast implants Social History Smoking Status: Former Smoker History of Alcohol Use: No Marital Status: single Housing Status: assisted living Review of Systems unable to obtain Allergies Coded Allergies: Amoxicillin (Verified Allergy, Intermediate, RASH, 06/11/16) Nitrofurantoin (Verified Allergy, Intermediate, INCREASED SKIN REACTION, ITCHING, CHEST PAIN, WHEEZING, 2/27/17) Penicillin G (Verified Allergy, Unknown, unknown, 07/17/16) Piperacillin (Verified Allergy, Unknown, unknown, 07/17/16) Tazobactam (Verified Allergy, Unknown, unknown, 07/17/16) Rifampin (Verified Adverse Reaction, Severe, RASH, 05/30/16) as per chris and acute care nurse practitioner, pt was in [facility] in 2013 for diffuse rash with skin peeling due to rifampin, was admitted in [facility] Diphenhydramine (Verified Adverse Reaction, Intermediate, ADVERSE REACTION WITH PSYCH MEDS, 05/30/16) Medications Current Inpatient Medications Medications (Trade) Dose Ordered Sig/Abelardo Route Start Time Stop Time Status Last Admin Dose Admin Erythromycin (Erythromycin Oph Oint) 1 appln HS OPB 07/17/16 21:00 07/27/16 20:59 07/20/16 19:56 1 APPLN Albuterol/ Ipratropium (Duoneb) 3 ml Q4H PRN INH 07/17/16 17:00 08/16/16 16:59 07/19/16 14:51 3 ML Artificial Tears (Artificial Tears) 2 drops Q4H PRN OPB 07/17/16 17:00 08/16/16 16:59 Heparin Sodium (Porcine) (Heparin 10 Unit/ ml 5 ml Flush) 5 ml PRN PRN FLUSH 07/17/16 23:45 08/16/16 23:44 07/18/16 08:53 5 ML Artificial Tears (Lacri-Lube Oph Oint) 1 appln QID OP 07/18/16 17:00 08/17/16 16:59 07/20/16 19:56 1 APPLN Vancomycin HCl (VANCOMYCIN 25MG/ Ml Fortified Oph Drops) 1 drops QID OPB 07/18/16 17:00 07/28/16 16:59 07/20/16 19:56 1 DROPS Hydromorphone HCl (Dilaudid Inj) 0.5 mg Q2HWA PRN IV 07/18/16 20:00 08/01/16 19:59 07/21/16 05:35 0.5 MG Hydromorphone HCl (Dilaudid Tab) 2 mg Q3HWA PRN PO 07/18/16 19:45 08/01/16 19:44 07/19/16 07:45 2 MG Lorazepam 0.25 mg 0.25 mg Q2H PRN IV 07/19/16 13:45 08/18/16 13:44 Lorazepam/Syringe (Ativan Inj/ Syringe) 0.25 ml @ 1 mls/min Q2H PRN IV 07/19/16 14:00 08/18/16 13:59 07/20/16 21:47 1 MLS/MIN Scopolamine (Transderm-Scop Patch) 1.5 mg Q3D@1600 TD 07/20/16 16:00 08/19/16 15:59 07/20/16 16:00 1.5 MG Miscellaneous (Remove Transderm-Scop Patch) 1 ea Q3D@1600 N/A 07/23/16 16:00 08/22/16 15:59 Miscellaneous Information (Check Scopolamine Patch Placement) 1 ea QS N/A 07/21/16 00:00 08/20/16 00:00 07/21/16 08:05 1 EA Physical Exam Date Time Temp Pulse Resp B/P Pulse Ox O2 Delivery O2 Flow Rate FiO2 07/21/16 08:00 Nasal Cannula 4.0 07/21/16 00:28 Nasal Cannula 4.0 07/20/16 16:00 Nasal Cannula 4.0 General Appearance: no apparent distress ENT: hearing grossly normal Neck: supple, no JVD Respiratory: no respiratory distress, no accessory muscle use, + decreased breath sounds Cardiovascular: regular rate, rhythm, no edema, + normal peripheral pulses Abdomen: normal bowel sounds, non tender, soft Skin: + rash (side spread erythema and peeling skin) Assessment & Plan Palliative Performance Scale: 20 % Problem list: Altered mental status Weakness/ambulatory dysfunction NPO status Recent MRSA bacteremia Erythrodermic psoriasis COPD, PTSD, dementia Goal of care (Z51.5) Palliative care plan: discussed with Dr. Carrero -Recommend changed IV Dilaudid to Roxanol 5mg Q2h PO PRN pain or SOB -Change Ativan to 0.5mg SL tab Q6h PRN instead of IV. -Continue scopolamine patch. -Allow trial of sips/comfort feeds as tolerated if okay with daughter. -I do not see any aggressive symptom management which would require GIP hospice. I do not think she is eligible at this time. PO medications should be tried and see how patient does. Will likely need SNF placement, can have hospice come and see her at a facility. Thank you kindly for this consult. Addendum 1400: Went to unit to speak with patient's family. Spoke with primary RN outside of room. Dr. Carrero already met with patient's family. Apparently the patient continued to decline today and the family is declining moving her out of the hospital and the patient will be staying here. I did not enter the room at that time.
[2016-07-21] MEDS ORDERED: HYDROmorphone INJ 2 MG/ML SYR/VIAL IV STA (13:56)
[2016-07-21] MEDS ORDERED: SODIUM CHLORIDE 0.9% 1000ML 1,000 ML IV SCH (13:56)
[2016-07-21] MEDS ORDERED: HYDROmorphone HCL 0.5MG/ML 50 ML CASSETTE IV PRN (14:00)
[2016-07-21] MEDS ORDERED: NALOXONE HCL 0.4 MG/1 ML VIAL/CARP IV PRN (14:00)
[2016-07-21] MEDS: HYDROmorphone/NSS 100MG/100ML 100 ML IV SCH (14:53)
--- NOTE | 2016-07-21 15:57 | Progress Note ---
Internal Med Progress Note Date of Service: Jul 21, 2016. 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 ASSESSMENT & PLAN: Critically ill and has been on Comfort care Has had a long discussion with the Daughters All in agreement that she will be better off with comfort care only Dilaudid Drip started Will keep her comfortable Significant issues since admission as mentioned below:: FEVER/LEUKOCYTOSIS with Ongoing infection Likely secondary to ongoing infection through the generalized open wounds Recent MRSA sepsis diagnosed at [facility]. ID is on Board and has been on IV Vanco and Caspofungin CT: No pulmonary infiltrates CTA: negative for PE UA: negative for bacteria Condition is deteriorating and no signs of improvement Remains critical Patient has been on Comfort care since yesterday ERYTHRODERMIC PSORIASIS/Exfoliative dermatitis Will open wounds and discharges Diagnosis made via skin biopsies per daughter. Follow up records from [facility] Appreciate Dermatology input Continue triamcinolone 0.1% ointment per dermatology Follows with Dr. Houston her primary career services assistant as an outpatient Condition is getting worse Discussed with Clerk General Office-no further treatment at this time RECENT MRSA BACTEREMIA/SEPSIS MRSA Conjunctivitis/Chemosis: Continue topical vancomycin 1 drop QID for 10 days Continue IV vancomycin as above Recent Blood cultures pending Antibiotics were stopped yesterday as per request from the Daughter Patient has been on comfort care only ELEVATED D-DIMER / RUE DVT CTA chest negative for PE. Venous Doppler:Small focus of nonocclusive thrombus seen within the R IJV Plan to repeat Doppler in 2 days to look for progression Discussed with family, regarding possible need for Heparin/Coumadin therapy: Requested to wait as they are leaning towards comfort measures Tachycardia ECHO: No obvious lesions . Endocarditis less likely Appreciate Ophthalmology input Artificial Tear ophthalmic ointment QID to follow the vancomycin eyedrops after 3 minutes of administration COPD O2 dependent COPD. No apparent pneumonia on CXR Continue O2, bronchodilators DM II A1C:7.2 Hold metformin ISS, Accu checks D/C ACHS blood sugar and SQ insulin NUTRITION No oral food SCHIZOPHRENIA / DELIRIUM / PTSD Long-term problems with recent worsening of confusion, agitation, hallucinations. Continue home meds Avoid narcotics Haloperidol PRN DVT PX: SQ heparin. CODE STATUS: DNR Discussed with Yong (Daughter) on : Would prefer to continue current management till Monday and planning to consider comfort measures on Monday when her elder sister would be able to come from [place]. DISPOSITION Discharge disposition to be determined. Follows with Dr. Kraus. . Discussed with the daughters including POA Will start IV medications only-Morphine and Ativan ,nebs and drops Stop all labs and dressing For comfort care only Very Poor prognosis Vital Signs: Date Time Temp Pulse Resp B/P Pulse Ox O2 Delivery O2 Flow Rate FiO2 07/21/16 08:00 Nasal Cannula 4.0 07/21/16 00:28 Nasal Cannula 4.0 07/20/16 16:00 Nasal Cannula 4.0
[2016-07-22] MEDS: HYDROmorphone/NSS 100MG/100ML 100 ML IV SCH ×3 (07:17→08:25)
[2016-07-22] MEDS ORDERED: NURSING DECISION MEDICATION ORDER SCH ×2 (07:30→08:30)
[2016-07-22] MEDS: CHECK SCOPOLAMINE PATCH PLACEMENT SCH (08:07)
[2016-07-22] MEDS ORDERED: NURSING VERBAL MED ORDER ONE (08:30)
--- NOTE | 2016-07-22 10:31 | Progress Note ---
Internal Med Progress Note Date of Service: Jul 22, 2016. 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 ASSESSMENT & PLAN: Critically ill and has been on Comfort care Has had a long discussion with the Daughters All in agreement that she will be better off with comfort care only Dilaudid Drip started Will keep her comfortable Pain medication increased Significant issues since admission as mentioned below:: FEVER/LEUKOCYTOSIS with Ongoing infection-Sepsis Likely secondary to ongoing infection through the generalized open wounds Recent MRSA sepsis diagnosed at [facility]. ID is on Board and has been on IV Vanco and Caspofungin CT: No pulmonary infiltrates CTA: negative for PE UA: negative for bacteria Condition is deteriorating and no signs of improvement Remains critical Patient has been on Comfort care for the last few days ERYTHRODERMIC PSORIASIS/Exfoliative dermatitis Will open wounds and discharges Diagnosis made via skin biopsies per daughter. Follow up records from [facility] Appreciate Dermatology input Continue triamcinolone 0.1% ointment per dermatology Follows with Dr. Houston her primary maintenance mechanic supervisor as an outpatient Condition is getting worse Discussed with Parenting Skills Instructor-no further treatment at this time RECENT MRSA BACTEREMIA/SEPSIS-ongoing infection MRSA Conjunctivitis/Chemosis: Continue topical vancomycin 1 drop QID for 10 days Continue IV vancomycin as above Recent Blood cultures pending Antibiotics were stopped yesterday as per request from the Daughter Patient has been on comfort care only ELEVATED D-DIMER / RUE DVT CTA chest negative for PE. Venous Doppler:Small focus of nonocclusive thrombus seen within the R IJV Plan to repeat Doppler in 2 days to look for progression Discussed with family, regarding possible need for Heparin/Coumadin therapy: Requested to wait as they are leaning towards comfort measures Tachycardia ECHO: No obvious lesions . Endocarditis less likely Appreciate Ophthalmology input Artificial Tear ophthalmic ointment QID to follow the vancomycin eyedrops after 3 minutes of administration COPD O2 dependent COPD. No apparent pneumonia on CXR Continue O2, bronchodilators DM II A1C:7.2 Hold metformin ISS, Accu checks D/C ACHS blood sugar and SQ insulin NUTRITION No oral food SCHIZOPHRENIA / DELIRIUM / PTSD Long-term problems with recent worsening of confusion, agitation, hallucinations. Continue home meds Avoid narcotics Haloperidol PRN DVT PX: SQ heparin. CODE STATUS: DNR Discussed with Yong (Daughter) on : Would prefer to continue current management till Monday and planning to consider comfort measures on Monday when her elder sister would be able to come from [place]. DISPOSITION Discharge disposition to be determined. Follows with Dr. Kraus. . Discussed with the daughters including POA Will start IV medications only-Morphine and Ativan ,nebs and drops Stop all labs and dressing For comfort care only Very Poor prognosis Discussed with the daughters Vital Signs: Date Time Temp Pulse Resp B/P Pulse Ox O2 Delivery O2 Flow Rate FiO2 07/22/16 08:00 Nasal Cannula 4.0 07/22/16 02:00 Room Air 07/21/16 16:00 Room Air
--- NOTE | 2016-07-22 10:33 | Progress Note ---
Progress Note Date of Service Jul 22, 2016. Progress Note Ask to certify: O/E Pt is unresponsive No Pulse No spontaneous respiration Pupils widely dilated and fixed She is pronounced on 07/22/2016 at [address]aughters aware Dr Malinda Carrero
--- NOTE | 2016-07-22 16:01 | Discharge Summary ---
Discharge Summary Date of Service Jul 22, 2016. Discharge Summary Admission Date: Jul 17, 2016 at 16:50 Discharge Date: Jul 22, 2016 Discharge Disposition: Principal Diagnosis: Sepsis,severe erythrodermic exfoliative Psoriasis Secondary Diagnoses/Problems: Please see H&P and Hospital Progress note Consultations: ID,Pain management and Dermatology Admission Information HPI (per Admitting provider): 71 YO female followed by Dr. Kraus, History of COPD, DM, schizophrenia, PTSD, psoriasis, and other problems. She lives at [facility]. Developed a rash after course of amoxicillin / clavulanic acid about 5 weeks ago. Rash worsened with extensive erythema + desquamation. 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 Transferred to burn center at [facility] on 06/15/16. 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 Hospital course was complicated by MRSA bacteremia / sepsis, respiratory failure requiring intubation and mechanical ventilation, and other problems. Daughter reports that patient has become progressively weaker. Before present illness, she was not able to ambulate, but was able to transfer with minimal assistance. Now, she is bedridden and unable to stand or transfer. Confusion is worse than her baseline and she is interacting less with her daughter. She appears to have visual hallucinations. PEG was placed for nutritional support. PICC was placed for ongoing antibiotic therapy with IV vancomycin for MRSA sepsis She was transferred to [facility] 07/15/16 for inpatient rehab. This morning she was noted to be tachycardic and tachypneic. She was transported to the ED for evaluation. Patient unable to provide any history due to her underlying condition. Daughter is not aware of any fever, unusual cough, vomiting, diarrhea, or other specific problems. Daughter states that extensive rash has improved over the last 2 weeks. Past Medical/Surgical History Chronic and Resolved Medical Problems: (1) COPD (chronic obstructive pulmonary disease) Status: Chronic (2) Dementia Status: Chronic (3) Diabetes mellitus Status: Chronic (4) HTN (hypertension) Status: Chronic (5) Latent tuberculosis- treated Status: Chronic (6) Osteoporosis Status: Chronic (7) Parkinson disease Status: Chronic (8) Psoriatic arthritis Status: Chronic (9) PTSD (post-traumatic stress disorder) Status: Chronic (10) Schizophrenia Status: Chronic (11) Vitamin D deficiency Status: Chronic Surgical Problems: (1) History of hysterectomy Status: Chronic (2) Hx of breast implants, bilateral Status: Chronic . Family History Patient reports no known family medical history. Social History Smoking Status: Former Smoker Marital Status: single Housing status: assisted living Immunizations History of Influenza Vaccine: Yes Influenza Vaccine Date: Jan 06, 2015 History of Tetanus Vaccine?: Unknown History of Pneumococcal: Unknown History of Hepatitis B Vaccine: Unknown Multi-Drug Resistant Organisms History of MDRO: No Type of MDRO: MRSA Allergies Coded Allergies: Amoxicillin (Verified Allergy, Intermediate, RASH, 06/11/16) Nitrofurantoin (Verified Allergy, Intermediate, INCREASED SKIN REACTION, ITCHING, CHEST PAIN, WHEEZING, 05/30/16) Penicillin G (Verified Allergy, Unknown, unknown, 07/17/16) Piperacillin (Verified Allergy, Unknown, unknown, 07/17/16) Tazobactam (Verified Allergy, Unknown, unknown, 07/17/16) Rifampin (Verified Adverse Reaction, Severe, RASH, 05/30/16) as per chris and health care consultant, pt was in [facility] in 2013 for diffuse rash with skin peeling due to rifampin, was admitted in [facility] Diphenhydramine (Verified Adverse Reaction, Intermediate, ADVERSE REACTION WITH PSYCH MEDS, 05/30/16) Home Medications Scheduled Amlodipine (Norvasc), 5 MG PEG DAILY Erythromycin Opth (Erythromycin Opth), 1 APPLN OPB HS Famotidine (Pepcid), 20 MG PEG BID Metformin Hcl (Glucophage), 500 MG PEG BID Miconazole Nitrate (Topical) (Miconazole), 1 APPLN EXT BID Nystatin (Nystatin Suspension), 5 ML PO QID Risperidone (Risperdal), 2 MG PEG BID Sennosides-Docusate Sodium (Docusate Sodium/Senna), 1 TAB PEG DAILY@1200 Triamcinolone Acet (Aristocort 0.1%), 1 APPLN TOP BID Trihexyphenidyl Hcl (Artane), 2 MG PEG BID Valproic Acid Syrup (Depakene), 1,000 MG PEG HS Vancomycin Hcl In Dextrose (Vancomycin Hcl In Dextros), 1,000 MG IV Q12H Scheduled PRN Acetaminophen 320 Mg/10 Ml (Tylenol 320 MG/10 ML), 650 MG GT Q6H PRN for Pain or Fever Hydroxyzine Hcl (Atarax), 25 MG PEG TID PRN for Itching Ibuprofen (Ibu-200), 600 MG PEG QID PRN for Pain Ipratropium-Albuterol (Duoneb), 1 TREATMENT INH Q4H PRN for SOB/Wheezing Lorazepam (Ativan), 0.5 MG PEG Q6H PRN for Anxiety/Agitation Miscellaneous Medications Artificial Tear Solution (Artificial Tears), 1 DROPS OPB Review of Systems Unable to obtain due to patient's condition. . Physical Ex - H&P Physical Exam Vital Signs Date Time Temp Pulse Resp B/P Pulse Ox O2 Delivery O2 Flow Rate FiO2 07/17/16 15:14 114 24 169/123 97 Nasal Cannula 5.0 07/17/16 15:02 113 07/17/16 13:45 97 Nasal Cannula 4.0 07/17/16 13:00 112 22 139/112 97 Nasal Cannula 4.0 07/17/16 11:15 112 22 127/87 94 Nasal Cannula 4.0 07/17/16 09:30 99 20 144/96 94 Room Air 07/17/16 08:30 109 22 149/89 97 Room Air 07/17/16 08:00 106 20 155/80 94 Room Air 07/17/16 07:31 101 07/17/16 07:17 99 Nasal Cannula 4.0 07/17/16 07:17 Nasal Cannula 4.0 07/17/16 06:53 38.0 111 32 159/67 94 Nasal Cannula 4.0 07/17/16 06:53 94 Nasal Cannula 4.0 General Appearance: + moderate distress, + cachetic Head: normocephalic, atraumatic Eyes: PERRL, EOMI, + pertinent finding (conjunctival edema) ENT: + pertinent finding (exam limited; no oral lesions appreciated) Neck: supple, no adenopathy, thyroid normal, trachea midline, + JVD Respiratory/Chest: no respiratory distress, + pertinent finding (diffuse wheezing) Cardiovascular: + pertinent finding (limited exam, distant heart sounds, RRR, tachy, no murmur or gallop appreciated) Abdomen/GI: normal bowel sounds, non tender, soft, no organomegaly, + pertinent finding (PEG) Genitourinary - Female: + pertinent finding (Rodriguez cath) Extremities/Musculoskelatal: + pertinent finding (trace pretibial edema, no calf tenderness; PICC LUE) Neurologic/Psych: + pertinent finding (exam very limited (pt unable to cooperate); PERRL, EOMI; moves all 4 extr; confused, minimally verbal) Skin: + pertinent finding (generalized erythroderma with extensive desquamation ) Diagnostics - H&P Diagnostics Laboratory Results Results Past 24 Hours Test 07/17/16 07:55 07/17/16 08:00 07/17/16 08:02 07/17/16 08:03 Range/Units White Blood Count 16.49 4.8-10.8 K/uL Red Blood Count 3.33 4.2-5.4 M/uL Hemoglobin 10.2 12.0-16.0 g/dL Hematocrit 31.4 37-47 % Mean Corpuscular Volume 94.3 80-100 fL Mean Corpuscular Hemoglobin 30.6 25-34 pg Mean Corpuscular Hemoglobin Concent 32.5 32-36 g/dl Platelet Count 193 130-400 K/uL Mean Platelet Volume 9.0 7.4-10.4 fL Neutrophils (%) (Auto) 72.3 % Lymphocytes (%) (Auto) 12.9 % Monocytes (%) (Auto) 11.0 % Eosinophils (%) (Auto) 2.5 % Basophils (%) (Auto) 0.3 % Neutrophils # (Auto) 11.91 1.4-6.5 K/uL Lymphocytes # (Auto) 2.13 1.2-3.4 K/uL Monocytes # (Auto) 1.82 0.11-0.59 K/uL Eosinophils # (Auto) 0.42 0-0.5 K/uL Basophils # (Auto) 0.05 0-0.2 K/uL RDW Standard Deviation 51.8 36.4-46.3 fL RDW Coefficient of Variation 15.1 11.5-14.5 % Immature Granulocyte % (Auto) 1.0 % Immature Granulocyte # (Auto) 0.16 0.00-0.02 K/uL Prothrombin Time 11.4 9.0-12.0 SECONDS Prothromb Time International Ratio 1.1 0.9-1.1 Activated Partial Thromboplast Time 27.4 21.0-31.0 SECONDS Partial Thromboplastin Ratio 1.1 Sodium Level 142 136-145 mmol/L Potassium Level 4.3 3.5-5.1 mmol/L Chloride Level 105 98-107 mmol/L Carbon Dioxide Level 29 21-32 mmol/L Anion Gap 8.0 3-11 mmol/L Blood Urea Nitrogen 17 7-18 mg/dl Creatinine 0.58 0.60-1.20 mg/dl Est Creatinine Clear Calc Drug Dose 77.5 ml/min Estimated GFR () 109.0 Estimated GFR (Non- 94.0 BUN/Creatinine Ratio 28.6 10-20 Random Glucose 141 70-99 mg/dl Calcium Level 8.3 8.5-10.1 mg/dl Total Bilirubin 0.4 0.2-1 mg/dl Aspartate Amino Transf (AST/SGOT) 11 15-37 U/L Alanine Aminotransferase (ALT/SGPT) 13 12-78 U/L Alkaline Phosphatase 77 45-117 U/L Total Protein 6.0 6.4-8.2 gm/dl Albumin 2.4 3.4-5.0 gm/dl Globulin 3.6 2.5-4.0 gm/dl Albumin/Globulin Ratio 0.7 0.9-2 Procalcitonin < 0.05 0-0.5 ng/mL Urine Color YELLOW Urine Appearance CLEAR CLEAR Urine pH 8.5 4.5-7.5 Urine Specific Murphys 1.017 1.000-1.030 Urine Protein NEG NEG Urine Glucose (UA) NEG NEG Urine Ketones NEG NEG Urine Occult Blood NEG NEG Urine Nitrite NEG NEG Urine Bilirubin NEG NEG Urine Urobilinogen NEG NEG Urine Leukocyte Esterase SMALL NEG Urine WBC (Auto) 5-10 0-5 /hpf Urine RBC (Auto) 5-10 0-4 /hpf Urine Hyaline Casts (Auto) 1-5 0-5 /lpf Urine Epithelial Cells (Auto) 20-30 0-5 /lpf Urine Bacteria (Auto) NEG NEG Bedside D-Dimer > 450 0-450 ng/mlFEU Bedside Lactic Acid Venous 1.40 0.90-1.70 mmol/L Microbiology Results 07/17/16 Blood Culture, Received Pending 07/17/16 Blood Culture, Received Pending 07/17/16 Urine Culture, Darryl Batch Pending Diagnostic Radiology SINGLE VIEW CHEST CLINICAL HISTORY: Sepsis. FINDINGS: An AP, portable, upright chest radiograph is compared to chest x-ray and chest CT dated 06/11/2016. The examination is significantly degraded by portable technique and patient rotation. A left PICC line is in place. The cardiomediastinal silhouette is unremarkable. There is atherosclerotic calcification of the thoracic aorta. Emphysema and chronic interstitial thickening are similar to previous. No airspace consolidation or large pleural effusion is identified. No pneumothorax is seen. The skeletal structures are osteopenic. The bony thorax is grossly intact. IMPRESSION: Emphysema with no acute cardiopulmonary abnormality. Electronically signed by: Octavio Wilson M.D. 07/17/2016 9:[address] ANGIOGRAM OF THE CHEST FINDINGS: Thyroid: Mildly atrophic. Thoracic aorta: There is mild atherosclerotic calcification of the thoracic aorta, which is normal in caliber and demonstrates 4-vessel arch anatomy. 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 No dissection is seen. Pulmonary vasculature: The pulmonary trunk is normal in caliber. There are no filling defects identified in main, lobar, or proximal segmental pulmonary branches to suggest pulmonary embolus. Evaluation of the peripheral branches is degraded by expiratory motion artifact. Heart: The heart is normal in size and configuration, and without pericardial effusion. There are coronary artery calcifications. Lungs and pleural spaces: Evaluation of the lung parenchyma is degraded by respiratory motion artifact. Advanced emphysema is identified and there is biapical scarring. No airspace consolidation is seen typical for pneumonia. Trace pleural effusions are identified. Mediastinum: There are scattered subcentimeter mediastinal lymph nodes. These are not pathologically enlarged by size criteria. Naty: Clear. Axillae: Shotty axillary lymph nodes are similar to previous. Upper abdomen: Partially visualized upper abdominal viscera is within normal limits. Skeletal structures: The skeletal structures are osteopenic. Degenerative change and scoliosis are noted in the thoracic spine. No lytic or blastic bony lesions are seen. IMPRESSION: 1. Streak and motion artifact degraded examination. 2. There is no evidence of central pulmonary embolus in the main, lobar, or proximal segmental pulmonary arteries. 3. Emphysema. 4. Trace pleural effusions are identified. There is no airspace consolidation typical for pneumonia. Electronically signed by: Octavio Wilson M.D. 07/17/2016 11:29 AM . EKG EKG performed at 07:[address] at 106 / minute, low voltage QRS, RAA, no acute ST or T-wave abnormalities. . Impression - H&P Impression Assessment and Plan FEVER Recent MRSA sepsis as discussed below- still receiving IV vancomycin. Temp in ED = 38.0. WBC 16,490. No pulmonary infiltrates on chest x-ray or CT. No pulmonary embolism / infarct per CT. Has Rodriguez catheter. UA shows a few WBC's. Certainly at risk for recurrent sepsis given her ongoing dermatologic concerns. Lactate of 1.4 and procalcitonin < 0.05 argue against sepsis at this time. Blood cultures obtained. Urine culture ordered. At risk for endocarditis- check echo. Reluctant to start new antibiotics in light of her extensive rash unless a specific source of infection is verified. However, empiric antibiotic coverage may become necessary if status changes. RECENT MRSA BACTEREMIA / SEPSIS Continue IV vancomycin, duration of therapy to be clarified TACHYCARDIA / TACHYPNEA Mechanism uncertain. No apparent pneumonia or pulmonary embolism. Does not appear to be septic as discussed above. Tachycardia and tachypnea could possibly be due to anxiety, underlying schizophrenia, or discomfort. ELEVATED D-DIMER CTA chest negative for PE. Check venous duplex upper and lower extremities to rule out DVT. ERYTHRODERMIC PSORIASIS Diagnosis made via skin biopsies per daughter. Records from [facility] requested. Consult Dermatology to assist with ongoing management. COPD O2 dependent COPD. No apparent pneumonia at this time. Continue O2, bronchodilators. DM TYPE 2 Random glucose 141. Hold metformin during acute illness. Insulin coverage as needed. NUTRITION Unable to swallow safely at this time. PEG placed at [facility]. Continue enteral feedings via PEG. Consult Nutrition. SCHIZOPHRENIA / DELIRIUM / PTSD Long-term problems with recent worsening of confusion, agitation, hallucinations. Continue usual meds. Agitation probably multifactorial. Control pain, discomfort as needed. Hydroxyzine ordered for PRN use- probably best to avoid if possible. Similarly, probably best to avoid lorazepam if possible. Haloperidol PRN for delirium if patient's comfort or safety are at risk. VTE PROPHYLAXIS Unable to ambulate. High risk for VTE. SQ heparin. INCOMPLETE DATA Records from [facility] requested. RESUSCITATION STATUS Discussed with daughter who is durable POA. Copy of Living Will provided. Daughter feels that patient's quality of life has been poor and is worsening; she would not want extraordinary measures at end of life. Code status is DNR. DISPOSITION Admit to Med-Surg Unit. Discharge disposition to be determined. Medical follow-up with Dr. Kraus. . Advanced Directives Existing Living Will: Yes Existing Power of [employer] Business Segment Leader: Yes VTE Prophylaxis Risk Level: High Given or contraindicated: Unfractionated heparin SQ Additional Copies To Bertin Kraus D.O. . Physical Exam (per Admitting): General Appearance: + moderate distress, + cachetic Head: normocephalic, atraumatic Eyes: PERRL, EOMI, + pertinent finding (conjunctival edema) ENT: + pertinent finding (exam limited; no oral lesions appreciated) Neck: supple, no adenopathy, thyroid normal, trachea midline, + JVD Respiratory/Chest: no respiratory distress, + pertinent finding (diffuse wheezing) Cardiovascular: + pertinent finding (limited exam, distant heart sounds, RRR , tachy, no murmur or gallop appreciated) Abdomen/GI: normal bowel sounds, non tender, soft, no organomegaly, + pertinent finding (PEG) Genitourinary - Female: + pertinent finding (Rodriguez cath) Extremities/Musculoskelatal: + pertinent finding (trace pretibial edema, no calf tenderness; PICC LUE) Neurologic/Psych: + pertinent finding (exam very limited (pt unable to cooperate); PERRL, EOMI; moves all 4 extr; confused, minimally verbal) Skin: + pertinent finding (generalized erythroderma with extensive desquamation) Hospital Course Critically ill and has been on Comfort care Has had a long discussion with the Daughters All in agreement that she will be better off with comfort care only Dilaudid Drip started Will keep her comfortable Pain medication increased Significant issues since admission as mentioned below:: FEVER/LEUKOCYTOSIS with Ongoing infection-Sepsis Likely secondary to ongoing infection through the generalized open wounds Recent MRSA sepsis diagnosed at [facility]. ID is on Board and has been on IV Vanco and Caspofungin CT: No pulmonary infiltrates CTA: negative for PE UA: negative for bacteria Condition is deteriorating and no signs of improvement Remains critical Patient has been on Comfort care for the last few days ERYTHRODERMIC PSORIASIS/Exfoliative dermatitis Will open wounds and discharges Diagnosis made via skin biopsies per daughter. Follow up records from [facility] Appreciate Dermatology input Continue triamcinolone 0.1% ointment per dermatology Follows with Dr. Houston her primary inbound sales representative as an outpatient Condition is getting worse Discussed with Bobbin Winder Tender-no further treatment at this time RECENT MRSA BACTEREMIA/SEPSIS-ongoing infection MRSA Conjunctivitis/Chemosis: Continue topical vancomycin 1 drop QID for 10 days Continue IV vancomycin as above Recent Blood cultures pending Antibiotics were stopped yesterday as per request from the Daughter Patient has been on comfort care only ELEVATED D-DIMER / RUE DVT CTA chest negative for PE. Venous Doppler:Small focus of nonocclusive thrombus seen within the R IJV Plan to repeat Doppler in 2 days to look for progression Discussed with family, regarding possible need for Heparin/Coumadin therapy: Requested to wait as they are leaning towards comfort measures Tachycardia ECHO: No obvious lesions . Endocarditis less likely Appreciate Ophthalmology input Artificial Tear ophthalmic ointment QID to follow the vancomycin eyedrops after 3 minutes of administration COPD O2 dependent COPD. No apparent pneumonia on CXR Continue O2, bronchodilators DM II A1C:7.2 Hold metformin ISS, Accu checks D/C ACHS blood sugar and SQ insulin NUTRITION No oral food SCHIZOPHRENIA / DELIRIUM / PTSD Long-term problems with recent worsening of confusion, agitation, hallucinations. Continue home meds Avoid narcotics Haloperidol PRN DVT PX: SQ heparin. CODE STATUS: DNR Discussed with Yong (Daughter) on : Would prefer to continue current management till Monday and planning to consider comfort measures on Monday when her elder sister would be able to come from [place]. DISPOSITION Discharge disposition to be determined. Follows with Dr. Kraus. . Discussed with the daughters including POA Will start IV medications only-Morphine and Ativan ,nebs and drops Stop all labs and dressing For comfort care only Very Poor prognosis Discussed with the daughters Total time spent on discharge = 20 minutes This includes examination of the patient, discharge planning, medication reconciliation, and communication with other providers. Discharge Instructions Patient on 07/22/2016 at 1000 hours Additional Copies To Bertin Kraus D.O.
== END 2016-07-22 12:17 | disposition expired | DRG 872 ==
LOC: ENRESERVTM → ENRESERVDT → EDBD 06:44 → C.EDB 06:46 → C.4E 16:50
PROVIDERS: ADMIT Hospitalist; ATTEND Internal Medicine
DX: A41.01 Sepsis due to Methicillin susceptible Staphylococcus aureus (principal); R64 Cachexia; E11.9 Type 2 diabetes mellitus without complications; F20.9 Schizophrenia, unspecified; L40.9 Psoriasis, unspecified; Z74.01 Bed confinement status; F43.10 Post-traumatic stress disorder, unspecified; Z93.1 Gastrostomy status; Z86.14 Personal history of Methicillin resistant Staphylococcus aureus infection; E55.9 Vitamin D deficiency, unspecified; Z90.710 Acquired absence of both cervix and uterus; Z87.891 Personal history of nicotine dependence; Z88.8 Allergy status to other drugs, medicaments and biological substances; Z88.0 Allergy status to penicillin; Z79.899 Other long term (current) drug therapy; Z79.84 Long term (current) use of oral hypoglycemic drugs; Z68.24 Body mass index [BMI] 24.0-24.9, adult; Z99.81 Dependence on supplemental oxygen; Z66 Do not resuscitate; Z86.11 Personal history of tuberculosis; M81.0 Age-related osteoporosis without current pathological fracture; G20 Parkinson's disease; H10.9 Unspecified conjunctivitis; H26.9 Unspecified cataract; Z51.5 Encounter for palliative care; R65.20 Severe sepsis without septic shock; I10 Essential (primary) hypertension; J43.9 Emphysema, unspecified; F03.90 Unspecified dementia, unspecified severity, without behavioral disturbance, psychotic disturbance, mood disturbance, and anxiety